=== PATIENT | female | born 1955 ===

== ENCOUNTER 2023-06-08 20:06 | Inpatient (IN) | payer MEDICARE, SELFPAY ==
--- NOTE | ~2023-06-08 | MR_ITS ---
EXAMINATION: MR BRAIN WITHOUT AND WITH CONTRAST CLINICAL INFORMATION: Rapid cognitive decline. COMPARISON: CT head from 08/21/2023. Brain MRI from 04/23/2021. TECHNIQUE: MRI of the brain was obtained using routine sequences without and following the administration of 9 mL of Gadavist intravenous contrast. FINDINGS: Moderately motion degraded exam. No focal restricted diffusion is demonstrated to suggest acute or subacute cerebral ischemia. No evidence of acute hemorrhagic products on heme-sensitive imaging. Extensive scattered small foci of susceptibility artifact throughout the bilateral cerebral hemispheres, largely sparing the deep structures. Chronic regions of encephalomalacia in the high right frontal lobe, anterior left temporal lobe, and left occipital lobe with hemosiderin staining. Confluent periventricular, deep white matter, and brainstem T2 FLAIR hyperintensity consistent with underlying microangiopathy. Proportional prominence of the ventricles and sulcal spaces without evidence of obstructive hydrocephalus. No abnormal mass effect. No midline shift. Normal appearance of the pituitary gland. Normal positioning of the cerebellar tonsils. Normal arterial and venous vascular flow voids are present. No demonstrated abnormal contrast enhancement. Normal, homogeneous marrow signal. Mild mucosal thickening of the paranasal sinuses. Small right-sided mastoid effusion. No signal abnormalities within the mastoids. MR/MR head/brain wo/w con IMPRESSION: 1. No acute intracranial abnormalities. No demonstrated abnormal intracranial enhancement. 2. Chronic regions of encephalomalacia in the right frontal lobe, left temporal lobe, and left occipital lobe. 3. Moderate to extensive underlying microangiopathy and generalized cerebral volume loss. 4. Extensive scattered foci of susceptibility artifact throughout the bilateral cerebral hemispheres as may be seen with underlying amyloid angiopathy.
--- NOTE | ~2023-06-08 | XR_ITS ---
EXAMINATION: XR CHEST CLINICAL INFORMATION: Hypoxia COMPARISON: Chest x-ray 08/21/2023 TECHNIQUE: Frontal view of the chest was obtained. FINDINGS: Patient is tilted to the left The lungs are hypoexpanded with bibasilar haziness likely atelectasis left greater than right. Heart size is borderline enlarged. Pulmonary vascularity is normal. There is blunting of left CP angle question pleural effusion or thickening. There is moderate dorsal spine spondylosis. XR/XR chest 1V IMPRESSION: Patient tilted to the left limiting evaluation. There is bibasilar atelectasis or scarring slightly greater on the left. There is mild blunting of left CP angle from pleural effusion or thickening..
--- NOTE | ~2023-06-08 | XR_ITS ---
EXAMINATION: XR CHEST CLINICAL INFORMATION: Covid positive, worsening O2 sats COMPARISON: Chest radiograph 08/23/2023. TECHNIQUE: Frontal view of the chest was obtained. FINDINGS: Mild scattered coarse reticular opacities, likely related to chronic lung disease. No new, focal consolidation. Unchanged blunting of the left costophrenic angle. No pneumothorax. Cardiomediastinal silhouette is unchanged. XR/XR chest 1V IMPRESSION: Redemonstrated mild scattered coarse reticular opacities, likely related to chronic lung disease. No new, focal consolidation.
[2023-06-08 21:47] VITALS: BP 152/95; PULSE 90; RESP 20; TEMP 36; O2SAT 95
[2023-06-08 22:21] VITALS: BMI 39.0
--- NOTE | 2023-06-08 23:02 | PC.ADMIT ---
Pt arrived via stretcher from [facility] 06/08/23 at 2020 and signed a CV, Pt presents with Adjustment d/o. Pt was pulled over by police for running a red light and was brought to [facility] ED when they found her to be confused and disorganized. On admission, PT was A&O to person and time, thought she was at [facility], and has limited insight into her disposition. She denies HI, SI, AH, and VH. Quit smoking 30 years ago, reports limited drinking HX. Last drink 6 weeks ago. Pt knows Juan Mancini is president. She feels Sharon Adamson is the best president we ever had and supported her position sensibly and logically. She made good eye contact and was pleasant/cooperative with admission process. Pt was confused/disorganized, hyperverbal and tangential, but not intrusively so, when discussing her placement. Pt declined her HS Zyprexa. Pt seems to have some short term memory deficit. Her son (HCP) has concerns about her driving and ability to safely maintain independence at home. Medical issues: a.fib, HTN, Hx Intraparenchymal Hemorrhage 04/2021, and Vertigo.
[2023-06-09 07:00] VITALS: BMI 39.1
[2023-06-09 08:00] VITALS: BP 143/74; RESP 18; TEMP 36.8; O2SAT 95
[2023-06-09 08:06] LABS: Estimated Average Glucose 94 mg/dL; Hemoglobin A1c % 4.9 % (<6.0)
[2023-06-09 08:20] LABS: Alanine Aminotransferase 20 U/L (0-31); Albumin Level 3.8 g/dL (3.5-5.0); Alkaline Phosphatase 81 U/L (39-117); Anion Gap 13 (12-20); Aspartate Amino Transferase 20 U/L (5-31); Bilirubin Total 0.8 mg/dL (0.0-1.0); Blood Urea Nitrogen 18 mg/dL (9-16); Calcium 9.6 mg/dL (8.4-10.2); Carbon Dioxide 22 mmol/L (22-29); Chloride 108 mmol/L (96-108); Cholesterol 140 mg/dL (<200); Creatinine Clr Calc Pharmacy 87.4; Estimated Glomerular Filt Rate > 60; Glucose Fasting 109 mg/dL (60-99); HDL Cholesterol 45 mg/dL (>40); LDL Cholesterol Calculated 85 mg/dL (<100); Magnesium 2.3 mg/dL (1.6-2.6); Potassium 4.6 mmol/L (3.3-5.1); Sodium 138 mmol/L (135-145); Total Protein 6.4 g/dL (6.5-8.0); Triglycerides 52 mg/dL (<150)
[2023-06-09] MEDS: lisinopriL 5 MG TABLET PO (08:30)
[2023-06-09] MEDS: Aspirin 81 MG TAB.CHEW PO (08:30)
[2023-06-09] MEDS: Pyridoxine HCl (Vitamin B6) 50 MG TABLET PO (08:30)
[2023-06-09 08:35] LABS: Thyroid Stimulating Hormone 4.31 uIU/mL (0.32-4.0)
[2023-06-09 08:47] LABS: Folate 6.1 ng/mL (> or = 4.0); Vitamin B12 653 pg/mL (200-900)
--- NOTE | 2023-06-09 09:45 | HO.PSYADMNOT ---
HPI Date of Service: 06/09/23 Chief Complaint: Adjustment disorders Sources of Information: patient interviewed, chart reviewed and crisis/core team assessment reviewed HPI Subjective Notes: Smith Warning (given and shows understanding) and Conditional Voluntary Narrative: Mrs. Quintanilla us a 68 year-old woman with hx of afib (hx of intraparenchymal hemorrhage only on aspirin can't take eliquis) who was brought to [facility] ED after she was stopped by police for running a red light and found to be confused, non sensical. In the ED, pt was positive for covid. She was medically admitted and started on 3 day course of Remdesivir. No significant symptoms of covid nor complications. [facility] completed MOCA- pt scored 8/30. Pt was started on olanzapine 5mg po qhs at [facility]. On the unit, pt presents as hyperverbal. She is frustrated that the police brought her to that place. She reports she believes this is financially motivated as there is nothing wrong with me. She is not oriented to place and at times reports thinks this is a hotel. She reports she works in real [employer] and is making close to millions. She states she has to go back home due to work. She can't remember the address of her house. She does not know the month or the year. She denies SI/HI. She reports she plans to gray everyone involved, I am already working with 10 attorneys. 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 Substance History: Hx of alcohol use Trauma History: none disclosed Diagnostics Vital Signs (24Hr): Vital Signs - 24 hr 06/08/23 21:47 Temperature 96.8 F Pulse Rate 90 Respiratory Rate 20 Blood Pressure 152/95 H Pulse Oximetry 95 Oxygen Delivery Method Room Air BMI result Body Mass Index 39.0 Labs 06/09/23 07:49 Labs: Laboratory Results - last 48 hr 06/09/23 07:49 Sodium 138 Potassium 4.6 Chloride 108 Carbon Dioxide 22 Anion Gap 13 BUN 18 H Creatinine 0.65 Estim Creat Clear Calc 87.4 Estimated GFR > 60 Fasting Glucose 109 H Estimat Average Glucose 94 Hemoglobin A1c % 4.9 Calcium 9.6 Magnesium 2.3 Total Bilirubin 0.8 AST 20 ALT 20 Alkaline Phosphatase 81 Total Protein 6.4 L Albumin 3.8 Triglycerides 52 Cholesterol 140 LDL Cholesterol, Calc 85 HDL Cholesterol 45 Vitamin B12 653 Folate 6.1 TSH 4.31 H Free T4 0.90 Meds/Allergies Meds Home Medications Medication Instructions Recorded Confirmed Type aspirin 81 mg capsule 81 mg PO DAILY 06/08/23 06/08/23 History lisinopril 5 mg tablet 5 mg PO DAILY 06/08/23 06/08/23 History melatonin 5 mg tablet 5 mg PO BEDTIME PRN Sleep 06/08/23 06/08/23 History olanzapine 5 mg disintegrating 5 mg PO BEDTIME 06/08/23 06/08/23 History tablet olanzapine 5 mg disintegrating 5 mg PO Q4H PRN Sole 06/08/23 06/08/23 History tablet pyridoxine (vitamin B6) 50 mg 50 mg PO DAILY 06/08/23 06/08/23 History tablet Allergies Allergies Allergy/AdvReac Type Severity Reaction Status Date / Time No Known Allergies Allergy Verified 06/08/23 20:39 Mental Status Exam Mental Status Exam Narrative: Appearance: wearing casual clothing, good hygiene, in NAD Behavior: cooperative, at times suspicious Psychomotor: no agitation or retardation noted Speech: mostly clear, hyperverbal, not pressured, regular tone, spontaneous TP: circumstantial, at times derailed TC: preoccupied with making thousands, no insight into behavior changes or cognitive impairments, suspicious about why police brought her to hospital which she thinks is financially motivated. Mood: good Affect: expansive SI: denies HI: denies VH/AH: no overt signs Delusions: some grandiose with idea of being able to make millions when in fact not able to work as she used to, some suspiciousness and paranoia towards anyone who challenges her cognitive impairments or independence. Insight/judgment: impaired x 2. Memory/cog: alert, not oriented to situation, month, or year. MOCA 04/13. ACL 3.2- severe cognitive impairment. Assessment & Plan Assessment & Plan (1) Major 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 Quintanilla is a 68 year-old woman with hx of hemorrhagic stroke back in 05/2021 on right side frontal lobe- progressive decline in cognition and memory and personality changes including impulsive behaviors, preoccupation with money, unable manage finances difficulty recognizing use of common objects and not oriented to month or year or place. Her head CT also shows periventricular microvascular changes probably that preceded the CVA in 2020 but most of her impairments seemed to be related to legion on right frontal side of the brain. Her son is her HCP. Pt does not show capacity to make medical decisions at this time. Cognitive impairments not expected to improve nor her ability to make medical decisions. PLAN 1. Admit to S1, CV and 15 minutes checks for safety 2. Discussed with son, as HCP and pt depakote for impulsive, explosive behaviors, some of the grandiose ideas related to money. No signs of psychosis. No insight into extend of cognitive impairment and impaired ability to care for herself. 3. Obtained collateral information from her son- Yamil. 4. Aftercare planning. Patient educated on: diagnosis and medication risk/benefits Reason for continued inpatient stay Substantial Risk for: inability to function Statement Statement: I have reviewed the history and physical and performed a pertinent examination on my patient. No changes have occurred unless specified. If the History and Physical was not performed prior to admission, the Hospitalist's service will be consulted for completing the admission physical. Time Spent With Patient Time: Total time managing care of this patient today ____ minutes.
--- NOTE | 2023-06-09 11:35 | P.CONHOSP_ITS ---
History of Present Illness Data of Consult Service Date: 06/09/23 Primary Care Provider: Unknown Physician HPI Reason for consult: Admission H&P Pt is a 68-year-old female with a PMH significant for?HTN and dementia who is admitted to [facility] after being found running red lights and being confused after she was pulled over. Pt has apparently had worsening cognition over the past 10 months with increasing OCD and sundowning behaviors. Pt has been noncompliant with home meds and son has found it increasingly difficult to take care of his mother. Medical consult for admission H&P. Pt is incapable of providing accure HPI. State she is healthy as a horse but notes her right knee is sometimes bothersome , though denies any pain in the area. Pt otherwise denies any acute medical concerns. Review of Systems 2 Review of Systems: Unable to obtain d/t pt's mentation [facility] Medical History Hypertension Atrial fibrillation Social History Household Members: None Housing: House Do you presently have visiting nurse or other home services: No Patient Tobacco Use Status: Former Tobacco user Tobacco use type: Cigarette Cigarettes Per Day: 20 Years Smoked: 30 Smoked in Last 30 Days: No e-Cigarette/Vaping Use: Never Used Patient Interested in Nicotine Replacement: No Patient Given Instructions on How to Stop Smoking: No Use of substances other than those prescribed or required for medical reasons: No Currently Displaying Signs/Symptoms of Drug Intoxication Withdrawal: No Any prior treatment program specific to substance use: No Have you been hit, kicked, punched, or otherwise hurt by someone within the past year? If so, by whom?: No Do you feel safe in your current relationship?: Yes Is there a partner from a previous relationship who is making you feel unsafe now?: No Are you made to feel afraid or neglected: No Spiritual Healthcare Practices: Likes sister Kirsty Advance Directives: No Advance Directives Information Provided: No Do you have thoughts of harming others: None Do you have a plan to hurt others: No Plan Recently lost weight without trying: No Eating poorly because of decreased appetite: No Nutrition Risks: No Nutritional Risk Patient : No : No Poor oral hygiene: No service: No Sexual orientation: Straight/Heterosexual Meds Allergies Allergy/AdvReac Type Severity Reaction Status Date / Time No Known Allergies Allergy Verified 06/08/23 20:39 Active Medications: Current Medications Acetaminophen (Acetaminophen 325 Mg Tablet) 650 mg PO Q6H PRN PRN Reason: Headache/Pain Mild Scale (1-3) Al Hydroxide/Mg Hydroxide (Magnesium Hydrox/Alum Hydrox 30 Ml Oral.Susp) 30 ml PO Q6H PRN PRN Reason: Heartburn/Nausea Aspirin (Aspirin 81 Mg Tab.Chew) 81 mg PO DAILY [facility] Last Admin: 06/09/23 08:30 Dose: 81 mg Hydroxyzine HCl (Hydroxyzine Hcl 25 Mg Tablet) 25 mg PO Q6H PRN PRN Reason: Anxiety Lisinopril (Lisinopril 5 Mg Tablet) 5 mg PO DAILY [facility]; Protocol Last Admin: 06/09/23 08:30 Dose: 5 mg Magnesium Hydroxide (Milk Of Magnesia 30 Ml Oral.Susp) 30 ml PO DAILY PRN PRN Reason: Constipation Melatonin (Melatonin 3 Mg Tablet) 6 mg PO BEDTIME PRN PRN Reason: Sleep Olanzapine (Olanzapine 5 Mg Tablet) 5 mg PO BEDTIME [facility] Last Admin: 06/08/23 22:32 Dose: Not Given Olanzapine (Olanzapine 5 Mg Tablet) 5 mg PO Q4H PRN PRN Reason: agitation Pyridoxine HCl (Pyridoxine Hcl (Vitamin B6) 50 Mg Tablet) 50 mg PO DAILY [facility] Last Admin: 06/09/23 08:30 Dose: 50 mg Trazodone HCl (Trazodone Hcl 50 Mg Tablet) 50 mg PO BEDTIME MRX1 PRN PRN Reason: Insomnia Home Medications Medication Instructions Recorded Confirmed Last Taken Type aspirin 81 mg capsule 81 mg PO DAILY 06/08/23 06/08/23 06/07/23 22:40 History lisinopril 5 mg tablet 5 mg PO DAILY 06/08/23 06/08/23 06/07/23 22:40 History melatonin 5 mg tablet 5 mg PO BEDTIME PRN Sleep 06/08/23 06/08/23 06/07/23 20:15 History olanzapine 5 mg disintegrating 5 mg PO BEDTIME 06/08/23 06/08/23 Unknown History tablet olanzapine 5 mg disintegrating 5 mg PO Q4H PRN Sole 06/08/23 06/08/23 Unknown History tablet pyridoxine (vitamin B6) 50 mg 50 mg PO DAILY 06/08/23 06/08/23 06/07/23 22:40 History tablet Physical Exam 2 Vital Signs and Narrative: Vital Signs: Last Vital Signs Temp 98.3 F 06/09/23 08:00 Pulse 90 06/08/23 21:47 Resp 18 06/09/23 08:00 BP 143/74 H 06/09/23 08:00 Pulse Ox 95 06/09/23 08:00 O2 Del Method Room Air 06/09/23 08:00 BMI result Body Mass Index 39.1 Constitutional: Alert, pleasantly confused, cooperative, in no acute distress. Mental Status: Oriented to person only, not to place, time, or situation. Eyes: Pupils are equal, round, and reactive to light. Ear, Nose, and Throat: Oropharynx clear, mucous membranes moist. Ears and nose without deformities. Trachea midline. Respiratory: Clear to auscultation bilaterally. No wheezing, rales, or rhonchi. Cardiovascular: S1, S2 regular. No murmurs, rubs, or gallops. Gastrointestinal: Abdomen soft, non-tender, non-distended. Normal bowel sounds. Neurologic: Cranial nerves II-XII are grossly intact bilaterally. No focal neurological deficits. Moves all extremities spontaneously. Skin: No rashes or lesions noted. Musculoskeletal: No cyanosis or clubbing. Extremities: No edema. Results Labs 06/09/23 07:49 Labs: Laboratory Results - last 24 hr 06/09/23 07:49 Anion Gap 13 Estim Creat Clear Calc 87.4 Estimated GFR > 60 Fasting Glucose 109 H Estimat Average Glucose 94 Hemoglobin A1c % 4.9 Calcium 9.6 Magnesium 2.3 Total Bilirubin 0.8 AST 20 ALT 20 Alkaline Phosphatase 81 Total Protein 6.4 L Albumin 3.8 Triglycerides 52 Cholesterol 140 LDL Cholesterol, Calc 85 HDL Cholesterol 45 Vitamin B12 653 Folate 6.1 TSH 4.31 H Free T4 0.90 Assessment and Plan (1) Medical clearance for psychiatric admission: Status: Acute Plan Pt is a 68-year-old female with a PMH significant for?HTN and dementia who is admitted to [facility] after being found running red lights and being confused after she was pulled over. Pt has apparently had worsening cognition over the past 10 months with increasing OCD and sundowning behaviors. Pt has been noncompliant with home meds and son has found it increasingly difficult to take care of his mother. Medical consult for admission H&P. Mood disorder Plan as per psychiatry Cognitive decline Pt has apparently been declining for past 10 months Plan as per psychiatry HTN Continue lisinopril Thank you for allowing us to participate in the care of this patient. Signing off at this time. Please let us know if there are any acute complaints or questions. Time Spent With Patient Time: Total time managing care of this patient today ____ minutes.
[2023-06-09 18:00] VITALS: BP 132/77; PULSE 80; RESP 16; TEMP 36.3; O2SAT 97
[2023-06-09] MEDS: OLANZapine 5 MG TABLET PO (21:34)
[2023-06-09] MEDS: hydrOXYzine HCL 25 MG TABLET PO (21:34)
[2023-06-10] MEDS: lisinopriL 5 MG TABLET PO (08:17)
[2023-06-10] MEDS: Aspirin 81 MG TAB.CHEW PO (08:17)
[2023-06-10 18:00] VITALS: BP 135/92; PULSE 100; RESP 20; TEMP 36.6; O2SAT 96
--- NOTE | 2023-06-10 21:56 | P.PNPSI_ITS ---
Subjective Subjective Date of Service: 06/10/23 Reason For Visit: Adjustment disorders Subjective Notes: Conditional Voluntary Interim History: Pt slept through the night. Pt decline taking depakote. Pt reports is inhumane that she is kept here when police only wants money. Pt explained that after stroke she has had severe cognitive impairments. Pt states I did not have a stroke, never, that's a lie my sister is telling my son. When discussing that head imaging shows hx of stroke, she continues to report that she is fine. 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 ACL completed- 3.2 showing severe cognitive impairment. Review of Systems Review of Systems No SOB No chest pain No constipation or diarrhea Mental Status Exam Mental Status Exam Narrative: Appearance: wearing casual clothing, good hygiene, in NAD Behavior: cooperative, at times suspicious Psychomotor: no agitation or retardation noted Speech: mostly clear, hyperverbal, not pressured, regular tone, spontaneous TP: circumstantial, at times derailed TC: preoccupied with making thousands, no insight into behavior changes or cognitive impairments, suspicious about why police brought her to hospital which she thinks is financially motivated. Mood: good Affect: expansive SI: denies HI: denies VH/AH: no overt signs Delusions: some grandiose with idea of being able to make millions when in fact not able to work as she used to, some suspiciousness and paranoia towards anyone who challenges her cognitive impairments or independence. Insight/judgment: impaired x 2. Memory/cog: alert, not oriented to situation, month, or year. MOCA 04/13. ACL 3.2- severe cognitive impairment. Diagnostics Vital Signs (24Hr): BMI result Body Mass Index 39.1 Labs 06/09/23 07:49 Labs: Laboratory Results - last 48 hr 06/09/23 07:49 Sodium 138 Potassium 4.6 Chloride 108 Carbon Dioxide 22 Anion Gap 13 BUN 18 H Creatinine 0.65 Estim Creat Clear Calc 87.4 Estimated GFR > 60 Fasting Glucose 109 H Estimat Average Glucose 94 Hemoglobin A1c % 4.9 Calcium 9.6 Magnesium 2.3 Total Bilirubin 0.8 AST 20 ALT 20 Alkaline Phosphatase 81 Total Protein 6.4 L Albumin 3.8 Triglycerides 52 Cholesterol 140 LDL Cholesterol, Calc 85 HDL Cholesterol 45 Vitamin B12 653 Folate 6.1 TSH 4.31 H Free T4 0.90 Medications Medications Current Medications Acetaminophen (Acetaminophen 325 Mg Tablet) 650 mg PO Q6H PRN PRN Reason: Headache/Pain Mild Scale (1-3) Al Hydroxide/Mg Hydroxide (Magnesium Hydrox/Alum Hydrox 30 Ml Oral.Susp) 30 ml PO Q6H PRN PRN Reason: Heartburn/Nausea Aspirin (Aspirin 81 Mg Tab.Chew) 81 mg PO DAILY ON LICENSE OF [facility] Last Admin: 06/10/23 08:17 Dose: 81 mg Divalproex Sodium (Divalproex Sodium 250 Mg Tablet.Dr) 250 mg PO BID ON LICENSE OF [facility] Last Admin: 06/10/23 20:06 Dose: Not Given Hydroxyzine HCl (Hydroxyzine Hcl 25 Mg Tablet) 25 mg PO Q6H PRN PRN Reason: Anxiety Last Admin: 06/09/23 21:34 Dose: 25 mg Lisinopril (Lisinopril 5 Mg Tablet) 5 mg PO DAILY ON LICENSE OF [facility]; Protocol Last Admin: 06/10/23 08:17 Dose: 5 mg Magnesium Hydroxide (Milk Of Magnesia 30 Ml Oral.Susp) 30 ml PO DAILY PRN PRN Reason: Constipation Melatonin (Melatonin 3 Mg Tablet) 6 mg PO BEDTIME PRN PRN Reason: Sleep Olanzapine (Olanzapine 5 Mg Tablet) 5 mg PO BEDTIME ON LICENSE OF [facility] Last Admin: 06/10/23 20:07 Dose: Not Given Olanzapine (Olanzapine 5 Mg Tablet) 5 mg PO Q4H PRN PRN Reason: agitation Pyridoxine HCl (Pyridoxine Hcl (Vitamin B6) 50 Mg Tablet) 50 mg PO DAILY ON LICENSE OF [facility] Last Admin: 06/10/23 08:19 Dose: Not Given Trazodone HCl (Trazodone Hcl 50 Mg Tablet) 50 mg PO BEDTIME MRX1 PRN PRN Reason: Insomnia Allergies Allergies Allergy/AdvReac Type Severity Reaction Status Date / Time No Known Allergies Allergy Verified 06/08/23 20:39 Assessment & Plan Assessment & Plan (1) Major 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 Quintanilla is a 68 year-old woman with hx of hemorrhagic stroke back in 05/2021 with significant lesion on right frontal lobe. Cognitive and personality changes after that with progression in the past 10 months. MOCA is 04/13. Significant impairments in impulsivity, rational thinking, ability to manage finances, preoccupied with money, impaired orientation. PLAN 1. admit to S1, cv, 15 minutes. HCP invoked. 2. continue depakote, although pt declining. 3. aftercare planning- family meeting on 06/13/23. Reason for continued inpatient stay Substantial Risk for: inability to function Time Spent With Patient Time: Total time managing care of this patient today ____ minutes.
[2023-06-11] MEDS: Aspirin 81 MG TAB.CHEW PO (08:25)
[2023-06-11] MEDS: Divalproex Sodium 250 MG TABLET.DR PO (08:25)
[2023-06-11] MEDS: lisinopriL 5 MG TABLET PO (08:25)
[2023-06-11] MEDS: Pyridoxine HCl (Vitamin B6) 50 MG TABLET PO (08:25)
--- NOTE | 2023-06-11 12:06 | HO.PSYCHPN ---
Subjective Subjective Date of Service: 06/11/23 Reason For Visit: Adjustment disorders Subjective Notes: Conditional Voluntary Interim History: Patient was seen and discussed in rounds today. Records and plans were reviewed. She has been taking medications with a lot of encouragement. Refused vital signs. She continues to be suspicious. She took her medications this morning. No complaints or side effects. No changes were made Medication Compliance: Intermittent Side effects from medications: No Attending Groups: Intermittent Review of Systems Review of Systems Yes all other systems are reviewed and are negative Mental Status Exam Mental Status Exam Narrative: In today's visit she is alert, oriented to place and person. Speech is normal. Good eye contact. Affect is appropriate and varied. No signs of acute psychosis. Some paranoia present. Cognitively is impaired. Thought processes are linear and goal directed but somewhat tangential and circumstantial. No SI. Judgment is impaired. Diagnostics Vital Signs (24Hr): Vital Signs - 24 hr 06/10/23 18:00 Temperature 97.8 F Pulse Rate 100 Respiratory Rate 20 Blood Pressure 135/92 H Pulse Oximetry 96 Oxygen Delivery Method Room Air BMI result Body Mass Index 39.1 Labs 06/09/23 07:49 Medications Medications Current Medications Acetaminophen (Acetaminophen 325 Mg Tablet) 650 mg PO Q6H PRN PRN Reason: Headache/Pain Mild Scale (1-3) Al Hydroxide/Mg Hydroxide (Magnesium Hydrox/Alum Hydrox 30 Ml Oral.Susp) 30 ml PO Q6H PRN PRN Reason: Heartburn/Nausea Aspirin (Aspirin 81 Mg Tab.Chew) 81 mg PO DAILY [facility] Last Admin: 06/11/23 08:25 Dose: 81 mg Divalproex Sodium (Divalproex Sodium 250 Mg Tablet.) 250 mg PO BID [facility] Last Admin: 06/11/23 08:25 Dose: 250 mg Hydroxyzine HCl (Hydroxyzine Hcl 25 Mg Tablet) 25 mg PO Q6H PRN PRN Reason: Anxiety Last Admin: 06/09/23 21:34 Dose: 25 mg Lisinopril (Lisinopril 5 Mg Tablet) 5 mg PO DAILY [facility]; Protocol Last Admin: 06/11/23 08:25 Dose: 5 mg Magnesium Hydroxide (Milk Of Magnesia 30 Ml Oral.Susp) 30 ml PO DAILY PRN PRN Reason: Constipation Melatonin (Melatonin 3 Mg Tablet) 6 mg PO BEDTIME PRN PRN Reason: Sleep Olanzapine (Olanzapine 5 Mg Tablet) 5 mg PO BEDTIME [facility] Last Admin: 06/10/23 20:07 Dose: Not Given Olanzapine (Olanzapine 5 Mg Tablet) 5 mg PO Q4H PRN PRN Reason: agitation Pyridoxine HCl (Pyridoxine Hcl (Vitamin B6) 50 Mg Tablet) 50 mg PO DAILY [facility] Last Admin: 06/11/23 08:25 Dose: 50 mg Trazodone HCl (Trazodone Hcl 50 Mg Tablet) 50 mg PO BEDTIME MRX1 PRN PRN Reason: Insomnia Allergies Allergies Allergy/AdvReac Type Severity Reaction Status Date / Time No Known Allergies Allergy Verified 06/08/23 20:39 Assessment & Plan Assessment & Plan (1) Major 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 Quintanilla is a 68 year-old woman with hx of hemorrhagic stroke back in 05/2021 with significant lesion on right frontal lobe. Cognitive and personality changes after that with progression in the past 10 months. MOCA is 8/30. Significant impairments in impulsivity, rational thinking, ability to manage finances, preoccupied with money, impaired orientation. PLAN 1. admit to S1, cv, 15 minutes. HCP invoked. 2. continue depakote, although pt declining. 3. aftercare planning- family meeting on 06/13/23. 06/11: Continue current regimen and plans Reason for continued inpatient stay Substantial Risk for: med/psych decompensation Time Spent With Patient Time: Total time managing care of this patient today ____ minutes.
[2023-06-11] MEDS: OLANZapine 5 MG TABLET PO (17:46)
[2023-06-11] MEDS: hydrOXYzine HCL 25 MG TABLET PO (17:46)
[2023-06-11 18:00] VITALS: BP 150/80; PULSE 94; RESP 16; TEMP 37.3; O2SAT 95
[2023-06-11] MEDS: LORazepam 1 MG TABLET 2 MG PO (20:36)
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
--- NOTE | 2023-06-12 10:15 | P.PNPSI_ITS ---
Subjective Subjective Date of Service: 06/12/23 Reason For Visit: Adjustment disorders Subjective Notes: Conditional Voluntary Interim History: Patient was seen and discussed in rounds today. Records and plans were reviewed. She continues to be somewhat paranoid. Taking medications with encouragement. She was awake till 02:00 and than a 2 mg dose of Ativan was very helpful and she slept all night after that. No complaints or side effects. Intermittently cooperative with care. No changes were made today Medication Compliance: Intermittent Side effects from medications: No Attending Groups: Intermittent Review of Systems Review of Systems Yes all other systems are reviewed and are negative Mental Status Exam Mental Status Exam Narrative: In today's visit she is alert, oriented to place and person. Speech is normal. Good eye contact. Affect is appropriate and varied. No signs of acute psychosis. Some paranoia present. Cognitively is impaired. Thought processes are linear and goal directed but somewhat tangential and circumstantial. No SI. Judgment is impaired. Diagnostics Vital Signs (24Hr): Vital Signs - 24 hr 06/11/23 18:00 Temperature 99.2 F Pulse Rate 94 Respiratory Rate 16 Blood Pressure 150/80 H Pulse Oximetry 95 Oxygen Delivery Method Room Air BMI result Body Mass Index 39.1 Labs 06/09/23 07:49 Medications Medications Current Medications Acetaminophen (Acetaminophen 325 Mg Tablet) 650 mg PO Q6H PRN PRN Reason: Headache/Pain Mild Scale (1-3) Al Hydroxide/Mg Hydroxide (Magnesium Hydrox/Alum Hydrox 30 Ml Oral.Susp) 30 ml PO Q6H PRN PRN Reason: Heartburn/Nausea Aspirin (Aspirin 81 Mg Tab.Chew) 81 mg PO DAILY [facility] Last Admin: 06/11/23 08:25 Dose: 81 mg Divalproex Sodium (Divalproex Sodium 250 Mg Tablet.Dr) 250 mg PO BID [facility] Last Admin: 06/11/23 20:39 Dose: Not Given Hydroxyzine HCl (Hydroxyzine Hcl 25 Mg Tablet) 25 mg PO Q6H PRN PRN Reason: Anxiety Last Admin: 06/11/23 17:46 Dose: 25 mg Lisinopril (Lisinopril 5 Mg Tablet) 5 mg PO DAILY [facility]; Protocol Last Admin: 06/11/23 08:25 Dose: 5 mg Magnesium Hydroxide (Milk Of Magnesia 30 Ml Oral.Susp) 30 ml PO DAILY PRN PRN Reason: Constipation Melatonin (Melatonin 3 Mg Tablet) 6 mg PO BEDTIME PRN PRN Reason: Sleep Olanzapine (Olanzapine 5 Mg Tablet) 5 mg PO BEDTIME [facility] Last Admin: 06/11/23 20:39 Dose: Not Given Olanzapine (Olanzapine 5 Mg Tablet) 5 mg PO Q4H PRN PRN Reason: agitation Last Admin: 06/11/23 17:46 Dose: 5 mg Pyridoxine HCl (Pyridoxine Hcl (Vitamin B6) 50 Mg Tablet) 50 mg PO DAILY [facility] Last Admin: 06/11/23 08:25 Dose: 50 mg Trazodone HCl (Trazodone Hcl 50 Mg Tablet) 50 mg PO BEDTIME MRX1 PRN PRN Reason: Insomnia Allergies Allergies Allergy/AdvReac Type Severity Reaction Status Date / Time No Known Allergies Allergy Verified 06/08/23 20:39 Assessment & Plan Assessment & Plan (1) Major 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 Quintanilla is a 68 year-old woman with hx of hemorrhagic stroke back in 05/2021 with significant lesion on right frontal lobe. Cognitive and personality changes after that with progression in the past 10 months. MOCA is 8/30. Significant impairments in impulsivity, rational thinking, ability to manage finances, preoccupied with money, impaired orientation. PLAN 1. admit to S1, cv, 15 minutes. HCP invoked. 2. continue depakote, although pt declining. 3. aftercare planning- family meeting on 06/13/23. 06/11: Continue current regimen and plans 06/12: Continue current plans and regimen Reason for continued inpatient stay Substantial Risk for: med/psych decompensation Time Spent With Patient Time: Total time managing care of this patient today ____ minutes.
[2023-06-12] MEDS: hydrOXYzine HCL 25 MG TABLET PO (14:34)
[2023-06-12] MEDS: OLANZapine 5 MG TABLET PO (14:34)
[2023-06-12] MEDS: Divalproex Sodium 250 MG TABLET.DR PO (21:38)
[2023-06-12] MEDS: traZODone HCL 50 MG TABLET PO (21:38)
[2023-06-13] MEDS: OLANZapine 5 MG TABLET PO ×3 (00:36→20:59)
[2023-06-13] MEDS: Melatonin 3 MG TABLET 6 MG PO (02:31)
[2023-06-13] MEDS: hydrOXYzine HCL 25 MG TABLET PO (02:31)
[2023-06-13 08:00] VITALS: BP 143/80; PULSE 69; RESP 18; TEMP 36; O2SAT 97
[2023-06-13] MEDS: Aspirin 81 MG TAB.CHEW PO (08:40)
[2023-06-13] MEDS: Pyridoxine HCl (Vitamin B6) 50 MG TABLET PO (08:40)
[2023-06-13] MEDS: Divalproex Sodium 250 MG TABLET.DR PO (08:40)
[2023-06-13] MEDS: lisinopriL 5 MG TABLET PO (08:40)
--- NOTE | 2023-06-13 08:55 | HO.PSYCHPN ---
Subjective Subjective Date of Service: 06/13/23 Reason For Visit: Adjustment disorders Healthcare Proxy: Yes (invoked. 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 She denies SI/HI. She is not oriented to place or situation. She socializes with select peers. She is very guarded with staff. She does not remember role of this television script writer asking to speak with the doctor. Family meeting with son- reviewed severe cognitive impairments and inability to live by herself. Pt started taking depakote. No other behavioral concerns. Mental Status Exam Mental Status Exam Narrative: Appearance: wearing casual clothing, good hygiene, in NAD Behavior: cooperative, at times suspicious Psychomotor: no agitation or retardation noted Speech: mostly clear, hyperverbal, not pressured, regular tone, spontaneous TP: circumstantial, at times derailed TC: preoccupied with making thousands, no insight into behavior changes or cognitive impairments, suspicious about why police brought her to hospital which she thinks is financially motivated. Mood: good Affect: expansive SI: denies HI: denies VH/AH: no overt signs Delusions: some grandiose with idea of being able to make millions when in fact not able to work as she used to, some suspiciousness and paranoia towards anyone who challenges her cognitive impairments or independence. Insight/judgment: impaired x 2. Memory/cog: alert, not oriented to situation, month, or year. MOCA 04/13. ACL 3.2- severe cognitive impairment. Diagnostics Vital Signs (24Hr): Vital Signs - 24 hr 06/13/23 08:00 Temperature 96.8 F Pulse Rate 69 Respiratory Rate 18 Blood Pressure 143/80 H Pulse Oximetry 97 Oxygen Delivery Method Room Air BMI result Body Mass Index 39.1 Labs 06/09/23 07:49 Medications Medications Current Medications Acetaminophen (Acetaminophen 325 Mg Tablet) 650 mg PO Q6H PRN PRN Reason: Headache/Pain Mild Scale (1-3) Al Hydroxide/Mg Hydroxide (Magnesium Hydrox/Alum Hydrox 30 Ml Oral.Susp) 30 ml PO Q6H PRN PRN Reason: Heartburn/Nausea Aspirin (Aspirin 81 Mg Tab.Chew) 81 mg PO DAILY [facility] Last Admin: 06/13/23 08:40 Dose: 81 mg Divalproex Sodium (Divalproex Sodium 250 Mg Tablet.Dr) 250 mg PO BID [facility] Last Admin: 06/13/23 08:40 Dose: 250 mg Hydroxyzine HCl (Hydroxyzine Hcl 25 Mg Tablet) 25 mg PO Q6H PRN PRN Reason: Anxiety Last Admin: 06/13/23 02:31 Dose: 25 mg Lisinopril (Lisinopril 5 Mg Tablet) 5 mg PO DAILY [facility]; Protocol Last Admin: 06/13/23 08:40 Dose: 5 mg Magnesium Hydroxide (Milk Of Magnesia 30 Ml Oral.Susp) 30 ml PO DAILY PRN PRN Reason: Constipation Melatonin (Melatonin 3 Mg Tablet) 6 mg PO BEDTIME PRN PRN Reason: Sleep Last Admin: 06/13/23 02:31 Dose: 6 mg Olanzapine (Olanzapine 5 Mg Tablet) 5 mg PO BEDTIME [facility] Last Admin: 06/13/23 00:36 Dose: 5 mg Olanzapine (Olanzapine 5 Mg Tablet) 5 mg PO Q4H PRN PRN Reason: agitation Last Admin: 06/13/23 02:31 Dose: 5 mg Pyridoxine HCl (Pyridoxine Hcl (Vitamin B6) 50 Mg Tablet) 50 mg PO DAILY [facility] Last Admin: 06/13/23 08:40 Dose: 50 mg Trazodone HCl (Trazodone Hcl 50 Mg Tablet) 50 mg PO BEDTIME MRX1 PRN PRN Reason: Insomnia Last Admin: 06/12/23 21:38 Dose: 50 mg Allergies Allergies Allergy/AdvReac Type Severity Reaction Status Date / Time No Known Allergies Allergy Verified 06/08/23 20:39 Assessment & Plan Assessment & Plan (1) Major 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 Quintanilla is a 68 year-old woman with hx of hemorrhagic stroke back in 05/2021 with significant lesion on right frontal lobe. Cognitive and personality changes after that with progression in the past 10 months. MOCA is 830. Significant impairments in impulsivity, rational thinking, ability to manage finances, preoccupied with money, impaired orientation. PLAN 06/11: Continue current regimen and plans 06/12: Continue current plans and regimen 06/13 increase depakote to 500mg po BID. Reason for continued inpatient stay Substantial Risk for: inability to function Time Spent With Patient Time: Total time managing care of this patient today ____ minutes.
[2023-06-13 18:00] VITALS: BP 161/79; PULSE 66; RESP 20; TEMP 35.9; O2SAT 97
[2023-06-13] MEDS: Divalproex Sodium 500 MG TABLET.DR PO (21:00)
[2023-06-14] MEDS: Divalproex Sodium 500 MG TABLET.DR PO ×2 (08:22→19:59)
[2023-06-14] MEDS: Pyridoxine HCl (Vitamin B6) 50 MG TABLET PO (08:22)
[2023-06-14] MEDS: lisinopriL 5 MG TABLET PO (08:22)
[2023-06-14] MEDS: Aspirin 81 MG TAB.CHEW PO (08:22)
[2023-06-14] MEDS: OLANZapine 5 MG TABLET PO ×2 (10:32→20:01)
[2023-06-14] MEDS: hydrOXYzine HCL 25 MG TABLET PO (10:32)
--- NOTE | 2023-06-14 17:54 | P.PNPSI_ITS ---
Subjective Subjective Date of Service: 06/14/23 Reason For Visit: Adjustment disorders Subjective Notes: Conditional Voluntary Healthcare Proxy: Yes (invoked) Interim History: Pt visible on the unit, social with select peers, asking to leave. She declined taking with this scientific writer states you're only 10 She is not oriented to situation, place, month or year. No physical concerns. VS stable. taking medications more consistently with encouragement. Medication Compliance: Intermittent Review of Systems Review of Systems No SOB No chest pain No constipation or diarrhea Yes all other systems are reviewed and are negative Mental Status Exam Mental Status Exam Narrative: Appearance: wearing casual clothing, good hygiene, in NAD Behavior: cooperative, at times suspicious Psychomotor: no agitation or retardation noted Speech: mostly clear, hyperverbal, not pressured, regular tone, spontaneous TP: circumstantial, at times derailed TC: preoccupied with making thousands, no insight into behavior changes or cognitive impairments, suspicious about why police brought her to hospital which she thinks is financially motivated. Mood: good Affect: expansive SI: denies HI: denies VH/AH: no overt signs Delusions: some grandiose with idea of being able to make millions when in fact not able to work as she used to, some suspiciousness and paranoia towards anyone who challenges her cognitive impairments or independence. Insight/judgment: impaired x 2. Memory/cog: alert, not oriented to situation, month, or year. MOCA 04/13. ACL 3.2- severe cognitive impairment. Diagnostics Vital Signs (24Hr): Vital Signs - 24 hr 06/13/23 18:00 Temperature 96.7 F L Pulse Rate 66 Respiratory Rate 20 Blood Pressure 161/79 H Pulse Oximetry 97 Oxygen Delivery Method Room Air BMI result Body Mass Index 39.1 Labs 06/09/23 07:49 Medications Medications Current Medications Acetaminophen (Acetaminophen 325 Mg Tablet) 650 mg PO Q6H PRN PRN Reason: Headache/Pain Mild Scale (1-3) Al Hydroxide/Mg Hydroxide (Magnesium Hydrox/Alum Hydrox 30 Ml Oral.Susp) 30 ml PO Q6H PRN PRN Reason: Heartburn/Nausea Aspirin (Aspirin 81 Mg Tab.Chew) 81 mg PO DAILY [facility] Last Admin: 06/14/23 08:22 Dose: 81 mg Divalproex Sodium (Divalproex Sodium 500 Mg Tablet.) 500 mg PO BID [facility] Last Admin: 06/14/23 08:22 Dose: 500 mg Hydroxyzine HCl (Hydroxyzine Hcl 25 Mg Tablet) 25 mg PO Q6H PRN PRN Reason: Anxiety Last Admin: 06/14/23 10:32 Dose: 25 mg Lisinopril (Lisinopril 5 Mg Tablet) 5 mg PO DAILY [facility]; Protocol Last Admin: 06/14/23 08:22 Dose: 5 mg Magnesium Hydroxide (Milk Of Magnesia 30 Ml Oral.Susp) 30 ml PO DAILY PRN PRN Reason: Constipation Melatonin (Melatonin 3 Mg Tablet) 6 mg PO BEDTIME PRN PRN Reason: Sleep Last Admin: 06/13/23 02:31 Dose: 6 mg Olanzapine (Olanzapine 5 Mg Tablet) 5 mg PO BEDTIME [facility] Last Admin: 06/13/23 20:59 Dose: 5 mg Olanzapine (Olanzapine 5 Mg Tablet) 5 mg PO Q4H PRN PRN Reason: agitation Last Admin: 06/14/23 10:32 Dose: 5 mg Pyridoxine HCl (Pyridoxine Hcl (Vitamin B6) 50 Mg Tablet) 50 mg PO DAILY [facility] Last Admin: 06/14/23 08:22 Dose: 50 mg Trazodone HCl (Trazodone Hcl 50 Mg Tablet) 50 mg PO BEDTIME MRX1 PRN PRN Reason: Insomnia Last Admin: 06/12/23 21:38 Dose: 50 mg Allergies Allergies Allergy/AdvReac Type Severity Reaction Status Date / Time No Known Allergies Allergy Verified 06/08/23 20:39 Assessment & Plan Assessment & Plan (1) Major 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 Quintanilla is a 68 year-old woman with hx of hemorrhagic stroke back in 05/2021 with significant lesion on right frontal lobe. Cognitive and personality changes after that with progression in the past 10 months. MOCA is 30. Significant impairments in impulsivity, rational thinking, ability to manage finances, preoccupied with money, impaired orientation. PLAN 06/11: Continue current regimen and plans 06/12: Continue current plans and regimen 06/13 increase depakote to 500mg po BID. 06/14 continue tx. Reason for continued inpatient stay Substantial Risk for: inability to function Time Spent With Patient Time: Total time managing care of this patient today ____ minutes.
[2023-06-14 18:00] VITALS: BP 148/79; PULSE 68; RESP 16; TEMP 37.1; O2SAT 97
[2023-06-14] MEDS: Melatonin 3 MG TABLET 6 MG PO ×2 (19:58→20:01)
--- NOTE | 2023-06-15 09:00 | HO.PSYCHPN ---
Subjective Subjective Date of Service: 06/15/23 Reason For Visit: Adjustment disorders Subjective Notes: Conditional Voluntary Healthcare Proxy: Yes Interim History: Pt is visible on the unit, intermittently taking medications. She is not oriented to month, year or situation. She was yelling at this commercial lines underwriter what are you doing here?! get out! Pt refused to speak with this commercial lines underwriter. She has been asking to be discharged. 3 day entered- on her behalf. HCP is invoked, needs to affirmed. no insight into extend of cognitive impairments. Medication Compliance: Intermittent Review of Systems Review of Systems No SOB No chest pain No constipation or diarrhea Yes all other systems are reviewed and are negative Mental Status Exam Mental Status Exam Narrative: Appearance: wearing casual clothing, good hygiene, in NAD Behavior: cooperative, at times suspicious Psychomotor: no agitation or retardation noted Speech: mostly clear, hyperverbal, not pressured, regular tone, spontaneous TP: circumstantial, at times derailed TC: preoccupied with making thousands, no insight into behavior changes or cognitive impairments, suspicious about why police brought her to hospital which she thinks is financially motivated. Mood: good Affect: expansive SI: denies HI: denies VH/AH: no overt signs Delusions: some grandiose with idea of being able to make millions when in fact not able to work as she used to, some suspiciousness and paranoia towards anyone who challenges her cognitive impairments or independence. Insight/judgment: impaired x 2. Memory/cog: alert, not oriented to situation, month, or year. MOCA 04/13. ACL 3.2- severe cognitive impairment. Diagnostics Vital Signs (24Hr): Vital Signs - 24 hr 06/14/23 18:00 Temperature 98.8 F Pulse Rate 68 Respiratory Rate 16 Blood Pressure 148/79 H Pulse Oximetry 97 Oxygen Delivery Method Room Air BMI result Body Mass Index 39.1 Labs 06/09/23 07:49 Medications Medications Current Medications Acetaminophen (Acetaminophen 325 Mg Tablet) 650 mg PO Q6H PRN PRN Reason: Headache/Pain Mild Scale (1-3) Al Hydroxide/Mg Hydroxide (Magnesium Hydrox/Alum Hydrox 30 Ml Oral.Susp) 30 ml PO Q6H PRN PRN Reason: Heartburn/Nausea Aspirin (Aspirin 81 Mg Tab.Chew) 81 mg PO DAILY [facility] Last Admin: 06/14/23 08:22 Dose: 81 mg Divalproex Sodium (Divalproex Sodium 500 Mg Tablet.) 500 mg PO BID [facility] Last Admin: 06/14/23 19:59 Dose: 500 mg Hydroxyzine HCl (Hydroxyzine Hcl 25 Mg Tablet) 25 mg PO Q6H PRN PRN Reason: Anxiety Last Admin: 06/14/23 10:32 Dose: 25 mg Lisinopril (Lisinopril 5 Mg Tablet) 5 mg PO DAILY [facility]; Protocol Last Admin: 06/14/23 08:22 Dose: 5 mg Magnesium Hydroxide (Milk Of Magnesia 30 Ml Oral.Susp) 30 ml PO DAILY PRN PRN Reason: Constipation Melatonin (Melatonin 3 Mg Tablet) 6 mg PO BEDTIME PRN PRN Reason: Sleep Last Admin: 06/14/23 20:01 Dose: 6 mg Olanzapine (Olanzapine 5 Mg Tablet) 5 mg PO BEDTIME [facility] Last Admin: 06/14/23 20:01 Dose: 5 mg Olanzapine (Olanzapine 5 Mg Tablet) 5 mg PO Q4H PRN PRN Reason: agitation Last Admin: 06/14/23 10:32 Dose: 5 mg Pyridoxine HCl (Pyridoxine Hcl (Vitamin B6) 50 Mg Tablet) 50 mg PO DAILY [facility] Last Admin: 06/14/23 08:22 Dose: 50 mg Trazodone HCl (Trazodone Hcl 50 Mg Tablet) 50 mg PO BEDTIME MRX1 PRN PRN Reason: Insomnia Last Admin: 06/12/23 21:38 Dose: 50 mg Allergies Allergies Allergy/AdvReac Type Severity Reaction Status Date / Time No Known Allergies Allergy Verified 06/08/23 20:39 Assessment & Plan Assessment & Plan (1) Major 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 Quintanilla is a 68 year-old woman with hx of hemorrhagic stroke back in 05/2021 with significant lesion on right frontal lobe. Cognitive and personality changes after that with progression in the past 10 months. MOCA is 04/13. Significant impairments in impulsivity, rational thinking, ability to manage finances, preoccupied with money, impaired orientation. PLAN 06/11: Continue current regimen and plans 06/12: Continue current plans and regimen 06/13 increase depakote to 500mg po BID. 06/14 continue tx. 11/1 switch olanzapine to seroquel for better behavioral control Reason for continued inpatient stay Substantial Risk for: harm to others and inability to function Time Spent With Patient Time: Total time managing care of this patient today ____ minutes.
--- NOTE | 2023-06-16 08:56 | HO.PSYCHPN ---
Subjective Subjective Date of Service: 06/16/23 Reason For Visit: Adjustment disorders Subjective Notes: 3 Day Healthcare Proxy: Yes Interim History: Pt is visible on the unit. Pt declined all medications yesterday and today. She is irritable, yelling at times. Coming close to peers and staff with threats but able to be redirected. Pt not oriented to month, year or place or situation. No insight into extend of cognitive impairment and need for additional supports. Review of Systems Review of Systems No SOB No chest pain No constipation or diarrhea Yes all other systems are reviewed and are negative Mental Status Exam Mental Status Exam Narrative: Appearance: wearing casual clothing, good hygiene, in NAD Behavior: cooperative, at times suspicious Psychomotor: no agitation or retardation noted Speech: mostly clear, hyperverbal, not pressured, regular tone, spontaneous TP: circumstantial, at times derailed TC: preoccupied with making thousands, no insight into behavior changes or cognitive impairments, suspicious about why police brought her to hospital which she thinks is financially motivated. Mood: good Affect: expansive SI: denies HI: denies VH/AH: no overt signs Delusions: some grandiose with idea of being able to make millions when in fact not able to work as she used to, some suspiciousness and paranoia towards anyone who challenges her cognitive impairments or independence. Insight/judgment: impaired x 2. Memory/cog: alert, not oriented to situation, month, or year. MOCA 04/13. ACL 3.2- severe cognitive impairment. Diagnostics Vital Signs (24Hr): BMI result Body Mass Index 39.1 Labs 06/09/23 07:49 Medications Medications Current Medications Acetaminophen (Acetaminophen 325 Mg Tablet) 650 mg PO Q6H PRN PRN Reason: Headache/Pain Mild Scale (1-3) Al Hydroxide/Mg Hydroxide (Magnesium Hydrox/Alum Hydrox 30 Ml Oral.Susp) 30 ml PO Q6H PRN PRN Reason: Heartburn/Nausea Aspirin (Aspirin 81 Mg Tab.Chew) 81 mg PO DAILY [facility] Last Admin: 06/15/23 09:03 Dose: Not Given Divalproex Sodium (Divalproex Sodium 500 Mg Tablet.) 500 mg PO BID [facility] Last Admin: 06/15/23 21:11 Dose: Not Given Hydroxyzine HCl (Hydroxyzine Hcl 25 Mg Tablet) 25 mg PO Q6H PRN PRN Reason: Anxiety Last Admin: 06/14/23 10:32 Dose: 25 mg Lisinopril (Lisinopril 5 Mg Tablet) 5 mg PO DAILY [facility]; Protocol Last Admin: 06/15/23 09:04 Dose: Not Given Magnesium Hydroxide (Milk Of Magnesia 30 Ml Oral.Susp) 30 ml PO DAILY PRN PRN Reason: Constipation Melatonin (Melatonin 3 Mg Tablet) 6 mg PO BEDTIME PRN PRN Reason: Sleep Last Admin: 06/14/23 20:01 Dose: 6 mg Olanzapine (Olanzapine 5 Mg Tablet) 5 mg PO Q4H PRN PRN Reason: agitation Last Admin: 06/14/23 10:32 Dose: 5 mg Pyridoxine HCl (Pyridoxine Hcl (Vitamin B6) 50 Mg Tablet) 50 mg PO DAILY [facility] Last Admin: 06/15/23 09:04 Dose: Not Given Quetiapine Fumarate (Quetiapine Fumarate 50 Mg Tablet) 50 mg PO BID [facility] Trazodone HCl (Trazodone Hcl 50 Mg Tablet) 50 mg PO BEDTIME MRX1 PRN PRN Reason: Insomnia Last Admin: 06/12/23 21:38 Dose: 50 mg Allergies Allergies Allergy/AdvReac Type Severity Reaction Status Date / Time No Known Allergies Allergy Verified 06/08/23 20:39 Assessment & Plan Assessment & Plan (1) Major 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 Quintanilla is a 68 year-old woman with hx of hemorrhagic stroke back in 05/2021 with significant lesion on right frontal lobe. Cognitive and personality changes after that with progression in the past 10 months. MOCA is 8/30. Significant impairments in impulsivity, rational thinking, ability to manage finances, preoccupied with money, impaired orientation. PLAN 06/11: Continue current regimen and plans 06/12: Continue current plans and regimen 06/13 increase depakote to 500mg po BID. 06/14 continue tx. 06/15 switch olanzapine to seroquel for better behavioral control 06/16 continue tx. HCP to be affirmed. Reason for continued inpatient stay Substantial Risk for: inability to function Time Spent With Patient Time: Total time managing care of this patient today ____ minutes.
[2023-06-16 19:35] VITALS: BP 148/90; PULSE 93; RESP 18; TEMP 36.4; O2SAT 94
[2023-06-17 08:30] VITALS: BP 131/67; PULSE 80; RESP 16; TEMP 37.2; O2SAT 95
[2023-06-17] MEDS: lisinopriL 5 MG TABLET PO (08:33)
[2023-06-17] MEDS: Pyridoxine HCl (Vitamin B6) 50 MG TABLET PO (08:33)
[2023-06-17] MEDS: QUEtiapine Fumarate 50 MG TABLET PO ×2 (08:33→20:59)
[2023-06-17] MEDS: Aspirin 81 MG TAB.CHEW PO (08:33)
[2023-06-17] MEDS: Divalproex Sodium 500 MG TABLET.DR PO ×2 (08:33→20:59)
--- NOTE | 2023-06-17 09:04 | HO.PSYCHPN ---
Subjective Subjective Date of Service: 06/17/23 Reason For Visit: Adjustment disorders Subjective Notes: 3 Day Healthcare Proxy: Yes Interim History: Pt continues to present as labile at times, and explosive. She does not know the month or year. She denies SI/HI. She is upset about being here and has no insight into extend of cognitive impairment. She did take medications today. Slightly more pleasant on approach. Medication Compliance: Intermittent Mental Status Exam Mental Status Exam Narrative: Appearance: wearing casual clothing, good hygiene, in NAD Behavior: cooperative, at times suspicious Psychomotor: no agitation or retardation noted Speech: mostly clear, hyperverbal, not pressured, regular tone, spontaneous TP: circumstantial, at times derailed TC: preoccupied with making thousands, no insight into behavior changes or cognitive impairments, suspicious about why police brought her to hospital which she thinks is financially motivated. Mood: terrible Affect: irritable SI: denies HI: denies VH/AH: no overt signs Delusions: some suspiciousness and paranoia towards anyone who challenges her cognitive impairments or independence. Insight/judgment: impaired x 2. Memory/cog: alert, not oriented to situation, month, or year. MOCA 04/13. ACL 3.2- severe cognitive impairment. Diagnostics Vital Signs (24Hr): Vital Signs - 24 hr 06/16/23 19:35 06/17/23 08:30 Temperature 97.5 F 99 F Pulse Rate 93 80 Respiratory Rate 18 16 Blood Pressure 148/90 H 131/67 Pulse Oximetry 94 95 Oxygen Delivery Method Room Air Room Air BMI result Body Mass Index 39.1 Labs 06/09/23 07:49 Medications Medications Current Medications Acetaminophen (Acetaminophen 325 Mg Tablet) 650 mg PO Q6H PRN PRN Reason: Headache/Pain Mild Scale (1-3) Al Hydroxide/Mg Hydroxide (Magnesium Hydrox/Alum Hydrox 30 Ml Oral.Susp) 30 ml PO Q6H PRN PRN Reason: Heartburn/Nausea Aspirin (Aspirin 81 Mg Tab.Chew) 81 mg PO DAILY [facility] Last Admin: 06/17/23 08:33 Dose: 81 mg Divalproex Sodium (Divalproex Sodium 500 Mg Tablet.Dr) 500 mg PO BID [facility] Last Admin: 06/17/23 08:33 Dose: 500 mg Hydroxyzine HCl (Hydroxyzine Hcl 25 Mg Tablet) 25 mg PO Q6H PRN PRN Reason: Anxiety Last Admin: 06/14/23 10:32 Dose: 25 mg Lisinopril (Lisinopril 5 Mg Tablet) 5 mg PO DAILY [facility]; Protocol Last Admin: 06/17/23 08:33 Dose: 5 mg Magnesium Hydroxide (Milk Of Magnesia 30 Ml Oral.Susp) 30 ml PO DAILY PRN PRN Reason: Constipation Melatonin (Melatonin 3 Mg Tablet) 6 mg PO BEDTIME PRN PRN Reason: Sleep Last Admin: 06/14/23 20:01 Dose: 6 mg Olanzapine (Olanzapine 5 Mg Tablet) 5 mg PO Q4H PRN PRN Reason: agitation Last Admin: 06/14/23 10:32 Dose: 5 mg Pyridoxine HCl (Pyridoxine Hcl (Vitamin B6) 50 Mg Tablet) 50 mg PO DAILY [facility] Last Admin: 06/17/23 08:33 Dose: 50 mg Quetiapine Fumarate (Quetiapine Fumarate 50 Mg Tablet) 50 mg PO BID [facility] Last Admin: 06/17/23 08:33 Dose: 50 mg Trazodone HCl (Trazodone Hcl 50 Mg Tablet) 50 mg PO BEDTIME MRX1 PRN PRN Reason: Insomnia Last Admin: 06/12/23 21:38 Dose: 50 mg Allergies Allergies Allergy/AdvReac Type Severity Reaction Status Date / Time No Known Allergies Allergy Verified 06/08/23 20:39 Assessment & Plan Assessment & Plan (1) Major 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 Quintanilla is a 68 year-old woman with hx of hemorrhagic stroke back in 05/2021 with significant lesion on right frontal lobe. Cognitive and personality changes after that with progression in the past 10 months. MOCA is 8/30. Significant impairments in impulsivity, rational thinking, ability to manage finances, preoccupied with money, impaired orientation. PLAN 06/11: Continue current regimen and plans 06/12: Continue current plans and regimen 06/13 increase depakote to 500mg po BID. 06/14 continue tx. 06/15 switch olanzapine to seroquel for better behavioral control 06/16 continue tx. HCP to be affirmed. 06/17 pt on 3 day. today she did take medications, but continues to present as explosive. Reason for continued inpatient stay Substantial Risk for: inability to function Time Spent With Patient Time: Total time managing care of this patient today ____ minutes.
[2023-06-17 18:00] VITALS: BP 159/74; PULSE 65; RESP 20; TEMP 36.6; O2SAT 95
[2023-06-18 08:35] VITALS: BP 137/70; PULSE 67; RESP 18; TEMP 36.9; O2SAT 96
--- NOTE | 2023-06-18 09:12 | HO.PSYCHPN ---
Subjective Subjective Date of Service: 06/18/23 Reason For Visit: Adjustment disorders Interim History: The nursing staff reported the patient is alert oriented x1 confused about her situation, irritable, she took medication night with encouragement she slept well. The staff had noted the patient's intrusive and other's patient's care and disrupts the unit. On interview the patient stated that she wants to go back to her home, she is completely unaware and has no insight into her mental decline. Mental Status Exam Mental Status Exam Patient Appearance: Appropriate Patient Orientation: Person Level of Consciousness: Awake Patient Behavior: Guarded and Passive Mood Description: Withdrawn Affect Description: Constricted and Angry Patient Cognition Impaired: Yes Ability to Follow Directions: Fair Speech Pattern: Clear Hallucinations: None Delusions: Paranoid Ideation Thought Process: Incoherent, Distracted and Evasive Thought Content: positive for [place], positive for Perseveration and positive for Thought Blocking Judgement: Fair Diagnostics Vital Signs (24Hr): Vital Signs - 24 hr 06/17/23 18:00 06/18/23 08:35 Temperature 98 F 98.5 F Pulse Rate 65 67 Respiratory Rate 20 18 Blood Pressure 159/74 H 137/70 Pulse Oximetry 95 96 Oxygen Delivery Method Room Air Room Air BMI result Body Mass Index 39.1 Labs 06/09/23 07:49 Medications Medications Current Medications Acetaminophen (Acetaminophen 325 Mg Tablet) 650 mg PO Q6H PRN PRN Reason: Headache/Pain Mild Scale (1-3) Al Hydroxide/Mg Hydroxide (Magnesium Hydrox/Alum Hydrox 30 Ml Oral.Susp) 30 ml PO Q6H PRN PRN Reason: Heartburn/Nausea Aspirin (Aspirin 81 Mg Tab.Chew) 81 mg PO DAILY [facility] Last Admin: 06/17/23 08:33 Dose: 81 mg Divalproex Sodium (Divalproex Sodium 500 Mg Tablet.Dr) 500 mg PO BID [facility] Last Admin: 06/17/23 20:59 Dose: 500 mg Hydroxyzine HCl (Hydroxyzine Hcl 25 Mg Tablet) 25 mg PO Q6H PRN PRN Reason: Anxiety Last Admin: 06/14/23 10:32 Dose: 25 mg Lisinopril (Lisinopril 5 Mg Tablet) 5 mg PO DAILY [facility]; Protocol Last Admin: 06/17/23 08:33 Dose: 5 mg Magnesium Hydroxide (Milk Of Magnesia 30 Ml Oral.Susp) 30 ml PO DAILY PRN PRN Reason: Constipation Melatonin (Melatonin 3 Mg Tablet) 6 mg PO BEDTIME PRN PRN Reason: Sleep Last Admin: 06/14/23 20:01 Dose: 6 mg Olanzapine (Olanzapine 5 Mg Tablet) 5 mg PO Q4H PRN PRN Reason: agitation Last Admin: 06/14/23 10:32 Dose: 5 mg Pyridoxine HCl (Pyridoxine Hcl (Vitamin B6) 50 Mg Tablet) 50 mg PO DAILY [facility] Last Admin: 06/17/23 08:33 Dose: 50 mg Quetiapine Fumarate (Quetiapine Fumarate 50 Mg Tablet) 50 mg PO TID [facility] Trazodone HCl (Trazodone Hcl 50 Mg Tablet) 50 mg PO BEDTIME MRX1 PRN PRN Reason: Insomnia Last Admin: 06/12/23 21:38 Dose: 50 mg Allergies Allergies Allergy/AdvReac Type Severity Reaction Status Date / Time No Known Allergies Allergy Verified 06/08/23 20:39 Assessment & Plan Assessment & Plan (1) Major 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 Quintanilla is a 68 year-old woman with hx of hemorrhagic stroke back in 05/2021 with significant lesion on right frontal lobe. Cognitive and personality changes after that with progression in the past 10 months. MOCA is 8/30. Significant impairments in impulsivity, rational thinking, ability to manage finances, preoccupied with money, impaired orientation. PLAN 06/11: Continue current regimen and plans 06/12: Continue current plans and regimen 06/13 increase depakote to 500mg po BID. 06/14 continue tx. 06/15 switch olanzapine to seroquel for better behavioral control 06/16 continue tx. HCP to be affirmed. 06/17 pt on 3 day. today she did take medications, but continues to present as explosive. 06/18 continue same treatment Reason for continued inpatient stay Substantial Risk for: inability to function, rapid decompensation and med/psych decompensation Time Spent With Patient Time: Total time managing care of this patient today __20__ minutes.
[2023-06-18] MEDS: QUEtiapine Fumarate 50 MG TABLET PO ×3 (10:51→21:33)
[2023-06-18] MEDS: Aspirin 81 MG TAB.CHEW PO (10:52)
[2023-06-18] MEDS: Divalproex Sodium 500 MG TABLET.DR PO ×2 (10:53→21:33)
[2023-06-18] MEDS: lisinopriL 5 MG TABLET PO (10:53)
[2023-06-18] MEDS: Pyridoxine HCl (Vitamin B6) 50 MG TABLET PO (10:53)
[2023-06-18 18:00] VITALS: BP 136/63; PULSE 71; RESP 16; TEMP 36.8; O2SAT 96
[2023-06-18] MEDS: Melatonin 3 MG TABLET 6 MG PO (21:33)
[2023-06-18] MEDS: hydrOXYzine HCL 25 MG TABLET PO (21:33)
[2023-06-19] MEDS: Aspirin 81 MG TAB.CHEW PO (09:14)
[2023-06-19] MEDS: Divalproex Sodium 500 MG TABLET.DR PO ×2 (09:14→20:24)
[2023-06-19] MEDS: QUEtiapine Fumarate 50 MG TABLET PO ×2 (09:15→16:24)
--- NOTE | 2023-06-19 10:14 | P.PNPSI_ITS ---
Subjective Subjective Date of Service: 06/19/23 Reason For Visit: Adjustment disorders Interim History: The nursing staff reported the patient slept 6 hours on and off. She took Seroquel and she better behave in the morning. No more exit seeking medication compliant. The staff has noticed that in the evening she states sundowning and she had more agitated and angry perseverative. On interview the patient remains perseverative about discharge but less angry and obsessive. We are going to change her Seroquel, we are going to given 50 p.o. b.i.d. and 100 mg p.o. q.h.s. Mental Status Exam Mental Status Exam Patient Appearance: Appropriate Patient Orientation: Person and Situation Level of Consciousness: Awake and Appropriate Patient Behavior: Guarded and Passive Mood Description: Withdrawn Affect Description: Constricted Patient Cognition Impaired: Yes Ability to Follow Directions: Good Speech Pattern: Clear Hallucinations: None Delusions: Paranoid Ideation Thought Process: Distracted Thought Content: positive for [place] and positive for Poverty of Content Judgement: Fair Diagnostics Vital Signs (24Hr): Vital Signs - 24 hr 06/18/23 18:00 Temperature 98.3 F Pulse Rate 71 Respiratory Rate 16 Blood Pressure 136/63 Pulse Oximetry 96 Oxygen Delivery Method Room Air BMI result Body Mass Index 39.1 Labs 06/09/23 07:49 Medications Medications Current Medications Acetaminophen (Acetaminophen 325 Mg Tablet) 650 mg PO Q6H PRN PRN Reason: Headache/Pain Mild Scale (1-3) Al Hydroxide/Mg Hydroxide (Magnesium Hydrox/Alum Hydrox 30 Ml Oral.Susp) 30 ml PO Q6H PRN PRN Reason: Heartburn/Nausea Aspirin (Aspirin 81 Mg Tab.Chew) 81 mg PO DAILY [facility] Last Admin: 06/19/23 09:14 Dose: 81 mg Divalproex Sodium (Divalproex Sodium 500 Mg Tablet.Dr) 500 mg PO BID [facility] Last Admin: 06/19/23 09:14 Dose: 500 mg Hydroxyzine HCl (Hydroxyzine Hcl 25 Mg Tablet) 25 mg PO Q6H PRN PRN Reason: Anxiety Last Admin: 06/18/23 21:33 Dose: 25 mg Lisinopril (Lisinopril 5 Mg Tablet) 5 mg PO DAILY [facility]; Protocol Last Admin: 06/18/23 10:53 Dose: 5 mg Magnesium Hydroxide (Milk Of Magnesia 30 Ml Oral.Susp) 30 ml PO DAILY PRN PRN Reason: Constipation Melatonin (Melatonin 3 Mg Tablet) 6 mg PO BEDTIME PRN PRN Reason: Sleep Last Admin: 06/18/23 21:33 Dose: 6 mg Olanzapine (Olanzapine 5 Mg Tablet) 5 mg PO Q4H PRN PRN Reason: agitation Last Admin: 06/14/23 10:32 Dose: 5 mg Pyridoxine HCl (Pyridoxine Hcl (Vitamin B6) 50 Mg Tablet) 50 mg PO DAILY [facility] Last Admin: 06/18/23 10:53 Dose: 50 mg Quetiapine Fumarate (Quetiapine Fumarate 50 Mg Tablet) 50 mg PO BID@0800,1700 [facility] Last Admin: 06/19/23 09:15 Dose: 50 mg Quetiapine Fumarate (Quetiapine Fumarate 100 Mg Tablet) 100 mg PO BEDTIME [facility] Trazodone HCl (Trazodone Hcl 50 Mg Tablet) 50 mg PO BEDTIME MRX1 PRN PRN Reason: Insomnia Last Admin: 06/12/23 21:38 Dose: 50 mg Allergies Allergies Allergy/AdvReac Type Severity Reaction Status Date / Time No Known Allergies Allergy Verified 06/08/23 20:39 Assessment & Plan Assessment & Plan (1) Major 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 Quintanilla is a 68 year-old woman with hx of hemorrhagic stroke back in 05/2021 with significant lesion on right frontal lobe. Cognitive and personality changes after that with progression in the past 10 months. MOCA is 8/30. Significant impairments in impulsivity, rational thinking, ability to manage finances, preoccupied with money, impaired orientation. PLAN 06/11: Continue current regimen and plans 06/12: Continue current plans and regimen 06/13 increase depakote to 500mg po BID. 06/14 continue tx. 06/15 switch olanzapine to seroquel for better behavioral control 06/16 continue tx. HCP to be affirmed. 06/17 pt on 3 day. today she did take medications, but continues to present as explosive. 06/18 continue same treatment. 06/19 increase Seroquel to 50 p.o. b.i.d. and 100 mg p.o. q.h.s. to target sundowning. Reason for continued inpatient stay Substantial Risk for: inability to function, rapid decompensation and med/psych decompensation Time Spent With Patient Time: Total time managing care of this patient today __20__ minutes.
--- NOTE | 2023-06-19 16:09 | PC.NURSE ---
Addendum entered by Steph Heredia RN 06/19/23 18:44: MARQUISE Galloway was able to administer Seroquel to this patient Original Note: Patient refused Seroquel,become agitated when nurse tried to encourage patient to take her med.
[2023-06-19] MEDS: QUEtiapine Fumarate 100 MG TABLET PO (20:24)
[2023-06-20] MEDS: OLANZapine 5 MG TABLET PO ×2 (10:35→16:28)
[2023-06-20] MEDS: QUEtiapine Fumarate 50 MG TABLET PO ×2 (10:35→16:28)
--- NOTE | 2023-06-20 18:32 | HO.PSYCHPN ---
Subjective Subjective Date of Service: 06/20/23 Reason For Visit: Adjustment disorders Subjective Notes: 3 Day Interim History: Pt continues to present as irritable and explosive at times. She is not oriented to place or month or year. She declined speaking with this fiction and nonfiction prose writer few times throughout the day stating I am not having a good day, please go. Pt takes medications intermittently. Today in the morning, she declined blood pressure medication without rational. She later took seroquel. pending affirmation of HCP. filing completed due to 3 day expiring. Medication Compliance: Intermittent Side effects from medications: No Attending Groups: No Review of Systems Review of Systems No SOB No chest pain No constipation or diarrhea Yes all other systems are reviewed and are negative Mental Status Exam Mental Status Exam Narrative: Appearance: wearing casual clothing, good hygiene, in NAD Behavior: cooperative, at times suspicious Psychomotor: no agitation or retardation noted Speech: mostly clear, hyperverbal, not pressured, regular tone, spontaneous TP: circumstantial, at times derailed TC: preoccupied with making thousands, no insight into behavior changes or cognitive impairments, suspicious about why police brought her to hospital which she thinks is financially motivated. Mood: terrible Affect: irritable SI: denies HI: denies VH/AH: no overt signs Delusions: some suspiciousness and paranoia towards anyone who challenges her cognitive impairments or independence. Insight/judgment: impaired x 2. Memory/cog: alert, not oriented to situation, month, or year. MOCA 04/13. ACL 3.2- severe cognitive impairment. Diagnostics Vital Signs (24Hr): BMI result Body Mass Index 39.1 Labs 06/09/23 07:49 Medications Medications Current Medications Acetaminophen (Acetaminophen 325 Mg Tablet) 650 mg PO Q6H PRN PRN Reason: Headache/Pain Mild Scale (1-3) Al Hydroxide/Mg Hydroxide (Magnesium Hydrox/Alum Hydrox 30 Ml Oral.Susp) 30 ml PO Q6H PRN PRN Reason: Heartburn/Nausea Aspirin (Aspirin 81 Mg Tab.Chew) 81 mg PO DAILY [facility] Last Admin: 06/20/23 09:49 Dose: Not Given Divalproex Sodium (Divalproex Sodium 500 Mg Tablet.) 500 mg PO BID [facility] Last Admin: 06/20/23 09:49 Dose: Not Given Hydroxyzine HCl (Hydroxyzine Hcl 25 Mg Tablet) 25 mg PO Q6H PRN PRN Reason: Anxiety Last Admin: 06/18/23 21:33 Dose: 25 mg Lisinopril (Lisinopril 5 Mg Tablet) 5 mg PO DAILY [facility]; Protocol Last Admin: 06/20/23 09:50 Dose: Not Given Magnesium Hydroxide (Milk Of Magnesia 30 Ml Oral.Susp) 30 ml PO DAILY PRN PRN Reason: Constipation Melatonin (Melatonin 3 Mg Tablet) 6 mg PO BEDTIME PRN PRN Reason: Sleep Last Admin: 06/18/23 21:33 Dose: 6 mg Olanzapine (Olanzapine 5 Mg Tablet) 5 mg PO Q4H PRN PRN Reason: agitation Last Admin: 06/20/23 16:28 Dose: 5 mg Pyridoxine HCl (Pyridoxine Hcl (Vitamin B6) 50 Mg Tablet) 50 mg PO DAILY [facility] Last Admin: 06/20/23 09:50 Dose: Not Given Quetiapine Fumarate (Quetiapine Fumarate 50 Mg Tablet) 50 mg PO BID@0800,1700 [facility] Last Admin: 06/20/23 16:28 Dose: 50 mg Quetiapine Fumarate (Quetiapine Fumarate 100 Mg Tablet) 100 mg PO BEDTIME [facility] Last Admin: 06/19/23 20:24 Dose: 100 mg Trazodone HCl (Trazodone Hcl 50 Mg Tablet) 50 mg PO BEDTIME MRX1 PRN PRN Reason: Insomnia Last Admin: 06/12/23 21:38 Dose: 50 mg Allergies Allergies Allergy/AdvReac Type Severity Reaction Status Date / Time No Known Allergies Allergy Verified 06/08/23 20:39 Assessment & Plan Assessment & Plan (1) Major 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 Quintanilla is a 68 year-old woman with hx of hemorrhagic stroke back in 05/2021 with significant lesion on right frontal lobe. Cognitive and personality changes after that with progression in the past 10 months. MOCA is 30. Significant impairments in impulsivity, rational thinking, ability to manage finances, preoccupied with money, impaired orientation. PLAN 06/11: Continue current regimen and plans 06/12: Continue current plans and regimen 06/13 increase depakote to 500mg po BID. 10/31 continue tx. 06/15 switch olanzapine to seroquel for better behavioral control 06/16 continue tx. HCP to be affirmed. 06/17 pt on 3 day. today she did take medications, but continues to present as explosive. 06/18 continue same treatment. 06/19 increase Seroquel to 50 p.o. b.i.d. and 100 mg p.o. q.h.s. to target . 06/20 continue tx. Reason for continued inpatient stay Substantial Risk for: inability to function Time Spent With Patient Time: Total time managing care of this patient today ____ minutes.
--- NOTE | 2023-06-21 08:29 | HO.PSYCHPN ---
Subjective Subjective Date of Service: 06/21/23 Reason For Visit: Adjustment disorders Subjective Notes: Section 7 Interim History: Pt mostly in her room. She declined all her medications. No awareness of severe cognitive impairments or accepting fact that she had a stroke. She states that's a lie. She does not remember role of this securities underwriter. She continues to call son to ask him to pick her up. She can be intrusive to others, and at times difficult to redirect as she is explosive. Review of Systems Review of Systems No SOB No chest pain No constipation or diarrhea Yes all other systems are reviewed and are negative Mental Status Exam Mental Status Exam Narrative: Appearance: wearing casual clothing, good hygiene, in NAD Behavior: cooperative, at times suspicious Psychomotor: no agitation or retardation noted Speech: mostly clear, hyperverbal, not pressured, regular tone, spontaneous TP: circumstantial, at times derailed TC: preoccupied with making thousands, no insight into behavior changes or cognitive impairments, suspicious about why police brought her to hospital which she thinks is financially motivated. Mood: terrible Affect: irritable SI: denies HI: denies VH/AH: no overt signs Delusions: some suspiciousness and paranoia towards anyone who challenges her cognitive impairments or independence. Insight/judgment: impaired x 2. Memory/cog: alert, not oriented to situation, month, or year. MOCA 04/13. ACL 3.2- severe cognitive impairment. Patient Appearance: Appropriate Patient Orientation: Person and Situation Level of Consciousness: Awake and Appropriate Patient Behavior: Guarded and Passive Mood Description: Withdrawn Affect Description: Constricted Patient Cognition Impaired: Yes Ability to Follow Directions: Good Speech Pattern: Clear Diagnostics Vital Signs (24Hr): BMI result Body Mass Index 39.1 Labs 06/09/23 07:49 Medications Medications Current Medications Acetaminophen (Acetaminophen 325 Mg Tablet) 650 mg PO Q6H PRN PRN Reason: Headache/Pain Mild Scale (1-3) Al Hydroxide/Mg Hydroxide (Magnesium Hydrox/Alum Hydrox 30 Ml Oral.Susp) 30 ml PO Q6H PRN PRN Reason: Heartburn/Nausea Aspirin (Aspirin 81 Mg Tab.Chew) 81 mg PO DAILY [facility] Last Admin: 06/20/23 09:49 Dose: Not Given Divalproex Sodium (Divalproex Sodium 500 Mg Tablet.) 500 mg PO BID [facility] Last Admin: 06/20/23 21:51 Dose: Not Given Hydroxyzine HCl (Hydroxyzine Hcl 25 Mg Tablet) 25 mg PO Q6H PRN PRN Reason: Anxiety Last Admin: 06/18/23 21:33 Dose: 25 mg Lisinopril (Lisinopril 5 Mg Tablet) 5 mg PO DAILY [facility]; Protocol Last Admin: 06/20/23 09:50 Dose: Not Given Magnesium Hydroxide (Milk Of Magnesia 30 Ml Oral.Susp) 30 ml PO DAILY PRN PRN Reason: Constipation Melatonin (Melatonin 3 Mg Tablet) 6 mg PO BEDTIME PRN PRN Reason: Sleep Last Admin: 06/18/23 21:33 Dose: 6 mg Olanzapine (Olanzapine 5 Mg Tablet) 5 mg PO Q4H PRN PRN Reason: agitation Last Admin: 06/20/23 16:28 Dose: 5 mg Pyridoxine HCl (Pyridoxine Hcl (Vitamin B6) 50 Mg Tablet) 50 mg PO DAILY [facility] Last Admin: 06/20/23 09:50 Dose: Not Given Quetiapine Fumarate (Quetiapine Fumarate 50 Mg Tablet) 50 mg PO BID@0800,1700 [facility] Last Admin: 06/20/23 16:28 Dose: 50 mg Quetiapine Fumarate (Quetiapine Fumarate 100 Mg Tablet) 100 mg PO BEDTIME [facility] Last Admin: 06/20/23 21:51 Dose: Not Given Trazodone HCl (Trazodone Hcl 50 Mg Tablet) 50 mg PO BEDTIME MRX1 PRN PRN Reason: Insomnia Last Admin: 06/12/23 21:38 Dose: 50 mg Allergies Allergies Allergy/AdvReac Type Severity Reaction Status Date / Time No Known Allergies Allergy Verified 06/08/23 20:39 Assessment & Plan Assessment & Plan (1) Major 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 Quintanilla is a 68 year-old woman with hx of hemorrhagic stroke back in 05/2021 with significant lesion on right frontal lobe. Cognitive and personality changes after that with progression in the past 10 months. MOCA is 8/30. Significant impairments in impulsivity, rational thinking, ability to manage finances, preoccupied with money, impaired orientation. PLAN 06/11: Continue current regimen and plans 06/12: Continue current plans and regimen 06/13 increase depakote to 500mg po BID. 06/14 continue tx. 06/15 switch olanzapine to seroquel for better behavioral control 06/16 continue tx. HCP to be affirmed. 06/17 pt on 3 day. today she did take medications, but continues to present as explosive. 06/18 continue same treatment. 06/19 increase Seroquel to 50 p.o. b.i.d. and 100 mg p.o. q.h.s. to target . 06/20 continue tx. 06/21 continue tx. Reason for continued inpatient stay Substantial Risk for: inability to function Time Spent With Patient Time: Total time managing care of this patient today ____ minutes.
[2023-06-21 19:35] VITALS: RESP 18
--- NOTE | 2023-06-22 14:02 | P.PNPSI_ITS ---
Subjective Subjective Date of Service: 06/22/23 Reason For Visit: Adjustment disorders Interim History: Pt tearful this morning, thinks doctor on the unit is trying to steal pts money. She tells this video game script writer to run away from here! She reports she spoke with an disability attorney (who is court appointed disability attorney) who is aware that of what that doctor is doing, stealing my money and other people's money. Pt states I am trying to find ways to get out of here. She then gave me card of disability attorney and stated you may need it...these people are not going to help you, don't work for that doctor! She declined medications yesterday. Again, she is not oriented to place, or situation or year. Review of Systems Review of Systems No SOB No chest pain No constipation or diarrhea Yes all other systems are reviewed and are negative Mental Status Exam Mental Status Exam Narrative: Appearance: wearing casual clothing, good hygiene, in NAD Behavior: cooperative, at times suspicious Psychomotor: no agitation or retardation noted Speech: mostly clear, hyperverbal, not pressured, regular tone, spontaneous TP: circumstantial, at times derailed TC: preoccupied with making thousands, no insight into behavior changes or cognitive impairments, suspicious about why police brought her to hospital which she thinks is financially motivated. Mood: terrible Affect: irritable SI: denies HI: denies VH/AH: no overt signs Delusions: some suspiciousness and paranoia towards anyone who challenges her cognitive impairments or independence. Insight/judgment: impaired x 2. Memory/cog: alert, not oriented to situation, month, or year. MOCA 04/13. ACL 3.2- severe cognitive impairment. Diagnostics Vital Signs (24Hr): Vital Signs - 24 hr 06/21/23 19:35 Respiratory Rate 18 BMI result Body Mass Index 39.1 Labs 06/09/23 07:49 Medications Medications Current Medications Acetaminophen (Acetaminophen 325 Mg Tablet) 650 mg PO Q6H PRN PRN Reason: Headache/Pain Mild Scale (1-3) Al Hydroxide/Mg Hydroxide (Magnesium Hydrox/Alum Hydrox 30 Ml Oral.Susp) 30 ml PO Q6H PRN PRN Reason: Heartburn/Nausea Aspirin (Aspirin 81 Mg Tab.Chew) 81 mg PO DAILY [facility] Last Admin: 06/22/23 08:29 Dose: Not Given Divalproex Sodium (Divalproex Sodium 500 Mg Tablet.Dr) 500 mg PO BID [facility] Last Admin: 06/22/23 08:29 Dose: Not Given Hydroxyzine HCl (Hydroxyzine Hcl 25 Mg Tablet) 25 mg PO Q6H PRN PRN Reason: Anxiety Last Admin: 06/18/23 21:33 Dose: 25 mg Lisinopril (Lisinopril 5 Mg Tablet) 5 mg PO DAILY [facility]; Protocol Last Admin: 06/22/23 08:29 Dose: Not Given Magnesium Hydroxide (Milk Of Magnesia 30 Ml Oral.Susp) 30 ml PO DAILY PRN PRN Reason: Constipation Melatonin (Melatonin 3 Mg Tablet) 6 mg PO BEDTIME PRN PRN Reason: Sleep Last Admin: 06/18/23 21:33 Dose: 6 mg Olanzapine (Olanzapine 5 Mg Tablet) 5 mg PO Q4H PRN PRN Reason: agitation Last Admin: 06/20/23 16:28 Dose: 5 mg Pyridoxine HCl (Pyridoxine Hcl (Vitamin B6) 50 Mg Tablet) 50 mg PO DAILY [facility] Last Admin: 06/22/23 08:29 Dose: Not Given Quetiapine Fumarate (Quetiapine Fumarate 50 Mg Tablet) 50 mg PO BID@0800,1700 [facility] Last Admin: 06/22/23 08:29 Dose: Not Given Quetiapine Fumarate (Quetiapine Fumarate 100 Mg Tablet) 100 mg PO BEDTIME [facility] Last Admin: 06/21/23 20:48 Dose: Not Given Trazodone HCl (Trazodone Hcl 50 Mg Tablet) 50 mg PO BEDTIME MRX1 PRN PRN Reason: Insomnia Last Admin: 06/12/23 21:38 Dose: 50 mg Allergies Allergies Allergy/AdvReac Type Severity Reaction Status Date / Time No Known Allergies Allergy Verified 06/08/23 20:39 Assessment & Plan Assessment & Plan (1) Major 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 Quintanilla is a 68 year-old woman with hx of hemorrhagic stroke back in 05/2021 with significant lesion on right frontal lobe. Cognitive and personality changes after that with progression in the past 10 months. MOCA is 830. Significant impairments in impulsivity, rational thinking, ability to manage finances, preoccupied with money, impaired orientation. PLAN 06/11: Continue current regimen and plans 06/12: Continue current plans and regimen 06/13 increase depakote to 500mg po BID. 06/14 continue tx. 06/15 switch olanzapine to seroquel for better behavioral control 06/16 continue tx. HCP to be affirmed. 06/17 pt on 3 day. today she did take medications, but continues to present as explosive. 06/18 continue same treatment. 06/19 increase Seroquel to 50 p.o. b.i.d. and 100 mg p.o. q.h.s. to target . 06/20 continue tx. 06/21 continue tx. 06/22 continue tx. Reason for continued inpatient stay Substantial Risk for: inability to function Time Spent With Patient Time: Total time managing care of this patient today ____ minutes.
[2023-06-22 18:00] VITALS: BP 172/69; PULSE 63; RESP 18; TEMP 36.9; O2SAT 96
[2023-06-22] MEDS: lisinopriL 5 MG TABLET PO (21:11)
[2023-06-22] MEDS: QUEtiapine Fumarate 100 MG TABLET PO (21:11)
[2023-06-22] MEDS: Melatonin 3 MG TABLET 6 MG PO (21:12)
[2023-06-22] MEDS: OLANZapine 5 MG TABLET PO (21:12)
[2023-06-22] MEDS: Divalproex Sodium 500 MG TABLET.DR PO (22:05)
[2023-06-23 07:00] VITALS: BMI 39.8
[2023-06-23 08:26] VITALS: BP 115/67; PULSE 67; RESP 18; TEMP 36.3; O2SAT 98
[2023-06-23] MEDS: Pyridoxine HCl (Vitamin B6) 50 MG TABLET PO (08:29)
[2023-06-23] MEDS: Divalproex Sodium 500 MG TABLET.DR PO ×2 (08:29→20:17)
[2023-06-23] MEDS: QUEtiapine Fumarate 50 MG TABLET PO ×2 (08:29→16:46)
[2023-06-23] MEDS: Aspirin 81 MG TAB.CHEW PO (08:29)
[2023-06-23] MEDS: lisinopriL 5 MG TABLET PO (08:29)
[2023-06-23] MEDS: hydrOXYzine HCL 25 MG TABLET PO (16:46)
[2023-06-23 18:00] VITALS: BP 157/78; PULSE 83; RESP 18; TEMP 36.6; O2SAT 98
[2023-06-23] MEDS: QUEtiapine Fumarate 100 MG TABLET PO (20:17)
[2023-06-23] MEDS: OLANZapine 5 MG TABLET PO (20:17)
[2023-06-23] MEDS: Melatonin 3 MG TABLET 6 MG PO (20:17)
[2023-06-24 08:35] VITALS: BP 127/82; PULSE 88; RESP 16; O2SAT 95
[2023-06-24] MEDS: QUEtiapine Fumarate 50 MG TABLET PO ×2 (08:40→15:43)
[2023-06-24] MEDS: Divalproex Sodium 500 MG TABLET.DR PO ×2 (08:40→20:38)
[2023-06-24] MEDS: lisinopriL 5 MG TABLET PO (08:40)
[2023-06-24] MEDS: Pyridoxine HCl (Vitamin B6) 50 MG TABLET PO (08:40)
[2023-06-24] MEDS: Aspirin 81 MG TAB.CHEW PO (08:40)
[2023-06-24] MEDS: OLANZapine 5 MG TABLET PO ×2 (08:41→15:43)
--- NOTE | 2023-06-24 16:36 | HO.PSYCHPN ---
Subjective Subjective Date of Service: 06/24/23 Reason For Visit: Adjustment disorders Subjective Notes: Section 8 Interim History: Pt had commitment hearing- pt was committed. Pt slept through the night. She continues to present as visible on the unit. She asks for discharge. She did take medications today. Medication Compliance: Intermittent Side effects from medications: No Review of Systems Review of Systems No SOB No chest pain No constipation or diarrhea Yes all other systems are reviewed and are negative Mental Status Exam Mental Status Exam Narrative: Appearance: wearing casual clothing, good hygiene, in NAD Behavior: cooperative, at times suspicious Psychomotor: no agitation or retardation noted Speech: mostly clear, hyperverbal, not pressured, regular tone, spontaneous TP: circumstantial, at times derailed TC: preoccupied with making thousands, no insight into behavior changes or cognitive impairments, suspicious about why police brought her to hospital which she thinks is financially motivated. Mood: terrible Affect: irritable SI: denies HI: denies VH/AH: no overt signs Delusions: some suspiciousness and paranoia towards anyone who challenges her cognitive impairments or independence. Insight/judgment: impaired x 2. Memory/cog: alert, not oriented to situation, month, or year. MOCA 04/13. ACL 3.2- severe cognitive impairment. Diagnostics Vital Signs (24Hr): Vital Signs - 24 hr 06/23/23 18:00 06/24/23 08:35 Temperature 97.9 F Pulse Rate 83 88 Respiratory Rate 18 16 Blood Pressure 157/78 H 127/82 Pulse Oximetry 98 95 Oxygen Delivery Method Room Air Room Air BMI result Body Mass Index 39.8 Labs 06/09/23 07:49 Medications Medications Current Medications Acetaminophen (Acetaminophen 325 Mg Tablet) 650 mg PO Q6H PRN PRN Reason: Headache/Pain Mild Scale (1-3) Al Hydroxide/Mg Hydroxide (Magnesium Hydrox/Alum Hydrox 30 Ml Oral.Susp) 30 ml PO Q6H PRN PRN Reason: Heartburn/Nausea Aspirin (Aspirin 81 Mg Tab.Chew) 81 mg PO DAILY [facility] Last Admin: 06/24/23 08:40 Dose: 81 mg Divalproex Sodium (Divalproex Sodium 500 Mg Tablet.) 500 mg PO BID [facility] Last Admin: 06/24/23 08:40 Dose: 500 mg Hydroxyzine HCl (Hydroxyzine Hcl 25 Mg Tablet) 25 mg PO Q6H PRN PRN Reason: Anxiety Last Admin: 06/23/23 16:46 Dose: 25 mg Lisinopril (Lisinopril 5 Mg Tablet) 5 mg PO DAILY [facility]; Protocol Last Admin: 06/24/23 08:40 Dose: 5 mg Magnesium Hydroxide (Milk Of Magnesia 30 Ml Oral.Susp) 30 ml PO DAILY PRN PRN Reason: Constipation Melatonin (Melatonin 3 Mg Tablet) 6 mg PO BEDTIME PRN PRN Reason: Sleep Last Admin: 06/23/23 20:17 Dose: 6 mg Olanzapine (Olanzapine 5 Mg Tablet) 5 mg PO Q4H PRN PRN Reason: agitation Last Admin: 06/24/23 15:43 Dose: 5 mg Pyridoxine HCl (Pyridoxine Hcl (Vitamin B6) 50 Mg Tablet) 50 mg PO DAILY [facility] Last Admin: 06/24/23 08:40 Dose: 50 mg Quetiapine Fumarate (Quetiapine Fumarate 50 Mg Tablet) 50 mg PO BID@0800,1700 [facility] Last Admin: 06/24/23 15:43 Dose: 50 mg Quetiapine Fumarate (Quetiapine Fumarate 100 Mg Tablet) 100 mg PO BEDTIME [facility] Last Admin: 06/23/23 20:17 Dose: 100 mg Trazodone HCl (Trazodone Hcl 50 Mg Tablet) 50 mg PO BEDTIME MRX1 PRN PRN Reason: Insomnia Last Admin: 06/12/23 21:38 Dose: 50 mg Allergies Allergies Allergy/AdvReac Type Severity Reaction Status Date / Time No Known Allergies Allergy Verified 06/08/23 20:39 Assessment & Plan Assessment & Plan (1) Major 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 Quintanilla is a 68 year-old woman with hx of hemorrhagic stroke back in 05/2021 with significant lesion on right frontal lobe. Cognitive and personality changes after that with progression in the past 10 months. MOCA is 04/13. Significant impairments in impulsivity, rational thinking, ability to manage finances, preoccupied with money, impaired orientation. PLAN 06/11: Continue current regimen and plans 06/12: Continue current plans and regimen 06/13 increase depakote to 500mg po BID. 06/14 continue tx. 06/15 switch olanzapine to seroquel for better behavioral control 06/16 continue tx. HCP to be affirmed. 06/17 pt on 3 day. today she did take medications, but continues to present as explosive. 06/18 continue same treatment. 06/19 increase Seroquel to 50 p.o. b.i.d. and 100 mg p.o. q.h.s. to target . 06/20 continue tx. 06/21 continue tx. 06/22 continue tx. 06/23 commitment hearing- pt now section 8 Reason for continued inpatient stay Substantial Risk for: inability to function Time Spent With Patient Time: Total time managing care of this patient today ____ minutes.
--- NOTE | 2023-06-24 16:37 | HO.PSYCHPN ---
Subjective Subjective Date of Service: 06/24/23 Reason For Visit: Adjustment disorders Subjective Notes: Section 8 Interim History: Pt slept through the night. She has been visible on the unit, upset about being on the unit. Pt tells this loan underwriter drop . She goes on to say, she is a kid, she lied. She took some of her medications. Medication Compliance: Yes Review of Systems Review of Systems No SOB No chest pain No constipation or diarrhea Yes all other systems are reviewed and are negative Mental Status Exam Mental Status Exam Narrative: Appearance: wearing casual clothing, good hygiene, in NAD Behavior: cooperative, at times suspicious Psychomotor: no agitation or retardation noted Speech: mostly clear, hyperverbal, not pressured, regular tone, spontaneous TP: circumstantial, at times derailed TC: preoccupied with making thousands, no insight into behavior changes or cognitive impairments, suspicious about why police brought her to hospital which she thinks is financially motivated. Mood: terrible Affect: irritable SI: denies HI: denies VH/AH: no overt signs Delusions: some suspiciousness and paranoia towards anyone who challenges her cognitive impairments or independence. Insight/judgment: impaired x 2. Memory/cog: alert, not oriented to situation, month, or year. MOCA 04/13. ACL 3.2- severe cognitive impairment. Diagnostics Vital Signs (24Hr): Vital Signs - 24 hr 06/23/23 18:00 06/24/23 08:35 Temperature 97.9 F Pulse Rate 83 88 Respiratory Rate 18 16 Blood Pressure 157/78 H 127/82 Pulse Oximetry 98 95 Oxygen Delivery Method Room Air Room Air BMI result Body Mass Index 39.8 Labs 06/09/23 07:49 Medications Medications Current Medications Acetaminophen (Acetaminophen 325 Mg Tablet) 650 mg PO Q6H PRN PRN Reason: Headache/Pain Mild Scale (1-3) Al Hydroxide/Mg Hydroxide (Magnesium Hydrox/Alum Hydrox 30 Ml Oral.Susp) 30 ml PO Q6H PRN PRN Reason: Heartburn/Nausea Aspirin (Aspirin 81 Mg Tab.Chew) 81 mg PO DAILY [facility] Last Admin: 06/24/23 08:40 Dose: 81 mg Divalproex Sodium (Divalproex Sodium 500 Mg Tablet.) 500 mg PO BID [facility] Last Admin: 06/24/23 08:40 Dose: 500 mg Hydroxyzine HCl (Hydroxyzine Hcl 25 Mg Tablet) 25 mg PO Q6H PRN PRN Reason: Anxiety Last Admin: 06/23/23 16:46 Dose: 25 mg Lisinopril (Lisinopril 5 Mg Tablet) 5 mg PO DAILY [facility]; Protocol Last Admin: 06/24/23 08:40 Dose: 5 mg Magnesium Hydroxide (Milk Of Magnesia 30 Ml Oral.Susp) 30 ml PO DAILY PRN PRN Reason: Constipation Melatonin (Melatonin 3 Mg Tablet) 6 mg PO BEDTIME PRN PRN Reason: Sleep Last Admin: 06/23/23 20:17 Dose: 6 mg Olanzapine (Olanzapine 5 Mg Tablet) 5 mg PO Q4H PRN PRN Reason: agitation Last Admin: 06/24/23 15:43 Dose: 5 mg Pyridoxine HCl (Pyridoxine Hcl (Vitamin B6) 50 Mg Tablet) 50 mg PO DAILY [facility] Last Admin: 06/24/23 08:40 Dose: 50 mg Quetiapine Fumarate (Quetiapine Fumarate 50 Mg Tablet) 50 mg PO BID@0800,1700 [facility] Last Admin: 06/24/23 15:43 Dose: 50 mg Quetiapine Fumarate (Quetiapine Fumarate 100 Mg Tablet) 100 mg PO BEDTIME [facility] Last Admin: 06/23/23 20:17 Dose: 100 mg Trazodone HCl (Trazodone Hcl 50 Mg Tablet) 50 mg PO BEDTIME MRX1 PRN PRN Reason: Insomnia Last Admin: 06/12/23 21:38 Dose: 50 mg Allergies Allergies Allergy/AdvReac Type Severity Reaction Status Date / Time No Known Allergies Allergy Verified 06/08/23 20:39 Assessment & Plan Assessment & Plan (1) Major 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 Quintanilla is a 68 year-old woman with hx of hemorrhagic stroke back in 05/2021 with significant lesion on right frontal lobe. Cognitive and personality changes after that with progression in the past 10 months. MOCA is 04/13. Significant impairments in impulsivity, rational thinking, ability to manage finances, preoccupied with money, impaired orientation. PLAN 06/11: Continue current regimen and plans 06/12: Continue current plans and regimen 06/13 increase depakote to 500mg po BID. 06/14 continue tx. 06/15 switch olanzapine to seroquel for better behavioral control 06/16 continue tx. HCP to be affirmed. 06/17 pt on 3 day. today she did take medications, but continues to present as explosive. 06/18 continue same treatment. 06/19 increase Seroquel to 50 p.o. b.i.d. and 100 mg p.o. q.h.s. to target . 06/20 continue tx. 06/21 continue tx. 06/22 continue tx. 06/23 commitment hearing, pt now section 8. 06/24 continue tx. Reason for continued inpatient stay Substantial Risk for: inability to function Time Spent With Patient Time: Total time managing care of this patient today ____ minutes.
[2023-06-24 18:00] VITALS: RESP 16
[2023-06-24] MEDS: Melatonin 3 MG TABLET 6 MG PO (20:37)
[2023-06-24] MEDS: QUEtiapine Fumarate 100 MG TABLET PO (20:38)
[2023-06-25 08:47] VITALS: RESP 17
[2023-06-25] MEDS: QUEtiapine Fumarate 50 MG TABLET PO ×2 (09:40→17:07)
[2023-06-25] MEDS: Divalproex Sodium 500 MG TABLET.DR PO (09:40)
[2023-06-25] MEDS: Aspirin 81 MG TAB.CHEW PO (09:40)
[2023-06-25] MEDS: Pyridoxine HCl (Vitamin B6) 50 MG TABLET PO (09:40)
--- NOTE | 2023-06-25 10:50 | PC.NURSE ---
Patient refused all vitals this morning, took morning medication but Lisinopril held d/t refusal of obtaining BP after education. MD Arguelles notified.
--- NOTE | 2023-06-25 11:24 | P.PNPSI_ITS ---
Subjective Subjective Date of Service: 06/25/23 Reason For Visit: Adjustment disorders Interim History: is my son here? i love my son. labile, irritable, paranoid, accusatory. alleging this speech writer may have been involved in some sort of conspiracy to harm her. verbally aggressive. MD had to excuse himself from her presence due to inappropriate speech. per staff, refused VS. taking meds. lisinopril held. Mental Status Exam Mental Status Exam Narrative: Appearance: wearing casual clothing, good hygiene, in NAD Behavior: pacing, agitated Speech: mostly clear, hyperverbal, pressured, regular tone, spontaneous TP: tangential TC: paranoid delusions Mood: not assessed Affect: irritable SI: none expressed HI: none expressed VH/AH: no overt signs Insight/judgment: impaired x 2. Memory/cog: alert, not oriented to situation, month, or year. MOCA 04/13. ACL 3.2- severe cognitive impairment. Diagnostics Vital Signs (24Hr): Vital Signs - 24 hr 06/24/23 18:00 06/25/23 08:47 Respiratory Rate 16 17 BMI result Body Mass Index 39.8 Labs 06/09/23 07:49 Medications Medications Current Medications Acetaminophen (Acetaminophen 325 Mg Tablet) 650 mg PO Q6H PRN PRN Reason: Headache/Pain Mild Scale (1-3) Al Hydroxide/Mg Hydroxide (Magnesium Hydrox/Alum Hydrox 30 Ml Oral.Susp) 30 ml PO Q6H PRN PRN Reason: Heartburn/Nausea Aspirin (Aspirin 81 Mg Tab.Chew) 81 mg PO DAILY [facility] Last Admin: 06/25/23 09:40 Dose: 81 mg Divalproex Sodium (Divalproex Sodium 500 Mg Tablet.Dr) 500 mg PO BID [facility] Last Admin: 06/25/23 09:40 Dose: 500 mg Hydroxyzine HCl (Hydroxyzine Hcl 25 Mg Tablet) 25 mg PO Q6H PRN PRN Reason: Anxiety Last Admin: 06/23/23 16:46 Dose: 25 mg Lisinopril (Lisinopril 5 Mg Tablet) 5 mg PO DAILY [facility]; Protocol Last Admin: 06/25/23 09:46 Dose: Not Given Magnesium Hydroxide (Milk Of Magnesia 30 Ml Oral.Susp) 30 ml PO DAILY PRN PRN Reason: Constipation Melatonin (Melatonin 3 Mg Tablet) 6 mg PO BEDTIME PRN PRN Reason: Sleep Last Admin: 06/24/23 20:37 Dose: 6 mg Olanzapine (Olanzapine 5 Mg Tablet) 5 mg PO Q4H PRN PRN Reason: agitation Last Admin: 06/24/23 15:43 Dose: 5 mg Pyridoxine HCl (Pyridoxine Hcl (Vitamin B6) 50 Mg Tablet) 50 mg PO DAILY [facility] Last Admin: 06/25/23 09:40 Dose: 50 mg Quetiapine Fumarate (Quetiapine Fumarate 50 Mg Tablet) 50 mg PO BID@0800,1700 [facility] Last Admin: 06/25/23 09:40 Dose: 50 mg Quetiapine Fumarate (Quetiapine Fumarate 100 Mg Tablet) 100 mg PO BEDTIME [facility] Last Admin: 06/24/23 20:38 Dose: 100 mg Trazodone HCl (Trazodone Hcl 50 Mg Tablet) 50 mg PO BEDTIME MRX1 PRN PRN Reason: Insomnia Last Admin: 06/12/23 21:38 Dose: 50 mg Allergies Allergies Allergy/AdvReac Type Severity Reaction Status Date / Time No Known Allergies Allergy Verified 06/08/23 20:39 Assessment & Plan Assessment & Plan (1) Major 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 Quintanilla is a 68 year-old woman with hx of hemorrhagic stroke back in 05/2021 with significant lesion on right frontal lobe. Cognitive and personality changes after that with progression in the past 10 months. MOCA is 8/30. Significant impairments in impulsivity, rational thinking, ability to manage finances, preoccupied with money, impaired orientation. PLAN 06/11: Continue current regimen and plans 06/12: Continue current plans and regimen 06/13 increase depakote to 500mg po BID. 06/14 continue tx. 06/15 switch olanzapine to seroquel for better behavioral control 06/16 continue tx. HCP to be affirmed. 06/17 pt on 3 day. today she did take medications, but continues to present as explosive. 06/18 continue same treatment. 06/19 increase Seroquel to 50 p.o. b.i.d. and 100 mg p.o. q.h.s. to target sundowning. 06/20 continue tx. 06/21 continue tx. 06/22 continue tx. 06/23 commitment hearing, pt now section 8. 06/24 continue tx. 06/25: irritable, labile, paranoid delusions, agitated, verbally aggressive. check VPA, CBC, LFT, ammonia. increase VPA to 750 BID. Reason for continued inpatient stay Substantial Risk for: inability to function and rapid decompensation Time Spent With Patient Time: Total time managing care of this patient today ____ minutes.
[2023-06-25 18:00] VITALS: RESP 16
[2023-06-25] MEDS: Melatonin 3 MG TABLET 6 MG PO (20:04)
[2023-06-25] MEDS: QUEtiapine Fumarate 100 MG TABLET PO (20:04)
[2023-06-25] MEDS: Divalproex Sodium 250 MG TABLET.DR 750 MG PO (20:05)
[2023-06-26] MEDS: hydrOXYzine HCL 25 MG TABLET PO (06:42)
[2023-06-26] MEDS: OLANZapine 5 MG TABLET PO (06:42)
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
[2023-06-26 09:33] VITALS: BP 137/79; PULSE 71; RESP 18
[2023-06-26] MEDS: Pyridoxine HCl (Vitamin B6) 50 MG TABLET PO (09:33)
[2023-06-26] MEDS: Divalproex Sodium 250 MG TABLET.DR 750 MG PO ×2 (09:33→21:11)
[2023-06-26] MEDS: QUEtiapine Fumarate 50 MG TABLET PO ×2 (09:33→17:45)
[2023-06-26] MEDS: Aspirin 81 MG TAB.CHEW PO (09:33)
[2023-06-26] MEDS: lisinopriL 5 MG TABLET PO (09:36)
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
--- NOTE | 2023-06-26 17:36 | PC.NURSE ---
Patient became verbally aggressive and threatening towards staff in the morning,
[2023-06-26 18:00] VITALS: BP 151/75; PULSE 97; TEMP 35.8; O2SAT 98
--- NOTE | 2023-06-26 18:07 | PC.NURSE ---
?Patient was very agitated in the morning, yelling, verbally assaultive and threatening towards staff with inability to redirect. Dr Arguelles notified via tiger text and once orders were placed for IM injections, she had calmed down and her mood switched completely. Patient appeared very pleasant and cooperative upon approach, conversating appropriately with peers. Dr. Arguelles notified and IM orders canceled.
[2023-06-26] MEDS: QUEtiapine Fumarate 100 MG TABLET PO (21:12)
[2023-06-27 06:00] VITALS: BP 132/68; PULSE 76; RESP 18; TEMP 36.2; O2SAT 98
[2023-06-27] MEDS: QUEtiapine Fumarate 50 MG TABLET PO ×2 (08:17→16:33)
[2023-06-27] MEDS: OLANZapine 5 MG TABLET PO ×3 (08:17→16:33)
[2023-06-27] MEDS: Divalproex Sodium 250 MG TABLET.DR 750 MG PO ×2 (08:17→22:14)
--- NOTE | 2023-06-27 16:05 | HO.PSYCHPN ---
Subjective Subjective Date of Service: 06/27/23 Reason For Visit: Adjustment disorders Subjective Notes: Section 8 Interim History: Pt continues to present as explosive and intrusive to peers. She was calmer when this medical technical writer approach her. She reports she is fine, what else do you need to know? She denies SI/HI. intermittent accepting treatment. Medication Compliance: Intermittent Side effects from medications: No Attending Groups: No Review of Systems Review of Systems No SOB No chest pain No constipation or diarrhea Yes all other systems are reviewed and are negative Mental Status Exam Mental Status Exam Narrative: Appearance: wearing casual clothing, good hygiene, in NAD Behavior: pacing, agitated Speech: mostly clear, hyperverbal, pressured, regular tone, spontaneous TP: tangential TC: paranoid delusions Mood: not assessed Affect: irritable SI: none expressed HI: none expressed VH/AH: no overt signs Insight/judgment: impaired x 2. Memory/cog: alert, not oriented to situation, month, or year. MOCA 04/13. ACL 3.2- severe cognitive impairment. Diagnostics Vital Signs (24Hr): Vital Signs - 24 hr 06/26/23 18:00 06/27/23 06:00 Temperature 96.4 F L 97.1 F Pulse Rate 97 76 Respiratory Rate 18 Blood Pressure 151/75 H 132/68 Pulse Oximetry 98 98 Oxygen Delivery Method Room Air Room Air BMI result Body Mass Index 39.8 Labs 06/09/23 07:49 Medications Medications Current Medications Acetaminophen (Acetaminophen 325 Mg Tablet) 650 mg PO Q6H PRN PRN Reason: Headache/Pain Mild Scale (1-3) Al Hydroxide/Mg Hydroxide (Magnesium Hydrox/Alum Hydrox 30 Ml Oral.Susp) 30 ml PO Q6H PRN PRN Reason: Heartburn/Nausea Aspirin (Aspirin 81 Mg Tab.Chew) 81 mg PO DAILY [facility] Last Admin: 06/27/23 08:30 Dose: Not Given Divalproex Sodium (Divalproex Sodium 250 Mg Tablet.) 750 mg PO BID [facility] Last Admin: 06/27/23 08:17 Dose: 750 mg Hydroxyzine HCl (Hydroxyzine Hcl 25 Mg Tablet) 25 mg PO Q6H PRN PRN Reason: Anxiety Last Admin: 06/26/23 06:42 Dose: 25 mg Lisinopril (Lisinopril 5 Mg Tablet) 5 mg PO DAILY [facility]; Protocol Last Admin: 06/27/23 08:31 Dose: Not Given Magnesium Hydroxide (Milk Of Magnesia 30 Ml Oral.Susp) 30 ml PO DAILY PRN PRN Reason: Constipation Melatonin (Melatonin 3 Mg Tablet) 6 mg PO BEDTIME PRN PRN Reason: Sleep Last Admin: 06/25/23 20:04 Dose: 6 mg Olanzapine (Olanzapine 5 Mg Tablet) 5 mg PO Q4H PRN PRN Reason: agitation Last Admin: 06/27/23 12:53 Dose: 5 mg Pyridoxine HCl (Pyridoxine Hcl (Vitamin B6) 50 Mg Tablet) 50 mg PO DAILY [facility] Last Admin: 06/27/23 08:31 Dose: Not Given Quetiapine Fumarate (Quetiapine Fumarate 50 Mg Tablet) 50 mg PO BID@0800,1700 [facility] Last Admin: 06/27/23 08:17 Dose: 50 mg Quetiapine Fumarate (Quetiapine Fumarate 100 Mg Tablet) 100 mg PO BEDTIME [facility] Last Admin: 06/26/23 21:12 Dose: 100 mg Trazodone HCl (Trazodone Hcl 50 Mg Tablet) 50 mg PO BEDTIME MRX1 PRN PRN Reason: Insomnia Last Admin: 06/12/23 21:38 Dose: 50 mg Allergies Allergies Allergy/AdvReac Type Severity Reaction Status Date / Time No Known Allergies Allergy Verified 06/08/23 20:39 Assessment & Plan Assessment & Plan (1) Major 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 Quintanilla is a 68 year-old woman with hx of hemorrhagic stroke back in 05/2021 with significant lesion on right frontal lobe. Cognitive and personality changes after that with progression in the past 10 months. MOCA is 8/30. Significant impairments in impulsivity, rational thinking, ability to manage finances, preoccupied with money, impaired orientation. PLAN 06/11: Continue current regimen and plans 06/12: Continue current plans and regimen 06/13 increase depakote to 500mg po BID. 06/14 continue tx. 06/15 switch olanzapine to seroquel for better behavioral control 06/16 continue tx. HCP to be affirmed. 06/17 pt on 3 day. today she did take medications, but continues to present as explosive. 06/18 continue same treatment. 06/19 increase Seroquel to 50 p.o. b.i.d. and 100 mg p.o. q.h.s. to target ing. 06/20 continue tx. 06/21 continue tx. 06/22 continue tx. 06/23 commitment hearing, pt now section 8. 06/24 continue tx. 06/25: irritable, labile, paranoid delusions, agitated, verbally aggressive. check VPA, CBC, LFT, ammonia. increase VPA to 750 BID. 06/26: pt refused labs, VPA dosing increased to 750 BID regardless. no change in presentation. 06/27 continue tx. pending Affirmation of HCP. Reason for continued inpatient stay Substantial Risk for: inability to function Time Spent With Patient Time: Total time managing care of this patient today ____ minutes.
[2023-06-27 18:00] VITALS: BP 150/81; PULSE 64; RESP 18; TEMP 36.1; O2SAT 95
[2023-06-27] MEDS: QUEtiapine Fumarate 100 MG TABLET PO (22:14)
[2023-06-28 06:00] VITALS: BP 157/84; PULSE 80; RESP 18; TEMP 36.2; O2SAT 96
[2023-06-28] MEDS: Aspirin 81 MG TAB.CHEW PO (07:55)
[2023-06-28] MEDS: OLANZapine 5 MG TABLET PO ×3 (07:55→16:56)
[2023-06-28] MEDS: lisinopriL 5 MG TABLET PO (07:55)
[2023-06-28] MEDS: Divalproex Sodium 250 MG TABLET.DR 750 MG PO ×2 (07:55→20:29)
[2023-06-28] MEDS: Pyridoxine HCl (Vitamin B6) 50 MG TABLET PO (07:55)
[2023-06-28] MEDS: QUEtiapine Fumarate 50 MG TABLET PO ×2 (07:56→16:56)
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
[2023-06-28] MEDS: hydrOXYzine HCL 25 MG TABLET PO ×2 (12:41→20:30)
[2023-06-28 18:00] VITALS: BP 132/67; PULSE 68; RESP 16; TEMP 36.6; O2SAT 97
[2023-06-28] MEDS: QUEtiapine Fumarate 100 MG TABLET PO (20:30)
[2023-06-28] MEDS: traZODone HCL 50 MG TABLET PO (20:30)
[2023-06-29 18:00] VITALS: BP 157/62; PULSE 85; RESP 16; TEMP 36.8; O2SAT 94
[2023-06-29] MEDS: Divalproex Sodium 250 MG TABLET.DR 750 MG PO (20:15)
[2023-06-29] MEDS: Melatonin 3 MG TABLET 6 MG PO (20:16)
[2023-06-29] MEDS: QUEtiapine Fumarate 50 MG TABLET PO (20:17)
[2023-06-29] MEDS: hydrOXYzine HCL 25 MG TABLET PO (20:17)
[2023-06-29] MEDS: QUEtiapine Fumarate 100 MG TABLET PO (20:17)
--- NOTE | 2023-06-29 20:26 | HO.PSYCHPN ---
Subjective Subjective Date of Service: 06/29/23 Reason For Visit: Adjustment disorders Subjective Notes: Section 8 Interim History: Pt visible on the unit, interacting with peers but at time intrusive with them and needs redirection. Pt expressed missing his son and hoping to see him soon. She believes this manual writer keeping her away from son due to monetary reasons. She denies SI/HI Affirmation of HCP hearing completed. Pt slept through the night. Mental Status Exam Mental Status Exam Narrative: Appearance: wearing casual clothing, good hygiene, in NAD Behavior: pacing, agitated Speech: mostly clear, hyperverbal, pressured, regular tone, spontaneous TP: tangential TC: paranoid delusions Mood: fine Affect: irritable SI: none expressed HI: none expressed VH/AH: no overt signs Insight/judgment: impaired x 2. Memory/cog: alert, not oriented to situation, month, or year. MOCA 04/13. ACL 3.2- severe cognitive impairment. Diagnostics Vital Signs (24Hr): BMI result Body Mass Index 39.8 Labs 06/09/23 07:49 Medications Medications Current Medications Acetaminophen (Acetaminophen 325 Mg Tablet) 650 mg PO Q6H PRN PRN Reason: Headache/Pain Mild Scale (1-3) Al Hydroxide/Mg Hydroxide (Magnesium Hydrox/Alum Hydrox 30 Ml Oral.Susp) 30 ml PO Q6H PRN PRN Reason: Heartburn/Nausea Aspirin (Aspirin 81 Mg Tab.Chew) 81 mg PO DAILY [facility] Last Admin: 06/29/23 08:35 Dose: Not Given Divalproex Sodium (Divalproex Sodium 250 Mg Tablet.Dr) 750 mg PO BID [facility] Last Admin: 06/29/23 20:15 Dose: 750 mg Hydroxyzine HCl (Hydroxyzine Hcl 25 Mg Tablet) 25 mg PO Q6H PRN PRN Reason: Anxiety Last Admin: 06/29/23 20:17 Dose: 25 mg Lisinopril (Lisinopril 5 Mg Tablet) 5 mg PO DAILY [facility]; Protocol Last Admin: 06/29/23 08:35 Dose: Not Given Magnesium Hydroxide (Milk Of Magnesia 30 Ml Oral.Susp) 30 ml PO DAILY PRN PRN Reason: Constipation Melatonin (Melatonin 3 Mg Tablet) 6 mg PO BEDTIME PRN PRN Reason: Sleep Last Admin: 06/29/23 20:16 Dose: 6 mg Olanzapine (Olanzapine 5 Mg Tablet) 5 mg PO Q4H PRN PRN Reason: agitation Last Admin: 06/28/23 16:56 Dose: 5 mg Pyridoxine HCl (Pyridoxine Hcl (Vitamin B6) 50 Mg Tablet) 50 mg PO DAILY [facility] Last Admin: 06/29/23 08:36 Dose: Not Given Quetiapine Fumarate (Quetiapine Fumarate 50 Mg Tablet) 50 mg PO BID@0800,1700 [facility] Last Admin: 06/29/23 20:17 Dose: 50 mg Quetiapine Fumarate (Quetiapine Fumarate 100 Mg Tablet) 100 mg PO BEDTIME [facility] Last Admin: 06/29/23 20:17 Dose: 100 mg Trazodone HCl (Trazodone Hcl 50 Mg Tablet) 50 mg PO BEDTIME MRX1 PRN PRN Reason: Insomnia Last Admin: 06/28/23 20:30 Dose: 50 mg Allergies Allergies Allergy/AdvReac Type Severity Reaction Status Date / Time No Known Allergies Allergy Verified 06/08/23 20:39 Assessment & Plan Assessment & Plan (1) Major 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 Quintanilla is a 68 year-old woman with hx of hemorrhagic stroke back in 05/2021 with significant lesion on right frontal lobe. Cognitive and personality changes after that with progression in the past 10 months. MOCA is 04/13. Significant impairments in impulsivity, rational thinking, ability to manage finances, preoccupied with money, impaired orientation. PLAN 06/11: Continue current regimen and plans 06/12: Continue current plans and regimen 06/13 increase depakote to 500mg po BID. 06/14 continue tx. 06/15 switch olanzapine to seroquel for better behavioral control 06/16 continue tx. HCP to be affirmed. 06/17 pt on 3 day. today she did take medications, but continues to present as explosive. 06/18 continue same treatment. 06/19 increase Seroquel to 50 p.o. b.i.d. and 100 mg p.o. q.h.s. to target ing. 06/20 continue tx. 06/21 continue tx. 06/22 continue tx. 06/23 commitment hearing, pt now section 8. 06/24 continue tx. 06/25: irritable, labile, paranoid delusions, agitated, verbally aggressive. check VPA, CBC, LFT, ammonia. increase VPA to 750 BID. 06/26: pt refused labs, VPA dosing increased to 750 BID regardless. no change in presentation. 06/27 continue tx. pending Affirmation of HCP. 06/28 continue tx. 06/29 continues tx HCP affirmed. Reason for continued inpatient stay Substantial Risk for: inability to function Time Spent With Patient Time: Total time managing care of this patient today ____ minutes.
[2023-06-30 07:00] VITALS: BMI 39.5
--- NOTE | 2023-06-30 17:21 | HO.PSYCHPN ---
Subjective Subjective Date of Service: 06/30/23 Reason For Visit: Adjustment disorders Subjective Notes: Section 8 Healthcare Proxy: Yes Interim History: Pt intrusive with peers at times. Pt angry about being in the hospital. She thanks this assembly instructions writer for coming to visit is so nice of you, but your father, he is not doing things right, he wants my money and Inderjit's money. She goes on to talk about her truck. She denies SI/HI Affirmation of HCP hearing completed. Pt slept through the night. Review of Systems Review of Systems No SOB No chest pain No constipation or diarrhea Yes all other systems are reviewed and are negative Mental Status Exam Mental Status Exam Narrative: Appearance: wearing casual clothing, good hygiene, in NAD Behavior: pacing, agitated Speech: mostly clear, hyperverbal, pressured, regular tone, spontaneous TP: tangential TC: paranoid delusions Mood: fine Affect: irritable SI: none expressed HI: none expressed VH/AH: no overt signs Insight/judgment: impaired x 2. Memory/cog: alert, not oriented to situation, month, or year. MOCA 04/13. ACL 3.2- severe cognitive impairment. Diagnostics Vital Signs (24Hr): Vital Signs - 24 hr 06/29/23 18:00 Temperature 98.3 F Pulse Rate 85 Respiratory Rate 16 Blood Pressure 157/62 H Pulse Oximetry 94 Oxygen Delivery Method Room Air BMI result Body Mass Index 39.5 Labs 06/09/23 07:49 Medications Medications Current Medications Acetaminophen (Acetaminophen 325 Mg Tablet) 650 mg PO Q6H PRN PRN Reason: Headache/Pain Mild Scale (1-3) Al Hydroxide/Mg Hydroxide (Magnesium Hydrox/Alum Hydrox 30 Ml Oral.Susp) 30 ml PO Q6H PRN PRN Reason: Heartburn/Nausea Aspirin (Aspirin 81 Mg Tab.Chew) 81 mg PO DAILY [facility] Last Admin: 06/30/23 09:20 Dose: Not Given Divalproex Sodium (Divalproex Sodium 250 Mg Tablet.) 750 mg PO BID [facility] Last Admin: 06/30/23 09:20 Dose: Not Given Hydroxyzine HCl (Hydroxyzine Hcl 25 Mg Tablet) 25 mg PO Q6H PRN PRN Reason: Anxiety Last Admin: 06/29/23 20:17 Dose: 25 mg Lisinopril (Lisinopril 5 Mg Tablet) 5 mg PO DAILY [facility]; Protocol Last Admin: 06/30/23 09:20 Dose: Not Given Magnesium Hydroxide (Milk Of Magnesia 30 Ml Oral.Susp) 30 ml PO DAILY PRN PRN Reason: Constipation Melatonin (Melatonin 3 Mg Tablet) 6 mg PO BEDTIME PRN PRN Reason: Sleep Last Admin: 06/29/23 20:16 Dose: 6 mg Olanzapine (Olanzapine 5 Mg Tablet) 5 mg PO Q4H PRN PRN Reason: agitation Last Admin: 06/28/23 16:56 Dose: 5 mg Pyridoxine HCl (Pyridoxine Hcl (Vitamin B6) 50 Mg Tablet) 50 mg PO DAILY [facility] Last Admin: 06/30/23 09:20 Dose: Not Given Quetiapine Fumarate (Quetiapine Fumarate 50 Mg Tablet) 50 mg PO BID@0800,1700 [facility] Last Admin: 06/30/23 16:54 Dose: Not Given Quetiapine Fumarate (Quetiapine Fumarate 100 Mg Tablet) 100 mg PO BEDTIME [facility] Last Admin: 06/29/23 20:17 Dose: 100 mg Trazodone HCl (Trazodone Hcl 50 Mg Tablet) 50 mg PO BEDTIME MRX1 PRN PRN Reason: Insomnia Last Admin: 06/28/23 20:30 Dose: 50 mg Allergies Allergies Allergy/AdvReac Type Severity Reaction Status Date / Time No Known Allergies Allergy Verified 06/08/23 20:39 Assessment & Plan Assessment & Plan (1) Major 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 Quintanilla is a 68 year-old woman with hx of hemorrhagic stroke back in 05/2021 with significant lesion on right frontal lobe. Cognitive and personality changes after that with progression in the past 10 months. MOCA is 830. Significant impairments in impulsivity, rational thinking, ability to manage finances, preoccupied with money, impaired orientation. PLAN 06/11: Continue current regimen and plans 06/12: Continue current plans and regimen 06/13 increase depakote to 500mg po BID. 06/14 continue tx. 06/15 switch olanzapine to seroquel for better behavioral control 06/16 continue tx. HCP to be affirmed. 06/17 pt on 3 day. today she did take medications, but continues to present as explosive. 06/18 continue same treatment. 06/19 increase Seroquel to 50 p.o. b.i.d. and 100 mg p.o. q.h.s. to target sundowning. 06/20 continue tx. 06/21 continue tx. 06/22 continue tx. 06/23 commitment hearing, pt now section 8. 06/24 continue tx. 06/25: irritable, labile, paranoid delusions, agitated, verbally aggressive. check VPA, CBC, LFT, ammonia. increase VPA to 750 BID. 06/26: pt refused labs, VPA dosing increased to 750 BID regardless. no change in presentation. 06/27 continue tx. pending Affirmation of HCP. 06/28 continue tx. 06/29 continues tx HCP affirmed. 06/30 continue tx. Reason for continued inpatient stay Substantial Risk for: inability to function Time Spent With Patient Time: Total time managing care of this patient today ____ minutes.
[2023-06-30 19:40] VITALS: BP 142/78; PULSE 82; RESP 16; TEMP 36.7; O2SAT 97
[2023-06-30] MEDS: Divalproex Sodium 250 MG TABLET.DR 750 MG PO (20:29)
[2023-06-30] MEDS: QUEtiapine Fumarate 100 MG TABLET PO (20:29)
[2023-07-01 18:00] VITALS: BP 108/93; PULSE 75; RESP 18; TEMP 36.5; O2SAT 95
--- NOTE | 2023-07-01 18:49 | HO.PSYCHPN ---
Subjective Subjective Date of Service: 07/01/23 Reason For Visit: Adjustment disorders Subjective Notes: Section 8 Healthcare Proxy: Yes Interim History: Pt in bed. She reports she plans to go and buy a truck tomorrow. She reports she is resting, and not letting anyone bring negativity. She thanks this fiction and nonfiction writer prose for coming and seeing her, then states don't let any one bring negative thoughts into your life Per nursing, she slept through the night. Review of Systems Review of Systems No SOB No chest pain No constipation or diarrhea Yes all other systems are reviewed and are negative Mental Status Exam Mental Status Exam Narrative: Appearance: wearing casual clothing, good hygiene, in NAD Behavior: pacing, agitated Speech: mostly clear, hyperverbal, pressured, regular tone, spontaneous TP: tangential TC: paranoid delusions Mood: fine Affect: irritable SI: none expressed HI: none expressed VH/AH: no overt signs Insight/judgment: impaired x 2. Memory/cog: alert, not oriented to situation, month, or year. MOCA 04/13. ACL 3.2- severe cognitive impairment. Diagnostics Vital Signs (24Hr): Vital Signs - 24 hr 06/30/23 19:40 Temperature 98.0 F Pulse Rate 82 Respiratory Rate 16 Blood Pressure 142/78 H Pulse Oximetry 97 Oxygen Delivery Method Room Air BMI result Body Mass Index 39.5 Labs 06/09/23 07:49 Medications Medications Current Medications Acetaminophen (Acetaminophen 325 Mg Tablet) 650 mg PO Q6H PRN PRN Reason: Headache/Pain Mild Scale (1-3) Al Hydroxide/Mg Hydroxide (Magnesium Hydrox/Alum Hydrox 30 Ml Oral.Susp) 30 ml PO Q6H PRN PRN Reason: Heartburn/Nausea Aspirin (Aspirin 81 Mg Tab.Chew) 81 mg PO DAILY [facility] Last Admin: 07/01/23 08:52 Dose: Not Given Divalproex Sodium (Divalproex Sodium 250 Mg Tablet.) 750 mg PO BID [facility] Last Admin: 07/01/23 08:52 Dose: Not Given Hydroxyzine HCl (Hydroxyzine Hcl 25 Mg Tablet) 25 mg PO Q6H PRN PRN Reason: Anxiety Last Admin: 06/29/23 20:17 Dose: 25 mg Lisinopril (Lisinopril 5 Mg Tablet) 5 mg PO DAILY [facility]; Protocol Last Admin: 07/01/23 08:52 Dose: Not Given Magnesium Hydroxide (Milk Of Magnesia 30 Ml Oral.Susp) 30 ml PO DAILY PRN PRN Reason: Constipation Melatonin (Melatonin 3 Mg Tablet) 6 mg PO BEDTIME PRN PRN Reason: Sleep Last Admin: 06/29/23 20:16 Dose: 6 mg Olanzapine (Olanzapine 5 Mg Tablet) 5 mg PO Q4H PRN PRN Reason: agitation Last Admin: 06/28/23 16:56 Dose: 5 mg Pyridoxine HCl (Pyridoxine Hcl (Vitamin B6) 50 Mg Tablet) 50 mg PO DAILY [facility] Last Admin: 07/01/23 08:52 Dose: Not Given Quetiapine Fumarate (Quetiapine Fumarate 50 Mg Tablet) 50 mg PO BID@0800,1700 [facility] Last Admin: 07/01/23 16:42 Dose: Not Given Quetiapine Fumarate (Quetiapine Fumarate 100 Mg Tablet) 100 mg PO BEDTIME [facility] Last Admin: 06/30/23 20:29 Dose: 100 mg Trazodone HCl (Trazodone Hcl 50 Mg Tablet) 50 mg PO BEDTIME MRX1 PRN PRN Reason: Insomnia Last Admin: 06/28/23 20:30 Dose: 50 mg Allergies Allergies Allergy/AdvReac Type Severity Reaction Status Date / Time No Known Allergies Allergy Verified 06/08/23 20:39 Assessment & Plan Assessment & Plan (1) Major 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 Quintanilla is a 68 year-old woman with hx of hemorrhagic stroke back in 05/2021 with significant lesion on right frontal lobe. Cognitive and personality changes after that with progression in the past 10 months. MOCA is 830. Significant impairments in impulsivity, rational thinking, ability to manage finances, preoccupied with money, impaired orientation. PLAN 06/11: Continue current regimen and plans 06/12: Continue current plans and regimen 06/13 increase depakote to 500mg po BID. 06/14 continue tx. 06/15 switch olanzapine to seroquel for better behavioral control 06/16 continue tx. HCP to be affirmed. 06/17 pt on 3 day. today she did take medications, but continues to present as explosive. 06/18 continue same treatment. 06/19 increase Seroquel to 50 p.o. b.i.d. and 100 mg p.o. q.h.s. to target sundowning. 06/20 continue tx. 06/21 continue tx. 06/22 continue tx. 06/23 commitment hearing, pt now section 8. 06/24 continue tx. 06/25: irritable, labile, paranoid delusions, agitated, verbally aggressive. check VPA, CBC, LFT, ammonia. increase VPA to 750 BID. 06/26: pt refused labs, VPA dosing increased to 750 BID regardless. no change in presentation. 06/27 continue tx. pending Affirmation of HCP. 06/28 continue tx. 06/29 continues tx HCP affirmed. 06/30 continue tx. 07/01 continue tx. Reason for continued inpatient stay Substantial Risk for: inability to function Time Spent With Patient Time: Total time managing care of this patient today ____ minutes.
[2023-07-01] MEDS: Divalproex Sodium 250 MG TABLET.DR 750 MG PO (20:26)
[2023-07-01] MEDS: QUEtiapine Fumarate 100 MG TABLET PO (20:26)
[2023-07-02 08:17] VITALS: BP 139/77; PULSE 72; RESP 18; TEMP 36.8; O2SAT 94
[2023-07-02] MEDS: Aspirin 81 MG TAB.CHEW PO (08:19)
[2023-07-02] MEDS: OLANZapine 5 MG TABLET PO ×3 (08:19→16:40)
[2023-07-02] MEDS: QUEtiapine Fumarate 50 MG TABLET PO ×2 (08:19→16:40)
[2023-07-02] MEDS: Pyridoxine HCl (Vitamin B6) 50 MG TABLET PO (08:19)
[2023-07-02] MEDS: lisinopriL 5 MG TABLET PO (08:19)
[2023-07-02] MEDS: Divalproex Sodium 250 MG TABLET.DR 750 MG PO (08:19)
[2023-07-02] MEDS: hydrOXYzine HCL 25 MG TABLET PO (13:01)
--- NOTE | 2023-07-02 17:12 | HO.PSYCHPN ---
Subjective Subjective Date of Service: 07/02/23 Reason For Visit: Adjustment disorders Interim History: Seen and discussed with RN. She is reportedly tearful at times. She is disoriented. She says she is tired. My son and I are stretched. I want to go home to make it nice... She remains disorganized. Denies SI. Review of Systems Review of Systems No SOB No chest pain No constipation or diarrhea Yes all other systems are reviewed and are negative Mental Status Exam Mental Status Exam Narrative: Appearance: wearing casual clothing, good hygiene, in NAD Behavior: pacing, agitated Speech: mostly clear, hyperverbal, pressured, regular tone, spontaneous TP: tangential TC: paranoid delusions Mood: fine Affect: irritable SI: none expressed HI: none expressed VH/AH: no overt signs Insight/judgment: impaired x 2. Memory/cog: alert, not oriented to situation, month, or year. MOCA 04/13. ACL 3.2- severe cognitive impairment. Patient Appearance: Appropriate Patient Orientation: Person and Situation Level of Consciousness: Awake and Appropriate Patient Behavior: Guarded and Passive Mood Description: Withdrawn Affect Description: Constricted Patient Cognition Impaired: Yes Ability to Follow Directions: Good Speech Pattern: Clear Diagnostics Vital Signs (24Hr): Vital Signs - 24 hr 07/01/23 18:00 07/02/23 08:17 Temperature 97.7 F 98.2 F Pulse Rate 75 72 Respiratory Rate 18 18 Blood Pressure 108/93 H 139/77 Pulse Oximetry 95 94 Oxygen Delivery Method Room Air Room Air BMI result Body Mass Index 39.5 Labs 06/09/23 07:49 Medications Medications Current Medications Acetaminophen (Acetaminophen 325 Mg Tablet) 650 mg PO Q6H PRN PRN Reason: Headache/Pain Mild Scale (1-3) Al Hydroxide/Mg Hydroxide (Magnesium Hydrox/Alum Hydrox 30 Ml Oral.Susp) 30 ml PO Q6H PRN PRN Reason: Heartburn/Nausea Aspirin (Aspirin 81 Mg Tab.Chew) 81 mg PO DAILY [facility] Last Admin: 07/02/23 08:19 Dose: 81 mg Divalproex Sodium (Divalproex Sodium 250 Mg Tablet.Dr) 750 mg PO BID [facility] Last Admin: 07/02/23 08:19 Dose: 750 mg Hydroxyzine HCl (Hydroxyzine Hcl 25 Mg Tablet) 25 mg PO Q6H PRN PRN Reason: Anxiety Last Admin: 07/02/23 13:01 Dose: 25 mg Lisinopril (Lisinopril 5 Mg Tablet) 5 mg PO DAILY [facility]; Protocol Last Admin: 07/02/23 08:19 Dose: 5 mg Magnesium Hydroxide (Milk Of Magnesia 30 Ml Oral.Susp) 30 ml PO DAILY PRN PRN Reason: Constipation Melatonin (Melatonin 3 Mg Tablet) 6 mg PO BEDTIME PRN PRN Reason: Sleep Last Admin: 06/29/23 20:16 Dose: 6 mg Olanzapine (Olanzapine 5 Mg Tablet) 5 mg PO Q4H PRN PRN Reason: agitation Last Admin: 07/02/23 16:40 Dose: 5 mg Pyridoxine HCl (Pyridoxine Hcl (Vitamin B6) 50 Mg Tablet) 50 mg PO DAILY [facility] Last Admin: 07/02/23 08:19 Dose: 50 mg Quetiapine Fumarate (Quetiapine Fumarate 50 Mg Tablet) 50 mg PO BID@0800,1700 [facility] Last Admin: 07/02/23 16:40 Dose: 50 mg Quetiapine Fumarate (Quetiapine Fumarate 100 Mg Tablet) 100 mg PO BEDTIME [facility] Last Admin: 07/01/23 20:26 Dose: 100 mg Trazodone HCl (Trazodone Hcl 50 Mg Tablet) 50 mg PO BEDTIME MRX1 PRN PRN Reason: Insomnia Last Admin: 06/28/23 20:30 Dose: 50 mg Allergies Allergies Allergy/AdvReac Type Severity Reaction Status Date / Time No Known Allergies Allergy Verified 06/08/23 20:39 Assessment & Plan Assessment & Plan (1) Major 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 Quintanilla is a 68 year-old woman with hx of hemorrhagic stroke back in 05/2021 with significant lesion on right frontal lobe. Cognitive and personality changes after that with progression in the past 10 months. MOCA is 04/13. Significant impairments in impulsivity, rational thinking, ability to manage finances, preoccupied with money, impaired orientation. PLAN 06/11: Continue current regimen and plans 06/12: Continue current plans and regimen 06/13 increase depakote to 500mg po BID. 06/14 continue tx. 06/15 switch olanzapine to seroquel for better behavioral control 06/16 continue tx. HCP to be affirmed. 06/17 pt on 3 day. today she did take medications, but continues to present as explosive. 06/18 continue same treatment. 06/19 increase Seroquel to 50 p.o. b.i.d. and 100 mg p.o. q.h.s. to target . 06/20 continue tx. 06/21 continue tx. 06/22 continue tx. 06/23 commitment hearing, pt now section 8. 06/24 continue tx. 06/25: irritable, labile, paranoid delusions, agitated, verbally aggressive. check VPA, CBC, LFT, ammonia. increase VPA to 750 BID. 06/26: pt refused labs, VPA dosing increased to 750 BID regardless. no change in presentation. 06/27 continue tx. pending Affirmation of HCP. 06/28 continue tx. 06/29 continues tx HCP affirmed. 06/30 continue tx. 07/01 continue tx. 07/02: Continue current management and treatment plan. Reason for continued inpatient stay Substantial Risk for: inability to function and rapid decompensation Time Spent With Patient Time: Total time managing care of this patient today ____ minutes.
[2023-07-03 06:00] VITALS: BP 126/73; PULSE 74; RESP 18; TEMP 36.4; O2SAT 97
[2023-07-03] MEDS: Divalproex Sodium 250 MG TABLET.DR 750 MG PO ×2 (07:59→20:25)
[2023-07-03] MEDS: Pyridoxine HCl (Vitamin B6) 50 MG TABLET PO (07:59)
[2023-07-03] MEDS: QUEtiapine Fumarate 50 MG TABLET PO ×2 (07:59→18:21)
[2023-07-03] MEDS: Aspirin 81 MG TAB.CHEW PO (08:00)
[2023-07-03] MEDS: lisinopriL 5 MG TABLET PO (08:00)
[2023-07-03] MEDS: OLANZapine 5 MG TABLET PO ×3 (08:00→18:21)
--- NOTE | 2023-07-03 15:57 | P.PNPSI_ITS ---
Subjective Subjective Date of Service: 07/03/23 Reason For Visit: Adjustment disorders Interim History: Seen and discussed with RN. When asked about how she is doing she says I want my son to be more available. She says he hasn't been available. She gets irritated when this tech writer introduces himself as a psychiatrist and loudly says I don't need a psychiatrist! She is confused. She remains disorganized. Denies SI. Review of Systems Review of Systems No SOB No chest pain No constipation or diarrhea Yes all other systems are reviewed and are negative Mental Status Exam Mental Status Exam Narrative: Appearance: wearing casual clothing, good hygiene, in NAD Behavior: pacing, agitated Speech: mostly clear, hyperverbal, pressured, regular tone, spontaneous TP: tangential TC: paranoid delusions Mood: fine Affect: irritable SI: none expressed HI: none expressed VH/AH: no overt signs Insight/judgment: impaired x 2. Memory/cog: alert, not oriented to situation, month, or year. MOCA 04/13. ACL 3.2- severe cognitive impairment. Patient Appearance: Appropriate Patient Orientation: Person and Situation Level of Consciousness: Awake and Appropriate Patient Behavior: Guarded and Passive Mood Description: Withdrawn Affect Description: Constricted Patient Cognition Impaired: Yes Ability to Follow Directions: Good Speech Pattern: Clear Diagnostics Vital Signs (24Hr): Vital Signs - 24 hr 07/03/23 06:00 Temperature 97.5 F Pulse Rate 74 Respiratory Rate 18 Blood Pressure 126/73 Pulse Oximetry 97 Oxygen Delivery Method Room Air BMI result Body Mass Index 39.5 Labs 06/09/23 07:49 Medications Medications Current Medications Acetaminophen (Acetaminophen 325 Mg Tablet) 650 mg PO Q6H PRN PRN Reason: Headache/Pain Mild Scale (1-3) Al Hydroxide/Mg Hydroxide (Magnesium Hydrox/Alum Hydrox 30 Ml Oral.Susp) 30 ml PO Q6H PRN PRN Reason: Heartburn/Nausea Aspirin (Aspirin 81 Mg Tab.Chew) 81 mg PO DAILY [facility] Last Admin: 07/03/23 08:00 Dose: 81 mg Divalproex Sodium (Divalproex Sodium 250 Mg Tablet.) 750 mg PO BID [facility] Last Admin: 07/03/23 07:59 Dose: 750 mg Hydroxyzine HCl (Hydroxyzine Hcl 25 Mg Tablet) 25 mg PO Q6H PRN PRN Reason: Anxiety Last Admin: 07/02/23 13:01 Dose: 25 mg Lisinopril (Lisinopril 5 Mg Tablet) 5 mg PO DAILY [facility]; Protocol Last Admin: 07/03/23 08:00 Dose: 5 mg Magnesium Hydroxide (Milk Of Magnesia 30 Ml Oral.Susp) 30 ml PO DAILY PRN PRN Reason: Constipation Melatonin (Melatonin 3 Mg Tablet) 6 mg PO BEDTIME PRN PRN Reason: Sleep Last Admin: 06/29/23 20:16 Dose: 6 mg Olanzapine (Olanzapine 5 Mg Tablet) 5 mg PO Q4H PRN PRN Reason: agitation Last Admin: 07/03/23 12:16 Dose: 5 mg Pyridoxine HCl (Pyridoxine Hcl (Vitamin B6) 50 Mg Tablet) 50 mg PO DAILY [facility] Last Admin: 07/03/23 07:59 Dose: 50 mg Quetiapine Fumarate (Quetiapine Fumarate 50 Mg Tablet) 50 mg PO BID@0800,1700 [facility] Last Admin: 07/03/23 07:59 Dose: 50 mg Quetiapine Fumarate (Quetiapine Fumarate 100 Mg Tablet) 100 mg PO BEDTIME [facility] Last Admin: 07/02/23 21:27 Dose: Not Given Trazodone HCl (Trazodone Hcl 50 Mg Tablet) 50 mg PO BEDTIME MRX1 PRN PRN Reason: Insomnia Last Admin: 06/28/23 20:30 Dose: 50 mg Allergies Allergies Allergy/AdvReac Type Severity Reaction Status Date / Time No Known Allergies Allergy Verified 06/08/23 20:39 Assessment & Plan Assessment & Plan (1) Major 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 Quintanilla is a 68 year-old woman with hx of hemorrhagic stroke back in 05/2021 with significant lesion on right frontal lobe. Cognitive and personality changes after that with progression in the past 10 months. MOCA is 04/13. Significant impairments in impulsivity, rational thinking, ability to manage finances, preoccupied with money, impaired orientation. PLAN 06/11: Continue current regimen and plans 06/12: Continue current plans and regimen 06/13 increase depakote to 500mg po BID. 06/14 continue tx. 06/15 switch olanzapine to seroquel for better behavioral control 06/16 continue tx. HCP to be affirmed. 06/17 pt on 3 day. today she did take medications, but continues to present as explosive. 06/18 continue same treatment. 06/19 increase Seroquel to 50 p.o. b.i.d. and 100 mg p.o. q.h.s. to target . 06/20 continue tx. 06/21 continue tx. 06/22 continue tx. 06/23 commitment hearing, pt now section 8. 06/24 continue tx. 06/25: irritable, labile, paranoid delusions, agitated, verbally aggressive. check VPA, CBC, LFT, ammonia. increase VPA to 750 BID. 06/26: pt refused labs, VPA dosing increased to 750 BID regardless. no change in presentation. 06/27 continue tx. pending Affirmation of HCP. 06/28 continue tx. 06/29 continues tx HCP affirmed. 06/30 continue tx. 07/01 continue tx. 07/02: Continue current management and treatment plan. 07/03:Continue current management and treatment plan. Reason for continued inpatient stay Substantial Risk for: inability to function and rapid decompensation Time Spent With Patient Time: Total time managing care of this patient today ____ minutes.
[2023-07-03 18:00] VITALS: BP 119/56; PULSE 66; RESP 14; TEMP 36.5; O2SAT 94
[2023-07-03] MEDS: hydrOXYzine HCL 25 MG TABLET PO (20:25)
[2023-07-03] MEDS: Melatonin 3 MG TABLET 6 MG PO (20:25)
[2023-07-03] MEDS: QUEtiapine Fumarate 100 MG TABLET PO (20:25)
[2023-07-04 08:00] VITALS: BP 126/74; PULSE 68; RESP 16; TEMP 36.2; O2SAT 95
[2023-07-04] MEDS: Aspirin 81 MG TAB.CHEW PO (08:30)
[2023-07-04] MEDS: Pyridoxine HCl (Vitamin B6) 50 MG TABLET PO (08:31)
[2023-07-04] MEDS: Divalproex Sodium 250 MG TABLET.DR 750 MG PO (08:31)
[2023-07-04] MEDS: QUEtiapine Fumarate 50 MG TABLET PO ×2 (08:32→16:19)
[2023-07-04] MEDS: OLANZapine 5 MG TABLET PO ×2 (08:32→13:25)
[2023-07-04] MEDS: lisinopriL 5 MG TABLET PO (08:32)
--- NOTE | 2023-07-04 09:05 | HO.PSYCHPN ---
Subjective Subjective Date of Service: 07/04/23 Reason For Visit: Adjustment disorders Subjective Notes: Conditional Voluntary Interim History: Pt confused as to this conventional underwriter's role, again giving this conventional underwriter advised to leave this place as she reports doctor is stealing from her son. She became mildly irritable when this conventional underwriter asked about her gait- as she is holding the wall when ambulating- whether she is in pain or mostly unsteady on her feet... She states there's nothing wrong with me, don't let them poison you! Not oriented to place, month, year or situation. She is less labile, taking medications more consistently. Pt sleeping through the night. Medication Compliance: Yes Side effects from medications: No Attending Groups: Intermittent Review of Systems Review of Systems No SOB No chest pain No constipation or diarrhea Yes all other systems are reviewed and are negative Mental Status Exam Mental Status Exam Narrative: Appearance: wearing casual clothing, good hygiene, in NAD Behavior: cooperative Speech: mostly clear, hyperverbal, not pressured, regular tone, spontaneous TP: tangential TC: thinks doctor here stealing money from her son, missing her son Mood: fine Affect:mildly irritable when conventional underwriter commented on need to hold when ambulating SI: none HI: none VH/AH: no overt signs Insight/judgment: impaired x 2. Memory/cog: alert, not oriented to situation, month, or year. MOCA 04/13. ACL 3.2- severe cognitive impairment. Diagnostics Vital Signs (24Hr): Vital Signs - 24 hr 07/03/23 18:00 07/04/23 08:00 Temperature 97.7 F 97.2 F Pulse Rate 66 68 Respiratory Rate 14 16 Blood Pressure 119/56 L 126/74 Pulse Oximetry 94 95 Oxygen Delivery Method Room Air Room Air BMI result Body Mass Index 39.5 Labs 06/09/23 07:49 Medications Medications Current Medications Acetaminophen (Acetaminophen 325 Mg Tablet) 650 mg PO Q6H PRN PRN Reason: Headache/Pain Mild Scale (1-3) Al Hydroxide/Mg Hydroxide (Magnesium Hydrox/Alum Hydrox 30 Ml Oral.Susp) 30 ml PO Q6H PRN PRN Reason: Heartburn/Nausea Aspirin (Aspirin 81 Mg Tab.Chew) 81 mg PO DAILY [facility] Last Admin: 07/04/23 08:30 Dose: 81 mg Divalproex Sodium (Divalproex Sodium 250 Mg Tablet.Dr) 750 mg PO BID [facility] Last Admin: 07/04/23 08:31 Dose: 750 mg Hydroxyzine HCl (Hydroxyzine Hcl 25 Mg Tablet) 25 mg PO Q6H PRN PRN Reason: Anxiety Last Admin: 07/03/23 20:25 Dose: 25 mg Lisinopril (Lisinopril 5 Mg Tablet) 5 mg PO DAILY [facility]; Protocol Last Admin: 07/04/23 08:32 Dose: 5 mg Magnesium Hydroxide (Milk Of Magnesia 30 Ml Oral.Susp) 30 ml PO DAILY PRN PRN Reason: Constipation Melatonin (Melatonin 3 Mg Tablet) 6 mg PO BEDTIME PRN PRN Reason: Sleep Last Admin: 07/03/23 20:25 Dose: 6 mg Olanzapine (Olanzapine 5 Mg Tablet) 5 mg PO Q4H PRN PRN Reason: agitation Last Admin: 07/04/23 08:32 Dose: 5 mg Pyridoxine HCl (Pyridoxine Hcl (Vitamin B6) 50 Mg Tablet) 50 mg PO DAILY [facility] Last Admin: 07/04/23 08:31 Dose: 50 mg Quetiapine Fumarate (Quetiapine Fumarate 50 Mg Tablet) 50 mg PO BID@0800,1700 [facility] Last Admin: 07/04/23 08:32 Dose: 50 mg Quetiapine Fumarate (Quetiapine Fumarate 100 Mg Tablet) 100 mg PO BEDTIME [facility] Last Admin: 07/03/23 20:25 Dose: 100 mg Trazodone HCl (Trazodone Hcl 50 Mg Tablet) 50 mg PO BEDTIME MRX1 PRN PRN Reason: Insomnia Last Admin: 06/28/23 20:30 Dose: 50 mg Allergies Allergies Allergy/AdvReac Type Severity Reaction Status Date / Time No Known Allergies Allergy Verified 06/08/23 20:39 Assessment & Plan Assessment & Plan (1) Major 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 Quintanilla is a 68 year-old woman with hx of hemorrhagic stroke back in 05/2021 with significant lesion on right frontal lobe. Cognitive and personality changes after that with progression in the past 10 months. MOCA is 04/13. Significant impairments in impulsivity, rational thinking, ability to manage finances, preoccupied with money, impaired orientation. PLAN 06/11: Continue current regimen and plans 06/12: Continue current plans and regimen 06/13 increase depakote to 500mg po BID. 06/14 continue tx. 06/15 switch olanzapine to seroquel for better behavioral control 06/16 continue tx. HCP to be affirmed. 06/17 pt on 3 day. today she did take medications, but continues to present as explosive. 06/18 continue same treatment. 06/19 increase Seroquel to 50 p.o. b.i.d. and 100 mg p.o. q.h.s. to target . 06/20 continue tx. 06/21 continue tx. 06/22 continue tx. 06/23 commitment hearing, pt now section 8. 06/24 continue tx. 06/25: irritable, labile, paranoid delusions, agitated, verbally aggressive. check VPA, CBC, LFT, ammonia. increase VPA to 750 BID. 06/26: pt refused labs, VPA dosing increased to 750 BID regardless. no change in presentation. 06/27 continue tx. pending Affirmation of HCP. 06/28 continue tx. 06/29 continues tx HCP affirmed. 06/30 continue tx. 07/01 continue tx. 07/02: Continue current management and treatment plan. 07/03:Continue current management and treatment plan. 07/04 continue tx. check depakote and ammonia on 07/05 AM Reason for continued inpatient stay Substantial Risk for: inability to function Time Spent With Patient Time: Total time managing care of this patient today ____ minutes.
[2023-07-04 18:00] VITALS: RESP 18
[2023-07-05 09:00] LABS: Ammonia 33 umol/L (13-55)
[2023-07-05 09:58] LABS: Valproate 43.1 mcg/mL (50.0-100.0)
--- NOTE | 2023-07-05 14:25 | P.PNPSI_ITS ---
Subjective Subjective Date of Service: 07/05/23 Reason For Visit: Adjustment disorders Subjective Notes: Section 8 Healthcare Proxy: Yes (affirmed) Interim History: pt tells this creative writer I am being sued. She reports her son is less than 18 years old and papers (pointing at alumni secretary) are lawsuit against her to take her son's money. She does not know the place, month, date, year. More and more confused as to why she is here and explanations border in delusional but unclear if this is more confabulation- given the level of cognitive impairment and inability to retain much information. At this point she does not remember this creative writer is her provider nor the person who testified in court for medical reasons. She gives this creative writer tips to stay safe and who to talk to here on the unit. Medication Compliance: Intermittent Diagnostics Vital Signs (24Hr): Vital Signs - 24 hr 07/04/23 18:00 Respiratory Rate 18 BMI result Body Mass Index 39.5 Labs 06/09/23 07:49 Labs: Laboratory Results - last 48 hr 07/05/23 07/05/23 08:41 09:38 Ammonia 33 Valproic Acid 43.1 L Medications Medications Current Medications Acetaminophen (Acetaminophen 325 Mg Tablet) 650 mg PO Q6H PRN PRN Reason: Headache/Pain Mild Scale (1-3) Al Hydroxide/Mg Hydroxide (Magnesium Hydrox/Alum Hydrox 30 Ml Oral.Susp) 30 ml PO Q6H PRN PRN Reason: Heartburn/Nausea Aspirin (Aspirin 81 Mg Tab.Chew) 81 mg PO DAILY [facility] Last Admin: 07/05/23 12:51 Dose: Not Given Divalproex Sodium (Divalproex Sodium 250 Mg Tablet.) 750 mg PO BID [facility] Last Admin: 07/05/23 12:51 Dose: Not Given Hydroxyzine HCl (Hydroxyzine Hcl 25 Mg Tablet) 25 mg PO Q6H PRN PRN Reason: Anxiety Last Admin: 07/03/23 20:25 Dose: 25 mg Lisinopril (Lisinopril 5 Mg Tablet) 5 mg PO DAILY [facility]; Protocol Last Admin: 07/05/23 12:51 Dose: Not Given Magnesium Hydroxide (Milk Of Magnesia 30 Ml Oral.Susp) 30 ml PO DAILY PRN PRN Reason: Constipation Melatonin (Melatonin 3 Mg Tablet) 6 mg PO BEDTIME PRN PRN Reason: Sleep Last Admin: 07/03/23 20:25 Dose: 6 mg Olanzapine (Olanzapine 5 Mg Tablet) 5 mg PO Q4H PRN PRN Reason: agitation Last Admin: 07/04/23 13:25 Dose: 5 mg Pyridoxine HCl (Pyridoxine Hcl (Vitamin B6) 50 Mg Tablet) 50 mg PO DAILY [facility] Last Admin: 07/05/23 12:51 Dose: Not Given Quetiapine Fumarate (Quetiapine Fumarate 50 Mg Tablet) 50 mg PO BID@0800,1700 [facility] Last Admin: 07/05/23 12:51 Dose: Not Given Quetiapine Fumarate (Quetiapine Fumarate 100 Mg Tablet) 100 mg PO BEDTIME [facility] Last Admin: 07/04/23 20:35 Dose: Not Given Trazodone HCl (Trazodone Hcl 50 Mg Tablet) 50 mg PO BEDTIME MRX1 PRN PRN Reason: Insomnia Last Admin: 06/28/23 20:30 Dose: 50 mg Allergies Allergies Allergy/AdvReac Type Severity Reaction Status Date / Time No Known Allergies Allergy Verified 06/08/23 20:39 Assessment & Plan Assessment & Plan (1) Major 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 Quintanilla is a 68 year-old woman with hx of hemorrhagic stroke back in 05/2021 with significant lesion on right frontal lobe. Cognitive and personality changes after that with progression in the past 10 months. MOCA is 8/30. Significant impairments in impulsivity, rational thinking, ability to manage finances, preoccupied with money, impaired orientation. PLAN 06/11: Continue current regimen and plans 06/12: Continue current plans and regimen 06/13 increase depakote to 500mg po BID. 06/14 continue tx. 06/15 switch olanzapine to seroquel for better behavioral control 06/16 continue tx. HCP to be affirmed. 06/17 pt on 3 day. today she did take medications, but continues to present as explosive. 06/18 continue same treatment. 06/19 increase Seroquel to 50 p.o. b.i.d. and 100 mg p.o. q.h.s. to target sundowning. 06/20 continue tx. 06/21 continue tx. 06/22 continue tx. 06/23 commitment hearing, pt now section 8. 06/24 continue tx. 06/25: irritable, labile, paranoid delusions, agitated, verbally aggressive. check VPA, CBC, LFT, ammonia. increase VPA to 750 BID. 06/26: pt refused labs, VPA dosing increased to 750 BID regardless. no change in presentation. 06/27 continue tx. pending Affirmation of HCP. 06/28 continue tx. 06/29 continues tx HCP affirmed. 06/30 continue tx. 07/01 continue tx. 07/02: Continue current management and treatment plan. 07/03:Continue current management and treatment plan. 07/04 continue tx. check depakote and ammonia on 07/05 AM 07/05 depakote level 45, ammonia wnl. continue current medications Reason for continued inpatient stay Substantial Risk for: inability to function Time Spent With Patient Time: Total time managing care of this patient today ____ minutes.
[2023-07-05] MEDS: Divalproex Sodium 250 MG TABLET.DR 750 MG PO (21:43)
[2023-07-05] MEDS: QUEtiapine Fumarate 100 MG TABLET PO (21:43)
--- NOTE | 2023-07-06 15:11 | HO.PSYCHPN ---
Subjective Subjective Date of Service: 07/06/23 Reason For Visit: Adjustment disorders Subjective Notes: Section 8 Interim History: Pt going to groups more often. More confused as to why she is here. She asks this contract technical writer if I had seen Inderjit, her son. She asks me if I can call him. Then thanks this contract technical writer for making effort to contact him. No insight into memory/cognitive impairment. She denies SI/HI. No VH/AH. suspicious but easily redirectable. Medication Compliance: Intermittent Review of Systems Review of Systems No SOB No chest pain No constipation or diarrhea Yes all other systems are reviewed and are negative Mental Status Exam Mental Status Exam Narrative: Appearance: wearing casual clothing, good hygiene, in NAD Behavior: cooperative Speech: mostly clear, hyperverbal, not pressured, regular tone, spontaneous TP: tangential TC: thinks doctor here stealing money from her son, missing her son Mood: fine Affect:mildly irritable when contract technical writer commented on need to hold when ambulating SI: none HI: none VH/AH: no overt signs Insight/judgment: impaired x 2. Memory/cog: alert, not oriented to situation, month, or year. MOCA 04/13. ACL 3.2- severe cognitive impairment. Diagnostics Vital Signs (24Hr): BMI result Body Mass Index 39.5 Labs 06/09/23 07:49 Labs: Laboratory Results - last 48 hr 07/05/23 07/05/23 08:41 09:38 Ammonia 33 Valproic Acid 43.1 L Medications Medications Current Medications Acetaminophen (Acetaminophen 325 Mg Tablet) 650 mg PO Q6H PRN PRN Reason: Headache/Pain Mild Scale (1-3) Al Hydroxide/Mg Hydroxide (Magnesium Hydrox/Alum Hydrox 30 Ml Oral.Susp) 30 ml PO Q6H PRN PRN Reason: Heartburn/Nausea Aspirin (Aspirin 81 Mg Tab.Chew) 81 mg PO DAILY [facility] Last Admin: 07/06/23 09:19 Dose: Not Given Divalproex Sodium (Divalproex Sodium 250 Mg Tablet.) 750 mg PO BID [facility] Last Admin: 07/06/23 09:19 Dose: Not Given Hydroxyzine HCl (Hydroxyzine Hcl 25 Mg Tablet) 25 mg PO Q6H PRN PRN Reason: Anxiety Last Admin: 07/03/23 20:25 Dose: 25 mg Lisinopril (Lisinopril 5 Mg Tablet) 5 mg PO DAILY [facility]; Protocol Last Admin: 07/06/23 09:19 Dose: Not Given Magnesium Hydroxide (Milk Of Magnesia 30 Ml Oral.Susp) 30 ml PO DAILY PRN PRN Reason: Constipation Melatonin (Melatonin 3 Mg Tablet) 6 mg PO BEDTIME PRN PRN Reason: Sleep Last Admin: 07/03/23 20:25 Dose: 6 mg Olanzapine (Olanzapine 5 Mg Tablet) 5 mg PO Q4H PRN PRN Reason: agitation Last Admin: 07/04/23 13:25 Dose: 5 mg Pyridoxine HCl (Pyridoxine Hcl (Vitamin B6) 50 Mg Tablet) 50 mg PO DAILY [facility] Last Admin: 07/06/23 09:19 Dose: Not Given Quetiapine Fumarate (Quetiapine Fumarate 50 Mg Tablet) 50 mg PO BID@0800,1700 [facility] Last Admin: 07/06/23 09:19 Dose: Not Given Quetiapine Fumarate (Quetiapine Fumarate 100 Mg Tablet) 100 mg PO BEDTIME [facility] Last Admin: 07/05/23 21:43 Dose: 100 mg Trazodone HCl (Trazodone Hcl 50 Mg Tablet) 50 mg PO BEDTIME MRX1 PRN PRN Reason: Insomnia Last Admin: 06/28/23 20:30 Dose: 50 mg Allergies Allergies Allergy/AdvReac Type Severity Reaction Status Date / Time No Known Allergies Allergy Verified 06/08/23 20:39 Assessment & Plan Assessment & Plan (1) Major 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 Quintanilla is a 68 year-old woman with hx of hemorrhagic stroke back in 05/2021 with significant lesion on right frontal lobe. Cognitive and personality changes after that with progression in the past 10 months. MOCA is 04/13. Significant impairments in impulsivity, rational thinking, ability to manage finances, preoccupied with money, impaired orientation. PLAN 06/11: Continue current regimen and plans 06/12: Continue current plans and regimen 06/13 increase depakote to 500mg po BID. 06/14 continue tx. 06/15 switch olanzapine to seroquel for better behavioral control 06/16 continue tx. HCP to be affirmed. 06/17 pt on 3 day. today she did take medications, but continues to present as explosive. 06/18 continue same treatment. 06/19 increase Seroquel to 50 p.o. b.i.d. and 100 mg p.o. q.h.s. to target . 06/20 continue tx. 06/21 continue tx. 06/22 continue tx. 06/23 commitment hearing, pt now section 8. 06/24 continue tx. 06/25: irritable, labile, paranoid delusions, agitated, verbally aggressive. check VPA, CBC, LFT, ammonia. increase VPA to 750 BID. 06/26: pt refused labs, VPA dosing increased to 750 BID regardless. no change in presentation. 06/27 continue tx. pending Affirmation of HCP. 06/28 continue tx. 06/29 continues tx HCP affirmed. 06/30 continue tx. 07/01 continue tx. 07/02: Continue current management and treatment plan. 07/03:Continue current management and treatment plan. 07/04 continue tx. check depakote and ammonia on 07/05 AM 07/05 depakote level 45, ammonia wnl. continue current medications 07/06 continue tx. Reason for continued inpatient stay Substantial Risk for: inability to function Time Spent With Patient Time: Total time managing care of this patient today ____ minutes.
[2023-07-06 20:40] VITALS: BP 129/63; PULSE 60; RESP 16; TEMP 37.2; O2SAT 94
[2023-07-07 06:00] VITALS: RESP 16
[2023-07-07 07:00] VITALS: BMI 39.2
--- NOTE | 2023-07-07 11:13 | HO.PSYCHPN ---
Subjective Subjective Date of Service: 07/07/23 Reason For Visit: Adjustment disorders Subjective Notes: Section 7 and Section 8 Interim History: the nursing staff reported the patient had been provocative time refused medications at the evening. She was disorganized and had visual hallucinations stating that her son was in the unit. On interview she looks dysphoric, confused but redirectable. Mental Status Exam Mental Status Exam Patient Appearance: Appropriate Patient Orientation: Person and Situation Level of Consciousness: Awake and Appropriate Patient Behavior: Guarded and Passive Mood Description: Withdrawn Affect Description: Constricted and Labile Patient Cognition Impaired: Yes Ability to Follow Directions: Fair Speech Pattern: Clear Hallucinations: Visual Delusions: Paranoid Ideation Thought Process: Distracted and Slowed Thinking Thought Content: positive for [place] and positive for Poverty of Content Judgement: Fair Diagnostics Vital Signs (24Hr): Vital Signs - 24 hr 07/06/23 20:40 07/07/23 06:00 Temperature 98.9 F Pulse Rate 60 Respiratory Rate 16 16 Blood Pressure 129/63 Pulse Oximetry 94 Oxygen Delivery Method Room Air BMI result Body Mass Index 39.2 Labs 06/09/23 07:49 Medications Medications Current Medications Acetaminophen (Acetaminophen 325 Mg Tablet) 650 mg PO Q6H PRN PRN Reason: Headache/Pain Mild Scale (1-3) Al Hydroxide/Mg Hydroxide (Magnesium Hydrox/Alum Hydrox 30 Ml Oral.Susp) 30 ml PO Q6H PRN PRN Reason: Heartburn/Nausea Aspirin (Aspirin 81 Mg Tab.Chew) 81 mg PO DAILY [facility] Last Admin: 07/07/23 08:54 Dose: Not Given Divalproex Sodium (Divalproex Sodium 250 Mg Tablet.Dr) 750 mg PO BID [facility] Last Admin: 07/07/23 08:54 Dose: Not Given Hydroxyzine HCl (Hydroxyzine Hcl 25 Mg Tablet) 25 mg PO Q6H PRN PRN Reason: Anxiety Last Admin: 07/03/23 20:25 Dose: 25 mg Lisinopril (Lisinopril 5 Mg Tablet) 5 mg PO DAILY [facility]; Protocol Last Admin: 07/07/23 08:54 Dose: Not Given Magnesium Hydroxide (Milk Of Magnesia 30 Ml Oral.Susp) 30 ml PO DAILY PRN PRN Reason: Constipation Melatonin (Melatonin 3 Mg Tablet) 6 mg PO BEDTIME PRN PRN Reason: Sleep Last Admin: 07/03/23 20:25 Dose: 6 mg Olanzapine (Olanzapine 5 Mg Tablet) 5 mg PO Q4H PRN PRN Reason: agitation Last Admin: 07/04/23 13:25 Dose: 5 mg Pyridoxine HCl (Pyridoxine Hcl (Vitamin B6) 50 Mg Tablet) 50 mg PO DAILY [facility] Last Admin: 07/07/23 08:54 Dose: Not Given Quetiapine Fumarate (Quetiapine Fumarate 50 Mg Tablet) 50 mg PO BID@0800,1700 [facility] Last Admin: 07/07/23 08:54 Dose: Not Given Quetiapine Fumarate (Quetiapine Fumarate 100 Mg Tablet) 100 mg PO BEDTIME [facility] Last Admin: 07/06/23 21:17 Dose: Not Given Trazodone HCl (Trazodone Hcl 50 Mg Tablet) 50 mg PO BEDTIME MRX1 PRN PRN Reason: Insomnia Last Admin: 06/28/23 20:30 Dose: 50 mg Allergies Allergies Allergy/AdvReac Type Severity Reaction Status Date / Time No Known Allergies Allergy Verified 06/08/23 20:39 Assessment & Plan Assessment & Plan (1) Major 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 Quintanilla is a 68 year-old woman with hx of hemorrhagic stroke back in 05/2021 with significant lesion on right frontal lobe. Cognitive and personality changes after that with progression in the past 10 months. MOCA is 30. Significant impairments in impulsivity, rational thinking, ability to manage finances, preoccupied with money, impaired orientation. PLAN 06/11: Continue current regimen and plans 06/12: Continue current plans and regimen 06/13 increase depakote to 500mg po BID. 06/14 continue tx. 06/15 switch olanzapine to seroquel for better behavioral control 06/16 continue tx. HCP to be affirmed. 06/17 pt on 3 day. today she did take medications, but continues to present as explosive. 06/18 continue same treatment. 06/19 increase Seroquel to 50 p.o. b.i.d. and 100 mg p.o. q.h.s. to target sundowning. 06/20 continue tx. 06/21 continue tx. 06/22 continue tx. 06/23 commitment hearing, pt now section 8. 06/24 continue tx. 06/25: irritable, labile, paranoid delusions, agitated, verbally aggressive. check VPA, CBC, LFT, ammonia. increase VPA to 750 BID. 06/26: pt refused labs, VPA dosing increased to 750 BID regardless. no change in presentation. 06/27 continue tx. pending Affirmation of HCP. 06/28 continue tx. 06/29 continues tx HCP affirmed. 06/30 continue tx. 07/01 continue tx. 07/02: Continue current management and treatment plan. 07/03:Continue current management and treatment plan. 07/04 continue tx. check depakote and ammonia on 07/05 AM 07/05 depakote level 45, ammonia wnl. continue current medications 07/06 continue tx. 07/07 continue treatment Reason for continued inpatient stay Substantial Risk for: inability to function, rapid decompensation and med/psych decompensation Time Spent With Patient Time: Total time managing care of this patient today _20___ minutes.
[2023-07-07] MEDS: QUEtiapine Fumarate 50 MG TABLET PO (16:59)
[2023-07-07 18:00] VITALS: BP 140/84; PULSE 99; RESP 18; TEMP 36.9; O2SAT 95
[2023-07-07] MEDS: Melatonin 3 MG TABLET 6 MG PO (20:25)
[2023-07-07] MEDS: traZODone HCL 50 MG TABLET PO (20:25)
[2023-07-07] MEDS: Divalproex Sodium 250 MG TABLET.DR 750 MG PO (20:25)
[2023-07-07] MEDS: OLANZapine 5 MG TABLET PO (20:26)
[2023-07-07] MEDS: QUEtiapine Fumarate 100 MG TABLET PO (20:26)
[2023-07-08 08:00] VITALS: BP 140/79; PULSE 65; RESP 18; TEMP 36.3; O2SAT 96
[2023-07-08] MEDS: Aspirin 81 MG TAB.CHEW PO (08:30)
[2023-07-08] MEDS: lisinopriL 5 MG TABLET PO (08:30)
[2023-07-08] MEDS: QUEtiapine Fumarate 50 MG TABLET PO (08:30)
[2023-07-08] MEDS: Pyridoxine HCl (Vitamin B6) 50 MG TABLET PO (08:30)
[2023-07-08] MEDS: Divalproex Sodium 250 MG TABLET.DR 750 MG PO (08:31)
--- NOTE | 2023-07-08 12:54 | HO.PSYCHPN ---
Subjective Subjective Date of Service: 07/08/23 Reason For Visit: Adjustment disorders Subjective Notes: Section 7 and Section 8 Interim History: the nursing staff reported the patient had been agitated in the afternoon. She had been compliant with her medications and she is confused. On interview the patient denies new symptoms, confused, waiting for placement. Mental Status Exam Mental Status Exam Patient Appearance: Appropriate Patient Orientation: Person and Situation Level of Consciousness: Awake and Appropriate Patient Behavior: Guarded and Passive Mood Description: Withdrawn and Constricted Affect Description: Labile Patient Cognition Impaired: Yes Ability to Follow Directions: Good Hallucinations: None Delusions: Paranoid Ideation and Ideas of Reference Thought Process: Distracted and Slowed Thinking Thought Content: positive for [place] and positive for Poverty of Content Judgement: Fair Diagnostics Vital Signs (24Hr): Vital Signs - 24 hr 07/07/23 18:00 07/08/23 08:00 Temperature 98.4 F 97.3 F Pulse Rate 99 65 Respiratory Rate 18 18 Blood Pressure 140/84 H 140/79 H Pulse Oximetry 95 96 Oxygen Delivery Method Room Air Room Air BMI result Body Mass Index 39.2 Labs 06/09/23 07:49 Medications Medications Current Medications Acetaminophen (Acetaminophen 325 Mg Tablet) 650 mg PO Q6H PRN PRN Reason: Headache/Pain Mild Scale (1-3) Al Hydroxide/Mg Hydroxide (Magnesium Hydrox/Alum Hydrox 30 Ml Oral.Susp) 30 ml PO Q6H PRN PRN Reason: Heartburn/Nausea Aspirin (Aspirin 81 Mg Tab.Chew) 81 mg PO DAILY [facility] Last Admin: 07/08/23 08:30 Dose: 81 mg Divalproex Sodium (Divalproex Sodium 250 Mg Tablet.) 750 mg PO BID [facility] Last Admin: 07/08/23 08:31 Dose: 750 mg Hydroxyzine HCl (Hydroxyzine Hcl 25 Mg Tablet) 25 mg PO Q6H PRN PRN Reason: Anxiety Last Admin: 07/03/23 20:25 Dose: 25 mg Lisinopril (Lisinopril 5 Mg Tablet) 5 mg PO DAILY [facility]; Protocol Last Admin: 07/08/23 08:30 Dose: 5 mg Magnesium Hydroxide (Milk Of Magnesia 30 Ml Oral.Susp) 30 ml PO DAILY PRN PRN Reason: Constipation Melatonin (Melatonin 3 Mg Tablet) 6 mg PO BEDTIME PRN PRN Reason: Sleep Last Admin: 07/07/23 20:25 Dose: 6 mg Olanzapine (Olanzapine 5 Mg Tablet) 5 mg PO Q4H PRN PRN Reason: agitation Last Admin: 07/07/23 20:26 Dose: 5 mg Pyridoxine HCl (Pyridoxine Hcl (Vitamin B6) 50 Mg Tablet) 50 mg PO DAILY [facility] Last Admin: 07/08/23 08:30 Dose: 50 mg Quetiapine Fumarate (Quetiapine Fumarate 50 Mg Tablet) 50 mg PO BID@0800,1700 [facility] Last Admin: 07/08/23 08:30 Dose: 50 mg Quetiapine Fumarate (Quetiapine Fumarate 100 Mg Tablet) 100 mg PO BEDTIME [facility] Last Admin: 07/07/23 20:26 Dose: 100 mg Trazodone HCl (Trazodone Hcl 50 Mg Tablet) 50 mg PO BEDTIME MRX1 PRN PRN Reason: Insomnia Last Admin: 07/07/23 20:25 Dose: 50 mg Allergies Allergies Allergy/AdvReac Type Severity Reaction Status Date / Time No Known Allergies Allergy Verified 06/08/23 20:39 Assessment & Plan Assessment & Plan (1) Major 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 Quintanilla is a 68 year-old woman with hx of hemorrhagic stroke back in 05/2021 with significant lesion on right frontal lobe. Cognitive and personality changes after that with progression in the past 10 months. MOCA is 8/30. Significant impairments in impulsivity, rational thinking, ability to manage finances, preoccupied with money, impaired orientation. PLAN 06/11: Continue current regimen and plans 06/12: Continue current plans and regimen 06/13 increase depakote to 500mg po BID. 06/14 continue tx. 06/15 switch olanzapine to seroquel for better behavioral control 06/16 continue tx. HCP to be affirmed. 06/17 pt on 3 day. today she did take medications, but continues to present as explosive. 06/18 continue same treatment. 06/19 increase Seroquel to 50 p.o. b.i.d. and 100 mg p.o. q.h.s. to target sundowning. 06/20 continue tx. 06/21 continue tx. 06/22 continue tx. 06/23 commitment hearing, pt now section 8. 06/24 continue tx. 06/25: irritable, labile, paranoid delusions, agitated, verbally aggressive. check VPA, CBC, LFT, ammonia. increase VPA to 750 BID. 06/26: pt refused labs, VPA dosing increased to 750 BID regardless. no change in presentation. 06/27 continue tx. pending Affirmation of HCP. 06/28 continue tx. 06/29 continues tx HCP affirmed. 06/30 continue tx. 07/01 continue tx. 07/02: Continue current management and treatment plan. 07/03:Continue current management and treatment plan. 07/04 continue tx. check depakote and ammonia on 07/05 AM 07/05 depakote level 45, ammonia wnl. continue current medications 07/06 continue tx. 07/07 continue treatment 07/08 continue same treatment Reason for continued inpatient stay Substantial Risk for: inability to function, rapid decompensation and med/psych decompensation Time Spent With Patient Time: Total time managing care of this patient today __20__ minutes.
--- NOTE | 2023-07-08 23:32 | PC.NURSE ---
Assumed care of patient 19:30. See assessments and eMAR for full details. Handoff report given 23:25.
--- NOTE | 2023-07-09 14:14 | HO.PSYCHPN ---
Subjective Subjective Date of Service: 07/09/23 Reason For Visit: Adjustment disorders Subjective Notes: Section 8 Interim History: Pt visible on the unit. Confused as to why she is here. Continues to report doctor wants her money and her son's. No SI/HI. Visible on the unit. Pt refused medications this morning. VS stable. Medication Compliance: Intermittent Review of Systems Review of Systems No SOB No chest pain No constipation or diarrhea Yes all other systems are reviewed and are negative Mental Status Exam Mental Status Exam Narrative: Appearance: wearing casual clothing, good hygiene, in NAD Behavior: cooperative Speech: mostly clear, hyperverbal, not pressured, regular tone, spontaneous TP: tangential TC: thinks doctor here stealing money from her son, missing her son Mood: fine Affect:mildly irritable when typewriter operator automatic commented on need to hold when ambulating SI: none HI: none VH/AH: no overt signs Insight/judgment: impaired x 2. Memory/cog: alert, not oriented to situation, month, or year. MOCA 04/13. ACL 3.2- severe cognitive impairment. Diagnostics Vital Signs (24Hr): BMI result Body Mass Index 39.2 Labs 06/09/23 07:49 Medications Medications Current Medications Acetaminophen (Acetaminophen 325 Mg Tablet) 650 mg PO Q6H PRN PRN Reason: Headache/Pain Mild Scale (1-3) Al Hydroxide/Mg Hydroxide (Magnesium Hydrox/Alum Hydrox 30 Ml Oral.Susp) 30 ml PO Q6H PRN PRN Reason: Heartburn/Nausea Aspirin (Aspirin 81 Mg Tab.Chew) 81 mg PO DAILY [facility] Last Admin: 07/09/23 09:18 Dose: Not Given Divalproex Sodium (Divalproex Sodium 250 Mg Tablet.Dr) 750 mg PO BID [facility] Last Admin: 07/09/23 09:18 Dose: Not Given Hydroxyzine HCl (Hydroxyzine Hcl 25 Mg Tablet) 25 mg PO Q6H PRN PRN Reason: Anxiety Last Admin: 07/03/23 20:25 Dose: 25 mg Lisinopril (Lisinopril 5 Mg Tablet) 5 mg PO DAILY [facility]; Protocol Last Admin: 07/09/23 09:18 Dose: Not Given Magnesium Hydroxide (Milk Of Magnesia 30 Ml Oral.Susp) 30 ml PO DAILY PRN PRN Reason: Constipation Melatonin (Melatonin 3 Mg Tablet) 6 mg PO BEDTIME PRN PRN Reason: Sleep Last Admin: 07/07/23 20:25 Dose: 6 mg Olanzapine (Olanzapine 5 Mg Tablet) 5 mg PO Q4H PRN PRN Reason: agitation Last Admin: 07/07/23 20:26 Dose: 5 mg Pyridoxine HCl (Pyridoxine Hcl (Vitamin B6) 50 Mg Tablet) 50 mg PO DAILY [facility] Last Admin: 07/09/23 09:19 Dose: Not Given Quetiapine Fumarate (Quetiapine Fumarate 50 Mg Tablet) 50 mg PO BID@0800,1700 [facility] Last Admin: 07/09/23 09:18 Dose: Not Given Quetiapine Fumarate (Quetiapine Fumarate 100 Mg Tablet) 100 mg PO BEDTIME [facility] Last Admin: 07/08/23 21:34 Dose: Not Given Trazodone HCl (Trazodone Hcl 50 Mg Tablet) 50 mg PO BEDTIME MRX1 PRN PRN Reason: Insomnia Last Admin: 07/07/23 20:25 Dose: 50 mg Allergies Allergies Allergy/AdvReac Type Severity Reaction Status Date / Time No Known Allergies Allergy Verified 06/08/23 20:39 Assessment & Plan Assessment & Plan (1) Major 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 Quintanilla is a 68 year-old woman with hx of hemorrhagic stroke back in 05/2021 with significant lesion on right frontal lobe. Cognitive and personality changes after that with progression in the past 10 months. MOCA is 8/30. Significant impairments in impulsivity, rational thinking, ability to manage finances, preoccupied with money, impaired orientation. PLAN 06/11: Continue current regimen and plans 06/12: Continue current plans and regimen 06/13 increase depakote to 500mg po BID. 06/14 continue tx. 06/15 switch olanzapine to seroquel for better behavioral control 06/16 continue tx. HCP to be affirmed. 06/17 pt on 3 day. today she did take medications, but continues to present as explosive. 06/18 continue same treatment. 06/19 increase Seroquel to 50 p.o. b.i.d. and 100 mg p.o. q.h.s. to target sundowning. 06/20 continue tx. 06/21 continue tx. 06/22 continue tx. 06/23 commitment hearing, pt now section 8. 06/24 continue tx. 06/25: irritable, labile, paranoid delusions, agitated, verbally aggressive. check VPA, CBC, LFT, ammonia. increase VPA to 750 BID. 06/26: pt refused labs, VPA dosing increased to 750 BID regardless. no change in presentation. 06/27 continue tx. pending Affirmation of HCP. 06/28 continue tx. 06/29 continues tx HCP affirmed. 06/30 continue tx. 07/01 continue tx. 07/02: Continue current management and treatment plan. 07/03:Continue current management and treatment plan. 07/04 continue tx. check depakote and ammonia on 07/05 AM 07/05 depakote level 45, ammonia wnl. continue current medications 07/06 continue tx. 07/07 continue treatment 07/08 continue same treatment 07/09 continue tx. Reason for continued inpatient stay Substantial Risk for: inability to function Time Spent With Patient Time: Total time managing care of this patient today ____ minutes.
[2023-07-10 08:33] VITALS: BP 131/83; PULSE 89; RESP 16; TEMP 36.6; O2SAT 96
[2023-07-10] MEDS: lisinopriL 5 MG TABLET PO (08:35)
[2023-07-10] MEDS: QUEtiapine Fumarate 50 MG TABLET PO ×2 (08:35→17:33)
[2023-07-10] MEDS: Aspirin 81 MG TAB.CHEW PO (08:35)
[2023-07-10] MEDS: Divalproex Sodium 250 MG TABLET.DR 750 MG PO ×2 (08:35→19:41)
[2023-07-10] MEDS: Pyridoxine HCl (Vitamin B6) 50 MG TABLET PO (08:35)
--- NOTE | 2023-07-10 16:33 | HO.PSYCHPN ---
Subjective Subjective Date of Service: 07/10/23 Reason For Visit: Adjustment disorders Subjective Notes: Section 8 Interim History: Pt in bed. She reports she is resting. She is pleasant with this scenario writer in part as confused as to who I am. She has been talking with staff about her son being kept away from her. she still refuses meds. VS stable. Review of Systems Review of Systems No SOB No chest pain No constipation or diarrhea Yes all other systems are reviewed and are negative Mental Status Exam Mental Status Exam Narrative: Appearance: wearing casual clothing, good hygiene, in NAD Behavior: cooperative Speech: mostly clear, hyperverbal, not pressured, regular tone, spontaneous TP: tangential TC: thinks doctor here stealing money from her son, missing her son Mood: fine Affect:mildly irritable when scenario writer commented on need to hold when ambulating SI: none HI: none VH/AH: no overt signs Insight/judgment: impaired x 2. Memory/cog: alert, not oriented to situation, month, or year. MOCA 04/13. ACL 3.2- severe cognitive impairment. Diagnostics Vital Signs (24Hr): Vital Signs - 24 hr 07/10/23 08:33 Temperature 97.8 F Pulse Rate 89 Respiratory Rate 16 Blood Pressure 131/83 Pulse Oximetry 96 Oxygen Delivery Method Room Air BMI result Body Mass Index 39.2 Labs 06/09/23 07:49 Medications Medications Current Medications Acetaminophen (Acetaminophen 325 Mg Tablet) 650 mg PO Q6H PRN PRN Reason: Headache/Pain Mild Scale (1-3) Al Hydroxide/Mg Hydroxide (Magnesium Hydrox/Alum Hydrox 30 Ml Oral.Susp) 30 ml PO Q6H PRN PRN Reason: Heartburn/Nausea Aspirin (Aspirin 81 Mg Tab.Chew) 81 mg PO DAILY [facility] Last Admin: 07/10/23 08:35 Dose: 81 mg Divalproex Sodium (Divalproex Sodium 250 Mg Tablet.Dr) 750 mg PO BID [facility] Last Admin: 07/10/23 08:35 Dose: 750 mg Hydroxyzine HCl (Hydroxyzine Hcl 25 Mg Tablet) 25 mg PO Q6H PRN PRN Reason: Anxiety Last Admin: 07/03/23 20:25 Dose: 25 mg Lisinopril (Lisinopril 5 Mg Tablet) 5 mg PO DAILY [facility]; Protocol Last Admin: 07/10/23 08:35 Dose: 5 mg Magnesium Hydroxide (Milk Of Magnesia 30 Ml Oral.Susp) 30 ml PO DAILY PRN PRN Reason: Constipation Melatonin (Melatonin 3 Mg Tablet) 6 mg PO BEDTIME PRN PRN Reason: Sleep Last Admin: 07/07/23 20:25 Dose: 6 mg Olanzapine (Olanzapine 5 Mg Tablet) 5 mg PO Q4H PRN PRN Reason: agitation Last Admin: 07/07/23 20:26 Dose: 5 mg Pyridoxine HCl (Pyridoxine Hcl (Vitamin B6) 50 Mg Tablet) 50 mg PO DAILY [facility] Last Admin: 07/10/23 08:35 Dose: 50 mg Quetiapine Fumarate (Quetiapine Fumarate 50 Mg Tablet) 50 mg PO BID@0800,1700 [facility] Last Admin: 07/10/23 08:35 Dose: 50 mg Quetiapine Fumarate (Quetiapine Fumarate 100 Mg Tablet) 100 mg PO BEDTIME [facility] Last Admin: 07/09/23 20:30 Dose: Not Given Trazodone HCl (Trazodone Hcl 50 Mg Tablet) 50 mg PO BEDTIME MRX1 PRN PRN Reason: Insomnia Last Admin: 07/07/23 20:25 Dose: 50 mg Allergies Allergies Allergy/AdvReac Type Severity Reaction Status Date / Time No Known Allergies Allergy Verified 06/08/23 20:39 Assessment & Plan Assessment & Plan (1) Major 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 Quintanilla is a 68 year-old woman with hx of hemorrhagic stroke back in 05/2021 with significant lesion on right frontal lobe. Cognitive and personality changes after that with progression in the past 10 months. MOCA is 830. Significant impairments in impulsivity, rational thinking, ability to manage finances, preoccupied with money, impaired orientation. PLAN 06/11: Continue current regimen and plans 06/12: Continue current plans and regimen 06/13 increase depakote to 500mg po BID. 06/14 continue tx. 06/15 switch olanzapine to seroquel for better behavioral control 06/16 continue tx. HCP to be affirmed. 06/17 pt on 3 day. today she did take medications, but continues to present as explosive. 06/18 continue same treatment. 06/19 increase Seroquel to 50 p.o. b.i.d. and 100 mg p.o. q.h.s. to target . 06/20 continue tx. 06/21 continue tx. 06/22 continue tx. 06/23 commitment hearing, pt now section 8. 06/24 continue tx. 06/25: irritable, labile, paranoid delusions, agitated, verbally aggressive. check VPA, CBC, LFT, ammonia. increase VPA to 750 BID. 06/26: pt refused labs, VPA dosing increased to 750 BID regardless. no change in presentation. 06/27 continue tx. pending Affirmation of HCP. 06/28 continue tx. 06/29 continues tx HCP affirmed. 06/30 continue tx. 07/01 continue tx. 07/02: Continue current management and treatment plan. 07/03:Continue current management and treatment plan. 07/04 continue tx. check depakote and ammonia on 07/05 AM 07/05 depakote level 45, ammonia wnl. continue current medications 07/06 continue tx. 07/07 continue treatment 07/08 continue same treatment 07/09 continue tx. 07/10 continue tx. Reason for continued inpatient stay Substantial Risk for: inability to function Time Spent With Patient Time: Total time managing care of this patient today ____ minutes.
[2023-07-10] MEDS: QUEtiapine Fumarate 100 MG TABLET PO (19:42)
[2023-07-10 20:00] VITALS: BP 167/73; PULSE 94; RESP 16; TEMP 37; O2SAT 96
[2023-07-10 21:00] VITALS: BP 135/70
[2023-07-11 08:39] VITALS: BP 138/65; PULSE 70; RESP 18; TEMP 36.4; O2SAT 96
[2023-07-11] MEDS: QUEtiapine Fumarate 50 MG TABLET PO ×2 (08:43→17:09)
[2023-07-11] MEDS: Pyridoxine HCl (Vitamin B6) 50 MG TABLET PO (08:43)
[2023-07-11] MEDS: Divalproex Sodium 250 MG TABLET.DR 750 MG PO ×2 (08:43→21:20)
[2023-07-11] MEDS: Aspirin 81 MG TAB.CHEW PO (08:43)
[2023-07-11] MEDS: lisinopriL 5 MG TABLET PO (08:43)
[2023-07-11] MEDS: OLANZapine 5 MG TABLET PO ×2 (08:45→17:09)
--- NOTE | 2023-07-11 13:28 | P.PNPSI_ITS ---
Subjective Subjective Date of Service: 07/11/23 Reason For Visit: Adjustment disorders Subjective Notes: Section 8 Interim History: Pt sleeping through the night. She is less labile, waiting for son and asking for him. She not oriented to place, situation, month or year. Medication Compliance: Intermittent Review of Systems Review of Systems No SOB No chest pain No constipation or diarrhea Yes all other systems are reviewed and are negative Mental Status Exam Mental Status Exam Narrative: Appearance: wearing casual clothing, good hygiene, in NAD Behavior: cooperative Speech: mostly clear, hyperverbal, not pressured, regular tone, spontaneous TP: tangential TC: thinks doctor here stealing money from her son, missing her son Mood: fine Affect:mildly irritable when health underwriter commented on need to hold when ambulating SI: none HI: none VH/AH: no overt signs Insight/judgment: impaired x 2. Memory/cog: alert, not oriented to situation, month, or year. MOCA 04/13. ACL 3.2- severe cognitive impairment. Diagnostics Vital Signs (24Hr): Vital Signs - 24 hr 07/10/23 20:00 07/10/23 21:00 07/11/23 08:39 Temperature 98.6 F 97.5 F Pulse Rate 94 70 Respiratory Rate 16 18 Blood Pressure 167/73 H 135/70 138/65 Pulse Oximetry 96 96 Oxygen Delivery Method Room Air Room Air BMI result Body Mass Index 39.2 Labs 06/09/23 07:49 Medications Medications Current Medications Acetaminophen (Acetaminophen 325 Mg Tablet) 650 mg PO Q6H PRN PRN Reason: Headache/Pain Mild Scale (1-3) Al Hydroxide/Mg Hydroxide (Magnesium Hydrox/Alum Hydrox 30 Ml Oral.Susp) 30 ml PO Q6H PRN PRN Reason: Heartburn/Nausea Aspirin (Aspirin 81 Mg Tab.Chew) 81 mg PO DAILY [facility] Last Admin: 07/11/23 08:43 Dose: 81 mg Divalproex Sodium (Divalproex Sodium 250 Mg Tablet.Dr) 750 mg PO BID [facility] Last Admin: 07/11/23 08:43 Dose: 750 mg Hydroxyzine HCl (Hydroxyzine Hcl 25 Mg Tablet) 25 mg PO Q6H PRN PRN Reason: Anxiety Last Admin: 07/03/23 20:25 Dose: 25 mg Lisinopril (Lisinopril 5 Mg Tablet) 5 mg PO DAILY [facility]; Protocol Last Admin: 07/11/23 08:43 Dose: 5 mg Magnesium Hydroxide (Milk Of Magnesia 30 Ml Oral.Susp) 30 ml PO DAILY PRN PRN Reason: Constipation Melatonin (Melatonin 3 Mg Tablet) 6 mg PO BEDTIME PRN PRN Reason: Sleep Last Admin: 07/07/23 20:25 Dose: 6 mg Olanzapine (Olanzapine 5 Mg Tablet) 5 mg PO Q4H PRN PRN Reason: agitation Last Admin: 07/11/23 08:45 Dose: 5 mg Pyridoxine HCl (Pyridoxine Hcl (Vitamin B6) 50 Mg Tablet) 50 mg PO DAILY [facility] Last Admin: 07/11/23 08:43 Dose: 50 mg Quetiapine Fumarate (Quetiapine Fumarate 50 Mg Tablet) 50 mg PO BID@0800,1700 [facility] Last Admin: 07/11/23 08:43 Dose: 50 mg Quetiapine Fumarate (Quetiapine Fumarate 100 Mg Tablet) 100 mg PO BEDTIME [facility] Last Admin: 07/10/23 19:42 Dose: 100 mg Trazodone HCl (Trazodone Hcl 50 Mg Tablet) 50 mg PO BEDTIME MRX1 PRN PRN Reason: Insomnia Last Admin: 07/07/23 20:25 Dose: 50 mg Allergies Allergies Allergy/AdvReac Type Severity Reaction Status Date / Time No Known Allergies Allergy Verified 06/08/23 20:39 Assessment & Plan Assessment & Plan (1) Major 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 Quintanilla is a 68 year-old woman with hx of hemorrhagic stroke back in 05/2021 with significant lesion on right frontal lobe. Cognitive and personality changes after that with progression in the past 10 months. MOCA is 830. Significant impairments in impulsivity, rational thinking, ability to manage finances, preoccupied with money, impaired orientation. PLAN 06/11: Continue current regimen and plans 06/12: Continue current plans and regimen 06/13 increase depakote to 500mg po BID. 06/14 continue tx. 06/15 switch olanzapine to seroquel for better behavioral control 06/16 continue tx. HCP to be affirmed. 06/17 pt on 3 day. today she did take medications, but continues to present as explosive. 06/18 continue same treatment. 06/19 increase Seroquel to 50 p.o. b.i.d. and 100 mg p.o. q.h.s. to target ing. 06/20 continue tx. 06/21 continue tx. 06/22 continue tx. 06/23 commitment hearing, pt now section 8. 06/24 continue tx. 06/25: irritable, labile, paranoid delusions, agitated, verbally aggressive. check VPA, CBC, LFT, ammonia. increase VPA to 750 BID. 06/26: pt refused labs, VPA dosing increased to 750 BID regardless. no change in presentation. 06/27 continue tx. pending Affirmation of HCP. 06/28 continue tx. 06/29 continues tx HCP affirmed. 06/30 continue tx. 07/01 continue tx. 07/02: Continue current management and treatment plan. 07/03:Continue current management and treatment plan. 07/04 continue tx. check depakote and ammonia on 07/05 AM 07/05 depakote level 45, ammonia wnl. continue current medications 07/06 continue tx. 07/07 continue treatment 07/08 continue same treatment 07/09 continue tx. 07/10 continue tx. 07/11 continue tx. Reason for continued inpatient stay Substantial Risk for: inability to function Time Spent With Patient Time: Total time managing care of this patient today ____ minutes.
[2023-07-11 20:28] VITALS: BP 132/64; PULSE 96; RESP 16; TEMP 36.4; O2SAT 97
[2023-07-11] MEDS: QUEtiapine Fumarate 100 MG TABLET PO (21:20)
[2023-07-11] MEDS: Melatonin 3 MG TABLET 6 MG PO (21:20)
[2023-07-12 08:54] VITALS: BP 119/61; PULSE 75; RESP 16; TEMP 37; O2SAT 95
[2023-07-12] MEDS: Aspirin 81 MG TAB.CHEW PO (08:57)
[2023-07-12] MEDS: Divalproex Sodium 250 MG TABLET.DR 750 MG PO ×2 (08:57→21:08)
[2023-07-12] MEDS: Pyridoxine HCl (Vitamin B6) 50 MG TABLET PO (08:57)
[2023-07-12] MEDS: QUEtiapine Fumarate 50 MG TABLET PO ×2 (08:57→16:32)
[2023-07-12] MEDS: lisinopriL 5 MG TABLET PO (08:57)
--- NOTE | 2023-07-12 11:04 | P.PNPSI_ITS ---
Subjective Subjective Date of Service: 07/12/23 Reason For Visit: Adjustment disorders Subjective Notes: Section 8 Interim History: Pt continues to sleep through the night. She is less labile, waiting for son and asking for him. She not oriented to place, situation, month or year. She takes medications intermittently without pattern as to why sometimes she agrees and others declines. Medication Compliance: Yes Review of Systems Review of Systems No SOB No chest pain No constipation or diarrhea Yes all other systems are reviewed and are negative Mental Status Exam Mental Status Exam Narrative: Appearance: wearing casual clothing, good hygiene, in NAD Behavior: cooperative Speech: mostly clear, hyperverbal, not pressured, regular tone, spontaneous TP: tangential TC: thinks doctor here stealing money from her son, missing her son Mood: fine Affect:mildly irritable when card writer hand commented on need to hold when ambulating SI: none HI: none VH/AH: no overt signs Insight/judgment: impaired x 2. Memory/cog: alert, not oriented to situation, month, or year. MOCA 04/13. ACL 3.2- severe cognitive impairment. Diagnostics Vital Signs (24Hr): Vital Signs - 24 hr 07/11/23 20:28 07/12/23 08:54 Temperature 97.6 F 98.6 F Pulse Rate 96 75 Respiratory Rate 16 16 Blood Pressure 132/64 119/61 Pulse Oximetry 97 95 Oxygen Delivery Method Room Air Room Air BMI result Body Mass Index 39.2 Labs 06/09/23 07:49 Medications Medications Current Medications Acetaminophen (Acetaminophen 325 Mg Tablet) 650 mg PO Q6H PRN PRN Reason: Headache/Pain Mild Scale (1-3) Al Hydroxide/Mg Hydroxide (Magnesium Hydrox/Alum Hydrox 30 Ml Oral.Susp) 30 ml PO Q6H PRN PRN Reason: Heartburn/Nausea Aspirin (Aspirin 81 Mg Tab.Chew) 81 mg PO DAILY [facility] Last Admin: 07/12/23 08:57 Dose: 81 mg Divalproex Sodium (Divalproex Sodium 250 Mg Tablet.) 750 mg PO BID [facility] Last Admin: 07/12/23 08:57 Dose: 750 mg Hydroxyzine HCl (Hydroxyzine Hcl 25 Mg Tablet) 25 mg PO Q6H PRN PRN Reason: Anxiety Last Admin: 07/03/23 20:25 Dose: 25 mg Lisinopril (Lisinopril 5 Mg Tablet) 5 mg PO DAILY [facility]; Protocol Last Admin: 07/12/23 08:57 Dose: 5 mg Magnesium Hydroxide (Milk Of Magnesia 30 Ml Oral.Susp) 30 ml PO DAILY PRN PRN Reason: Constipation Melatonin (Melatonin 3 Mg Tablet) 6 mg PO BEDTIME PRN PRN Reason: Sleep Last Admin: 07/11/23 21:20 Dose: 6 mg Olanzapine (Olanzapine 5 Mg Tablet) 5 mg PO Q4H PRN PRN Reason: agitation Last Admin: 07/11/23 17:09 Dose: 5 mg Pyridoxine HCl (Pyridoxine Hcl (Vitamin B6) 50 Mg Tablet) 50 mg PO DAILY [facility] Last Admin: 07/12/23 08:57 Dose: 50 mg Quetiapine Fumarate (Quetiapine Fumarate 50 Mg Tablet) 50 mg PO BID@0800,1700 [facility] Last Admin: 07/12/23 08:57 Dose: 50 mg Quetiapine Fumarate (Quetiapine Fumarate 100 Mg Tablet) 100 mg PO BEDTIME [facility] Last Admin: 07/11/23 21:20 Dose: 100 mg Trazodone HCl (Trazodone Hcl 50 Mg Tablet) 50 mg PO BEDTIME MRX1 PRN PRN Reason: Insomnia Last Admin: 07/07/23 20:25 Dose: 50 mg Allergies Allergies Allergy/AdvReac Type Severity Reaction Status Date / Time No Known Allergies Allergy Verified 06/08/23 20:39 Assessment & Plan Assessment & Plan (1) Major 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 Quintanilla is a 68 year-old woman with hx of hemorrhagic stroke back in 05/2021 with significant lesion on right frontal lobe. Cognitive and personality changes after that with progression in the past 10 months. MOCA is 30. Significant impairments in impulsivity, rational thinking, ability to manage finances, preoccupied with money, impaired orientation. PLAN 06/11: Continue current regimen and plans 06/12: Continue current plans and regimen 06/13 increase depakote to 500mg po BID. 06/14 continue tx. 06/15 switch olanzapine to seroquel for better behavioral control 06/16 continue tx. HCP to be affirmed. 06/17 pt on 3 day. today she did take medications, but continues to present as explosive. 06/18 continue same treatment. 06/19 increase Seroquel to 50 p.o. b.i.d. and 100 mg p.o. q.h.s. to target . 06/20 continue tx. 06/21 continue tx. 06/22 continue tx. 06/23 commitment hearing, pt now section 8. 06/24 continue tx. 06/25: irritable, labile, paranoid delusions, agitated, verbally aggressive. check VPA, CBC, LFT, ammonia. increase VPA to 750 BID. 06/26: pt refused labs, VPA dosing increased to 750 BID regardless. no change in presentation. 06/27 continue tx. pending Affirmation of HCP. 06/28 continue tx. 06/29 continues tx HCP affirmed. 06/30 continue tx. 07/01 continue tx. 07/02: Continue current management and treatment plan. 07/03:Continue current management and treatment plan. 07/04 continue tx. check depakote and ammonia on 07/05 AM 07/05 depakote level 45, ammonia wnl. continue current medications 07/06 continue tx. 07/07 continue treatment 07/08 continue same treatment 07/09 continue tx. 07/10 continue tx. 07/11 continue tx. 07/12 continue tx Reason for continued inpatient stay Substantial Risk for: inability to function Time Spent With Patient Time: Total time managing care of this patient today ____ minutes.
[2023-07-12 18:00] VITALS: BP 128/57; PULSE 59; RESP 16; TEMP 36.3; O2SAT 96
[2023-07-12] MEDS: QUEtiapine Fumarate 100 MG TABLET PO (21:08)
[2023-07-12] MEDS: Melatonin 3 MG TABLET 6 MG PO (21:08)
[2023-07-13] MEDS: Pyridoxine HCl (Vitamin B6) 50 MG TABLET PO (08:20)
[2023-07-13] MEDS: QUEtiapine Fumarate 50 MG TABLET PO ×2 (08:20→16:14)
[2023-07-13] MEDS: Aspirin 81 MG TAB.CHEW PO (08:20)
[2023-07-13] MEDS: lisinopriL 5 MG TABLET PO (08:20)
[2023-07-13] MEDS: Divalproex Sodium 250 MG TABLET.DR 750 MG PO ×2 (08:20→19:22)
[2023-07-13] MEDS: OLANZapine 5 MG TABLET PO ×2 (08:21→12:34)
[2023-07-13] MEDS: QUEtiapine Fumarate 100 MG TABLET PO (19:22)
[2023-07-14 07:00] VITALS: BMI 39.4
[2023-07-14 08:05] VITALS: BP 147/63; PULSE 67; RESP 16; TEMP 36.3; O2SAT 96
[2023-07-14] MEDS: Pyridoxine HCl (Vitamin B6) 50 MG TABLET PO (08:37)
[2023-07-14] MEDS: Aspirin 81 MG TAB.CHEW PO (08:37)
[2023-07-14] MEDS: OLANZapine 5 MG TABLET PO ×2 (08:37→17:25)
[2023-07-14] MEDS: lisinopriL 5 MG TABLET PO (08:37)
[2023-07-14] MEDS: Divalproex Sodium 250 MG TABLET.DR 750 MG PO ×2 (08:37→21:24)
[2023-07-14] MEDS: QUEtiapine Fumarate 50 MG TABLET PO (08:38)
--- NOTE | 2023-07-14 08:49 | HO.PSYCHPN ---
Subjective Subjective Date of Service: 07/14/23 Reason For Visit: Adjustment disorders Subjective Notes: Section 8 Interim History: Pt continues to sleep through the night. Pt has not showered in several weeks. Pt confused as to how to take shower unable to do it herself, not from a physical stand point but cognitively to even recognize use of shower. She was able to take shower with assistance of staff. Pt visible on the unit. No major behavioral concerns. VS stable. Medication Compliance: Intermittent Review of Systems Review of Systems No SOB No chest pain No constipation or diarrhea Yes all other systems are reviewed and are negative Mental Status Exam Mental Status Exam Narrative: Appearance: wearing casual clothing, good hygiene, in NAD Behavior: cooperative Speech: mostly clear, hyperverbal, not pressured, regular tone, spontaneous TP: tangential TC: thinks doctor here stealing money from her son, missing her son Mood: fine Affect:mildly irritable when inspector automatic typewriter commented on need to hold when ambulating SI: none HI: none VH/AH: no overt signs Insight/judgment: impaired x 2. Memory/cog: alert, not oriented to situation, month, or year. MOCA 04/13. ACL 3.2- severe cognitive impairment. Diagnostics Vital Signs (24Hr): Vital Signs - 24 hr 07/14/23 08:05 Temperature 97.3 F Pulse Rate 67 Respiratory Rate 16 Blood Pressure 147/63 H Pulse Oximetry 96 Oxygen Delivery Method Room Air BMI result Body Mass Index 39.2 Labs 06/09/23 07:49 Medications Medications Current Medications Acetaminophen (Acetaminophen 325 Mg Tablet) 650 mg PO Q6H PRN PRN Reason: Headache/Pain Mild Scale (1-3) Al Hydroxide/Mg Hydroxide (Magnesium Hydrox/Alum Hydrox 30 Ml Oral.Susp) 30 ml PO Q6H PRN PRN Reason: Heartburn/Nausea Aspirin (Aspirin 81 Mg Tab.Chew) 81 mg PO DAILY [facility] Last Admin: 07/14/23 08:37 Dose: 81 mg Divalproex Sodium (Divalproex Sodium 250 Mg Tablet.) 750 mg PO BID [facility] Last Admin: 07/14/23 08:37 Dose: 750 mg Hydroxyzine HCl (Hydroxyzine Hcl 25 Mg Tablet) 25 mg PO Q6H PRN PRN Reason: Anxiety Last Admin: 07/03/23 20:25 Dose: 25 mg Lisinopril (Lisinopril 5 Mg Tablet) 5 mg PO DAILY [facility]; Protocol Last Admin: 07/14/23 08:37 Dose: 5 mg Magnesium Hydroxide (Milk Of Magnesia 30 Ml Oral.Susp) 30 ml PO DAILY PRN PRN Reason: Constipation Melatonin (Melatonin 3 Mg Tablet) 6 mg PO BEDTIME PRN PRN Reason: Sleep Last Admin: 07/12/23 21:08 Dose: 6 mg Olanzapine (Olanzapine 5 Mg Tablet) 5 mg PO Q4H PRN PRN Reason: agitation Last Admin: 07/14/23 08:37 Dose: 5 mg Pyridoxine HCl (Pyridoxine Hcl (Vitamin B6) 50 Mg Tablet) 50 mg PO DAILY [facility] Last Admin: 07/14/23 08:37 Dose: 50 mg Quetiapine Fumarate (Quetiapine Fumarate 50 Mg Tablet) 50 mg PO BID@0800,1700 [facility] Last Admin: 07/14/23 08:38 Dose: 50 mg Quetiapine Fumarate (Quetiapine Fumarate 100 Mg Tablet) 100 mg PO BEDTIME [facility] Last Admin: 07/13/23 19:22 Dose: 100 mg Trazodone HCl (Trazodone Hcl 50 Mg Tablet) 50 mg PO BEDTIME MRX1 PRN PRN Reason: Insomnia Last Admin: 07/07/23 20:25 Dose: 50 mg Allergies Allergies Allergy/AdvReac Type Severity Reaction Status Date / Time No Known Allergies Allergy Verified 06/08/23 20:39 Assessment & Plan Assessment & Plan (1) Major 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 Quintanilla is a 68 year-old woman with hx of hemorrhagic stroke back in 05/2021 with significant lesion on right frontal lobe. Cognitive and personality changes after that with progression in the past 10 months. MOCA is 04/13. Significant impairments in impulsivity, rational thinking, ability to manage finances, preoccupied with money, impaired orientation. PLAN 06/11: Continue current regimen and plans 06/12: Continue current plans and regimen 06/13 increase depakote to 500mg po BID. 06/14 continue tx. 06/15 switch olanzapine to seroquel for better behavioral control 06/16 continue tx. HCP to be affirmed. 06/17 pt on 3 day. today she did take medications, but continues to present as explosive. 06/18 continue same treatment. 06/19 increase Seroquel to 50 p.o. b.i.d. and 100 mg p.o. q.h.s. to target ing. 06/20 continue tx. 06/21 continue tx. 06/22 continue tx. 06/23 commitment hearing, pt now section 8. 06/24 continue tx. 06/25: irritable, labile, paranoid delusions, agitated, verbally aggressive. check VPA, CBC, LFT, ammonia. increase VPA to 750 BID. 06/26: pt refused labs, VPA dosing increased to 750 BID regardless. no change in presentation. 06/27 continue tx. pending Affirmation of HCP. 06/28 continue tx. 06/29 continues tx HCP affirmed. 06/30 continue tx. 07/01 continue tx. 07/02: Continue current management and treatment plan. 07/03:Continue current management and treatment plan. 07/04 continue tx. check depakote and ammonia on 07/05 AM 07/05 depakote level 45, ammonia wnl. continue current medications 07/06 continue tx. 07/07 continue treatment 07/08 continue same treatment 07/09 continue tx. 07/10 continue tx. 07/11 continue tx. 07/12 continue tx 07/13 continue tx. 07/15 continue tx. Reason for continued inpatient stay Substantial Risk for: inability to function Time Spent With Patient Time: Total time managing care of this patient today ____ minutes.
--- NOTE | 2023-07-14 09:36 | PC.NURSE ---
No documented BM since 07/08 and Ellen reported last BM 07/10 however memory is impaired so unsure if information is reliable. Offered milk of magnesia but declined. Reported passing gas, abdomen soft and nontender and non-distended. Reported to Evita Boone NP and gave prune juice per [employer] suggestion.
[2023-07-14] MEDS: traZODone HCL 50 MG TABLET PO (21:24)
[2023-07-14] MEDS: QUEtiapine Fumarate 100 MG TABLET PO (21:24)
[2023-07-14] MEDS: Sennosides/Docusate Sodium TABLET 1 TAB PO (21:24)
[2023-07-15] MEDS: QUEtiapine Fumarate 50 MG TABLET PO (08:18)
[2023-07-15] MEDS: Divalproex Sodium 250 MG TABLET.DR 750 MG PO ×2 (08:18→20:40)
[2023-07-15] MEDS: Aspirin 81 MG TAB.CHEW PO (08:19)
[2023-07-15] MEDS: lisinopriL 5 MG TABLET PO (08:19)
[2023-07-15] MEDS: Sennosides/Docusate Sodium TABLET 1 TAB PO ×2 (08:19→20:40)
[2023-07-15] MEDS: Escitalopram Oxalate 5 MG TABLET PO (08:19)
[2023-07-15] MEDS: Pyridoxine HCl (Vitamin B6) 50 MG TABLET PO (08:19)
--- NOTE | 2023-07-15 12:21 | HO.PSYCHPN ---
Subjective Subjective Date of Service: 07/15/23 Reason For Visit: Adjustment disorders Subjective Notes: Section 7 and Section 8 Interim History: The nursing staff reported the patient took a shower very reluctantly yesterday. She was very angry but eventually she compliant. She took Seroquel p.r.n.. On interview the patient remains confused, perseverative regarding her son. No new symptoms. Waiting for placement. Mental Status Exam Mental Status Exam Patient Appearance: Appropriate Patient Orientation: Person and Situation Level of Consciousness: Awake Patient Behavior: Guarded and Passive Mood Description: Withdrawn Affect Description: Constricted Patient Cognition Impaired: Yes Ability to Follow Directions: Fair Speech Pattern: Clear Hallucinations: None Delusions: Paranoid Ideation Thought Process: Illogical, Distracted and Slowed Thinking Thought Content: positive for Napoleon and positive for Poverty of Content Judgement: Poor Diagnostics Vital Signs (24Hr): BMI result Body Mass Index 39.4 Labs 06/09/23 07:49 Medications Medications Current Medications Acetaminophen (Acetaminophen 325 Mg Tablet) 650 mg PO Q6H PRN PRN Reason: Headache/Pain Mild Scale (1-3) Al Hydroxide/Mg Hydroxide (Magnesium Hydrox/Alum Hydrox 30 Ml Oral.Susp) 30 ml PO Q6H PRN PRN Reason: Heartburn/Nausea Aspirin (Aspirin 81 Mg Tab.Chew) 81 mg PO DAILY [facility] Last Admin: 07/15/23 08:19 Dose: 81 mg Divalproex Sodium (Divalproex Sodium 250 Mg Tablet.Dr) 750 mg PO BID [facility] Last Admin: 07/15/23 08:18 Dose: 750 mg Escitalopram Oxalate (Escitalopram Oxalate 5 Mg Tablet) 5 mg PO DAILY [facility] Last Admin: 07/15/23 08:19 Dose: 5 mg Lisinopril (Lisinopril 5 Mg Tablet) 5 mg PO DAILY [facility]; Protocol Last Admin: 07/15/23 08:19 Dose: 5 mg Magnesium Hydroxide (Milk Of Magnesia 30 Ml Oral.Susp) 30 ml PO DAILY PRN PRN Reason: Constipation Melatonin (Melatonin 3 Mg Tablet) 6 mg PO BEDTIME PRN PRN Reason: Sleep Last Admin: 07/12/23 21:08 Dose: 6 mg Olanzapine (Olanzapine 5 Mg Tablet) 5 mg PO Q6H PRN PRN Reason: agitation Last Admin: 07/14/23 17:25 Dose: 5 mg Pyridoxine HCl (Pyridoxine Hcl (Vitamin B6) 50 Mg Tablet) 50 mg PO DAILY [facility] Last Admin: 07/15/23 08:19 Dose: 50 mg Quetiapine Fumarate (Quetiapine Fumarate 100 Mg Tablet) 100 mg PO BEDTIME [facility] Last Admin: 07/14/23 21:24 Dose: 100 mg Quetiapine Fumarate (Quetiapine Fumarate 50 Mg Tablet) 50 mg PO DAILY [facility] Last Admin: 07/15/23 08:18 Dose: 50 mg Senna/Docusate Sodium (Sennosides/Docusate Sodium Tablet) 1 tab PO BID [facility] Last Admin: 07/15/23 08:19 Dose: 1 tab Trazodone HCl (Trazodone Hcl 50 Mg Tablet) 50 mg PO BEDTIME MRX1 PRN PRN Reason: Insomnia Last Admin: 07/14/23 21:24 Dose: 50 mg Allergies Allergies Allergy/AdvReac Type Severity Reaction Status Date / Time No Known Allergies Allergy Verified 06/08/23 20:39 Assessment & Plan Assessment & Plan (1) Major 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 Quintanilla is a 68 year-old woman with hx of hemorrhagic stroke back in 05/2021 with significant lesion on right frontal lobe. Cognitive and personality changes after that with progression in the past 10 months. MOCA is 30. Significant impairments in impulsivity, rational thinking, ability to manage finances, preoccupied with money, impaired orientation. PLAN 06/11: Continue current regimen and plans 06/12: Continue current plans and regimen 06/13 increase depakote to 500mg po BID. 06/14 continue tx. 06/15 switch olanzapine to seroquel for better behavioral control 06/16 continue tx. HCP to be affirmed. 06/17 pt on 3 day. today she did take medications, but continues to present as explosive. 06/18 continue same treatment. 06/19 increase Seroquel to 50 p.o. b.i.d. and 100 mg p.o. q.h.s. to target ing. 06/20 continue tx. 06/21 continue tx. 06/22 continue tx. 06/23 commitment hearing, pt now section 8. 06/24 continue tx. 06/25: irritable, labile, paranoid delusions, agitated, verbally aggressive. check VPA, CBC, LFT, ammonia. increase VPA to 750 BID. 06/26: pt refused labs, VPA dosing increased to 750 BID regardless. no change in presentation. 06/27 continue tx. pending Affirmation of HCP. 06/28 continue tx. 06/29 continues tx HCP affirmed. 06/30 continue tx. 07/01 continue tx. 07/02: Continue current management and treatment plan. 07/03:Continue current management and treatment plan. 07/04 continue tx. check depakote and ammonia on 07/05 AM 07/05 depakote level 45, ammonia wnl. continue current medications 07/06 continue tx. 07/07 continue treatment 07/08 continue same treatment 07/09 continue tx. 07/10 continue tx. 07/11 continue tx. 07/12 continue tx 07/13 continue tx. 07/15 continue tx. Reason for continued inpatient stay Substantial Risk for: inability to function, rapid decompensation and med/psych decompensation Time Spent With Patient Time: Total time managing care of this patient today ___20_ minutes.
[2023-07-15] MEDS: QUEtiapine Fumarate 100 MG TABLET PO (20:40)
[2023-07-15] MEDS: traZODone HCL 50 MG TABLET PO (20:40)
[2023-07-15 20:47] VITALS: RESP 18
[2023-07-16 08:00] VITALS: BP 142/74; PULSE 71; RESP 18; TEMP 36.9; O2SAT 96
[2023-07-16] MEDS: Aspirin 81 MG TAB.CHEW PO (08:16)
[2023-07-16] MEDS: QUEtiapine Fumarate 50 MG TABLET PO (08:16)
[2023-07-16] MEDS: Escitalopram Oxalate 5 MG TABLET PO (08:16)
[2023-07-16] MEDS: Sennosides/Docusate Sodium TABLET 1 TAB PO ×2 (08:16→20:51)
[2023-07-16] MEDS: lisinopriL 5 MG TABLET PO (08:16)
[2023-07-16] MEDS: Pyridoxine HCl (Vitamin B6) 50 MG TABLET PO (08:17)
[2023-07-16] MEDS: Divalproex Sodium 250 MG TABLET.DR 750 MG PO ×2 (08:17→20:51)
--- NOTE | 2023-07-16 13:13 | P.PNPSI_ITS ---
Subjective Subjective Date of Service: 07/16/23 Reason For Visit: Adjustment disorders Interim History: met patient. Discussed with Nursing. Chart reviewed. Overall no acute management issues. Does need some encouragement around medications. Sleep has been okay. Is tearful at times and presents with cognitive impairment. Reports missing her son. Reports he is aged either 20 or 24 and was unable to reconcile that with her current age, when same was explored. When asked where she was, reported she did not know and she did care. Reports that she was put into the back of [facility] and brought here around a year ago. Medication Compliance: Yes Side effects from medications: No Attending Groups: Intermittent Review of Systems Acute medical concerns: No Review of Systems Review of Systems Nothing acute Mental Status Exam Mental Status Exam Patient Appearance: Appropriate Patient Orientation: Person and Situation Level of Consciousness: Awake Patient Behavior: Guarded and Passive Mood Description: Withdrawn Affect Description: Constricted Patient Cognition Impaired: Yes Ability to Follow Directions: Fair Speech Pattern: Clear Hallucinations: None Delusions: Paranoid Ideation Thought Process: Illogical, Distracted and Slowed Thinking Thought Content: positive for [place] and positive for Poverty of Content Judgement: Poor Diagnostics Vital Signs (24Hr): Vital Signs - 24 hr 07/15/23 20:47 Respiratory Rate 18 BMI result Body Mass Index 39.4 Labs 06/09/23 07:49 Medications Medications Current Medications Acetaminophen (Acetaminophen 325 Mg Tablet) 650 mg PO Q6H PRN PRN Reason: Headache/Pain Mild Scale (1-3) Al Hydroxide/Mg Hydroxide (Magnesium Hydrox/Alum Hydrox 30 Ml Oral.Susp) 30 ml PO Q6H PRN PRN Reason: Heartburn/Nausea Aspirin (Aspirin 81 Mg Tab.Chew) 81 mg PO DAILY [facility] Last Admin: 07/16/23 08:16 Dose: 81 mg Divalproex Sodium (Divalproex Sodium 250 Mg Tablet.Dr) 750 mg PO BID [facility] Last Admin: 07/16/23 08:17 Dose: 750 mg Escitalopram Oxalate (Escitalopram Oxalate 5 Mg Tablet) 5 mg PO DAILY [facility] Last Admin: 07/16/23 08:16 Dose: 5 mg Lisinopril (Lisinopril 5 Mg Tablet) 5 mg PO DAILY [facility]; Protocol Last Admin: 07/16/23 08:16 Dose: 5 mg Magnesium Hydroxide (Milk Of Magnesia 30 Ml Oral.Susp) 30 ml PO DAILY PRN PRN Reason: Constipation Melatonin (Melatonin 3 Mg Tablet) 6 mg PO BEDTIME PRN PRN Reason: Sleep Last Admin: 07/12/23 21:08 Dose: 6 mg Olanzapine (Olanzapine 5 Mg Tablet) 5 mg PO Q6H PRN PRN Reason: agitation Last Admin: 07/14/23 17:25 Dose: 5 mg Pyridoxine HCl (Pyridoxine Hcl (Vitamin B6) 50 Mg Tablet) 50 mg PO DAILY [facility] Last Admin: 07/16/23 08:17 Dose: 50 mg Quetiapine Fumarate (Quetiapine Fumarate 100 Mg Tablet) 100 mg PO BEDTIME [facility] Last Admin: 07/15/23 20:40 Dose: 100 mg Quetiapine Fumarate (Quetiapine Fumarate 50 Mg Tablet) 50 mg PO DAILY [facility] Last Admin: 07/16/23 08:16 Dose: 50 mg Senna/Docusate Sodium (Sennosides/Docusate Sodium Tablet) 1 tab PO BID [facility] Last Admin: 07/16/23 08:16 Dose: 1 tab Trazodone HCl (Trazodone Hcl 50 Mg Tablet) 50 mg PO BEDTIME MRX1 PRN PRN Reason: Insomnia Last Admin: 07/15/23 20:40 Dose: 50 mg Allergies Allergies Allergy/AdvReac Type Severity Reaction Status Date / Time No Known Allergies Allergy Verified 06/08/23 20:39 Assessment & Plan Assessment & Plan (1) Major 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 Quintanilla is a 68 year-old woman with hx of hemorrhagic stroke back in 05/2021 with significant lesion on right frontal lobe. Cognitive and personality changes after that with progression in the past 10 months. MOCA is 30. Significant impairments in impulsivity, rational thinking, ability to manage finances, preoccupied with money, impaired orientation. PLAN 06/11: Continue current regimen and plans 06/12: Continue current plans and regimen 06/13 increase depakote to 500mg po BID. 06/14 continue tx. 06/15 switch olanzapine to seroquel for better behavioral control 06/16 continue tx. HCP to be affirmed. 06/17 pt on 3 day. today she did take medications, but continues to present as explosive. 06/18 continue same treatment. 06/19 increase Seroquel to 50 p.o. b.i.d. and 100 mg p.o. q.h.s. to target sundowning. 06/20 continue tx. 06/21 continue tx. 06/22 continue tx. 06/23 commitment hearing, pt now section 8. 06/24 continue tx. 06/25: irritable, labile, paranoid delusions, agitated, verbally aggressive. check VPA, CBC, LFT, ammonia. increase VPA to 750 BID. 06/26: pt refused labs, VPA dosing increased to 750 BID regardless. no change in presentation. 06/27 continue tx. pending Affirmation of HCP. 06/28 continue tx. 06/29 continues tx HCP affirmed. 06/30 continue tx. 07/01 continue tx. 07/02: Continue current management and treatment plan. 07/03:Continue current management and treatment plan. 07/04 continue tx. check depakote and ammonia on 07/05 AM 07/05 depakote level 45, ammonia wnl. continue current medications 07/06 continue tx. 07/07 continue treatment 07/08 continue same treatment 07/09 continue tx. 07/10 continue tx. 07/11 continue tx. 07/12 continue tx 07/13 continue tx. 07/15 continue tx. 07/16/2023: No changes to current plan Reason for continued inpatient stay Substantial Risk for: inability to function Time Spent With Patient Time: Total time managing care of this patient today ____ minutes.
[2023-07-16] MEDS: QUEtiapine Fumarate 100 MG TABLET PO (20:51)
[2023-07-16 21:17] VITALS: RESP 18; TEMP 36.6
[2023-07-17 08:00] VITALS: BP 137/70; PULSE 50; RESP 18; TEMP 36.4; O2SAT 95
[2023-07-17] MEDS: Divalproex Sodium 250 MG TABLET.DR 750 MG PO ×2 (08:21→20:55)
[2023-07-17] MEDS: QUEtiapine Fumarate 50 MG TABLET PO (08:21)
[2023-07-17] MEDS: Pyridoxine HCl (Vitamin B6) 50 MG TABLET PO (08:21)
[2023-07-17] MEDS: Aspirin 81 MG TAB.CHEW PO (08:21)
[2023-07-17] MEDS: Escitalopram Oxalate 5 MG TABLET PO (08:21)
[2023-07-17] MEDS: Sennosides/Docusate Sodium TABLET 1 TAB PO ×2 (08:21→20:56)
[2023-07-17] MEDS: lisinopriL 5 MG TABLET PO (08:52)
--- NOTE | 2023-07-17 09:39 | HO.PSYCHPN ---
Subjective Subjective Date of Service: 07/17/23 Reason For Visit: Adjustment disorders Subjective Notes: Conditional Voluntary Healthcare Proxy: Yes Interim History: Met patient. Discussed with Nursing. Ongoing encouragement around medications. Sleep has been okay. Is tearful at times and presents with cognitive impairment. Reports today is a quiet day and that the kids are home which is nice. Medication Compliance: Yes Side effects from medications: No Attending Groups: Intermittent Review of Systems Acute medical concerns: No Review of Systems Review of Systems Nothing acute Mental Status Exam Mental Status Exam Patient Appearance: Appropriate Patient Orientation: Person and Situation Level of Consciousness: Awake Patient Behavior: Guarded and Passive Mood Description: Withdrawn Affect Description: Constricted Patient Cognition Impaired: Yes Ability to Follow Directions: Fair Speech Pattern: Clear Hallucinations: None Delusions: Paranoid Ideation Thought Process: Illogical, Distracted and Slowed Thinking Thought Content: positive for [place] and positive for Poverty of Content Judgement: Poor Diagnostics Vital Signs (24Hr): Vital Signs - 24 hr 07/16/23 21:17 07/17/23 08:00 Temperature 97.9 F 97.6 F Pulse Rate 50 Respiratory Rate 18 18 Blood Pressure 137/70 Pulse Oximetry 95 Oxygen Delivery Method Room Air BMI result Body Mass Index 39.4 Labs 06/09/23 07:49 Medications Medications Current Medications Acetaminophen (Acetaminophen 325 Mg Tablet) 650 mg PO Q6H PRN PRN Reason: Headache/Pain Mild Scale (1-3) Al Hydroxide/Mg Hydroxide (Magnesium Hydrox/Alum Hydrox 30 Ml Oral.Susp) 30 ml PO Q6H PRN PRN Reason: Heartburn/Nausea Aspirin (Aspirin 81 Mg Tab.Chew) 81 mg PO DAILY [facility] Last Admin: 07/17/23 08:21 Dose: 81 mg Divalproex Sodium (Divalproex Sodium 250 Mg Tablet.Dr) 750 mg PO BID [facility] Last Admin: 07/17/23 08:21 Dose: 750 mg Escitalopram Oxalate (Escitalopram Oxalate 5 Mg Tablet) 5 mg PO DAILY [facility] Last Admin: 07/17/23 08:21 Dose: 5 mg Lisinopril (Lisinopril 5 Mg Tablet) 5 mg PO DAILY [facility]; Protocol Last Admin: 07/17/23 08:52 Dose: 5 mg Magnesium Hydroxide (Milk Of Magnesia 30 Ml Oral.Susp) 30 ml PO DAILY PRN PRN Reason: Constipation Melatonin (Melatonin 3 Mg Tablet) 6 mg PO BEDTIME PRN PRN Reason: Sleep Last Admin: 07/12/23 21:08 Dose: 6 mg Olanzapine (Olanzapine 5 Mg Tablet) 5 mg PO Q6H PRN PRN Reason: agitation Last Admin: 07/14/23 17:25 Dose: 5 mg Pyridoxine HCl (Pyridoxine Hcl (Vitamin B6) 50 Mg Tablet) 50 mg PO DAILY [facility] Last Admin: 07/17/23 08:21 Dose: 50 mg Quetiapine Fumarate (Quetiapine Fumarate 100 Mg Tablet) 100 mg PO BEDTIME [facility] Last Admin: 07/16/23 20:51 Dose: 100 mg Quetiapine Fumarate (Quetiapine Fumarate 50 Mg Tablet) 50 mg PO DAILY [facility] Last Admin: 07/17/23 08:21 Dose: 50 mg Senna/Docusate Sodium (Sennosides/Docusate Sodium Tablet) 1 tab PO BID [facility] Last Admin: 07/17/23 08:21 Dose: 1 tab Trazodone HCl (Trazodone Hcl 50 Mg Tablet) 50 mg PO BEDTIME MRX1 PRN PRN Reason: Insomnia Last Admin: 07/15/23 20:40 Dose: 50 mg Allergies Allergies Allergy/AdvReac Type Severity Reaction Status Date / Time No Known Allergies Allergy Verified 06/08/23 20:39 Assessment & Plan Assessment & Plan (1) Major 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 Quintanilla is a 68 year-old woman with hx of hemorrhagic stroke back in 05/2021 with significant lesion on right frontal lobe. Cognitive and personality changes after that with progression in the past 10 months. MOCA is 30. Significant impairments in impulsivity, rational thinking, ability to manage finances, preoccupied with money, impaired orientation. PLAN 06/11: Continue current regimen and plans 06/12: Continue current plans and regimen 06/13 increase depakote to 500mg po BID. 06/14 continue tx. 06/15 switch olanzapine to seroquel for better behavioral control 06/16 continue tx. HCP to be affirmed. 06/17 pt on 3 day. today she did take medications, but continues to present as explosive. 06/18 continue same treatment. 06/19 increase Seroquel to 50 p.o. b.i.d. and 100 mg p.o. q.h.s. to target sundowning. 06/20 continue tx. 06/21 continue tx. 06/22 continue tx. 06/23 commitment hearing, pt now section 8. 06/24 continue tx. 06/25: irritable, labile, paranoid delusions, agitated, verbally aggressive. check VPA, CBC, LFT, ammonia. increase VPA to 750 BID. 06/26: pt refused labs, VPA dosing increased to 750 BID regardless. no change in presentation. 06/27 continue tx. pending Affirmation of HCP. 06/28 continue tx. 06/29 continues tx HCP affirmed. 06/30 continue tx. 07/01 continue tx. 07/02: Continue current management and treatment plan. 07/03:Continue current management and treatment plan. 07/04 continue tx. check depakote and ammonia on 07/05 AM 07/05 depakote level 45, ammonia wnl. continue current medications 07/06 continue tx. 07/07 continue treatment 07/08 continue same treatment 07/09 continue tx. 07/10 continue tx. 07/11 continue tx. 07/12 continue tx 07/13 continue tx. 07/15 continue tx. 07/16/2023: No changes to current plan 07/17/2023: No changes Reason for continued inpatient stay Substantial Risk for: inability to function Time Spent With Patient Time: Total time managing care of this patient today ____ minutes.
[2023-07-17 18:00] VITALS: BP 118/64; PULSE 69; RESP 18; TEMP 36.6; O2SAT 95
[2023-07-17] MEDS: OLANZapine 5 MG TABLET PO (18:33)
[2023-07-17] MEDS: QUEtiapine Fumarate 100 MG TABLET PO (20:55)
[2023-07-18 09:35] VITALS: BP 135/72; PULSE 51; RESP 16; TEMP 36.4; O2SAT 95
[2023-07-18] MEDS: Sennosides/Docusate Sodium TABLET 1 TAB PO ×2 (09:37→21:17)
[2023-07-18] MEDS: lisinopriL 5 MG TABLET PO (09:37)
[2023-07-18] MEDS: Divalproex Sodium 250 MG TABLET.DR 750 MG PO ×2 (09:37→21:17)
[2023-07-18] MEDS: Escitalopram Oxalate 5 MG TABLET PO (09:37)
[2023-07-18] MEDS: QUEtiapine Fumarate 50 MG TABLET PO (09:37)
[2023-07-18] MEDS: Aspirin 81 MG TAB.CHEW PO (09:37)
[2023-07-18] MEDS: Pyridoxine HCl (Vitamin B6) 50 MG TABLET PO (09:37)
--- NOTE | 2023-07-18 12:37 | HO.PSYCHPN ---
Subjective Subjective Date of Service: 07/18/23 Reason For Visit: Adjustment disorders Interim History: met with patient; discussed with team; reviewed chart Polite and cooperative on approach. Patient says she is good and thinks repairer typewriter for coming over to talk. She then says something to repairer typewriter about a little [place]... And continues talking about unrelated things. Staff reports patient is sleeping, taking meds, allowing vitals, no outburst or behavioral incidents. Mental Status Exam Mental Status Exam Patient Appearance: Appropriate Patient Orientation: Person and Situation Level of Consciousness: Awake Patient Behavior: Appropriate, Cooperative, Passive and Good Eye Contact Mood Description: Calm Affect Description: Calm Patient Cognition Impaired: Yes Ability to Follow Directions: Fair Speech Pattern: Clear Hallucinations: None Delusions: Present Thought Process: Illogical, Distracted, Goal Oriented and Slowed Thinking Thought Content: positive for [place] and positive for Preoccupation (With various unrelated thoughts) Judgement and Insight: Impaired Diagnostics Vital Signs (24Hr): Vital Signs - 24 hr 07/17/23 18:00 07/18/23 09:35 Temperature 98 F 97.6 F Pulse Rate 69 51 Respiratory Rate 18 16 Blood Pressure 118/64 135/72 Pulse Oximetry 95 95 Oxygen Delivery Method Room Air Room Air BMI result Body Mass Index 39.4 Labs 06/09/23 07:49 Medications Medications Current Medications Acetaminophen (Acetaminophen 325 Mg Tablet) 650 mg PO Q6H PRN PRN Reason: Headache/Pain Mild Scale (1-3) Al Hydroxide/Mg Hydroxide (Magnesium Hydrox/Alum Hydrox 30 Ml Oral.Susp) 30 ml PO Q6H PRN PRN Reason: Heartburn/Nausea Aspirin (Aspirin 81 Mg Tab.Chew) 81 mg PO DAILY [facility] Last Admin: 07/18/23 09:37 Dose: 81 mg Divalproex Sodium (Divalproex Sodium 250 Mg Tablet.Dr) 750 mg PO BID [facility] Last Admin: 07/18/23 09:37 Dose: 750 mg Escitalopram Oxalate (Escitalopram Oxalate 5 Mg Tablet) 5 mg PO DAILY [facility] Last Admin: 07/18/23 09:37 Dose: 5 mg Lisinopril (Lisinopril 5 Mg Tablet) 5 mg PO DAILY [facility]; Protocol Last Admin: 07/18/23 09:37 Dose: 5 mg Magnesium Hydroxide (Milk Of Magnesia 30 Ml Oral.Susp) 30 ml PO DAILY PRN PRN Reason: Constipation Melatonin (Melatonin 3 Mg Tablet) 6 mg PO BEDTIME PRN PRN Reason: Sleep Last Admin: 07/12/23 21:08 Dose: 6 mg Olanzapine (Olanzapine 5 Mg Tablet) 5 mg PO Q6H PRN PRN Reason: agitation Last Admin: 07/17/23 18:33 Dose: 5 mg Pyridoxine HCl (Pyridoxine Hcl (Vitamin B6) 50 Mg Tablet) 50 mg PO DAILY [facility] Last Admin: 07/18/23 09:37 Dose: 50 mg Quetiapine Fumarate (Quetiapine Fumarate 100 Mg Tablet) 100 mg PO BEDTIME [facility] Last Admin: 07/17/23 20:55 Dose: 100 mg Quetiapine Fumarate (Quetiapine Fumarate 50 Mg Tablet) 50 mg PO DAILY [facility] Last Admin: 07/18/23 09:37 Dose: 50 mg Senna/Docusate Sodium (Sennosides/Docusate Sodium Tablet) 1 tab PO BID [facility] Last Admin: 07/18/23 09:37 Dose: 1 tab Trazodone HCl (Trazodone Hcl 50 Mg Tablet) 50 mg PO BEDTIME MRX1 PRN PRN Reason: Insomnia Last Admin: 07/15/23 20:40 Dose: 50 mg Allergies Allergies Allergy/AdvReac Type Severity Reaction Status Date / Time No Known Allergies Allergy Verified 06/08/23 20:39 Assessment & Plan Assessment & Plan (1) Major 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 Quintanilla is a 68 year-old woman with hx of hemorrhagic stroke back in 05/2021 with significant lesion on right frontal lobe. Cognitive and personality changes after that with progression in the past 10 months. MOCA is 8/30. Significant impairments in impulsivity, rational thinking, ability to manage finances, preoccupied with money, impaired orientation. PLAN 06/11: Continue current regimen and plans 06/12: Continue current plans and regimen 06/13 increase depakote to 500mg po BID. 06/14 continue tx. 06/15 switch olanzapine to seroquel for better behavioral control 06/16 continue tx. HCP to be affirmed. 06/17 pt on 3 day. today she did take medications, but continues to present as explosive. 06/18 continue same treatment. 06/19 increase Seroquel to 50 p.o. b.i.d. and 100 mg p.o. q.h.s. to target sundowning. 06/20 continue tx. 06/21 continue tx. 06/22 continue tx. 06/23 commitment hearing, pt now section 8. 06/24 continue tx. 06/25: irritable, labile, paranoid delusions, agitated, verbally aggressive. check VPA, CBC, LFT, ammonia. increase VPA to 750 BID. 06/26: pt refused labs, VPA dosing increased to 750 BID regardless. no change in presentation. 06/27 continue tx. pending Affirmation of HCP. 06/28 continue tx. 06/29 continues tx HCP affirmed. 06/30 continue tx. 07/01 continue tx. 07/02: Continue current management and treatment plan. 07/03:Continue current management and treatment plan. 07/04 continue tx. check depakote and ammonia on 07/05 AM 07/05 depakote level 45, ammonia wnl. continue current medications 07/06 continue tx. 07/07 continue treatment 07/08 continue same treatment 07/09 continue tx. 07/10 continue tx. 07/11 continue tx. 07/12 continue tx 07/13 continue tx. 07/15 continue tx. 07/16/2023: No changes to current plan 07/17/2023: No changes 07/18 continue current treatment plan Patient educated on: diagnosis Informed Consent: does not understand Reason for continued inpatient stay Substantial Risk for: inability to function Time Spent With Patient Time: Total time managing care of this patient today ____ minutes.
[2023-07-18 20:19] VITALS: BP 132/70; PULSE 63; RESP 18; TEMP 36.1; O2SAT 97
[2023-07-18] MEDS: traZODone HCL 50 MG TABLET PO (21:17)
[2023-07-18] MEDS: QUEtiapine Fumarate 100 MG TABLET PO (21:17)
[2023-07-19 08:16] VITALS: BP 158/70; PULSE 53; RESP 16; TEMP 36.3; O2SAT 93
[2023-07-19] MEDS: Aspirin 81 MG TAB.CHEW PO (08:18)
[2023-07-19] MEDS: lisinopriL 5 MG TABLET PO (08:18)
[2023-07-19] MEDS: Sennosides/Docusate Sodium TABLET 1 TAB PO ×2 (08:18→20:05)
[2023-07-19] MEDS: Divalproex Sodium 250 MG TABLET.DR 750 MG PO ×2 (08:18→20:04)
[2023-07-19] MEDS: Escitalopram Oxalate 5 MG TABLET PO (08:18)
[2023-07-19] MEDS: QUEtiapine Fumarate 50 MG TABLET PO (08:18)
[2023-07-19] MEDS: Pyridoxine HCl (Vitamin B6) 50 MG TABLET PO (08:18)
--- NOTE | 2023-07-19 15:15 | P.PNPSI_ITS ---
Subjective Subjective Date of Service: 07/19/23 Reason For Visit: Adjustment disorders Interim History: Pt seen, reviewed with team who report no current symptoms of concern. Engaged in milieu, eating her mid-day meal, attentive to milieu stimuli, peers and team. No sx of distress observed or noted. Team reports intake and sleep are adequate. Pt is compliant with medications. Medication Compliance: Yes Side effects from medications: No Attending Groups: Yes Review of Systems Acute medical concerns: No Medical Review of Systems: unchanged Review of Systems Review of Systems Yes all other systems are reviewed and are negative Mental Status Exam Mental Status Exam Patient Appearance: Appropriate Patient Orientation: Person and Situation Level of Consciousness: Awake Patient Behavior: Appropriate, Cooperative, Passive and Good Eye Contact Mood Description: Calm Affect Description: Calm Patient Cognition Impaired: Yes Ability to Follow Directions: Fair Speech Pattern: Clear Hallucinations: None Delusions: Present Thought Process: Illogical, Distracted, Goal Oriented and Slowed Thinking Thought Content: positive for [place] Judgement and Insight: Impaired Diagnostics Vital Signs (24Hr): Vital Signs - 24 hr 07/18/23 20:19 07/19/23 08:16 Temperature 97.0 F 97.4 F Pulse Rate 63 53 Respiratory Rate 18 16 Blood Pressure 132/70 158/70 H Pulse Oximetry 97 93 Oxygen Delivery Method Room Air Room Air BMI result Body Mass Index 39.4 Labs 06/09/23 07:49 Medications Medications Current Medications Acetaminophen (Acetaminophen 325 Mg Tablet) 650 mg PO Q6H PRN PRN Reason: Headache/Pain Mild Scale (1-3) Al Hydroxide/Mg Hydroxide (Magnesium Hydrox/Alum Hydrox 30 Ml Oral.Susp) 30 ml PO Q6H PRN PRN Reason: Heartburn/Nausea Aspirin (Aspirin 81 Mg Tab.Chew) 81 mg PO DAILY [facility] Last Admin: 07/19/23 08:18 Dose: 81 mg Divalproex Sodium (Divalproex Sodium 250 Mg Tablet.Dr) 750 mg PO BID [facility] Last Admin: 07/19/23 08:18 Dose: 750 mg Escitalopram Oxalate (Escitalopram Oxalate 5 Mg Tablet) 5 mg PO DAILY [facility] Last Admin: 07/19/23 08:18 Dose: 5 mg Lisinopril (Lisinopril 5 Mg Tablet) 5 mg PO DAILY [facility]; Protocol Last Admin: 07/19/23 08:18 Dose: 5 mg Magnesium Hydroxide (Milk Of Magnesia 30 Ml Oral.Susp) 30 ml PO DAILY PRN PRN Reason: Constipation Melatonin (Melatonin 3 Mg Tablet) 6 mg PO BEDTIME PRN PRN Reason: Sleep Last Admin: 07/12/23 21:08 Dose: 6 mg Olanzapine (Olanzapine 5 Mg Tablet) 5 mg PO Q6H PRN PRN Reason: agitation Last Admin: 07/17/23 18:33 Dose: 5 mg Pyridoxine HCl (Pyridoxine Hcl (Vitamin B6) 50 Mg Tablet) 50 mg PO DAILY [facility] Last Admin: 07/19/23 08:18 Dose: 50 mg Quetiapine Fumarate (Quetiapine Fumarate 100 Mg Tablet) 100 mg PO BEDTIME [facility] Last Admin: 07/18/23 21:17 Dose: 100 mg Quetiapine Fumarate (Quetiapine Fumarate 50 Mg Tablet) 50 mg PO DAILY [facility] Last Admin: 07/19/23 08:18 Dose: 50 mg Senna/Docusate Sodium (Sennosides/Docusate Sodium Tablet) 1 tab PO BID [facility] Last Admin: 07/19/23 08:18 Dose: 1 tab Trazodone HCl (Trazodone Hcl 50 Mg Tablet) 50 mg PO BEDTIME MRX1 PRN PRN Reason: Insomnia Last Admin: 07/18/23 21:17 Dose: 50 mg Allergies Allergies Allergy/AdvReac Type Severity Reaction Status Date / Time No Known Allergies Allergy Verified 06/08/23 20:39 Assessment & Plan Assessment & Plan (1) Major 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 Quintanilla is a 68 year-old woman with hx of hemorrhagic stroke back in 05/2021 with significant lesion on right frontal lobe. Cognitive and personality changes after that with progression in the past 10 months. MOCA is 04/13. Significant impairments in impulsivity, rational thinking, ability to manage finances, preoccupied with money, impaired orientation. PLAN 06/11: Continue current regimen and plans 06/12: Continue current plans and regimen 06/13 increase depakote to 500mg po BID. 06/14 continue tx. 06/15 switch olanzapine to seroquel for better behavioral control 06/16 continue tx. HCP to be affirmed. 06/17 pt on 3 day. today she did take medications, but continues to present as explosive. 06/18 continue same treatment. 06/19 increase Seroquel to 50 p.o. b.i.d. and 100 mg p.o. q.h.s. to target sundowning. 06/20 continue tx. 06/21 continue tx. 06/22 continue tx. 06/23 commitment hearing, pt now section 8. 06/24 continue tx. 06/25: irritable, labile, paranoid delusions, agitated, verbally aggressive. check VPA, CBC, LFT, ammonia. increase VPA to 750 BID. 06/26: pt refused labs, VPA dosing increased to 750 BID regardless. no change in presentation. 06/27 continue tx. pending Affirmation of HCP. 06/28 continue tx. 06/29 continues tx HCP affirmed. 06/30 continue tx. 07/01 continue tx. 07/02: Continue current management and treatment plan. 07/03:Continue current management and treatment plan. 07/04 continue tx. check depakote and ammonia on 07/05 AM 07/05 depakote level 45, ammonia wnl. continue current medications 07/06 continue tx. 07/07 continue treatment 07/08 continue same treatment 07/09 continue tx. 07/10 continue tx. 07/11 continue tx. 07/12 continue tx 07/13 continue tx. 07/15 continue tx. 07/16/2023: No changes to current plan 07/17/2023: No changes 07/18 continue current treatment plan 07/19/23 continue current regime and plan of care. Informed Consent: does not understand Reason for continued inpatient stay Substantial Risk for: med/psych decompensation Time Spent With Patient Time: Total time managing care of this patient today ____ minutes.
[2023-07-19] MEDS: QUEtiapine Fumarate 100 MG TABLET PO (20:05)
[2023-07-19 20:10] VITALS: BP 154/70; PULSE 65; RESP 16; TEMP 36.3; O2SAT 95
[2023-07-20 08:00] VITALS: BP 132/66; PULSE 64; RESP 18; TEMP 36.4; O2SAT 97
[2023-07-20] MEDS: Aspirin 81 MG TAB.CHEW PO (08:24)
[2023-07-20] MEDS: QUEtiapine Fumarate 50 MG TABLET PO (08:24)
[2023-07-20] MEDS: Sennosides/Docusate Sodium TABLET 1 TAB PO ×2 (08:24→19:55)
[2023-07-20] MEDS: Divalproex Sodium 250 MG TABLET.DR 750 MG PO ×2 (08:24→19:54)
[2023-07-20] MEDS: Escitalopram Oxalate 5 MG TABLET PO (08:25)
[2023-07-20] MEDS: Pyridoxine HCl (Vitamin B6) 50 MG TABLET PO (08:25)
[2023-07-20] MEDS: lisinopriL 5 MG TABLET PO (09:13)
[2023-07-20] MEDS: QUEtiapine Fumarate 100 MG TABLET PO (19:54)
[2023-07-20 20:35] VITALS: BP 170/82; PULSE 82; RESP 18; TEMP 36.6; O2SAT 94
[2023-07-21 06:00] VITALS: BP 148/74; PULSE 72; RESP 18; TEMP 36.5; O2SAT 95
[2023-07-21 07:00] VITALS: BMI 39.3
[2023-07-21] MEDS: Aspirin 81 MG TAB.CHEW PO (09:03)
[2023-07-21] MEDS: Escitalopram Oxalate 5 MG TABLET PO (09:03)
[2023-07-21] MEDS: Sennosides/Docusate Sodium TABLET 1 TAB PO ×2 (09:03→20:38)
[2023-07-21] MEDS: Divalproex Sodium 250 MG TABLET.DR 750 MG PO ×2 (09:03→20:38)
[2023-07-21] MEDS: QUEtiapine Fumarate 50 MG TABLET PO (09:03)
[2023-07-21] MEDS: lisinopriL 5 MG TABLET PO (09:04)
[2023-07-21] MEDS: OLANZapine 5 MG TABLET PO ×2 (09:04→13:40)
[2023-07-21] MEDS: Pyridoxine HCl (Vitamin B6) 50 MG TABLET PO (09:04)
--- NOTE | 2023-07-21 10:21 | P.PNPSI_ITS ---
Subjective Subjective Date of Service: 07/21/23 Reason For Visit: Adjustment disorders Interim History: Patient has generally been doing better out of bed engaged in the milieu discharge planning continues has been accepting medication Medication Compliance: Yes Mental Status Exam Mental Status Exam Patient Appearance: Appropriate Patient Orientation: Person and Situation Level of Consciousness: Awake Patient Behavior: Appropriate, Cooperative, Passive and Good Eye Contact Mood Description: Calm Affect Description: Calm Patient Cognition Impaired: Yes Ability to Follow Directions: Fair Speech Pattern: Clear Hallucinations: None Delusions: Present Thought Process: Illogical, Distracted, Goal Oriented and Slowed Thinking Thought Content: positive for [place] Judgement and Insight: Impaired Diagnostics Vital Signs (24Hr): Vital Signs - 24 hr 07/20/23 20:35 07/21/23 06:00 Temperature 97.8 F 97.7 F Pulse Rate 82 72 Respiratory Rate 18 18 Blood Pressure 170/82 H 148/74 H Pulse Oximetry 94 95 Oxygen Delivery Method Room Air Room Air BMI result Body Mass Index 39.4 Labs 06/09/23 07:49 Medications Medications Current Medications Acetaminophen (Acetaminophen 325 Mg Tablet) 650 mg PO Q6H PRN PRN Reason: Headache/Pain Mild Scale (1-3) Al Hydroxide/Mg Hydroxide (Magnesium Hydrox/Alum Hydrox 30 Ml Oral.Susp) 30 ml PO Q6H PRN PRN Reason: Heartburn/Nausea Aspirin (Aspirin 81 Mg Tab.Chew) 81 mg PO DAILY [facility] Last Admin: 07/21/23 09:03 Dose: 81 mg Divalproex Sodium (Divalproex Sodium 250 Mg Tablet.Dr) 750 mg PO BID [facility] Last Admin: 07/21/23 09:03 Dose: 750 mg Escitalopram Oxalate (Escitalopram Oxalate 5 Mg Tablet) 5 mg PO DAILY [facility] Last Admin: 07/21/23 09:03 Dose: 5 mg Lisinopril (Lisinopril 5 Mg Tablet) 5 mg PO DAILY [facility]; Protocol Last Admin: 07/21/23 09:04 Dose: 5 mg Magnesium Hydroxide (Milk Of Magnesia 30 Ml Oral.Susp) 30 ml PO DAILY PRN PRN Reason: Constipation Melatonin (Melatonin 3 Mg Tablet) 6 mg PO BEDTIME PRN PRN Reason: Sleep Last Admin: 07/12/23 21:08 Dose: 6 mg Olanzapine (Olanzapine 5 Mg Tablet) 5 mg PO Q6H PRN PRN Reason: agitation Last Admin: 07/21/23 09:04 Dose: 5 mg Pyridoxine HCl (Pyridoxine Hcl (Vitamin B6) 50 Mg Tablet) 50 mg PO DAILY [facility] Last Admin: 07/21/23 09:04 Dose: 50 mg Quetiapine Fumarate (Quetiapine Fumarate 100 Mg Tablet) 100 mg PO BEDTIME [facility] Last Admin: 07/20/23 19:54 Dose: 100 mg Quetiapine Fumarate (Quetiapine Fumarate 50 Mg Tablet) 50 mg PO DAILY [facility] Last Admin: 07/21/23 09:03 Dose: 50 mg Senna/Docusate Sodium (Sennosides/Docusate Sodium Tablet) 1 tab PO BID [facility] Last Admin: 07/21/23 09:03 Dose: 1 tab Trazodone HCl (Trazodone Hcl 50 Mg Tablet) 50 mg PO BEDTIME MRX1 PRN PRN Reason: Insomnia Last Admin: 07/18/23 21:17 Dose: 50 mg Allergies Allergies Allergy/AdvReac Type Severity Reaction Status Date / Time No Known Allergies Allergy Verified 06/08/23 20:39 Assessment & Plan Assessment & Plan (1) Major 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 Quintanilla is a 68 year-old woman with hx of hemorrhagic stroke back in 05/2021 with significant lesion on right frontal lobe. Cognitive and personality changes after that with progression in the past 10 months. MOCA is 8/30. Significant impairments in impulsivity, rational thinking, ability to manage finances, preoccupied with money, impaired orientation. PLAN 06/11: Continue current regimen and plans 06/12: Continue current plans and regimen 06/13 increase depakote to 500mg po BID. 06/14 continue tx. 06/15 switch olanzapine to seroquel for better behavioral control 06/16 continue tx. HCP to be affirmed. 06/17 pt on 3 day. today she did take medications, but continues to present as explosive. 06/18 continue same treatment. 06/19 increase Seroquel to 50 p.o. b.i.d. and 100 mg p.o. q.h.s. to target sundowning. 06/20 continue tx. 06/21 continue tx. 06/22 continue tx. 06/23 commitment hearing, pt now section 8. 06/24 continue tx. 06/25: irritable, labile, paranoid delusions, agitated, verbally aggressive. check VPA, CBC, LFT, ammonia. increase VPA to 750 BID. 06/26: pt refused labs, VPA dosing increased to 750 BID regardless. no change in presentation. 06/27 continue tx. pending Affirmation of HCP. 06/28 continue tx. 06/29 continues tx HCP affirmed. 06/30 continue tx. 07/01 continue tx. 07/02: Continue current management and treatment plan. 07/03:Continue current management and treatment plan. 07/04 continue tx. check depakote and ammonia on 07/05 AM 07/05 depakote level 45, ammonia wnl. continue current medications 07/06 continue tx. 07/07 continue treatment 07/08 continue same treatment 07/09 continue tx. 07/10 continue tx. 07/11 continue tx. 07/12 continue tx 07/13 continue tx. 07/15 continue tx. 07/16/2023: No changes to current plan 07/17/2023: No changes 07/18 continue current treatment plan 07/19/23 continue current regime and plan of care. 07/21/2023 Continue plan of care Reason for continued inpatient stay Substantial Risk for: inability to function and rapid decompensation Time Spent With Patient Time: Total time managing care of this patient today ____ minutes.
[2023-07-21 19:35] VITALS: BP 137/74; PULSE 63; RESP 18; TEMP 36.6; O2SAT 96
[2023-07-21] MEDS: QUEtiapine Fumarate 100 MG TABLET PO (20:38)
[2023-07-22 06:00] VITALS: BP 134/75; PULSE 64; TEMP 36.5; O2SAT 97
[2023-07-22] MEDS: QUEtiapine Fumarate 50 MG TABLET PO (08:22)
[2023-07-22] MEDS: Pyridoxine HCl (Vitamin B6) 50 MG TABLET PO (08:22)
[2023-07-22] MEDS: Sennosides/Docusate Sodium TABLET 1 TAB PO ×2 (08:22→20:26)
[2023-07-22] MEDS: OLANZapine 5 MG TABLET PO ×3 (08:22→21:55)
[2023-07-22] MEDS: Escitalopram Oxalate 5 MG TABLET PO (08:22)
[2023-07-22] MEDS: lisinopriL 5 MG TABLET PO (08:22)
[2023-07-22] MEDS: Aspirin 81 MG TAB.CHEW PO (08:22)
[2023-07-22] MEDS: Divalproex Sodium 250 MG TABLET.DR 750 MG PO ×2 (08:23→20:26)
--- NOTE | 2023-07-22 09:20 | P.PNPSI_ITS ---
Subjective Subjective Date of Service: 07/22/23 Reason For Visit: Adjustment disorders Subjective Notes: Section 7 and Section 8 Interim History: The nursing staff reported the patient slept well last night. She had been asking about her son. No changes in her mental status. On interview the patient denies new symptoms, waiting for placement. Confused at times. Mental Status Exam Mental Status Exam Patient Appearance: Appropriate Patient Orientation: Person and Situation Level of Consciousness: Awake and Appropriate Patient Behavior: Guarded and Passive Mood Description: Withdrawn Affect Description: Calm Patient Cognition Impaired: Yes Ability to Follow Directions: Good Speech Pattern: Impoverished and Monotone Hallucinations: None Delusions: Ideas of Reference Thought Process: Distracted, Slowed Thinking and Word Salad Thought Content: positive for [place], positive for [place] and positive for Poverty of Content Judgement: Poor Diagnostics Vital Signs (24Hr): Vital Signs - 24 hr 07/21/23 19:35 Temperature 97.8 F Pulse Rate 63 Respiratory Rate 18 Blood Pressure 137/74 Pulse Oximetry 96 Oxygen Delivery Method Room Air BMI result Body Mass Index 39.3 Labs 06/09/23 07:49 Medications Medications Current Medications Acetaminophen (Acetaminophen 325 Mg Tablet) 650 mg PO Q6H PRN PRN Reason: Headache/Pain Mild Scale (1-3) Al Hydroxide/Mg Hydroxide (Magnesium Hydrox/Alum Hydrox 30 Ml Oral.Susp) 30 ml PO Q6H PRN PRN Reason: Heartburn/Nausea Aspirin (Aspirin 81 Mg Tab.Chew) 81 mg PO DAILY [facility] Last Admin: 07/22/23 08:22 Dose: 81 mg Divalproex Sodium (Divalproex Sodium 250 Mg Tablet.) 750 mg PO BID [facility] Last Admin: 07/22/23 08:23 Dose: 750 mg Escitalopram Oxalate (Escitalopram Oxalate 5 Mg Tablet) 5 mg PO DAILY [facility] Last Admin: 07/22/23 08:22 Dose: 5 mg Lisinopril (Lisinopril 5 Mg Tablet) 5 mg PO DAILY [facility]; Protocol Last Admin: 07/22/23 08:22 Dose: 5 mg Magnesium Hydroxide (Milk Of Magnesia 30 Ml Oral.Susp) 30 ml PO DAILY PRN PRN Reason: Constipation Melatonin (Melatonin 3 Mg Tablet) 6 mg PO BEDTIME PRN PRN Reason: Sleep Last Admin: 07/12/23 21:08 Dose: 6 mg Olanzapine (Olanzapine 5 Mg Tablet) 5 mg PO Q6H PRN PRN Reason: agitation Last Admin: 07/22/23 08:22 Dose: 5 mg Pyridoxine HCl (Pyridoxine Hcl (Vitamin B6) 50 Mg Tablet) 50 mg PO DAILY [facility] Last Admin: 07/22/23 08:22 Dose: 50 mg Quetiapine Fumarate (Quetiapine Fumarate 100 Mg Tablet) 100 mg PO BEDTIME [facility] Last Admin: 07/21/23 20:38 Dose: 100 mg Quetiapine Fumarate (Quetiapine Fumarate 50 Mg Tablet) 50 mg PO DAILY [facility] Last Admin: 07/22/23 08:22 Dose: 50 mg Senna/Docusate Sodium (Sennosides/Docusate Sodium Tablet) 1 tab PO BID [facility] Last Admin: 07/22/23 08:22 Dose: 1 tab Trazodone HCl (Trazodone Hcl 50 Mg Tablet) 50 mg PO BEDTIME MRX1 PRN PRN Reason: Insomnia Last Admin: 07/18/23 21:17 Dose: 50 mg Allergies Allergies Allergy/AdvReac Type Severity Reaction Status Date / Time No Known Allergies Allergy Verified 06/08/23 20:39 Assessment & Plan Assessment & Plan (1) Major 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 Quintanilla is a 68 year-old woman with hx of hemorrhagic stroke back in 05/2021 with significant lesion on right frontal lobe. Cognitive and personality changes after that with progression in the past 10 months. MOCA is 8/30. Significant impairments in impulsivity, rational thinking, ability to manage finances, preoccupied with money, impaired orientation. PLAN 06/11: Continue current regimen and plans 06/12: Continue current plans and regimen 06/13 increase depakote to 500mg po BID. 06/14 continue tx. 06/15 switch olanzapine to seroquel for better behavioral control 06/16 continue tx. HCP to be affirmed. 06/17 pt on 3 day. today she did take medications, but continues to present as explosive. 06/18 continue same treatment. 06/19 increase Seroquel to 50 p.o. b.i.d. and 100 mg p.o. q.h.s. to target ing. 11/6 continue tx. 06/21 continue tx. 06/22 continue tx. 06/23 commitment hearing, pt now section 8. 06/24 continue tx. 06/25: irritable, labile, paranoid delusions, agitated, verbally aggressive. check VPA, CBC, LFT, ammonia. increase VPA to 750 BID. 06/26: pt refused labs, VPA dosing increased to 750 BID regardless. no change in presentation. 06/27 continue tx. pending Affirmation of HCP. 06/28 continue tx. 06/29 continues tx HCP affirmed. 06/30 continue tx. 07/01 continue tx. 07/02: Continue current management and treatment plan. 07/03:Continue current management and treatment plan. 07/04 continue tx. check depakote and ammonia on 07/05 AM 07/05 depakote level 45, ammonia wnl. continue current medications 07/06 continue tx. 07/07 continue treatment 07/08 continue same treatment 07/09 continue tx. 07/10 continue tx. 07/11 continue tx. 07/12 continue tx 07/13 continue tx. 07/15 continue tx. 07/16/2023: No changes to current plan 07/17/2023: No changes 07/18 continue current treatment plan 07/19/23 continue current regime and plan of care. 07/21/2023 Continue plan of care 07/22 continue same treatment Reason for continued inpatient stay Substantial Risk for: inability to function, rapid decompensation and med/psych decompensation Time Spent With Patient Time: Total time managing care of this patient today __20__ minutes.
[2023-07-22 19:57] VITALS: BP 132/77; PULSE 82; RESP 16; TEMP 36.3; O2SAT 94
[2023-07-22] MEDS: QUEtiapine Fumarate 100 MG TABLET PO (20:26)
[2023-07-22] MEDS: Nystatin Powder 15 GM BOTTLE 1 APPL TOPICAL (20:26)
[2023-07-22] MEDS: traZODone HCL 50 MG TABLET PO (20:26)
[2023-07-22] MEDS: Acetaminophen 325 MG TABLET 650 MG PO (21:55)
[2023-07-23 08:52] VITALS: BP 147/68; PULSE 56; RESP 16; TEMP 36.4; O2SAT 93
[2023-07-23] MEDS: Sennosides/Docusate Sodium TABLET 1 TAB PO ×2 (08:54→19:53)
[2023-07-23] MEDS: QUEtiapine Fumarate 50 MG TABLET PO (08:54)
[2023-07-23] MEDS: lisinopriL 5 MG TABLET PO (08:54)
[2023-07-23] MEDS: Aspirin 81 MG TAB.CHEW PO (08:54)
[2023-07-23] MEDS: Pyridoxine HCl (Vitamin B6) 50 MG TABLET PO (08:54)
[2023-07-23] MEDS: Escitalopram Oxalate 5 MG TABLET PO (08:54)
[2023-07-23] MEDS: Divalproex Sodium 250 MG TABLET.DR 750 MG PO ×2 (08:54→19:53)
[2023-07-23] MEDS: Nystatin Powder 15 GM BOTTLE 1 APPL TOPICAL ×2 (09:34→19:53)
--- NOTE | 2023-07-23 10:42 | HO.PSYCHPN ---
Subjective Subjective Date of Service: 07/23/23 Reason For Visit: Adjustment disorders Subjective Notes: Conditional Voluntary Interim History: The nursing staff reported the patient is nonsensical at times, compliant with medications. Yesterday she was seen his she dropped down her underwear and needed redirection. She needed p.r.n. Zyprexa and Tylenol yesterday. On interview the patient denies new symptoms, waiting for placement Mental Status Exam Mental Status Exam Patient Appearance: Appropriate Patient Orientation: Person and Situation Level of Consciousness: Awake Patient Behavior: Guarded and Passive Mood Description: Withdrawn Affect Description: Constricted Patient Cognition Impaired: Yes Ability to Follow Directions: Good Speech Pattern: Clear Hallucinations: None Delusions: Not Present Thought Process: Distracted Thought Content: positive for [place] and positive for Poverty of Content Judgement: Fair Diagnostics Vital Signs (24Hr): Vital Signs - 24 hr 07/22/23 19:57 07/23/23 08:52 Temperature 97.3 F 97.6 F Pulse Rate 82 56 Respiratory Rate 16 16 Blood Pressure 132/77 147/68 H Pulse Oximetry 94 93 Oxygen Delivery Method Room Air Room Air BMI result Body Mass Index 39.3 Labs 06/09/23 07:49 Medications Medications Current Medications Acetaminophen (Acetaminophen 325 Mg Tablet) 650 mg PO Q6H PRN PRN Reason: Headache/Pain Mild Scale (1-3) Last Admin: 07/22/23 21:55 Dose: 650 mg Al Hydroxide/Mg Hydroxide (Magnesium Hydrox/Alum Hydrox 30 Ml Oral.Susp) 30 ml PO Q6H PRN PRN Reason: Heartburn/Nausea Aspirin (Aspirin 81 Mg Tab.Chew) 81 mg PO DAILY [facility] Last Admin: 07/23/23 08:54 Dose: 81 mg Divalproex Sodium (Divalproex Sodium 250 Mg Tablet.Dr) 750 mg PO BID [facility] Last Admin: 07/23/23 08:54 Dose: 750 mg Escitalopram Oxalate (Escitalopram Oxalate 5 Mg Tablet) 5 mg PO DAILY [facility] Last Admin: 07/23/23 08:54 Dose: 5 mg Lisinopril (Lisinopril 5 Mg Tablet) 5 mg PO DAILY [facility]; Protocol Last Admin: 07/23/23 08:54 Dose: 5 mg Magnesium Hydroxide (Milk Of Magnesia 30 Ml Oral.Susp) 30 ml PO DAILY PRN PRN Reason: Constipation Melatonin (Melatonin 3 Mg Tablet) 6 mg PO BEDTIME PRN PRN Reason: Sleep Last Admin: 07/12/23 21:08 Dose: 6 mg Nystatin (Nystatin Powder 15 Gm Bottle) 1 appl TOPICAL BID [facility] Last Admin: 07/23/23 09:34 Dose: 1 appl Olanzapine (Olanzapine 5 Mg Tablet) 5 mg PO Q6H PRN PRN Reason: agitation Last Admin: 07/22/23 21:55 Dose: 5 mg Pyridoxine HCl (Pyridoxine Hcl (Vitamin B6) 50 Mg Tablet) 50 mg PO DAILY [facility] Last Admin: 07/23/23 08:54 Dose: 50 mg Quetiapine Fumarate (Quetiapine Fumarate 100 Mg Tablet) 100 mg PO BEDTIME [facility] Last Admin: 07/22/23 20:26 Dose: 100 mg Quetiapine Fumarate (Quetiapine Fumarate 50 Mg Tablet) 50 mg PO DAILY [facility] Last Admin: 07/23/23 08:54 Dose: 50 mg Senna/Docusate Sodium (Sennosides/Docusate Sodium Tablet) 1 tab PO BID [facility] Last Admin: 07/23/23 08:54 Dose: 1 tab Trazodone HCl (Trazodone Hcl 50 Mg Tablet) 50 mg PO BEDTIME MRX1 PRN PRN Reason: Insomnia Last Admin: 07/22/23 20:26 Dose: 50 mg Allergies Allergies Allergy/AdvReac Type Severity Reaction Status Date / Time No Known Allergies Allergy Verified 06/08/23 20:39 Assessment & Plan Assessment & Plan (1) Major 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 Quintanilla is a 68 year-old woman with hx of hemorrhagic stroke back in 05/2021 with significant lesion on right frontal lobe. Cognitive and personality changes after that with progression in the past 10 months. MOCA is 04/13. Significant impairments in impulsivity, rational thinking, ability to manage finances, preoccupied with money, impaired orientation. PLAN 06/11: Continue current regimen and plans 06/12: Continue current plans and regimen 06/13 increase depakote to 500mg po BID. 06/14 continue tx. 06/15 switch olanzapine to seroquel for better behavioral control 06/16 continue tx. HCP to be affirmed. 06/17 pt on 3 day. today she did take medications, but continues to present as explosive. 06/18 continue same treatment. 06/19 increase Seroquel to 50 p.o. b.i.d. and 100 mg p.o. q.h.s. to target . 06/20 continue tx. 06/21 continue tx. 06/22 continue tx. 06/23 commitment hearing, pt now section 8. 06/24 continue tx. 06/25: irritable, labile, paranoid delusions, agitated, verbally aggressive. check VPA, CBC, LFT, ammonia. increase VPA to 750 BID. 06/26: pt refused labs, VPA dosing increased to 750 BID regardless. no change in presentation. 06/27 continue tx. pending Affirmation of HCP. 06/28 continue tx. 06/29 continues tx HCP affirmed. 06/30 continue tx. 07/01 continue tx. 07/02: Continue current management and treatment plan. 07/03:Continue current management and treatment plan. 07/04 continue tx. check depakote and ammonia on 07/05 AM 07/05 depakote level 45, ammonia wnl. continue current medications 07/06 continue tx. 07/07 continue treatment 07/08 continue same treatment 07/09 continue tx. 07/10 continue tx. 07/11 continue tx. 07/12 continue tx 07/13 continue tx. 07/15 continue tx. 07/16/2023: No changes to current plan 07/17/2023: No changes 07/18 continue current treatment plan 07/19/23 continue current regime and plan of care. 07/21/2023 Continue plan of care 07/22 continue same treatment 07/23 continue same treatment Reason for continued inpatient stay Substantial Risk for: inability to function, rapid decompensation and med/psych decompensation Time Spent With Patient Time: Total time managing care of this patient today __20__ minutes.
[2023-07-23] MEDS: LORazepam 1 MG TABLET PO (13:32)
[2023-07-23] MEDS: OLANZapine 5 MG TABLET PO ×2 (13:32→21:19)
[2023-07-23 19:41] VITALS: BP 118/64; PULSE 67; RESP 16; TEMP 36.6; O2SAT 97
[2023-07-23] MEDS: QUEtiapine Fumarate 100 MG TABLET PO (19:53)
[2023-07-23] MEDS: traZODone HCL 50 MG TABLET PO (19:53)
[2023-07-23] MEDS: Acetaminophen 325 MG TABLET 650 MG PO (21:19)
[2023-07-24 10:05] VITALS: BP 130/91; PULSE 74; RESP 17; TEMP 36.3; O2SAT 95
--- NOTE | 2023-07-24 10:12 | P.PNPSI_ITS ---
Subjective Subjective Date of Service: 07/24/23 Reason For Visit: Adjustment disorders Subjective Notes: Conditional Voluntary Guardianship: Yes Interim History: The nursing staff reported the patient was agitated in the 2nd shift. Her daughter came and visited her and she get anger. She needed p.r.n. Ativan and Zyprexa. On interview the patient denies new symptoms confused, nonsensical at times. Waiting for placement. Mental Status Exam Mental Status Exam Patient Appearance: Appropriate Patient Orientation: Person Level of Consciousness: Awake Patient Behavior: Guarded and Passive Mood Description: Withdrawn Affect Description: Labile Patient Cognition Impaired: Yes Ability to Follow Directions: Good Speech Pattern: Clear Hallucinations: None Delusions: Paranoid Ideation Thought Process: Illogical and Evasive Thought Content: positive for [place] and positive for Poverty of Content Judgement: Fair Diagnostics Vital Signs (24Hr): Vital Signs - 24 hr 07/23/23 19:41 07/24/23 10:05 Temperature 97.8 F 97.3 F Pulse Rate 67 74 Respiratory Rate 16 17 Blood Pressure 118/64 130/91 H Pulse Oximetry 97 95 Oxygen Delivery Method Room Air Room Air BMI result Body Mass Index 39.3 Labs 06/09/23 07:49 Medications Medications Current Medications Acetaminophen (Acetaminophen 325 Mg Tablet) 650 mg PO Q6H PRN PRN Reason: Headache/Pain Mild Scale (1-3) Last Admin: 07/23/23 21:19 Dose: 650 mg Al Hydroxide/Mg Hydroxide (Magnesium Hydrox/Alum Hydrox 30 Ml Oral.Susp) 30 ml PO Q6H PRN PRN Reason: Heartburn/Nausea Aspirin (Aspirin 81 Mg Tab.Chew) 81 mg PO DAILY [facility] Last Admin: 07/23/23 08:54 Dose: 81 mg Divalproex Sodium (Divalproex Sodium 250 Mg Tablet.Dr) 750 mg PO BID [facility] Last Admin: 07/23/23 19:53 Dose: 750 mg Escitalopram Oxalate (Escitalopram Oxalate 5 Mg Tablet) 5 mg PO DAILY [facility] Last Admin: 07/23/23 08:54 Dose: 5 mg Lisinopril (Lisinopril 5 Mg Tablet) 5 mg PO DAILY [facility]; Protocol Last Admin: 07/23/23 08:54 Dose: 5 mg Magnesium Hydroxide (Milk Of Magnesia 30 Ml Oral.Susp) 30 ml PO DAILY PRN PRN Reason: Constipation Melatonin (Melatonin 3 Mg Tablet) 6 mg PO BEDTIME PRN PRN Reason: Sleep Last Admin: 07/12/23 21:08 Dose: 6 mg Nystatin (Nystatin Powder 15 Gm Bottle) 1 appl TOPICAL BID [facility] Last Admin: 07/23/23 19:53 Dose: 1 appl Olanzapine (Olanzapine 5 Mg Tablet) 5 mg PO Q6H PRN PRN Reason: agitation Last Admin: 07/23/23 21:19 Dose: 5 mg Pyridoxine HCl (Pyridoxine Hcl (Vitamin B6) 50 Mg Tablet) 50 mg PO DAILY [facility] Last Admin: 07/23/23 08:54 Dose: 50 mg Quetiapine Fumarate (Quetiapine Fumarate 100 Mg Tablet) 100 mg PO BEDTIME [facility] Last Admin: 07/23/23 19:53 Dose: 100 mg Quetiapine Fumarate (Quetiapine Fumarate 50 Mg Tablet) 50 mg PO DAILY [facility] Last Admin: 07/23/23 08:54 Dose: 50 mg Senna/Docusate Sodium (Sennosides/Docusate Sodium Tablet) 1 tab PO BID [facility] Last Admin: 07/23/23 19:53 Dose: 1 tab Trazodone HCl (Trazodone Hcl 50 Mg Tablet) 50 mg PO BEDTIME MRX1 PRN PRN Reason: Insomnia Last Admin: 07/23/23 19:53 Dose: 50 mg Allergies Allergies Allergy/AdvReac Type Severity Reaction Status Date / Time No Known Allergies Allergy Verified 06/08/23 20:39 Assessment & Plan Assessment & Plan (1) Major 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 Quintanilla is a 68 year-old woman with hx of hemorrhagic stroke back in 05/2021 with significant lesion on right frontal lobe. Cognitive and personality changes after that with progression in the past 10 months. MOCA is 04/13. Significant impairments in impulsivity, rational thinking, ability to manage finances, preoccupied with money, impaired orientation. PLAN 06/11: Continue current regimen and plans 06/12: Continue current plans and regimen 06/13 increase depakote to 500mg po BID. 06/14 continue tx. 06/15 switch olanzapine to seroquel for better behavioral control 06/16 continue tx. HCP to be affirmed. 06/17 pt on 3 day. today she did take medications, but continues to present as explosive. 06/18 continue same treatment. 06/19 increase Seroquel to 50 p.o. b.i.d. and 100 mg p.o. q.h.s. to target . 06/20 continue tx. 06/21 continue tx. 06/22 continue tx. 06/23 commitment hearing, pt now section 8. 06/24 continue tx. 06/25: irritable, labile, paranoid delusions, agitated, verbally aggressive. check VPA, CBC, LFT, ammonia. increase VPA to 750 BID. 06/26: pt refused labs, VPA dosing increased to 750 BID regardless. no change in presentation. 06/27 continue tx. pending Affirmation of HCP. 06/28 continue tx. 06/29 continues tx HCP affirmed. 06/30 continue tx. 07/01 continue tx. 07/02: Continue current management and treatment plan. 07/03:Continue current management and treatment plan. 07/04 continue tx. check depakote and ammonia on 07/05 AM 07/05 depakote level 45, ammonia wnl. continue current medications 07/06 continue tx. 07/07 continue treatment 07/08 continue same treatment 07/09 continue tx. 07/10 continue tx. 07/11 continue tx. 07/12 continue tx 07/13 continue tx. 07/15 continue tx. 07/16/2023: No changes to current plan 07/17/2023: No changes 07/18 continue current treatment plan 07/19/23 continue current regime and plan of care. 07/21/2023 Continue plan of care 07/22 continue same treatment 07/23 continue same treatment 07/24 continue some in Reason for continued inpatient stay Substantial Risk for: inability to function, rapid decompensation and med/psych decompensation Time Spent With Patient Time: Total time managing care of this patient today ___20_ minutes.
--- NOTE | 2023-07-24 10:15 | P.PNPSI_ITS ---
Subjective Subjective Reason For Visit: Adjustment disorders Diagnostics Vital Signs (24Hr): Vital Signs - 24 hr 07/23/23 19:41 07/24/23 10:05 Temperature 97.8 F 97.3 F Pulse Rate 67 74 Respiratory Rate 16 17 Blood Pressure 118/64 130/91 H Pulse Oximetry 97 95 Oxygen Delivery Method Room Air Room Air BMI result Body Mass Index 39.3 Labs 06/09/23 07:49 Medications Medications Current Medications Acetaminophen (Acetaminophen 325 Mg Tablet) 650 mg PO Q6H PRN PRN Reason: Headache/Pain Mild Scale (1-3) Last Admin: 07/23/23 21:19 Dose: 650 mg Al Hydroxide/Mg Hydroxide (Magnesium Hydrox/Alum Hydrox 30 Ml Oral.Susp) 30 ml PO Q6H PRN PRN Reason: Heartburn/Nausea Aspirin (Aspirin 81 Mg Tab.Chew) 81 mg PO DAILY REPLACED BY [facility] Last Admin: 07/23/23 08:54 Dose: 81 mg Divalproex Sodium (Divalproex Sodium 250 Mg Tablet.Dr) 750 mg PO BID REPLACED BY [facility] Last Admin: 07/23/23 19:53 Dose: 750 mg Escitalopram Oxalate (Escitalopram Oxalate 5 Mg Tablet) 5 mg PO DAILY REPLACED BY [facility] Last Admin: 07/23/23 08:54 Dose: 5 mg Lisinopril (Lisinopril 5 Mg Tablet) 5 mg PO DAILY REPLACED BY [facility]; Protocol Last Admin: 07/23/23 08:54 Dose: 5 mg Magnesium Hydroxide (Milk Of Magnesia 30 Ml Oral.Susp) 30 ml PO DAILY PRN PRN Reason: Constipation Melatonin (Melatonin 3 Mg Tablet) 6 mg PO BEDTIME PRN PRN Reason: Sleep Last Admin: 07/12/23 21:08 Dose: 6 mg Nystatin (Nystatin Powder 15 Gm Bottle) 1 appl TOPICAL BID REPLACED BY [facility] Last Admin: 07/23/23 19:53 Dose: 1 appl Olanzapine (Olanzapine 5 Mg Tablet) 5 mg PO Q6H PRN PRN Reason: agitation Last Admin: 07/23/23 21:19 Dose: 5 mg Pyridoxine HCl (Pyridoxine Hcl (Vitamin B6) 50 Mg Tablet) 50 mg PO DAILY REPLACED BY [facility] Last Admin: 07/23/23 08:54 Dose: 50 mg Quetiapine Fumarate (Quetiapine Fumarate 100 Mg Tablet) 100 mg PO BEDTIME REPLACED BY [facility] Last Admin: 07/23/23 19:53 Dose: 100 mg Quetiapine Fumarate (Quetiapine Fumarate 50 Mg Tablet) 50 mg PO DAILY REPLACED BY [facility] Last Admin: 07/23/23 08:54 Dose: 50 mg Senna/Docusate Sodium (Sennosides/Docusate Sodium Tablet) 1 tab PO BID REPLACED BY [facility] Last Admin: 07/23/23 19:53 Dose: 1 tab Trazodone HCl (Trazodone Hcl 50 Mg Tablet) 50 mg PO BEDTIME MRX1 PRN PRN Reason: Insomnia Last Admin: 07/23/23 19:53 Dose: 50 mg Allergies Allergies Allergy/AdvReac Type Severity Reaction Status Date / Time No Known Allergies Allergy Verified 06/08/23 20:39 Assessment & Plan Assessment & Plan (1) Major 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 Quintanilla is a 68 year-old woman with hx of hemorrhagic stroke back in 05/2021 with significant lesion on right frontal lobe. Cognitive and personality changes after that with progression in the past 10 months. MOCA is 04/13. Significant impairments in impulsivity, rational thinking, ability to manage finances, preoccupied with money, impaired orientation. PLAN 06/11: Continue current regimen and plans 06/12: Continue current plans and regimen 06/13 increase depakote to 500mg po BID. 06/14 continue tx. 06/15 switch olanzapine to seroquel for better behavioral control 06/16 continue tx. HCP to be affirmed. 06/17 pt on 3 day. today she did take medications, but continues to present as explosive. 06/18 continue same treatment. 06/19 increase Seroquel to 50 p.o. b.i.d. and 100 mg p.o. q.h.s. to target . 06/20 continue tx. 06/21 continue tx. 06/22 continue tx. 06/23 commitment hearing, pt now section 8. 06/24 continue tx. 06/25: irritable, labile, paranoid delusions, agitated, verbally aggressive. check VPA, CBC, LFT, ammonia. increase VPA to 750 BID. 06/26: pt refused labs, VPA dosing increased to 750 BID regardless. no change in presentation. 06/27 continue tx. pending Affirmation of HCP. 06/28 continue tx. 06/29 continues tx HCP affirmed. 06/30 continue tx. 07/01 continue tx. 07/02: Continue current management and treatment plan. 07/03:Continue current management and treatment plan. 07/04 continue tx. check depakote and ammonia on 07/05 AM 07/05 depakote level 45, ammonia wnl. continue current medications 07/06 continue tx. 07/07 continue treatment 07/08 continue same treatment 07/09 continue tx. 07/10 continue tx. 07/11 continue tx. 07/12 continue tx 07/13 continue tx. 07/15 continue tx. 07/16/2023: No changes to current plan 07/17/2023: No changes 07/18 continue current treatment plan 07/19/23 continue current regime and plan of care. 07/21/2023 Continue plan of care 07/22 continue same treatment 07/23 continue same treatment 07/24 continue some in Time Spent With Patient Time: Total time managing care of this patient today ____ minutes.
[2023-07-24] MEDS: Nystatin Powder 15 GM BOTTLE 1 APPL TOPICAL ×2 (10:23→20:25)
[2023-07-24] MEDS: Sennosides/Docusate Sodium TABLET 1 TAB PO ×2 (10:23→20:25)
[2023-07-24] MEDS: Aspirin 81 MG TAB.CHEW PO (10:23)
[2023-07-24] MEDS: QUEtiapine Fumarate 50 MG TABLET PO (10:23)
[2023-07-24] MEDS: Divalproex Sodium 250 MG TABLET.DR 750 MG PO ×2 (10:23→20:25)
[2023-07-24] MEDS: Escitalopram Oxalate 5 MG TABLET PO (10:23)
[2023-07-24] MEDS: lisinopriL 5 MG TABLET PO (10:23)
[2023-07-24] MEDS: Pyridoxine HCl (Vitamin B6) 50 MG TABLET PO (10:23)
[2023-07-24 18:00] VITALS: BP 126/59; PULSE 56; RESP 18; TEMP 36.1; O2SAT 94
[2023-07-24] MEDS: QUEtiapine Fumarate 100 MG TABLET PO (20:25)
[2023-07-24] MEDS: Melatonin 3 MG TABLET 6 MG PO (20:25)
[2023-07-25 08:00] VITALS: BP 159/78; PULSE 80; RESP 18; TEMP 36.8; O2SAT 94
--- NOTE | 2023-07-25 09:34 | P.PNPSI_ITS ---
Subjective Subjective Date of Service: 07/25/23 Reason For Visit: Adjustment disorders Subjective Notes: Section 8 Healthcare Proxy: Yes Interim History: Pt slept through the night. She took medications as prescribed. She was seen in her room, crying. confused as to where she is. She talks about her son, and her mother and not knowing where mother is. Pt had morning paper given to pts in the morning, which she had used as toilet paper and were cover with feces. He did not identify one of the paper was a newspaper or that it now had feces. Pt more and more confused as to use of objects. Review of Systems Review of Systems Nothing acute Yes all other systems are reviewed and are negative Mental Status Exam Mental Status Exam Narrative: Appearance: wearing casual clothing, good hygiene, in NAD Behavior: cooperative Speech: mostly clear, hyperverbal, not pressured, regular tone, spontaneous TP: tangential TC: thinks doctor here stealing money from her son, missing her son Mood: fine Affect:mildly irritable when expert medical writer commented on need to hold when ambulating SI: none HI: none VH/AH: no overt signs Insight/judgment: impaired x 2. Memory/cog: alert, not oriented to situation, month, or year. MOCA 04/13. ACL 3.2- severe cognitive impairment. Diagnostics Vital Signs (24Hr): Vital Signs - 24 hr 07/24/23 10:05 07/24/23 18:00 Temperature 97.3 F 96.9 F Pulse Rate 74 56 Respiratory Rate 17 18 Blood Pressure 130/91 H 126/59 L Pulse Oximetry 95 94 Oxygen Delivery Method Room Air BMI result Body Mass Index 39.3 Labs 06/09/23 07:49 Medications Medications Current Medications Acetaminophen (Acetaminophen 325 Mg Tablet) 650 mg PO Q6H PRN PRN Reason: Headache/Pain Mild Scale (1-3) Last Admin: 07/23/23 21:19 Dose: 650 mg Al Hydroxide/Mg Hydroxide (Magnesium Hydrox/Alum Hydrox 30 Ml Oral.Susp) 30 ml PO Q6H PRN PRN Reason: Heartburn/Nausea Aspirin (Aspirin 81 Mg Tab.Chew) 81 mg PO DAILY [facility] Last Admin: 07/24/23 10:23 Dose: 81 mg Divalproex Sodium (Divalproex Sodium 250 Mg Tablet.) 750 mg PO BID [facility] Last Admin: 07/24/23 20:25 Dose: 750 mg Escitalopram Oxalate (Escitalopram Oxalate 5 Mg Tablet) 5 mg PO DAILY [facility] Last Admin: 07/24/23 10:23 Dose: 5 mg Lisinopril (Lisinopril 5 Mg Tablet) 5 mg PO DAILY [facility]; Protocol Last Admin: 07/24/23 10:23 Dose: 5 mg Magnesium Hydroxide (Milk Of Magnesia 30 Ml Oral.Susp) 30 ml PO DAILY PRN PRN Reason: Constipation Melatonin (Melatonin 3 Mg Tablet) 6 mg PO BEDTIME PRN PRN Reason: Sleep Last Admin: 07/24/23 20:25 Dose: 6 mg Nystatin (Nystatin Powder 15 Gm Bottle) 1 appl TOPICAL BID [facility] Last Admin: 07/24/23 20:25 Dose: 1 appl Olanzapine (Olanzapine 5 Mg Tablet) 5 mg PO Q6H PRN PRN Reason: agitation Last Admin: 07/23/23 21:19 Dose: 5 mg Pyridoxine HCl (Pyridoxine Hcl (Vitamin B6) 50 Mg Tablet) 50 mg PO DAILY [facility] Last Admin: 07/24/23 10:23 Dose: 50 mg Quetiapine Fumarate (Quetiapine Fumarate 100 Mg Tablet) 100 mg PO BEDTIME [facility] Last Admin: 07/24/23 20:25 Dose: 100 mg Quetiapine Fumarate (Quetiapine Fumarate 50 Mg Tablet) 50 mg PO DAILY [facility] Last Admin: 07/24/23 10:23 Dose: 50 mg Senna/Docusate Sodium (Sennosides/Docusate Sodium Tablet) 1 tab PO BID [facility] Last Admin: 07/24/23 20:25 Dose: 1 tab Trazodone HCl (Trazodone Hcl 50 Mg Tablet) 50 mg PO BEDTIME MRX1 PRN PRN Reason: Insomnia Last Admin: 07/23/23 19:53 Dose: 50 mg Allergies Allergies Allergy/AdvReac Type Severity Reaction Status Date / Time No Known Allergies Allergy Verified 06/08/23 20:39 Assessment & Plan Assessment & Plan (1) Major 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 Reason for continued inpatient stay Substantial Risk for: inability to function Time Spent With Patient Time: Total time managing care of this patient today ____ minutes.
[2023-07-25] MEDS: Aspirin 81 MG TAB.CHEW PO (11:09)
[2023-07-25] MEDS: Pyridoxine HCl (Vitamin B6) 50 MG TABLET PO (11:09)
[2023-07-25] MEDS: Divalproex Sodium 250 MG TABLET.DR 750 MG PO ×2 (11:09→20:53)
[2023-07-25] MEDS: QUEtiapine Fumarate 50 MG TABLET PO (11:09)
[2023-07-25] MEDS: Escitalopram Oxalate 5 MG TABLET PO (11:10)
[2023-07-25] MEDS: lisinopriL 5 MG TABLET PO (11:10)
[2023-07-25] MEDS: Nystatin Powder 15 GM BOTTLE 1 APPL TOPICAL ×2 (11:14→20:53)
[2023-07-25] MEDS: Sennosides/Docusate Sodium TABLET 1 TAB PO ×2 (11:16→20:53)
--- NOTE | 2023-07-25 15:05 | PC.NURSE ---
Patient continent of bladder. Not able to collect urine sample d/t contaminated with stool.
[2023-07-25] MEDS: OLANZapine 5 MG TABLET PO (18:32)
[2023-07-25] MEDS: QUEtiapine Fumarate 100 MG TABLET PO (20:53)
[2023-07-26 06:00] VITALS: BP 136/78; PULSE 72; RESP 18; TEMP 36.7; O2SAT 92
--- NOTE | 2023-07-26 09:21 | P.PNPSI_ITS ---
Subjective Subjective Date of Service: 07/26/23 Reason For Visit: Adjustment disorders Subjective Notes: Conditional Voluntary Interim History: Pt slept through the night. She is less tearful. RN was able to obtain UA which does show leukocytosis, neg nitrites, pending culture. Will start ceftin as she is not accurate ortho assistant in terms of symptoms. She reports she misses her son and hopes to see him soon. Medication Compliance: Yes Side effects from medications: No Review of Systems Review of Systems Nothing acute Yes all other systems are reviewed and are negative Mental Status Exam Mental Status Exam Narrative: Appearance: wearing casual clothing, good hygiene, in NAD Behavior: cooperative Speech: mostly clear, hyperverbal, not pressured, regular tone, spontaneous TP: tangential TC: thinks doctor here stealing money from her son, missing her son Mood: fine Affect:mildly irritable when curriculum writer commented on need to hold when ambulating SI: none HI: none VH/AH: no overt signs Insight/judgment: impaired x 2. Memory/cog: alert, not oriented to situation, month, or year. MOCA 04/13. ACL 3.2- severe cognitive impairment. Diagnostics Vital Signs (24Hr): BMI result Body Mass Index 39.3 Labs 06/09/23 07:49 Medications Medications Current Medications Acetaminophen (Acetaminophen 325 Mg Tablet) 650 mg PO Q6H PRN PRN Reason: Headache/Pain Mild Scale (1-3) Last Admin: 07/23/23 21:19 Dose: 650 mg Al Hydroxide/Mg Hydroxide (Magnesium Hydrox/Alum Hydrox 30 Ml Oral.Susp) 30 ml PO Q6H PRN PRN Reason: Heartburn/Nausea Aspirin (Aspirin 81 Mg Tab.Chew) 81 mg PO DAILY [facility] Last Admin: 07/25/23 11:09 Dose: 81 mg Divalproex Sodium (Divalproex Sodium 250 Mg Tablet.Dr) 750 mg PO BID [facility] Last Admin: 07/25/23 20:53 Dose: 750 mg Escitalopram Oxalate (Escitalopram Oxalate 10 Mg Tablet) 10 mg PO DAILY [facility] Lisinopril (Lisinopril 5 Mg Tablet) 5 mg PO DAILY [facility]; Protocol Last Admin: 07/25/23 11:10 Dose: 5 mg Magnesium Hydroxide (Milk Of Magnesia 30 Ml Oral.Susp) 30 ml PO DAILY PRN PRN Reason: Constipation Melatonin (Melatonin 3 Mg Tablet) 6 mg PO BEDTIME PRN PRN Reason: Sleep Last Admin: 07/24/23 20:25 Dose: 6 mg Nystatin (Nystatin Powder 15 Gm Bottle) 1 appl TOPICAL BID [facility] Last Admin: 07/25/23 20:53 Dose: 1 appl Olanzapine (Olanzapine 5 Mg Tablet) 5 mg PO Q6H PRN PRN Reason: agitation Last Admin: 07/25/23 18:32 Dose: 5 mg Pyridoxine HCl (Pyridoxine Hcl (Vitamin B6) 50 Mg Tablet) 50 mg PO DAILY [facility] Last Admin: 07/25/23 11:09 Dose: 50 mg Quetiapine Fumarate (Quetiapine Fumarate 100 Mg Tablet) 100 mg PO BEDTIME [facility] Last Admin: 07/25/23 20:53 Dose: 100 mg Quetiapine Fumarate (Quetiapine Fumarate 50 Mg Tablet) 50 mg PO DAILY [facility] Last Admin: 07/25/23 11:09 Dose: 50 mg Senna/Docusate Sodium (Sennosides/Docusate Sodium Tablet) 1 tab PO BID [facility] Last Admin: 07/25/23 20:53 Dose: 1 tab Trazodone HCl (Trazodone Hcl 50 Mg Tablet) 50 mg PO BEDTIME MRX1 PRN PRN Reason: Insomnia Last Admin: 07/23/23 19:53 Dose: 50 mg Allergies Allergies Allergy/AdvReac Type Severity Reaction Status Date / Time No Known Allergies Allergy Verified 06/08/23 20:39 Assessment & Plan Assessment & Plan (1) Major 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 start ceftin 250mg po BID for UTI. Reason for continued inpatient stay Substantial Risk for: inability to function Time Spent With Patient Time: Total time managing care of this patient today ____ minutes.
[2023-07-26] MEDS: lisinopriL 5 MG TABLET PO (10:21)
[2023-07-26] MEDS: Aspirin 81 MG TAB.CHEW PO (10:22)
[2023-07-26] MEDS: Pyridoxine HCl (Vitamin B6) 50 MG TABLET PO (10:22)
[2023-07-26] MEDS: Sennosides/Docusate Sodium TABLET 1 TAB PO ×2 (10:22→20:15)
[2023-07-26] MEDS: Divalproex Sodium 250 MG TABLET.DR 750 MG PO ×2 (10:22→20:14)
[2023-07-26] MEDS: Escitalopram Oxalate 10 MG TABLET PO (10:24)
[2023-07-26] MEDS: OLANZapine 5 MG TABLET PO ×2 (10:27→16:18)
[2023-07-26] MEDS: QUEtiapine Fumarate 50 MG TABLET PO (10:27)
[2023-07-26 11:12] LABS: Appearance Urine Clear; Color Urine Yellow; Glucose Urine UA Negative (Negative); Leukocyte Esterase Urine Moderate (2+) (Negative); Nitrite Urine Negative (Negative); PH 6.5 (5.0-9.0); UMIC TRIGGER UACC YES; Urine Blood Negative (Negative); Urine Ketones Negative (Negative); Urine Protein Negative (Neg-Trace)
[2023-07-26 11:14] LABS: Bacteria Urine None Seen (None Seen); Hyaline Casts Urine 0-2 /LPF (0-2); RBC Urine 0-2 /HPF (0-2); Squamous Epithelial Cell Urine 0-2 /HPF (0-2); UACC Culture Trigger YES; WBC Urine >50 /HPF (0-5)
[2023-07-26 18:00] VITALS: BP 115/59; PULSE 69; RESP 16; TEMP 36.7; O2SAT 96
[2023-07-26] MEDS: Nystatin Powder 15 GM BOTTLE 1 APPL TOPICAL ×2 (18:22→21:29)
[2023-07-26] MEDS: Melatonin 3 MG TABLET 6 MG PO (20:14)
[2023-07-26] MEDS: traZODone HCL 50 MG TABLET PO (20:15)
[2023-07-26] MEDS: QUEtiapine Fumarate 100 MG TABLET PO (20:15)
[2023-07-27 09:21] VITALS: BP 135/69; PULSE 73; TEMP 36; O2SAT 97
[2023-07-27] MEDS: Aspirin 81 MG TAB.CHEW PO (09:30)
[2023-07-27] MEDS: Sennosides/Docusate Sodium TABLET 1 TAB PO ×2 (09:30→20:52)
[2023-07-27] MEDS: cefuroxime axetiL 250 MG TABLET PO ×2 (09:30→20:52)
[2023-07-27] MEDS: OLANZapine 5 MG TABLET PO (09:30)
[2023-07-27] MEDS: Escitalopram Oxalate 10 MG TABLET PO (09:30)
[2023-07-27] MEDS: QUEtiapine Fumarate 50 MG TABLET PO (09:30)
[2023-07-27] MEDS: lisinopriL 5 MG TABLET PO (09:30)
[2023-07-27] MEDS: Divalproex Sodium 250 MG TABLET.DR 750 MG PO ×2 (09:30→20:51)
[2023-07-27] MEDS: Pyridoxine HCl (Vitamin B6) 50 MG TABLET PO (09:30)
[2023-07-27] MEDS: Nystatin Powder 15 GM BOTTLE 1 APPL TOPICAL (10:53)
--- NOTE | 2023-07-27 11:37 | P.PNPSI_ITS ---
Subjective Subjective Date of Service: 07/27/23 Reason For Visit: Adjustment disorders Subjective Notes: Section 8 Interim History: Pt slept through the night. She reports she is enjoying watching a movie. She denies SI/HI. Her thought process has been somewhat disorganized (even since admission). She reports she saw her son yesterday, which is accurate. Not oriented to place, situation, year, month. Review of Systems Review of Systems Nothing acute Yes all other systems are reviewed and are negative Mental Status Exam Mental Status Exam Narrative: Appearance: wearing casual clothing, good hygiene, in NAD Behavior: cooperative Speech: mostly clear, hyperverbal, not pressured, regular tone, spontaneous TP: tangential TC: thinks doctor here stealing money from her son, missing her son Mood: fine Affect:mildly irritable when card writer hand commented on need to hold when ambulating SI: none HI: none VH/AH: no overt signs Insight/judgment: impaired x 2. Memory/cog: alert, not oriented to situation, month, or year. MOCA 04/13. ACL 3.2- severe cognitive impairment. Diagnostics Vital Signs (24Hr): Vital Signs - 24 hr 07/26/23 18:00 07/27/23 09:21 Temperature 98.1 F 96.8 F Pulse Rate 69 73 Respiratory Rate 16 Blood Pressure 115/59 L 135/69 Pulse Oximetry 96 97 Oxygen Delivery Method Room Air Room Air BMI result Body Mass Index 39.3 Labs 06/09/23 07:49 Labs: Laboratory Results - last 48 hr 07/26/23 10:45 Urine Color Yellow Urine Appearance Clear Urine pH 6.5 Ur Specific [place] 1.020 Urine Protein Negative Urine Glucose (UA) Negative Urine Ketones Negative Urine Blood Negative Urine Nitrite Negative Ur Leukocyte Esterase Moderate (2+) H Urine RBC 0-2 Urine WBC >50 H Ur Squamous Epith Cells 0-2 Urine Bacteria None Seen Hyaline Casts 0-2 Medications Medications Current Medications Acetaminophen (Acetaminophen 325 Mg Tablet) 650 mg PO Q6H PRN PRN Reason: Headache/Pain Mild Scale (1-3) Last Admin: 07/23/23 21:19 Dose: 650 mg Al Hydroxide/Mg Hydroxide (Magnesium Hydrox/Alum Hydrox 30 Ml Oral.Susp) 30 ml PO Q6H PRN PRN Reason: Heartburn/Nausea Aspirin (Aspirin 81 Mg Tab.Chew) 81 mg PO DAILY [facility] Last Admin: 07/27/23 09:30 Dose: 81 mg Cefuroxime Axetil (Cefuroxime Axetil 250 Mg Tablet) 250 mg PO BID [facility] Stop: 08/02/23 21:01 Last Admin: 07/27/23 09:30 Dose: 250 mg Divalproex Sodium (Divalproex Sodium 250 Mg Tablet.Dr) 750 mg PO BID [facility] Last Admin: 07/27/23 09:30 Dose: 750 mg Escitalopram Oxalate (Escitalopram Oxalate 10 Mg Tablet) 10 mg PO DAILY [facility] Last Admin: 07/27/23 09:30 Dose: 10 mg Lisinopril (Lisinopril 5 Mg Tablet) 5 mg PO DAILY [facility]; Protocol Last Admin: 07/27/23 09:30 Dose: 5 mg Magnesium Hydroxide (Milk Of Magnesia 30 Ml Oral.Susp) 30 ml PO DAILY PRN PRN Reason: Constipation Melatonin (Melatonin 3 Mg Tablet) 6 mg PO BEDTIME PRN PRN Reason: Sleep Last Admin: 07/26/23 20:14 Dose: 6 mg Nystatin (Nystatin Powder 15 Gm Bottle) 1 appl TOPICAL BID [facility] Last Admin: 07/27/23 10:53 Dose: 1 appl Olanzapine (Olanzapine 5 Mg Tablet) 5 mg PO Q6H PRN PRN Reason: agitation Last Admin: 07/27/23 09:30 Dose: 5 mg Pyridoxine HCl (Pyridoxine Hcl (Vitamin B6) 50 Mg Tablet) 50 mg PO DAILY [facility] Last Admin: 07/27/23 09:30 Dose: 50 mg Quetiapine Fumarate (Quetiapine Fumarate 100 Mg Tablet) 100 mg PO BEDTIME [facility] Last Admin: 07/26/23 20:15 Dose: 100 mg Quetiapine Fumarate (Quetiapine Fumarate 50 Mg Tablet) 50 mg PO DAILY [facility] Last Admin: 07/27/23 09:30 Dose: 50 mg Senna/Docusate Sodium (Sennosides/Docusate Sodium Tablet) 1 tab PO BID [facility] Last Admin: 07/27/23 09:30 Dose: 1 tab Trazodone HCl (Trazodone Hcl 50 Mg Tablet) 50 mg PO BEDTIME MRX1 PRN PRN Reason: Insomnia Last Admin: 07/26/23 20:15 Dose: 50 mg Allergies Allergies Allergy/AdvReac Type Severity Reaction Status Date / Time No Known Allergies Allergy Verified 06/08/23 20:39 Assessment & Plan Assessment & Plan (1) Major 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 start ceftin 250mg po BID for UTI. 07/27 continue tx. Reason for continued inpatient stay Substantial Risk for: inability to function Time Spent With Patient Time: Total time managing care of this patient today ____ minutes.
[2023-07-27 18:00] VITALS: BP 156/72; PULSE 61; RESP 17; TEMP 36.5; O2SAT 96
[2023-07-27] MEDS: Melatonin 3 MG TABLET 6 MG PO (20:50)
[2023-07-27] MEDS: traZODone HCL 50 MG TABLET PO (20:52)
[2023-07-27] MEDS: QUEtiapine Fumarate 100 MG TABLET PO (20:52)
[2023-07-28 07:00] VITALS: BMI 39.4
[2023-07-28] MEDS: OLANZapine 5 MG TABLET PO (11:42)
[2023-07-28] MEDS: cefuroxime axetiL 250 MG TABLET PO ×2 (11:42→20:40)
[2023-07-28 20:00] VITALS: BP 123/77; PULSE 76; RESP 18; TEMP 36.3; O2SAT 96
--- NOTE | 2023-07-28 20:17 | HO.PSYCHPN ---
Subjective Subjective Date of Service: 07/28/23 Reason For Visit: Adjustment disorders Subjective Notes: Conditional Voluntary Interim History: Pt slept through the night. He has been taking medications as prescribed. She has been visible on the unit. not oriented to place or situation. Speech is impaired progressively getting worse in terms of how coherent content is and more disorganized thought process. Diagnostics Vital Signs (24Hr): BMI result Body Mass Index 39.4 Labs 06/09/23 07:49 Medications Medications Current Medications Acetaminophen (Acetaminophen 325 Mg Tablet) 650 mg PO Q6H PRN PRN Reason: Headache/Pain Mild Scale (1-3) Last Admin: 07/23/23 21:19 Dose: 650 mg Al Hydroxide/Mg Hydroxide (Magnesium Hydrox/Alum Hydrox 30 Ml Oral.Susp) 30 ml PO Q6H PRN PRN Reason: Heartburn/Nausea Aspirin (Aspirin 81 Mg Tab.Chew) 81 mg PO DAILY [facility] Last Admin: 07/28/23 09:57 Dose: Not Given Cefuroxime Axetil (Cefuroxime Axetil 250 Mg Tablet) 250 mg PO BID [facility] Stop: 08/02/23 21:01 Last Admin: 07/28/23 11:42 Dose: 250 mg Divalproex Sodium (Divalproex Sodium 250 Mg Tablet.Dr) 750 mg PO BID [facility] Last Admin: 07/28/23 09:57 Dose: Not Given Escitalopram Oxalate (Escitalopram Oxalate 10 Mg Tablet) 10 mg PO DAILY [facility] Last Admin: 07/28/23 09:57 Dose: Not Given Lisinopril (Lisinopril 5 Mg Tablet) 5 mg PO DAILY [facility]; Protocol Last Admin: 07/28/23 09:58 Dose: Not Given Magnesium Hydroxide (Milk Of Magnesia 30 Ml Oral.Susp) 30 ml PO DAILY PRN PRN Reason: Constipation Melatonin (Melatonin 3 Mg Tablet) 6 mg PO BEDTIME PRN PRN Reason: Sleep Last Admin: 07/27/23 20:50 Dose: 6 mg Nystatin (Nystatin Powder 15 Gm Bottle) 1 appl TOPICAL BID [facility] Last Admin: 07/28/23 09:58 Dose: Not Given Olanzapine (Olanzapine 5 Mg Tablet) 5 mg PO Q6H PRN PRN Reason: agitation Last Admin: 07/28/23 11:42 Dose: 5 mg Pyridoxine HCl (Pyridoxine Hcl (Vitamin B6) 50 Mg Tablet) 50 mg PO DAILY [facility] Last Admin: 07/28/23 09:58 Dose: Not Given Quetiapine Fumarate (Quetiapine Fumarate 100 Mg Tablet) 100 mg PO BEDTIME [facility] Last Admin: 07/27/23 20:52 Dose: 100 mg Quetiapine Fumarate (Quetiapine Fumarate 50 Mg Tablet) 50 mg PO DAILY [facility] Last Admin: 07/28/23 09:58 Dose: Not Given Senna/Docusate Sodium (Sennosides/Docusate Sodium Tablet) 1 tab PO BID [facility] Last Admin: 07/28/23 09:58 Dose: Not Given Trazodone HCl (Trazodone Hcl 50 Mg Tablet) 50 mg PO BEDTIME MRX1 PRN PRN Reason: Insomnia Last Admin: 07/27/23 20:52 Dose: 50 mg Allergies Allergies Allergy/AdvReac Type Severity Reaction Status Date / Time No Known Allergies Allergy Verified 06/08/23 20:39 Assessment & Plan Assessment & Plan (1) Major 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 start ceftin 250mg po BID for UTI. 07/28 continue tx. Reason for continued inpatient stay Substantial Risk for: inability to function Time Spent With Patient Time: Total time managing care of this patient today ____ minutes.
[2023-07-28] MEDS: QUEtiapine Fumarate 100 MG TABLET PO (20:40)
[2023-07-28] MEDS: Divalproex Sodium 250 MG TABLET.DR 750 MG PO (20:40)
[2023-07-28] MEDS: Sennosides/Docusate Sodium TABLET 1 TAB PO (20:40)
[2023-07-29] MEDS: traZODone HCL 50 MG TABLET PO (00:03)
[2023-07-29] MEDS: OLANZapine 5 MG TABLET PO ×2 (00:03→20:29)
[2023-07-29 09:44] VITALS: BP 148/65; PULSE 52; RESP 16; TEMP 36.1; O2SAT 98
[2023-07-29] MEDS: QUEtiapine Fumarate 50 MG TABLET PO (09:46)
[2023-07-29] MEDS: Aspirin 81 MG TAB.CHEW PO (09:46)
[2023-07-29] MEDS: lisinopriL 5 MG TABLET PO (09:47)
[2023-07-29] MEDS: cefuroxime axetiL 250 MG TABLET PO ×2 (09:47→20:29)
[2023-07-29] MEDS: Escitalopram Oxalate 10 MG TABLET PO (09:47)
[2023-07-29] MEDS: Divalproex Sodium 250 MG TABLET.DR 750 MG PO ×2 (09:47→20:28)
[2023-07-29] MEDS: Sennosides/Docusate Sodium TABLET 1 TAB PO ×2 (09:47→20:29)
[2023-07-29] MEDS: Pyridoxine HCl (Vitamin B6) 50 MG TABLET PO (09:47)
[2023-07-29] MEDS: Acetaminophen 325 MG TABLET 650 MG PO (11:49)
[2023-07-29 18:00] VITALS: BP 139/63; PULSE 55; RESP 18; TEMP 36.6; O2SAT 97
[2023-07-29] MEDS: Nystatin Powder 15 GM BOTTLE 1 APPL TOPICAL (20:28)
[2023-07-29] MEDS: Melatonin 3 MG TABLET 6 MG PO (20:28)
[2023-07-29] MEDS: QUEtiapine Fumarate 100 MG TABLET PO (20:29)
--- NOTE | 2023-07-29 20:43 | P.PNPSI_ITS ---
Subjective Subjective Date of Service: 07/29/23 Reason For Visit: Adjustment disorders Subjective Notes: Section 8 Interim History: Pt denies any physical concerns although she holds on when walking- do suspect some degree of ?arthritis pain. Pt slept through the night. No behavioral concerns. Pt resistant to take a shower mostly as she is losing ability to recognize use of certain objects. She is not oriented to place, situation, month or date. Taking medications as prescribed. Review of Systems Review of Systems Nothing acute Yes all other systems are reviewed and are negative Mental Status Exam Mental Status Exam Narrative: Appearance: wearing casual clothing, good hygiene, in NAD Behavior: cooperative Speech: mostly clear, hyperverbal, not pressured, regular tone, spontaneous TP: tangential TC: thinks doctor here stealing money from her son, missing her son Mood: fine Affect:mildly irritable when signwriter commented on need to hold when ambulating SI: none HI: none VH/AH: no overt signs Insight/judgment: impaired x 2. Memory/cog: alert, not oriented to situation, month, or year. MOCA 04/13. ACL 3.2- severe cognitive impairment. Diagnostics Vital Signs (24Hr): Vital Signs - 24 hr 07/29/23 09:44 Temperature 97.0 F Pulse Rate 52 Respiratory Rate 16 Blood Pressure 148/65 H Pulse Oximetry 98 Oxygen Delivery Method Room Air BMI result Body Mass Index 39.4 Labs 06/09/23 07:49 Medications Medications Current Medications Acetaminophen (Acetaminophen 325 Mg Tablet) 650 mg PO Q6H PRN PRN Reason: Headache/Pain Mild Scale (1-3) Last Admin: 07/29/23 11:49 Dose: 650 mg Al Hydroxide/Mg Hydroxide (Magnesium Hydrox/Alum Hydrox 30 Ml Oral.Susp) 30 ml PO Q6H PRN PRN Reason: Heartburn/Nausea Aspirin (Aspirin 81 Mg Tab.Chew) 81 mg PO DAILY [facility] Last Admin: 07/29/23 09:46 Dose: 81 mg Cefuroxime Axetil (Cefuroxime Axetil 250 Mg Tablet) 250 mg PO BID [facility] Stop: 08/02/23 21:01 Last Admin: 07/29/23 20:29 Dose: 250 mg Divalproex Sodium (Divalproex Sodium 250 Mg Tablet.Dr) 750 mg PO BID [facility] Last Admin: 07/29/23 20:28 Dose: 750 mg Escitalopram Oxalate (Escitalopram Oxalate 10 Mg Tablet) 10 mg PO DAILY [facility] Last Admin: 07/29/23 09:47 Dose: 10 mg Lisinopril (Lisinopril 5 Mg Tablet) 5 mg PO DAILY [facility]; Protocol Last Admin: 07/29/23 09:47 Dose: 5 mg Magnesium Hydroxide (Milk Of Magnesia 30 Ml Oral.Susp) 30 ml PO DAILY PRN PRN Reason: Constipation Melatonin (Melatonin 3 Mg Tablet) 6 mg PO BEDTIME PRN PRN Reason: Sleep Last Admin: 07/29/23 20:28 Dose: 6 mg Nystatin (Nystatin Powder 15 Gm Bottle) 1 appl TOPICAL BID [facility] Last Admin: 07/29/23 20:28 Dose: 1 appl Olanzapine (Olanzapine 5 Mg Tablet) 5 mg PO Q6H PRN PRN Reason: agitation Last Admin: 07/29/23 20:29 Dose: 5 mg Pyridoxine HCl (Pyridoxine Hcl (Vitamin B6) 50 Mg Tablet) 50 mg PO DAILY [facility] Last Admin: 07/29/23 09:47 Dose: 50 mg Quetiapine Fumarate (Quetiapine Fumarate 100 Mg Tablet) 100 mg PO BEDTIME [facility] Last Admin: 07/29/23 20:29 Dose: 100 mg Quetiapine Fumarate (Quetiapine Fumarate 50 Mg Tablet) 50 mg PO DAILY [facility] Last Admin: 07/29/23 09:46 Dose: 50 mg Senna/Docusate Sodium (Sennosides/Docusate Sodium Tablet) 1 tab PO BID [facility] Last Admin: 07/29/23 20:29 Dose: 1 tab Trazodone HCl (Trazodone Hcl 50 Mg Tablet) 50 mg PO BEDTIME MRX1 PRN PRN Reason: Insomnia Last Admin: 07/29/23 00:03 Dose: 50 mg Allergies Allergies Allergy/AdvReac Type Severity Reaction Status Date / Time No Known Allergies Allergy Verified 06/08/23 20:39 Assessment & Plan Assessment & Plan (1) Major 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 start ceftin 250mg po BID for UTI. 07/28 continue tx. 07/29 continue tx. Reason for continued inpatient stay Substantial Risk for: inability to function Time Spent With Patient Time: Total time managing care of this patient today ____ minutes.
--- NOTE | 2023-07-30 14:53 | HO.PSYCHPN ---
Subjective Subjective Date of Service: 07/30/23 Reason For Visit: Adjustment disorders Interim History: Met with patient; discussed with team Patient initially pleasant on approach but then starts rambling about some a past event; then starts asking over and over where is Inderjit? And then starts crying. Staff reports that earlier this morning patient spit out her meds. On inquiry patient said she did but was not able to discuss further. Staff also reports that patient remains resistant to some aspects of care including getting dressed and showering Mental Status Exam Mental Status Exam Narrative: Appearance: wearing casual clothing, good hygiene, in NAD Behavior: Sometimes cooperative some time resistant to care; can be disorganized Speech: mostly clear, hyperverbal, not pressured, regular tone, spontaneous TP: tangential TC: thinks doctor here stealing money from her son, missing her son Mood: fine Affect:mildly irritable; some lability SI: none HI: none VH/AH: no overt signs Insight/judgment: impaired x 2. Diagnostics Vital Signs (24Hr): Vital Signs - 24 hr 07/29/23 18:00 Temperature 97.9 F Pulse Rate 55 Respiratory Rate 18 Blood Pressure 139/63 Pulse Oximetry 97 Oxygen Delivery Method Room Air BMI result Body Mass Index 39.4 Labs 06/09/23 07:49 Medications Medications Current Medications Acetaminophen (Acetaminophen 325 Mg Tablet) 650 mg PO Q6H PRN PRN Reason: Headache/Pain Mild Scale (1-3) Last Admin: 07/29/23 11:49 Dose: 650 mg Al Hydroxide/Mg Hydroxide (Magnesium Hydrox/Alum Hydrox 30 Ml Oral.Susp) 30 ml PO Q6H PRN PRN Reason: Heartburn/Nausea Aspirin (Aspirin 81 Mg Tab.Chew) 81 mg PO DAILY [facility] Last Admin: 07/30/23 11:38 Dose: Not Given Cefuroxime Axetil (Cefuroxime Axetil 250 Mg Tablet) 250 mg PO BID [facility] Stop: 08/02/23 21:01 Last Admin: 07/30/23 11:38 Dose: Not Given Divalproex Sodium (Divalproex Sodium 250 Mg Tablet.Dr) 750 mg PO BID [facility] Last Admin: 07/30/23 11:38 Dose: Not Given Escitalopram Oxalate (Escitalopram Oxalate 10 Mg Tablet) 10 mg PO DAILY [facility] Last Admin: 07/30/23 11:38 Dose: Not Given Lisinopril (Lisinopril 5 Mg Tablet) 5 mg PO DAILY [facility]; Protocol Last Admin: 07/30/23 11:38 Dose: Not Given Magnesium Hydroxide (Milk Of Magnesia 30 Ml Oral.Susp) 30 ml PO DAILY PRN PRN Reason: Constipation Melatonin (Melatonin 3 Mg Tablet) 6 mg PO BEDTIME PRN PRN Reason: Sleep Last Admin: 07/29/23 20:28 Dose: 6 mg Nystatin (Nystatin Powder 15 Gm Bottle) 1 appl TOPICAL BID [facility] Last Admin: 07/30/23 11:39 Dose: Not Given Olanzapine (Olanzapine 5 Mg Tablet) 5 mg PO Q6H PRN PRN Reason: agitation Last Admin: 07/29/23 20:29 Dose: 5 mg Pyridoxine HCl (Pyridoxine Hcl (Vitamin B6) 50 Mg Tablet) 50 mg PO DAILY [facility] Last Admin: 07/30/23 11:39 Dose: Not Given Quetiapine Fumarate (Quetiapine Fumarate 100 Mg Tablet) 100 mg PO BEDTIME [facility] Last Admin: 07/29/23 20:29 Dose: 100 mg Quetiapine Fumarate (Quetiapine Fumarate 50 Mg Tablet) 50 mg PO DAILY [facility] Last Admin: 07/30/23 11:39 Dose: Not Given Senna/Docusate Sodium (Sennosides/Docusate Sodium Tablet) 1 tab PO BID [facility] Last Admin: 07/30/23 11:39 Dose: Not Given Trazodone HCl (Trazodone Hcl 50 Mg Tablet) 50 mg PO BEDTIME MRX1 PRN PRN Reason: Insomnia Last Admin: 07/29/23 00:03 Dose: 50 mg Allergies Allergies Allergy/AdvReac Type Severity Reaction Status Date / Time No Known Allergies Allergy Verified 06/08/23 20:39 Assessment & Plan Assessment & Plan (1) Major 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 start ceftin 250mg po BID for UTI. 07/28 continue tx. 07/30 continue current treatment plan Patient educated on: diagnosis and medication risk/benefits Informed Consent: does not understand Reason for continued inpatient stay Substantial Risk for: inability to function Time Spent With Patient Time: Total time managing care of this patient today ____ minutes.
[2023-07-30 18:00] VITALS: BP 138/82; PULSE 70; RESP 18; TEMP 36.5; O2SAT 96
[2023-07-30] MEDS: Sennosides/Docusate Sodium TABLET 1 TAB PO (21:01)
[2023-07-30] MEDS: QUEtiapine Fumarate 100 MG TABLET PO (21:01)
[2023-07-30] MEDS: cefuroxime axetiL 250 MG TABLET PO (21:01)
[2023-07-30] MEDS: Divalproex Sodium 250 MG TABLET.DR 750 MG PO (21:01)
[2023-07-30] MEDS: Melatonin 3 MG TABLET 6 MG PO (21:01)
[2023-07-31 06:00] VITALS: BP 106/60; PULSE 86; RESP 18; TEMP 36.8; O2SAT 96
[2023-07-31] MEDS: Escitalopram Oxalate 10 MG TABLET PO (08:43)
[2023-07-31] MEDS: Sennosides/Docusate Sodium TABLET 1 TAB PO ×2 (08:43→21:16)
[2023-07-31] MEDS: lisinopriL 5 MG TABLET PO (08:43)
[2023-07-31] MEDS: Divalproex Sodium 250 MG TABLET.DR 750 MG PO ×2 (08:43→21:16)
[2023-07-31] MEDS: cefuroxime axetiL 250 MG TABLET PO ×2 (08:43→21:16)
[2023-07-31] MEDS: Aspirin 81 MG TAB.CHEW PO (08:43)
[2023-07-31] MEDS: QUEtiapine Fumarate 50 MG TABLET PO (08:43)
[2023-07-31] MEDS: OLANZapine 5 MG TABLET PO (08:44)
[2023-07-31] MEDS: Pyridoxine HCl (Vitamin B6) 50 MG TABLET PO (08:44)
--- NOTE | 2023-07-31 16:08 | P.PNPSI_ITS ---
Subjective Subjective Date of Service: 07/31/23 Reason For Visit: Adjustment disorders Interim History: Met with patient; discussed with team labile and tearful on approach; agrees she spit out meds, won't talk about it. Staff reports pt remains focused on delusional worries about her son Inderjit. Remains resistant to certain aspects of care. Mental Status Exam Mental Status Exam Narrative: Appearance: wearing casual clothing, good hygiene, in NAD Behavior: Sometimes cooperative some time resistant to care; can be disorganized Speech: mostly clear, intermittently hyperverbal, not pressured, regular tone, spontaneous TP: tangential TC: delusional thoughts about her son Mood: ok Affect:mildly irritable; some lability SI: none HI: none VH/AH: no overt signs Insight/judgment: impaired x 2. Diagnostics Vital Signs (24Hr): Vital Signs - 24 hr 07/30/23 18:00 07/31/23 06:00 Temperature 97.7 F 98.2 F Pulse Rate 70 86 Respiratory Rate 18 18 Blood Pressure 138/82 106/60 Pulse Oximetry 96 96 Oxygen Delivery Method Room Air Room Air BMI result Body Mass Index 39.4 Labs 06/09/23 07:49 Medications Medications Current Medications Acetaminophen (Acetaminophen 325 Mg Tablet) 650 mg PO Q6H PRN PRN Reason: Headache/Pain Mild Scale (1-3) Last Admin: 07/29/23 11:49 Dose: 650 mg Al Hydroxide/Mg Hydroxide (Magnesium Hydrox/Alum Hydrox 30 Ml Oral.Susp) 30 ml PO Q6H PRN PRN Reason: Heartburn/Nausea Aspirin (Aspirin 81 Mg Tab.Chew) 81 mg PO DAILY [facility] [place] Last Admin: 07/31/23 08:43 Dose: 81 mg Cefuroxime Axetil (Cefuroxime Axetil 250 Mg Tablet) 250 mg PO BID [facility] [place] Stop: 08/02/23 21:01 Last Admin: 07/31/23 08:43 Dose: 250 mg Divalproex Sodium (Divalproex Sodium 250 Mg Tablet.) 750 mg PO BID [facility] [place] Last Admin: 07/31/23 08:43 Dose: 750 mg Escitalopram Oxalate (Escitalopram Oxalate 10 Mg Tablet) 10 mg PO DAILY [facility] Last Admin: 07/31/23 08:43 Dose: 10 mg Lisinopril (Lisinopril 5 Mg Tablet) 5 mg PO DAILY [facility]; Protocol Last Admin: 07/31/23 08:43 Dose: 5 mg Magnesium Hydroxide (Milk Of Magnesia 30 Ml Oral.Susp) 30 ml PO DAILY PRN PRN Reason: Constipation Melatonin (Melatonin 3 Mg Tablet) 6 mg PO BEDTIME PRN PRN Reason: Sleep Last Admin: 07/30/23 21:01 Dose: 6 mg Nystatin (Nystatin Powder 15 Gm Bottle) 1 appl TOPICAL BID [facility] Last Admin: 07/31/23 09:26 Dose: Not Given Olanzapine (Olanzapine 5 Mg Tablet) 5 mg PO Q6H PRN PRN Reason: agitation Last Admin: 07/31/23 08:44 Dose: 5 mg Pyridoxine HCl (Pyridoxine Hcl (Vitamin B6) 50 Mg Tablet) 50 mg PO DAILY [facility] [place] Last Admin: 07/31/23 08:44 Dose: 50 mg Quetiapine Fumarate (Quetiapine Fumarate 100 Mg Tablet) 100 mg PO BEDTIME [facility] Last Admin: 07/30/23 21:01 Dose: 100 mg Quetiapine Fumarate (Quetiapine Fumarate 50 Mg Tablet) 50 mg PO DAILY [facility] [place] Last Admin: 07/31/23 08:43 Dose: 50 mg Senna/Docusate Sodium (Sennosides/Docusate Sodium Tablet) 1 tab PO BID [facility] [place] Last Admin: 07/31/23 08:43 Dose: 1 tab Trazodone HCl (Trazodone Hcl 50 Mg Tablet) 50 mg PO BEDTIME MRX1 PRN PRN Reason: Insomnia Last Admin: 07/29/23 00:03 Dose: 50 mg Allergies Allergies Allergy/AdvReac Type Severity Reaction Status Date / Time No Known Allergies Allergy Verified 06/08/23 20:39 Assessment & Plan Assessment & Plan (1) Major 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 start ceftin 250mg po BID for UTI. 07/28 continue tx. 07/30 continue current treatment plan 07/31 continue tx plan Patient educated on: medication risk/benefits Informed Consent: does not understand Reason for continued inpatient stay Substantial Risk for: inability to function Time Spent With Patient Time: Total time managing care of this patient today ____ minutes.
[2023-07-31 18:00] VITALS: BP 123/60; PULSE 60; RESP 16; TEMP 36.3; O2SAT 95
[2023-07-31] MEDS: Melatonin 3 MG TABLET 6 MG PO (21:16)
[2023-07-31] MEDS: QUEtiapine Fumarate 100 MG TABLET PO (21:16)
[2023-07-31] MEDS: Nystatin Powder 15 GM BOTTLE 1 APPL TOPICAL (21:16)
[2023-08-01 06:00] VITALS: BP 133/78; PULSE 89; RESP 18; TEMP 36.1; O2SAT 96
[2023-08-01] MEDS: lisinopriL 5 MG TABLET PO (08:20)
[2023-08-01] MEDS: Divalproex Sodium 250 MG TABLET.DR 750 MG PO ×2 (08:20→19:55)
[2023-08-01] MEDS: Escitalopram Oxalate 10 MG TABLET PO (08:20)
[2023-08-01] MEDS: Aspirin 81 MG TAB.CHEW PO (08:20)
[2023-08-01] MEDS: Sennosides/Docusate Sodium TABLET 1 TAB PO (08:20)
[2023-08-01] MEDS: OLANZapine 5 MG TABLET PO ×2 (08:20→19:57)
[2023-08-01] MEDS: Pyridoxine HCl (Vitamin B6) 50 MG TABLET PO (08:20)
[2023-08-01] MEDS: cefuroxime axetiL 250 MG TABLET PO ×2 (08:20→19:57)
[2023-08-01] MEDS: QUEtiapine Fumarate 50 MG TABLET PO (10:19)
--- NOTE | 2023-08-01 16:24 | P.PNPSI_ITS ---
Subjective Subjective Date of Service: 08/01/23 Reason For Visit: Adjustment disorders Subjective Notes: Section 8 Interim History: Pt slept through the night. She was visible on the unit but appeared somewhat somnolent. She denies any pain or malaise. She appears calmer, less tearful. No aggression towards self or others. Not oriented to situation or place, year or month. Review of Systems Review of Systems Nothing acute Yes all other systems are reviewed and are negative Mental Status Exam Mental Status Exam Narrative: Appearance: wearing casual clothing, good hygiene, in NAD Behavior: Sometimes cooperative some time resistant to care; can be disorganized Speech: mostly clear, intermittently hyperverbal, not pressured, regular tone, spontaneous TP: tangential TC: delusional thoughts about her son Mood: ok Affect:mildly irritable; some lability SI: none HI: none VH/AH: no overt signs Insight/judgment: impaired x 2. Diagnostics Vital Signs (24Hr): Vital Signs - 24 hr 07/31/23 18:00 08/01/23 06:00 Temperature 97.3 F 96.9 F Pulse Rate 60 89 Respiratory Rate 16 18 Blood Pressure 123/60 133/78 Pulse Oximetry 95 96 Oxygen Delivery Method Room Air Room Air BMI result Body Mass Index 39.4 Labs 06/09/23 07:49 Medications Medications Current Medications Acetaminophen (Acetaminophen 325 Mg Tablet) 650 mg PO Q6H PRN PRN Reason: Headache/Pain Mild Scale (1-3) Last Admin: 07/29/23 11:49 Dose: 650 mg Al Hydroxide/Mg Hydroxide (Magnesium Hydrox/Alum Hydrox 30 Ml Oral.Susp) 30 ml PO Q6H PRN PRN Reason: Heartburn/Nausea Aspirin (Aspirin 81 Mg Tab.Chew) 81 mg PO DAILY [facility] Last Admin: 08/01/23 08:20 Dose: 81 mg Cefuroxime Axetil (Cefuroxime Axetil 250 Mg Tablet) 250 mg PO BID [facility] Stop: 08/02/23 21:01 Last Admin: 08/01/23 08:20 Dose: 250 mg Divalproex Sodium (Divalproex Sodium 250 Mg Tablet.Dr) 750 mg PO BID [facility] Last Admin: 08/01/23 08:20 Dose: 750 mg Escitalopram Oxalate (Escitalopram Oxalate 10 Mg Tablet) 10 mg PO DAILY [facility] Last Admin: 08/01/23 08:20 Dose: 10 mg Lisinopril (Lisinopril 5 Mg Tablet) 5 mg PO DAILY [facility]; Protocol Last Admin: 08/01/23 08:20 Dose: 5 mg Magnesium Hydroxide (Milk Of Magnesia 30 Ml Oral.Susp) 30 ml PO DAILY PRN PRN Reason: Constipation Melatonin (Melatonin 3 Mg Tablet) 6 mg PO BEDTIME PRN PRN Reason: Sleep Last Admin: 07/31/23 21:16 Dose: 6 mg Nystatin (Nystatin Powder 15 Gm Bottle) 1 appl TOPICAL BID [facility] Last Admin: 08/01/23 08:21 Dose: Not Given Olanzapine (Olanzapine 5 Mg Tablet) 5 mg PO Q6H PRN PRN Reason: agitation Last Admin: 08/01/23 08:20 Dose: 5 mg Pyridoxine HCl (Pyridoxine Hcl (Vitamin B6) 50 Mg Tablet) 50 mg PO DAILY [facility] Last Admin: 08/01/23 08:20 Dose: 50 mg Quetiapine Fumarate (Quetiapine Fumarate 100 Mg Tablet) 100 mg PO BEDTIME [facility] Last Admin: 07/31/23 21:16 Dose: 100 mg Quetiapine Fumarate (Quetiapine Fumarate 50 Mg Tablet) 50 mg PO DAILY [facility] Last Admin: 08/01/23 10:19 Dose: 50 mg Senna/Docusate Sodium (Sennosides/Docusate Sodium Tablet) 1 tab PO BID [facility] Last Admin: 08/01/23 08:20 Dose: 1 tab Trazodone HCl (Trazodone Hcl 50 Mg Tablet) 50 mg PO BEDTIME MRX1 PRN PRN Reason: Insomnia Last Admin: 07/29/23 00:03 Dose: 50 mg Allergies Allergies Allergy/AdvReac Type Severity Reaction Status Date / Time No Known Allergies Allergy Verified 06/08/23 20:39 Assessment & Plan Assessment & Plan (1) Major 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 start ceftin 250mg po BID for UTI. 07/28 continue tx. 07/30 continue current treatment plan 07/31 continue tx plan 08/01- will switch depakote to night time to avoid day time sedation. Reason for continued inpatient stay Substantial Risk for: inability to function Time Spent With Patient Time: Total time managing care of this patient today ____ minutes.
[2023-08-01 18:00] VITALS: BP 117/71; PULSE 72; RESP 18; TEMP 37; O2SAT 97
[2023-08-01] MEDS: Melatonin 3 MG TABLET 6 MG PO (19:56)
[2023-08-01] MEDS: QUEtiapine Fumarate 100 MG TABLET PO (19:57)
[2023-08-02 06:00] VITALS: BP 160/75; PULSE 58; RESP 18; TEMP 36.1; O2SAT 95
[2023-08-02 09:31] LABS: IDNOW Serial# 6674DD1D
[2023-08-02 09:32] LABS: COVID-19 Test Negative (Negative)
--- NOTE | 2023-08-02 09:59 | HO.PSYCHPN ---
Subjective Subjective Date of Service: 08/02/23 Reason For Visit: Adjustment disorders Subjective Notes: Section 8 Interim History: Pt slept through the night. She was visible on the unit. She is eating well. More alert and awake today. She denies SI/HI. No overt delusional content. No aggression towards self or others. VS- stable. Review of Systems Review of Systems Nothing acute Yes all other systems are reviewed and are negative Mental Status Exam Mental Status Exam Narrative: Appearance: wearing casual clothing, good hygiene, in NAD Behavior: Sometimes cooperative some time resistant to care; can be disorganized Speech: mostly clear, intermittently hyperverbal, not pressured, regular tone, spontaneous TP: tangential TC: delusional thoughts about her son Mood: ok Affect:mildly irritable; some lability SI: none HI: none VH/AH: no overt signs Insight/judgment: impaired x 2. Diagnostics Vital Signs (24Hr): Vital Signs - 24 hr 08/01/23 18:00 Temperature 98.6 F Pulse Rate 72 Respiratory Rate 18 Blood Pressure 117/71 Pulse Oximetry 97 Oxygen Delivery Method Room Air BMI result Body Mass Index 39.4 Labs 06/09/23 07:49 Labs: Laboratory Results - last 48 hr 08/02/23 08:31 COVID-19 ([facility]) Negative COVID-19 Clin Com See Note Medications Medications Current Medications Acetaminophen (Acetaminophen 325 Mg Tablet) 650 mg PO TID [facility] Al Hydroxide/Mg Hydroxide (Magnesium Hydrox/Alum Hydrox 30 Ml Oral.Susp) 30 ml PO Q6H PRN PRN Reason: Heartburn/Nausea Aspirin (Aspirin 81 Mg Tab.Chew) 81 mg PO DAILY [facility] Last Admin: 08/01/23 08:20 Dose: 81 mg Cefuroxime Axetil (Cefuroxime Axetil 250 Mg Tablet) 250 mg PO BID [facility] Stop: 08/02/23 21:01 Last Admin: 08/01/23 19:57 Dose: 250 mg Divalproex Sodium (Divalproex Sodium Er 500 Mg Tab.Er.24h) 1,500 mg PO BEDTIME [facility] Escitalopram Oxalate (Escitalopram Oxalate 10 Mg Tablet) 10 mg PO DAILY [facility] Last Admin: 08/01/23 08:20 Dose: 10 mg Lisinopril (Lisinopril 5 Mg Tablet) 5 mg PO DAILY [facility]; Protocol Last Admin: 08/01/23 08:20 Dose: 5 mg Magnesium Hydroxide (Milk Of Magnesia 30 Ml Oral.Susp) 30 ml PO DAILY PRN PRN Reason: Constipation Melatonin (Melatonin 3 Mg Tablet) 6 mg PO BEDTIME PRN PRN Reason: Sleep Last Admin: 08/01/23 19:56 Dose: 6 mg Nystatin (Nystatin Powder 15 Gm Bottle) 1 appl TOPICAL BID [facility] Last Admin: 08/02/23 01:43 Dose: Not Given Olanzapine (Olanzapine 5 Mg Tablet) 5 mg PO Q6H PRN PRN Reason: agitation Last Admin: 08/01/23 19:57 Dose: 5 mg Pyridoxine HCl (Pyridoxine Hcl (Vitamin B6) 50 Mg Tablet) 50 mg PO DAILY [facility] Last Admin: 08/01/23 08:20 Dose: 50 mg Quetiapine Fumarate (Quetiapine Fumarate 100 Mg Tablet) 100 mg PO BEDTIME [facility] Last Admin: 08/01/23 19:57 Dose: 100 mg Quetiapine Fumarate (Quetiapine Fumarate 50 Mg Tablet) 50 mg PO DAILY [facility] Last Admin: 08/01/23 10:19 Dose: 50 mg Senna/Docusate Sodium (Sennosides/Docusate Sodium Tablet) 1 tab PO BID [facility] Last Admin: 08/02/23 01:43 Dose: Not Given Trazodone HCl (Trazodone Hcl 50 Mg Tablet) 50 mg PO BEDTIME MRX1 PRN PRN Reason: Insomnia Last Admin: 07/29/23 00:03 Dose: 50 mg Allergies Allergies Allergy/AdvReac Type Severity Reaction Status Date / Time No Known Allergies Allergy Verified 06/08/23 20:39 Assessment & Plan Assessment & Plan (1) Major 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 start ceftin 250mg po BID for UTI. 07/28 continue tx. 07/30 continue current treatment plan 07/31 continue tx plan 08/01- will switch depakote to night time to avoid day time sedation. 08/02 continue tx. scheduled tylenol for arthritis Reason for continued inpatient stay Substantial Risk for: inability to function Time Spent With Patient Time: Total time managing care of this patient today ____ minutes.
[2023-08-02] MEDS: OLANZapine 5 MG TABLET PO (15:57)
[2023-08-02] MEDS: Acetaminophen 325 MG TABLET 650 MG PO ×2 (15:58→20:09)
--- NOTE | 2023-08-02 16:03 | PC.NURSE ---
Patient wandering into other patient's rooms on Covid precautions. Became angry and aggressive when asked to leave the room. PRN Zyprexa 5mg given PO with scheduled Tylenol at 1557.
[2023-08-02 18:00] VITALS: BP 132/70; PULSE 104; RESP 18; TEMP 36.4; O2SAT 97
[2023-08-02] MEDS: Sennosides/Docusate Sodium TABLET 1 TAB PO (20:10)
[2023-08-02] MEDS: traZODone HCL 50 MG TABLET PO (20:11)
[2023-08-02] MEDS: QUEtiapine Fumarate 100 MG TABLET PO (20:11)
[2023-08-02] MEDS: cefuroxime axetiL 250 MG TABLET PO (20:12)
--- NOTE | 2023-08-03 08:41 | P.PNPSI_ITS ---
Subjective Subjective Date of Service: 08/03/23 Reason For Visit: Adjustment disorders Subjective Notes: Section 8 Interim History: Pt slept all night. She is taking medications as prescribed. No behavioral concerns. More rapid declined noted. She is not oriented to place, situation, month or year. She is tearful at times talking about her son and asks if I have seen him. VS slightly elevated, not her usual, will continued to monitor. Review of Systems Review of Systems Nothing acute Yes all other systems are reviewed and are negative Mental Status Exam Mental Status Exam Narrative: Appearance: wearing casual clothing, good hygiene, in NAD Behavior: Sometimes cooperative some time resistant to care; can be disorganized Speech: mostly clear, intermittently hyperverbal, not pressured, regular tone, spontaneous TP: tangential TC: delusional thoughts about her son Mood: ok Affect:mildly irritable; some lability SI: none HI: none VH/AH: no overt signs Insight/judgment: impaired x 2. Diagnostics Vital Signs (24Hr): Vital Signs - 24 hr 08/02/23 18:00 Temperature 97.6 F Pulse Rate 104 H Respiratory Rate 18 Blood Pressure 132/70 Pulse Oximetry 97 Oxygen Delivery Method Room Air BMI result Body Mass Index 39.4 Labs 06/09/23 07:49 Labs: Laboratory Results - last 48 hr 08/02/23 08:31 COVID-19 ([facility]) Negative COVID-19 Clin Com See Note Medications Medications Current Medications Acetaminophen (Acetaminophen 325 Mg Tablet) 650 mg PO TID [facility] Last Admin: 08/02/23 20:09 Dose: 650 mg Al Hydroxide/Mg Hydroxide (Magnesium Hydrox/Alum Hydrox 30 Ml Oral.Susp) 30 ml PO Q6H PRN PRN Reason: Heartburn/Nausea Aspirin (Aspirin 81 Mg Tab.Chew) 81 mg PO DAILY [facility] Last Admin: 08/02/23 11:28 Dose: Not Given Divalproex Sodium (Divalproex Sodium Er 500 Mg Tab.Er.24h) 1,500 mg PO BEDTIME [facility] Escitalopram Oxalate (Escitalopram Oxalate 10 Mg Tablet) 10 mg PO DAILY [facility] Last Admin: 08/02/23 11:28 Dose: Not Given Lisinopril (Lisinopril 5 Mg Tablet) 5 mg PO DAILY [facility]; Protocol Last Admin: 08/02/23 11:28 Dose: Not Given Magnesium Hydroxide (Milk Of Magnesia 30 Ml Oral.Susp) 30 ml PO DAILY PRN PRN Reason: Constipation Melatonin (Melatonin 3 Mg Tablet) 6 mg PO BEDTIME PRN PRN Reason: Sleep Last Admin: 08/01/23 19:56 Dose: 6 mg Nystatin (Nystatin Powder 15 Gm Bottle) 1 appl TOPICAL BID [facility] Last Admin: 08/02/23 22:46 Dose: Not Given Olanzapine (Olanzapine 5 Mg Tablet) 5 mg PO Q6H PRN PRN Reason: agitation Last Admin: 08/02/23 15:57 Dose: 5 mg Pyridoxine HCl (Pyridoxine Hcl (Vitamin B6) 50 Mg Tablet) 50 mg PO DAILY [facility] Last Admin: 08/02/23 11:29 Dose: Not Given Quetiapine Fumarate (Quetiapine Fumarate 100 Mg Tablet) 100 mg PO BEDTIME [facility] Last Admin: 08/02/23 20:11 Dose: 100 mg Quetiapine Fumarate (Quetiapine Fumarate 50 Mg Tablet) 50 mg PO DAILY [facility] Last Admin: 08/02/23 11:29 Dose: Not Given Senna/Docusate Sodium (Sennosides/Docusate Sodium Tablet) 1 tab PO BID [facility] Last Admin: 08/02/23 20:10 Dose: 1 tab Trazodone HCl (Trazodone Hcl 50 Mg Tablet) 50 mg PO BEDTIME MRX1 PRN PRN Reason: Insomnia Last Admin: 08/02/23 20:11 Dose: 50 mg Allergies Allergies Allergy/AdvReac Type Severity Reaction Status Date / Time No Known Allergies Allergy Verified 06/08/23 20:39 Assessment & Plan Assessment & Plan (1) Major 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 start ceftin 250mg po BID for UTI. 07/28 continue tx. 07/30 continue current treatment plan 07/31 continue tx plan 08/01- will switch depakote to night time to avoid day time sedation. 08/02 continue tx. scheduled tylenol for arthritis 08/03 continue tx. Reason for continued inpatient stay Substantial Risk for: inability to function Time Spent With Patient Time: Total time managing care of this patient today ____ minutes.
[2023-08-03 09:32] VITALS: BP 136/68; PULSE 75; RESP 17; TEMP 36.3; O2SAT 93
[2023-08-03] MEDS: lisinopriL 5 MG TABLET PO (09:52)
[2023-08-03] MEDS: QUEtiapine Fumarate 50 MG TABLET PO (09:52)
[2023-08-03] MEDS: Aspirin 81 MG TAB.CHEW PO (09:52)
[2023-08-03] MEDS: Pyridoxine HCl (Vitamin B6) 50 MG TABLET PO (09:52)
[2023-08-03] MEDS: Sennosides/Docusate Sodium TABLET 1 TAB PO ×2 (09:52→20:17)
[2023-08-03] MEDS: Escitalopram Oxalate 10 MG TABLET PO (09:52)
[2023-08-03] MEDS: Acetaminophen 325 MG TABLET 650 MG PO ×3 (09:53→20:17)
[2023-08-03] MEDS: Nystatin Powder 15 GM BOTTLE 1 APPL TOPICAL (10:09)
[2023-08-03] MEDS: OLANZapine 5 MG TABLET PO (12:09)
[2023-08-03 19:35] VITALS: BP 110/79; PULSE 72; RESP 18; TEMP 36.4; O2SAT 95
[2023-08-03] MEDS: QUEtiapine Fumarate 100 MG TABLET PO (20:17)
[2023-08-03] MEDS: traZODone HCL 50 MG TABLET PO (20:17)
[2023-08-03] MEDS: Divalproex Sodium ER 500 MG TAB.ER.24H 1500 MG PO (20:17)
[2023-08-04 06:00] VITALS: BP 155/76; PULSE 65; RESP 18; TEMP 36.1; O2SAT 93
[2023-08-04 07:00] VITALS: BMI 41.0
[2023-08-04] MEDS: OLANZapine 5 MG TABLET PO (08:38)
[2023-08-04] MEDS: lisinopriL 5 MG TABLET PO (08:38)
[2023-08-04] MEDS: Acetaminophen 325 MG TABLET 650 MG PO ×3 (08:38→20:57)
[2023-08-04] MEDS: Escitalopram Oxalate 10 MG TABLET PO (08:38)
[2023-08-04] MEDS: Sennosides/Docusate Sodium TABLET 1 TAB PO ×2 (08:38→20:57)
[2023-08-04] MEDS: QUEtiapine Fumarate 50 MG TABLET PO (08:38)
[2023-08-04] MEDS: Pyridoxine HCl (Vitamin B6) 50 MG TABLET PO (08:38)
[2023-08-04] MEDS: Aspirin 81 MG TAB.CHEW PO (08:38)
--- NOTE | 2023-08-04 17:01 | HO.PSYCHPN ---
Subjective Subjective Date of Service: 08/04/23 Reason For Visit: Adjustment disorders Subjective Notes: Conditional Voluntary Interim History: Pt sleeping through the night. No behavioral concerns. 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 Review of Systems Review of Systems Nothing acute Yes all other systems are reviewed and are negative Mental Status Exam Mental Status Exam Narrative: Appearance: wearing casual clothing, good hygiene, in NAD Behavior: Sometimes cooperative some time resistant to care; can be disorganized Speech: mostly clear, intermittently hyperverbal, not pressured, regular tone, spontaneous TP: tangential TC: delusional thoughts about her son Mood: ok Affect:mildly irritable; some lability SI: none HI: none VH/AH: no overt signs Insight/judgment: impaired x 2. Diagnostics Vital Signs (24Hr): Vital Signs - 24 hr 08/03/23 19:35 08/04/23 06:00 Temperature 97.6 F 97.0 F Pulse Rate 72 65 Respiratory Rate 18 18 Blood Pressure 110/79 155/76 H Pulse Oximetry 95 93 Oxygen Delivery Method Room Air Room Air BMI result Body Mass Index 41.0 Labs 06/09/23 07:49 Medications Medications Current Medications Acetaminophen (Acetaminophen 325 Mg Tablet) 650 mg PO TID [facility] Last Admin: 08/04/23 14:43 Dose: 650 mg Al Hydroxide/Mg Hydroxide (Magnesium Hydrox/Alum Hydrox 30 Ml Oral.Susp) 30 ml PO Q6H PRN PRN Reason: Heartburn/Nausea Aspirin (Aspirin 81 Mg Tab.Chew) 81 mg PO DAILY [facility] Last Admin: 08/04/23 08:38 Dose: 81 mg Divalproex Sodium (Divalproex Sodium Er 500 Mg Tab.Er.24h) 1,500 mg PO BEDTIME [facility] Last Admin: 08/03/23 20:17 Dose: 1,500 mg Escitalopram Oxalate (Escitalopram Oxalate 10 Mg Tablet) 10 mg PO DAILY [facility] Last Admin: 08/04/23 08:38 Dose: 10 mg Lisinopril (Lisinopril 5 Mg Tablet) 5 mg PO DAILY [facility]; Protocol Last Admin: 08/04/23 08:38 Dose: 5 mg Magnesium Hydroxide (Milk Of Magnesia 30 Ml Oral.Susp) 30 ml PO DAILY PRN PRN Reason: Constipation Melatonin (Melatonin 3 Mg Tablet) 6 mg PO BEDTIME PRN PRN Reason: Sleep Last Admin: 08/01/23 19:56 Dose: 6 mg Nystatin (Nystatin Powder 15 Gm Bottle) 1 appl TOPICAL BID [facility] Last Admin: 08/04/23 08:39 Dose: Not Given Olanzapine (Olanzapine 5 Mg Tablet) 5 mg PO Q6H PRN PRN Reason: agitation Last Admin: 08/04/23 08:38 Dose: 5 mg Pyridoxine HCl (Pyridoxine Hcl (Vitamin B6) 50 Mg Tablet) 50 mg PO DAILY [facility] Last Admin: 08/04/23 08:38 Dose: 50 mg Quetiapine Fumarate (Quetiapine Fumarate 100 Mg Tablet) 100 mg PO BEDTIME [facility] Last Admin: 08/03/23 20:17 Dose: 100 mg Quetiapine Fumarate (Quetiapine Fumarate 50 Mg Tablet) 50 mg PO DAILY [facility] Last Admin: 08/04/23 08:38 Dose: 50 mg Senna/Docusate Sodium (Sennosides/Docusate Sodium Tablet) 1 tab PO BID [facility] Last Admin: 08/04/23 08:38 Dose: 1 tab Trazodone HCl (Trazodone Hcl 50 Mg Tablet) 50 mg PO BEDTIME MRX1 PRN PRN Reason: Insomnia Last Admin: 08/03/23 20:17 Dose: 50 mg Allergies Allergies Allergy/AdvReac Type Severity Reaction Status Date / Time No Known Allergies Allergy Verified 06/08/23 20:39 Assessment & Plan Assessment & Plan (1) Major 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 start ceftin 250mg po BID for UTI. 07/28 continue tx. 07/30 continue current treatment plan 07/31 continue tx plan 08/01- will switch depakote to night time to avoid day time sedation. 08/02 continue tx. scheduled tylenol for arthritis 08/03 continue tx. 08/04 continue tx. Reason for continued inpatient stay Substantial Risk for: inability to function Time Spent With Patient Time: Total time managing care of this patient today ____ minutes.
[2023-08-04] MEDS: QUEtiapine Fumarate 100 MG TABLET PO (20:56)
[2023-08-04] MEDS: Divalproex Sodium ER 500 MG TAB.ER.24H 1500 MG PO (20:57)
[2023-08-05 06:00] VITALS: BP 150/70; PULSE 92; RESP 18; TEMP 37.4; O2SAT 92
[2023-08-05] MEDS: QUEtiapine Fumarate 50 MG TABLET PO ×2 (09:00→17:42)
[2023-08-05] MEDS: Acetaminophen 325 MG TABLET 650 MG PO ×2 (09:00→20:02)
[2023-08-05] MEDS: Pyridoxine HCl (Vitamin B6) 50 MG TABLET PO (09:00)
[2023-08-05] MEDS: OLANZapine 5 MG TABLET PO (09:00)
[2023-08-05] MEDS: Aspirin 81 MG TAB.CHEW PO (09:00)
[2023-08-05] MEDS: Sennosides/Docusate Sodium TABLET 1 TAB PO ×2 (09:00→20:03)
[2023-08-05] MEDS: Escitalopram Oxalate 10 MG TABLET PO (09:00)
[2023-08-05] MEDS: lisinopriL 5 MG TABLET PO (09:01)
[2023-08-05 09:39] LABS: COVID-19 Test Positive (Negative); IDNOW Serial# BCCEAD1C
[2023-08-05] MEDS: Divalproex Sodium Sprinkles 125 MG CAP.DR.SPR 750 MG PO ×2 (10:18→20:02)
[2023-08-05] MEDS: guaiFENesin DM 600/30 1 TAB TAB.ER.12H PO (20:03)
[2023-08-05] MEDS: QUEtiapine Fumarate 100 MG TABLET PO (20:03)
[2023-08-05] MEDS: Melatonin 3 MG TABLET 6 MG PO (20:04)
--- NOTE | 2023-08-05 23:20 | P.PNPSI_ITS ---
Subjective Subjective Date of Service: 08/05/23 Reason For Visit: Adjustment disorders Subjective Notes: Conditional Voluntary Interim History: Pt slept through the night. She is covid positive. Some cough noted. afebrile. not SOB, o2sat stable >95% Review of Systems Review of Systems Nothing acute Yes all other systems are reviewed and are negative Mental Status Exam Mental Status Exam Narrative: Appearance: wearing casual clothing, good hygiene, in NAD Behavior: Sometimes cooperative some time resistant to care; can be disorganized Speech: mostly clear, intermittently hyperverbal, not pressured, regular tone, spontaneous TP: tangential TC: delusional thoughts about her son Mood: ok Affect:mildly irritable; some lability SI: none HI: none VH/AH: no overt signs Insight/judgment: impaired x 2. Diagnostics Vital Signs (24Hr): Vital Signs - 24 hr 08/05/23 06:00 Temperature 99.3 F Pulse Rate 92 Respiratory Rate 18 Blood Pressure 150/70 H Pulse Oximetry 92 Oxygen Delivery Method Room Air BMI result Body Mass Index 41.0 Labs 06/09/23 07:49 Labs: Laboratory Results - last 48 hr 08/05/23 09:10 COVID-19 ([facility]) Positive A COVID-19 Clin Com See Note Medications Medications Current Medications Acetaminophen (Acetaminophen 325 Mg Tablet) 650 mg PO TID [facility] Last Admin: 08/05/23 20:02 Dose: 650 mg Al Hydroxide/Mg Hydroxide (Magnesium Hydrox/Alum Hydrox 30 Ml Oral.Susp) 30 ml PO Q6H PRN PRN Reason: Heartburn/Nausea Aspirin (Aspirin 81 Mg Tab.Chew) 81 mg PO DAILY [facility] Last Admin: 08/05/23 09:00 Dose: 81 mg Divalproex Sodium (Divalproex Sodium Sprinkles 125 Mg ) 750 mg PO BID [facility] Last Admin: 08/05/23 20:02 Dose: 750 mg Escitalopram Oxalate (Escitalopram Oxalate 10 Mg Tablet) 10 mg PO DAILY [facility] Last Admin: 08/05/23 09:00 Dose: 10 mg Fluticasone Propionate (Fluticasone Propionate Nasal 16 Gm [place]) 1 spray NOSTRIL-B BID [facility] Last Admin: 08/05/23 20:11 Dose: Not Given Guaifenesin/Dextromethorphan (Guaifenesin Dm 600/30 1 Tab Tab.Er.12h) 1 tab PO BID [facility] Last Admin: 08/05/23 20:03 Dose: 1 tab Lisinopril (Lisinopril 5 Mg Tablet) 5 mg PO DAILY [facility]; Protocol Last Admin: 08/05/23 09:01 Dose: 5 mg Magnesium Hydroxide (Milk Of Magnesia 30 Ml Oral.Susp) 30 ml PO DAILY PRN PRN Reason: Constipation Melatonin (Melatonin 3 Mg Tablet) 6 mg PO BEDTIME PRN PRN Reason: Sleep Last Admin: 08/05/23 20:04 Dose: 6 mg Nystatin (Nystatin Powder 15 Gm Bottle) 1 appl TOPICAL BID [facility] Last Admin: 08/05/23 20:08 Dose: Not Given Pyridoxine HCl (Pyridoxine Hcl (Vitamin B6) 50 Mg Tablet) 50 mg PO DAILY [facility] Last Admin: 08/05/23 09:00 Dose: 50 mg Quetiapine Fumarate (Quetiapine Fumarate 100 Mg Tablet) 100 mg PO BEDTIME [facility] Last Admin: 08/05/23 20:03 Dose: 100 mg Quetiapine Fumarate (Quetiapine Fumarate 50 Mg Tablet) 50 mg PO DAILY [facility] Last Admin: 08/05/23 09:00 Dose: 50 mg Quetiapine Fumarate (Quetiapine Fumarate 50 Mg Tablet) 50 mg PO Q6H PRN PRN Reason: agitation Last Admin: 08/05/23 17:42 Dose: 50 mg Senna/Docusate Sodium (Sennosides/Docusate Sodium Tablet) 1 tab PO BID [facility] Last Admin: 08/05/23 20:03 Dose: 1 tab Trazodone HCl (Trazodone Hcl 50 Mg Tablet) 50 mg PO BEDTIME MRX1 PRN PRN Reason: Insomnia Last Admin: 08/03/23 20:17 Dose: 50 mg Allergies Allergies Allergy/AdvReac Type Severity Reaction Status Date / Time No Known Allergies Allergy Verified 06/08/23 20:39 Assessment & Plan Assessment & Plan (1) Major 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 start ceftin 250mg po BID for UTI. 07/28 continue tx. 07/30 continue current treatment plan 07/31 continue tx plan 08/01- will switch depakote to night time to avoid day time sedation. 08/02 continue tx. scheduled tylenol for arthritis 08/03 continue tx. 08/04 continue tx. 08/05 continue tx. Reason for continued inpatient stay Substantial Risk for: inability to function Time Spent With Patient Time: Total time managing care of this patient today ____ minutes.
[2023-08-06] MEDS: Nystatin Powder 15 GM BOTTLE 1 APPL TOPICAL (00:09)
--- NOTE | 2023-08-06 10:41 | P.PNPSI_ITS ---
Subjective Subjective Date of Service: 08/06/23 Reason For Visit: Adjustment disorders Interim History: in bed, labile. c/o heartbreaking losses in recent weeks. unclear to what she is referring. no complaints or requests otherwise. reminded to remain in her room as she is COVID POS. per staff, no change in presentation. Mental Status Exam Mental Status Exam Narrative: Appearance: wearing casual clothing, good hygiene, in NAD Behavior: Sometimes cooperative some time resistant to care; can be disorganized Speech: mostly clear, intermittently hyperverbal, not pressured, regular tone, spontaneous TP: tangential TC: delusional thoughts about her son Mood: ok Affect:mildly irritable; some lability SI: none HI: none VH/AH: no overt signs Insight/judgment: impaired x 2. Diagnostics Vital Signs (24Hr): BMI result Body Mass Index 41.0 Labs 06/09/23 07:49 Labs: Laboratory Results - last 48 hr 08/05/23 09:10 COVID-19 ([facility]) Positive A COVID-19 Clin Com See Note Medications Medications Current Medications Acetaminophen (Acetaminophen 325 Mg Tablet) 650 mg PO TID [facility] Last Admin: 08/05/23 20:02 Dose: 650 mg Al Hydroxide/Mg Hydroxide (Magnesium Hydrox/Alum Hydrox 30 Ml Oral.Susp) 30 ml PO Q6H PRN PRN Reason: Heartburn/Nausea Aspirin (Aspirin 81 Mg Tab.Chew) 81 mg PO DAILY [facility] Last Admin: 08/05/23 09:00 Dose: 81 mg Divalproex Sodium (Divalproex Sodium Sprinkles 125 Mg ) 750 mg PO BID [facility] Last Admin: 08/05/23 20:02 Dose: 750 mg Escitalopram Oxalate (Escitalopram Oxalate 10 Mg Tablet) 10 mg PO DAILY [facility] Last Admin: 08/05/23 09:00 Dose: 10 mg Fluticasone Propionate (Fluticasone Propionate Nasal 16 Gm [place]) 1 spray NOSTRIL-B BID [facility] Last Admin: 08/05/23 20:11 Dose: Not Given Guaifenesin/Dextromethorphan (Guaifenesin Dm 600/30 1 Tab Tab.Er.12h) 1 tab PO BID [facility] Last Admin: 08/05/23 20:03 Dose: 1 tab Lisinopril (Lisinopril 5 Mg Tablet) 5 mg PO DAILY [facility]; Protocol Last Admin: 08/05/23 09:01 Dose: 5 mg Magnesium Hydroxide (Milk Of Magnesia 30 Ml Oral.Susp) 30 ml PO DAILY PRN PRN Reason: Constipation Melatonin (Melatonin 3 Mg Tablet) 6 mg PO BEDTIME PRN PRN Reason: Sleep Last Admin: 08/05/23 20:04 Dose: 6 mg Nystatin (Nystatin Powder 15 Gm Bottle) 1 appl TOPICAL BID [facility] Last Admin: 08/06/23 00:11 Dose: Not Given Pyridoxine HCl (Pyridoxine Hcl (Vitamin B6) 50 Mg Tablet) 50 mg PO DAILY [facility] Last Admin: 08/05/23 09:00 Dose: 50 mg Quetiapine Fumarate (Quetiapine Fumarate 100 Mg Tablet) 100 mg PO BEDTIME [facility] Last Admin: 08/05/23 20:03 Dose: 100 mg Quetiapine Fumarate (Quetiapine Fumarate 50 Mg Tablet) 50 mg PO DAILY [facility] Last Admin: 08/05/23 09:00 Dose: 50 mg Quetiapine Fumarate (Quetiapine Fumarate 50 Mg Tablet) 50 mg PO Q6H PRN PRN Reason: agitation Last Admin: 08/05/23 17:42 Dose: 50 mg Senna/Docusate Sodium (Sennosides/Docusate Sodium Tablet) 1 tab PO BID [facility] Last Admin: 08/05/23 20:03 Dose: 1 tab Trazodone HCl (Trazodone Hcl 50 Mg Tablet) 50 mg PO BEDTIME MRX1 PRN PRN Reason: Insomnia Last Admin: 08/03/23 20:17 Dose: 50 mg Allergies Allergies Allergy/AdvReac Type Severity Reaction Status Date / Time No Known Allergies Allergy Verified 06/08/23 20:39 Assessment & Plan Assessment & Plan (1) Major 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 start ceftin 250mg po BID for UTI. 07/28 continue tx. 07/30 continue current treatment plan 07/31 continue tx plan 08/01- will switch depakote to night time to avoid day time sedation. 08/02 continue tx. scheduled tylenol for arthritis 08/03 continue tx. 08/06: COVID +. moderate lability. continue current mgmt. Reason for continued inpatient stay Substantial Risk for: inability to function and rapid decompensation Time Spent With Patient Time: Total time managing care of this patient today ____ minutes.
[2023-08-06 13:00] VITALS: BP 142/72; PULSE 72; RESP 15; TEMP 37.3; O2SAT 93
[2023-08-06] MEDS: QUEtiapine Fumarate 50 MG TABLET PO (13:25)
[2023-08-06] MEDS: Acetaminophen 325 MG TABLET 650 MG PO ×2 (14:55→20:11)
[2023-08-06 18:00] VITALS: BP 137/91; PULSE 94; RESP 18; TEMP 36.6; O2SAT 95
[2023-08-06] MEDS: Fluticasone Propionate Nasal 16 GM SPRAY 1 SPRAY NOSTRIL-B (20:12)
[2023-08-06] MEDS: guaiFENesin DM 600/30 1 TAB TAB.ER.12H PO (20:12)
[2023-08-06] MEDS: Divalproex Sodium Sprinkles 125 MG CAP.DR.SPR 750 MG PO (20:12)
[2023-08-06] MEDS: Melatonin 3 MG TABLET 6 MG PO (20:12)
[2023-08-06] MEDS: QUEtiapine Fumarate 100 MG TABLET PO (20:12)
[2023-08-07 08:35] VITALS: BP 128/61; PULSE 63; RESP 15; TEMP 36.7; O2SAT 96
[2023-08-07] MEDS: Sennosides/Docusate Sodium TABLET 1 TAB PO ×2 (08:36→20:50)
[2023-08-07] MEDS: Aspirin 81 MG TAB.CHEW PO (08:36)
[2023-08-07] MEDS: Divalproex Sodium Sprinkles 125 MG CAP.DR.SPR 750 MG PO ×2 (08:37→20:48)
[2023-08-07] MEDS: QUEtiapine Fumarate 50 MG TABLET PO ×2 (08:37→20:50)
[2023-08-07] MEDS: Nystatin Powder 15 GM BOTTLE 1 APPL TOPICAL ×2 (08:48→20:56)
--- NOTE | 2023-08-07 10:47 | P.PNPSI_ITS ---
Subjective Subjective Date of Service: 08/07/23 Reason For Visit: Adjustment disorders Interim History: sleeping soundly. per staff, COVID +, convalescing in bed. VSS. perineal fungal infection, raw, getting treated. Mental Status Exam Mental Status Exam Narrative: sleeping soundly in bed, snoring softly. not rousable to loud voice. Diagnostics Vital Signs (24Hr): Vital Signs - 24 hr 08/06/23 13:00 08/06/23 18:00 08/07/23 08:35 Temperature 99.2 F 98 F 98.1 F Pulse Rate 72 94 63 Respiratory Rate 15 18 15 Blood Pressure 142/72 H 137/91 H 128/61 Pulse Oximetry 93 95 96 Oxygen Delivery Method Room Air Room Air Room Air BMI result Body Mass Index 41.0 Labs 06/09/23 07:49 Medications Medications Current Medications Acetaminophen (Acetaminophen 325 Mg Tablet) 650 mg PO TID [facility] Last Admin: 08/07/23 08:46 Dose: Not Given Al Hydroxide/Mg Hydroxide (Magnesium Hydrox/Alum Hydrox 30 Ml Oral.Susp) 30 ml PO Q6H PRN PRN Reason: Heartburn/Nausea Aspirin (Aspirin 81 Mg Tab.Chew) 81 mg PO DAILY [facility] Last Admin: 08/07/23 08:36 Dose: 81 mg Divalproex Sodium (Divalproex Sodium Sprinkles 125 Mg ) 750 mg PO BID [facility] Last Admin: 08/07/23 08:37 Dose: 750 mg Escitalopram Oxalate (Escitalopram Oxalate 10 Mg Tablet) 10 mg PO DAILY [facility] Last Admin: 08/07/23 08:46 Dose: Not Given Fluticasone Propionate (Fluticasone Propionate Nasal 16 Gm [place]) 1 spray NOSTRIL-B BID [facility] Last Admin: 08/07/23 08:48 Dose: Not Given Guaifenesin/Dextromethorphan (Guaifenesin Dm 600/30 1 Tab Tab.Er.12h) 1 tab PO BID [facility] Last Admin: 08/07/23 08:47 Dose: Not Given Lisinopril (Lisinopril 5 Mg Tablet) 5 mg PO DAILY [facility]; Protocol Last Admin: 08/07/23 08:47 Dose: Not Given Magnesium Hydroxide (Milk Of Magnesia 30 Ml Oral.Susp) 30 ml PO DAILY PRN PRN Reason: Constipation Melatonin (Melatonin 3 Mg Tablet) 6 mg PO BEDTIME PRN PRN Reason: Sleep Last Admin: 08/06/23 20:12 Dose: 6 mg Nystatin (Nystatin Powder 15 Gm Bottle) 1 appl TOPICAL BID [facility] Last Admin: 08/07/23 08:48 Dose: 1 appl Pyridoxine HCl (Pyridoxine Hcl (Vitamin B6) 50 Mg Tablet) 50 mg PO DAILY [facility] Last Admin: 08/07/23 08:47 Dose: Not Given Quetiapine Fumarate (Quetiapine Fumarate 100 Mg Tablet) 100 mg PO BEDTIME [facility] Last Admin: 08/06/23 20:12 Dose: 100 mg Quetiapine Fumarate (Quetiapine Fumarate 50 Mg Tablet) 50 mg PO DAILY [facility] Last Admin: 08/07/23 08:37 Dose: 50 mg Quetiapine Fumarate (Quetiapine Fumarate 50 Mg Tablet) 50 mg PO Q6H PRN PRN Reason: agitation Last Admin: 08/06/23 13:25 Dose: 50 mg Senna/Docusate Sodium (Sennosides/Docusate Sodium Tablet) 1 tab PO BID [facility] Last Admin: 08/07/23 08:36 Dose: 1 tab Trazodone HCl (Trazodone Hcl 50 Mg Tablet) 50 mg PO BEDTIME MRX1 PRN PRN Reason: Insomnia Last Admin: 08/03/23 20:17 Dose: 50 mg Allergies Allergies Allergy/AdvReac Type Severity Reaction Status Date / Time No Known Allergies Allergy Verified 06/08/23 20:39 Assessment & Plan Assessment & Plan (1) Major 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 start ceftin 250mg po BID for UTI. 07/28 continue tx. 07/30 continue current treatment plan 07/31 continue tx plan 08/01- will switch depakote to night time to avoid day time sedation. 08/02 continue tx. scheduled tylenol for arthritis 08/03 continue tx. 08/04 continue tx. 08/05 continue tx. 08/06: COVID +. fatigued, spending much time in bed. VSS. continue current mgmt. Reason for continued inpatient stay Substantial Risk for: inability to function Time Spent With Patient Time: Total time managing care of this patient today ____ minutes.
[2023-08-07 18:00] VITALS: BP 140/66; PULSE 65; RESP 18; TEMP 36.1; O2SAT 94
[2023-08-07] MEDS: Fluticasone Propionate Nasal 16 GM SPRAY 1 SPRAY NOSTRIL-B (20:47)
[2023-08-07] MEDS: Acetaminophen 325 MG TABLET 650 MG PO (20:47)
[2023-08-07] MEDS: guaiFENesin DM 600/30 1 TAB TAB.ER.12H PO (20:49)
[2023-08-07] MEDS: Melatonin 3 MG TABLET 6 MG PO (20:49)
[2023-08-07] MEDS: QUEtiapine Fumarate 100 MG TABLET PO (20:50)
[2023-08-08 06:00] VITALS: BP 138/70; PULSE 70; RESP 18; TEMP 36.6; O2SAT 94
[2023-08-08] MEDS: Divalproex Sodium Sprinkles 125 MG CAP.DR.SPR 750 MG PO ×2 (11:08→20:50)
--- NOTE | 2023-08-08 11:09 | P.PNPSI_ITS ---
Subjective Subjective Date of Service: 08/08/23 Reason For Visit: Adjustment disorders Interim History: i'm going to take rin up through [place] with my son this afternoon.... no other complaints or requests. per staff, COVID +. slept 8 hours. eating. combative with care. Mental Status Exam Mental Status Exam Narrative: Appearance: wearing casual clothing, good hygiene, in NAD Behavior: Sometimes cooperative some time resistant to care; can be disorganized Speech: mostly clear, intermittently hyperverbal, not pressured, regular tone, spontaneous TP: tangential TC: delusional thoughts about her son Mood: not assessed Affect:mildly irritable; some lability SI: none expressed HI: none expressed VH/AH: no overt signs Insight/judgment: impaired x 2. Diagnostics Vital Signs (24Hr): Vital Signs - 24 hr 08/07/23 18:00 Temperature 96.9 F Pulse Rate 65 Respiratory Rate 18 Blood Pressure 140/66 H Pulse Oximetry 94 Oxygen Delivery Method Room Air BMI result Body Mass Index 41.0 Labs 06/09/23 07:49 Medications Medications Current Medications Acetaminophen (Acetaminophen 325 Mg Tablet) 650 mg PO TID [facility] Last Admin: 08/07/23 20:47 Dose: 650 mg Al Hydroxide/Mg Hydroxide (Magnesium Hydrox/Alum Hydrox 30 Ml Oral.Susp) 30 ml PO Q6H PRN PRN Reason: Heartburn/Nausea Aspirin (Aspirin 81 Mg Tab.Chew) 81 mg PO DAILY [facility] Last Admin: 08/07/23 08:36 Dose: 81 mg Divalproex Sodium (Divalproex Sodium Sprinkles 125 Mg ) 750 mg PO BID [facility] Last Admin: 08/07/23 20:48 Dose: 750 mg Escitalopram Oxalate (Escitalopram Oxalate 10 Mg Tablet) 10 mg PO DAILY [facility] Last Admin: 08/07/23 08:46 Dose: Not Given Fluticasone Propionate (Fluticasone Propionate Nasal 16 Gm [place]) 1 spray NOSTRIL-B BID [facility] Last Admin: 08/07/23 20:47 Dose: 1 spray Guaifenesin/Dextromethorphan (Guaifenesin Dm 600/30 1 Tab Tab.Er.12h) 1 tab PO BID [facility] Last Admin: 08/07/23 20:49 Dose: 1 tab Lisinopril (Lisinopril 5 Mg Tablet) 5 mg PO DAILY [facility]; Protocol Last Admin: 08/07/23 08:47 Dose: Not Given Magnesium Hydroxide (Milk Of Magnesia 30 Ml Oral.Susp) 30 ml PO DAILY PRN PRN Reason: Constipation Melatonin (Melatonin 3 Mg Tablet) 6 mg PO BEDTIME PRN PRN Reason: Sleep Last Admin: 08/07/23 20:49 Dose: 6 mg Nystatin (Nystatin Powder 15 Gm Bottle) 1 appl TOPICAL BID [facility] Last Admin: 08/07/23 20:56 Dose: 1 appl Pyridoxine HCl (Pyridoxine Hcl (Vitamin B6) 50 Mg Tablet) 50 mg PO DAILY [facility] Last Admin: 08/07/23 08:47 Dose: Not Given Quetiapine Fumarate (Quetiapine Fumarate 100 Mg Tablet) 100 mg PO BEDTIME [facility] Last Admin: 08/07/23 20:50 Dose: 100 mg Quetiapine Fumarate (Quetiapine Fumarate 50 Mg Tablet) 50 mg PO DAILY [facility] Last Admin: 08/07/23 08:37 Dose: 50 mg Quetiapine Fumarate (Quetiapine Fumarate 50 Mg Tablet) 50 mg PO Q6H PRN PRN Reason: agitation Last Admin: 08/07/23 20:50 Dose: 50 mg Senna/Docusate Sodium (Sennosides/Docusate Sodium Tablet) 1 tab PO BID [facility] Last Admin: 08/07/23 20:50 Dose: 1 tab Trazodone HCl (Trazodone Hcl 50 Mg Tablet) 50 mg PO BEDTIME MRX1 PRN PRN Reason: Insomnia Last Admin: 08/03/23 20:17 Dose: 50 mg Allergies Allergies Allergy/AdvReac Type Severity Reaction Status Date / Time No Known Allergies Allergy Verified 06/08/23 20:39 Assessment & Plan Assessment & Plan (1) Major 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 start ceftin 250mg po BID for UTI. 07/28 continue tx. 07/30 continue current treatment plan 07/31 continue tx plan 08/01- will switch depakote to night time to avoid day time sedation. 08/02 continue tx. scheduled tylenol for arthritis 08/03 continue tx. 08/04 continue tx. 08/05 continue tx. 08/06: COVID +. fatigued, spending much time in bed. VSS. continue current mgmt. 08/08: as per yesterday. continue current mgmt. Reason for continued inpatient stay Substantial Risk for: inability to function and med/psych decompensation Time Spent With Patient Time: Total time managing care of this patient today ____ minutes.
[2023-08-08] MEDS: QUEtiapine Fumarate 50 MG TABLET PO ×2 (11:10→11:12)
[2023-08-08] MEDS: Acetaminophen 325 MG TABLET 650 MG PO ×2 (11:10→20:50)
[2023-08-08] MEDS: guaiFENesin DM 600/30 1 TAB TAB.ER.12H PO ×2 (11:10→20:50)
[2023-08-08] MEDS: Aspirin 81 MG TAB.CHEW PO (11:11)
[2023-08-08] MEDS: Escitalopram Oxalate 10 MG TABLET PO (11:11)
[2023-08-08] MEDS: lisinopriL 5 MG TABLET PO (11:11)
[2023-08-08] MEDS: Pyridoxine HCl (Vitamin B6) 50 MG TABLET PO (11:12)
[2023-08-08] MEDS: Fluticasone Propionate Nasal 16 GM SPRAY 1 SPRAY NOSTRIL-B (11:16)
[2023-08-08] MEDS: Sennosides/Docusate Sodium TABLET 1 TAB PO ×2 (11:17→20:50)
[2023-08-08] MEDS: Nystatin Powder 15 GM BOTTLE 1 APPL TOPICAL ×2 (11:17→20:51)
[2023-08-08 18:00] VITALS: BP 94/62; PULSE 62; RESP 16; TEMP 36.2; O2SAT 99
[2023-08-08] MEDS: traZODone HCL 50 MG TABLET PO (20:50)
[2023-08-08] MEDS: QUEtiapine Fumarate 100 MG TABLET PO (20:50)
[2023-08-09 06:00] VITALS: BP 132/74; PULSE 68; RESP 18; TEMP 36.5; O2SAT 98
--- NOTE | 2023-08-09 09:35 | HO.PSYCHPN ---
Subjective Subjective Date of Service: 08/09/23 Reason For Visit: Adjustment disorders Subjective Notes: Section 8 Interim History: Pt slept through the night. She denies any physical concerns. VS stable, o2sat 99% RA. She has been mostly in bed. No SI/HI. No aggression towards self or others. Review of Systems Review of Systems Nothing acute Yes all other systems are reviewed and are negative Mental Status Exam Mental Status Exam Narrative: Appearance: wearing casual clothing, good hygiene, in NAD Behavior: Sometimes cooperative some time resistant to care; can be disorganized Speech: mostly clear, intermittently hyperverbal, not pressured, regular tone, spontaneous TP: tangential TC: delusional thoughts about her son Mood: not assessed Affect:mildly irritable; some lability SI: none expressed HI: none expressed VH/AH: no overt signs Insight/judgment: impaired x 2. Diagnostics Vital Signs (24Hr): Vital Signs - 24 hr 08/08/23 18:00 Temperature 97.1 F Pulse Rate 62 Respiratory Rate 16 Blood Pressure 94/62 Pulse Oximetry 99 Oxygen Delivery Method Room Air BMI result Body Mass Index 41.0 Labs 06/09/23 07:49 Medications Medications Current Medications Acetaminophen (Acetaminophen 325 Mg Tablet) 650 mg PO TID [facility] Last Admin: 08/08/23 20:50 Dose: 650 mg Al Hydroxide/Mg Hydroxide (Magnesium Hydrox/Alum Hydrox 30 Ml Oral.Susp) 30 ml PO Q6H PRN PRN Reason: Heartburn/Nausea Aspirin (Aspirin 81 Mg Tab.Chew) 81 mg PO DAILY [facility] Last Admin: 08/08/23 11:11 Dose: 81 mg Divalproex Sodium (Divalproex Sodium Sprinkles 125 Mg ) 750 mg PO BID [facility] Last Admin: 08/08/23 20:50 Dose: 750 mg Escitalopram Oxalate (Escitalopram Oxalate 10 Mg Tablet) 10 mg PO DAILY [facility] Last Admin: 08/08/23 11:11 Dose: 10 mg Fluticasone Propionate (Fluticasone Propionate Nasal 16 Gm [place]) 1 spray NOSTRIL-B BID [facility] Last Admin: 08/08/23 21:35 Dose: Not Given Guaifenesin/Dextromethorphan (Guaifenesin Dm 600/30 1 Tab Tab.Er.12h) 1 tab PO BID [facility] Last Admin: 08/08/23 20:50 Dose: 1 tab Lisinopril (Lisinopril 5 Mg Tablet) 5 mg PO DAILY [facility]; Protocol Last Admin: 08/08/23 11:11 Dose: 5 mg Magnesium Hydroxide (Milk Of Magnesia 30 Ml Oral.Susp) 30 ml PO DAILY PRN PRN Reason: Constipation Melatonin (Melatonin 3 Mg Tablet) 6 mg PO BEDTIME PRN PRN Reason: Sleep Last Admin: 08/07/23 20:49 Dose: 6 mg Nystatin (Nystatin Powder 15 Gm Bottle) 1 appl TOPICAL BID [facility] Last Admin: 08/08/23 20:51 Dose: 1 appl Pyridoxine HCl (Pyridoxine Hcl (Vitamin B6) 50 Mg Tablet) 50 mg PO DAILY [facility] Last Admin: 08/08/23 11:12 Dose: 50 mg Quetiapine Fumarate (Quetiapine Fumarate 100 Mg Tablet) 100 mg PO BEDTIME [facility] Last Admin: 08/08/23 20:50 Dose: 100 mg Quetiapine Fumarate (Quetiapine Fumarate 50 Mg Tablet) 50 mg PO DAILY [facility] Last Admin: 08/08/23 11:10 Dose: 50 mg Quetiapine Fumarate (Quetiapine Fumarate 50 Mg Tablet) 50 mg PO Q6H PRN PRN Reason: agitation Last Admin: 08/08/23 11:12 Dose: 50 mg Senna/Docusate Sodium (Sennosides/Docusate Sodium Tablet) 1 tab PO BID [facility] Last Admin: 08/08/23 20:50 Dose: 1 tab Trazodone HCl (Trazodone Hcl 50 Mg Tablet) 50 mg PO BEDTIME MRX1 PRN PRN Reason: Insomnia Last Admin: 08/08/23 20:50 Dose: 50 mg Allergies Allergies Allergy/AdvReac Type Severity Reaction Status Date / Time No Known Allergies Allergy Verified 06/08/23 20:39 Assessment & Plan Assessment & Plan (1) Major 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 start ceftin 250mg po BID for UTI. 07/28 continue tx. 07/30 continue current treatment plan 07/31 continue tx plan 08/01- will switch depakote to night time to avoid day time sedation. 08/02 continue tx. scheduled tylenol for arthritis 08/03 continue tx. 08/04 continue tx. 08/05 continue tx. 08/06: COVID +. fatigued, spending much time in bed. VSS. continue current mgmt. 08/08: as per yesterday. continue current mgmt. 08/09 continue tx. Reason for continued inpatient stay Substantial Risk for: inability to function Time Spent With Patient Time: Total time managing care of this patient today ____ minutes.
[2023-08-09] MEDS: Escitalopram Oxalate 10 MG TABLET PO (10:38)
[2023-08-09] MEDS: Aspirin 81 MG TAB.CHEW PO (10:38)
[2023-08-09] MEDS: Pyridoxine HCl (Vitamin B6) 50 MG TABLET PO (10:38)
[2023-08-09] MEDS: Divalproex Sodium Sprinkles 125 MG CAP.DR.SPR 750 MG PO ×2 (10:38→22:13)
[2023-08-09] MEDS: guaiFENesin DM 600/30 1 TAB TAB.ER.12H PO ×2 (10:39→22:14)
[2023-08-09] MEDS: Sennosides/Docusate Sodium TABLET 1 TAB PO ×2 (10:39→22:15)
[2023-08-09] MEDS: QUEtiapine Fumarate 50 MG TABLET PO (10:40)
[2023-08-09] MEDS: lisinopriL 5 MG TABLET PO (10:40)
[2023-08-09] MEDS: Fluticasone Propionate Nasal 16 GM SPRAY 1 SPRAY NOSTRIL-B (10:40)
[2023-08-09] MEDS: Nystatin Powder 15 GM BOTTLE 1 APPL TOPICAL ×2 (10:41→22:17)
[2023-08-09] MEDS: Acetaminophen 325 MG TABLET 650 MG PO ×2 (10:45→22:16)
[2023-08-09 18:00] VITALS: BP 110/55; PULSE 70; RESP 18; O2SAT 96
[2023-08-09] MEDS: traZODone HCL 50 MG TABLET PO (22:14)
[2023-08-09] MEDS: QUEtiapine Fumarate 100 MG TABLET PO (22:15)
[2023-08-10] MEDS: Divalproex Sodium Sprinkles 125 MG CAP.DR.SPR 750 MG PO ×2 (11:24→20:52)
[2023-08-10] MEDS: Escitalopram Oxalate 10 MG TABLET PO (11:26)
[2023-08-10] MEDS: Nystatin Powder 15 GM BOTTLE 1 APPL TOPICAL ×2 (11:26→21:31)
[2023-08-10] MEDS: QUEtiapine Fumarate 50 MG TABLET PO (11:27)
--- NOTE | 2023-08-10 12:05 | HO.PSYCHPN ---
Subjective Subjective Date of Service: 08/10/23 Reason For Visit: Adjustment disorders Subjective Notes: Section 8 Interim History: Pt slept through the night. She has been visible on the unit, although advised to isolate due to covid. Pt denies any physical concerns. At times she is tearful talking about her son and stating that she does not know where he is or if others know where he is. SV stable, afebrile, no s/s of respiratory distress. O2sat 96 on room air. afebrile. Review of Systems Review of Systems Nothing acute Yes all other systems are reviewed and are negative Mental Status Exam Mental Status Exam Narrative: Appearance: wearing casual clothing, good hygiene, in NAD Behavior: Sometimes cooperative some time resistant to care; can be disorganized Speech: mostly clear, intermittently hyperverbal, not pressured, regular tone, spontaneous TP: tangential TC: delusional thoughts about her son Mood: not assessed Affect:mildly irritable; some lability SI: none expressed HI: none expressed VH/AH: no overt signs Insight/judgment: impaired x 2. Diagnostics Vital Signs (24Hr): Vital Signs - 24 hr 08/09/23 18:00 Pulse Rate 70 Respiratory Rate 18 Blood Pressure 110/55 L Pulse Oximetry 96 BMI result Body Mass Index 41.0 Labs 06/09/23 07:49 Medications Medications Current Medications Acetaminophen (Acetaminophen 325 Mg Tablet) 650 mg PO TID [facility] Last Admin: 08/10/23 09:55 Dose: Not Given Al Hydroxide/Mg Hydroxide (Magnesium Hydrox/Alum Hydrox 30 Ml Oral.Susp) 30 ml PO Q6H PRN PRN Reason: Heartburn/Nausea Aspirin (Aspirin 81 Mg Tab.Chew) 81 mg PO DAILY [facility] Last Admin: 08/10/23 09:55 Dose: Not Given Divalproex Sodium (Divalproex Sodium Sprinkles 125 Mg ) 750 mg PO BID [facility] Last Admin: 08/10/23 11:24 Dose: 750 mg Escitalopram Oxalate (Escitalopram Oxalate 10 Mg Tablet) 10 mg PO DAILY [facility] Last Admin: 08/10/23 11:26 Dose: 10 mg Fluticasone Propionate (Fluticasone Propionate Nasal 16 Gm [place]) 1 spray NOSTRIL-B BID [facility] Last Admin: 08/10/23 09:56 Dose: Not Given Guaifenesin/Dextromethorphan (Guaifenesin Dm 600/30 1 Tab Tab.Er.12h) 1 tab PO BID [facility] Last Admin: 08/10/23 09:56 Dose: Not Given Lisinopril (Lisinopril 5 Mg Tablet) 5 mg PO DAILY [facility]; Protocol Last Admin: 08/10/23 09:56 Dose: Not Given Magnesium Hydroxide (Milk Of Magnesia 30 Ml Oral.Susp) 30 ml PO DAILY PRN PRN Reason: Constipation Melatonin (Melatonin 3 Mg Tablet) 6 mg PO BEDTIME PRN PRN Reason: Sleep Last Admin: 08/07/23 20:49 Dose: 6 mg Nystatin (Nystatin Powder 15 Gm Bottle) 1 appl TOPICAL BID [facility] Last Admin: 08/10/23 11:26 Dose: 1 appl Pyridoxine HCl (Pyridoxine Hcl (Vitamin B6) 50 Mg Tablet) 50 mg PO DAILY [facility] Last Admin: 08/10/23 09:57 Dose: Not Given Quetiapine Fumarate (Quetiapine Fumarate 100 Mg Tablet) 100 mg PO BEDTIME [facility] Last Admin: 08/09/23 22:15 Dose: 100 mg Quetiapine Fumarate (Quetiapine Fumarate 50 Mg Tablet) 50 mg PO DAILY [facility] Last Admin: 08/10/23 11:27 Dose: 50 mg Quetiapine Fumarate (Quetiapine Fumarate 50 Mg Tablet) 50 mg PO Q6H PRN PRN Reason: agitation Last Admin: 08/08/23 11:12 Dose: 50 mg Senna/Docusate Sodium (Sennosides/Docusate Sodium Tablet) 1 tab PO BID [facility] Last Admin: 08/10/23 09:57 Dose: Not Given Trazodone HCl (Trazodone Hcl 50 Mg Tablet) 50 mg PO BEDTIME MRX1 PRN PRN Reason: Insomnia Last Admin: 08/09/23 22:14 Dose: 50 mg Allergies Allergies Allergy/AdvReac Type Severity Reaction Status Date / Time No Known Allergies Allergy Verified 06/08/23 20:39 Assessment & Plan Assessment & Plan (1) Major 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 start ceftin 250mg po BID for UTI. 07/28 continue tx. 07/30 continue current treatment plan 07/31 continue tx plan 08/01- will switch depakote to night time to avoid day time sedation. 08/02 continue tx. scheduled tylenol for arthritis 08/03 continue tx. 08/04 continue tx. 08/05 continue tx. 08/06: COVID +. fatigued, spending much time in bed. VSS. continue current mgmt. 08/08: as per yesterday. continue current mgmt. 08/09 continue tx. 08/10 continue tx. Reason for continued inpatient stay Substantial Risk for: inability to function Time Spent With Patient Time: Total time managing care of this patient today ____ minutes.
[2023-08-10] MEDS: Acetaminophen 325 MG TABLET 650 MG PO ×2 (15:13→20:52)
[2023-08-10 16:08] LABS: COVID-19 Test Positive (Negative); IDNOW Serial# 58CA691E
[2023-08-10 18:00] VITALS: BP 125/67; PULSE 69; RESP 16; TEMP 36.3; O2SAT 95
[2023-08-10] MEDS: QUEtiapine Fumarate 100 MG TABLET PO (20:53)
[2023-08-10] MEDS: Fluticasone Propionate Nasal 16 GM SPRAY 1 SPRAY NOSTRIL-B (20:53)
[2023-08-10] MEDS: guaiFENesin DM 600/30 1 TAB TAB.ER.12H PO (20:53)
[2023-08-10] MEDS: Sennosides/Docusate Sodium TABLET 1 TAB PO (20:53)
[2023-08-11 07:00] VITALS: BMI 39.4
--- NOTE | 2023-08-11 09:05 | HO.PSYCHPN ---
Subjective Subjective Date of Service: 08/11/23 Reason For Visit: Adjustment disorders Subjective Notes: Section 8 Interim History: Pt slept through the night. She is eating well. VS stable, although positive for covid. No aggression towards self or others. Pt is very confused as to why she is here or who this keno writer / runner is despite having seen me several times in the past. She asks at times about Inderjit her son and if I have seen him. afebrile no respiratory distress. Review of Systems Review of Systems Nothing acute Yes all other systems are reviewed and are negative Mental Status Exam Mental Status Exam Narrative: Appearance: wearing casual clothing, good hygiene, in NAD Behavior: Sometimes cooperative some time resistant to care; can be disorganized Speech: mostly clear, intermittently hyperverbal, not pressured, regular tone, spontaneous TP: tangential TC: delusional thoughts about her son Mood: not assessed Affect:mildly irritable; some lability SI: none expressed HI: none expressed VH/AH: no overt signs Insight/judgment: impaired x 2. Diagnostics Vital Signs (24Hr): Vital Signs - 24 hr 08/10/23 18:00 Temperature 97.4 F Pulse Rate 69 Respiratory Rate 16 Blood Pressure 125/67 Pulse Oximetry 95 Oxygen Delivery Method Room Air BMI result Body Mass Index 41.0 Labs 06/09/23 07:49 Labs: Laboratory Results - last 48 hr 08/10/23 15:36 COVID-19 ([facility]) Positive A COVID-19 Clin Com See Note Medications Medications Current Medications Acetaminophen (Acetaminophen 325 Mg Tablet) 650 mg PO TID [facility] Last Admin: 08/10/23 20:52 Dose: 650 mg Al Hydroxide/Mg Hydroxide (Magnesium Hydrox/Alum Hydrox 30 Ml Oral.Susp) 30 ml PO Q6H PRN PRN Reason: Heartburn/Nausea Aspirin (Aspirin 81 Mg Tab.Chew) 81 mg PO DAILY [facility] Last Admin: 08/10/23 09:55 Dose: Not Given Divalproex Sodium (Divalproex Sodium Sprinkles 125 Mg ) 750 mg PO BID [facility] Last Admin: 08/10/23 20:52 Dose: 750 mg Escitalopram Oxalate (Escitalopram Oxalate 10 Mg Tablet) 10 mg PO DAILY [facility] Last Admin: 08/10/23 11:26 Dose: 10 mg Fluticasone Propionate (Fluticasone Propionate Nasal 16 Gm [place]) 1 spray NOSTRIL-B BID [facility] Last Admin: 08/10/23 20:53 Dose: 1 spray Guaifenesin/Dextromethorphan (Guaifenesin Dm 600/30 1 Tab Tab.Er.12h) 1 tab PO BID [facility] Last Admin: 08/10/23 20:53 Dose: 1 tab Lisinopril (Lisinopril 5 Mg Tablet) 5 mg PO DAILY [facility]; Protocol Last Admin: 08/10/23 09:56 Dose: Not Given Magnesium Hydroxide (Milk Of Magnesia 30 Ml Oral.Susp) 30 ml PO DAILY PRN PRN Reason: Constipation Melatonin (Melatonin 3 Mg Tablet) 6 mg PO BEDTIME PRN PRN Reason: Sleep Last Admin: 08/07/23 20:49 Dose: 6 mg Nystatin (Nystatin Powder 15 Gm Bottle) 1 appl TOPICAL BID [facility] Last Admin: 08/10/23 21:31 Dose: 1 appl Pyridoxine HCl (Pyridoxine Hcl (Vitamin B6) 50 Mg Tablet) 50 mg PO DAILY [facility] Last Admin: 08/10/23 09:57 Dose: Not Given Quetiapine Fumarate (Quetiapine Fumarate 100 Mg Tablet) 100 mg PO BEDTIME [facility] Last Admin: 08/10/23 20:53 Dose: 100 mg Quetiapine Fumarate (Quetiapine Fumarate 50 Mg Tablet) 50 mg PO DAILY [facility] Last Admin: 08/10/23 11:27 Dose: 50 mg Quetiapine Fumarate (Quetiapine Fumarate 50 Mg Tablet) 50 mg PO Q6H PRN PRN Reason: agitation Last Admin: 08/08/23 11:12 Dose: 50 mg Senna/Docusate Sodium (Sennosides/Docusate Sodium Tablet) 1 tab PO BID [facility] Last Admin: 08/10/23 20:53 Dose: 1 tab Trazodone HCl (Trazodone Hcl 50 Mg Tablet) 50 mg PO BEDTIME MRX1 PRN PRN Reason: Insomnia Last Admin: 08/09/23 22:14 Dose: 50 mg Allergies Allergies Allergy/AdvReac Type Severity Reaction Status Date / Time No Known Allergies Allergy Verified 06/08/23 20:39 Assessment & Plan Assessment & Plan (1) Major 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 start ceftin 250mg po BID for UTI. 07/28 continue tx. 07/30 continue current treatment plan 07/31 continue tx plan 08/01- will switch depakote to night time to avoid day time sedation. 08/02 continue tx. scheduled tylenol for arthritis 08/03 continue tx. 08/04 continue tx. 08/05 continue tx. 08/06: COVID +. fatigued, spending much time in bed. VSS. continue current mgmt. 08/08: as per yesterday. continue current mgmt. 08/09 continue tx. 08/10 continue tx. 08/11 continue tx. Reason for continued inpatient stay Substantial Risk for: inability to function Time Spent With Patient Time: Total time managing care of this patient today ____ minutes.
[2023-08-11] MEDS: Divalproex Sodium Sprinkles 125 MG CAP.DR.SPR 750 MG PO ×2 (12:45→20:23)
[2023-08-11] MEDS: Acetaminophen 325 MG TABLET 650 MG PO ×3 (12:46→20:23)
[2023-08-11] MEDS: guaiFENesin DM 600/30 1 TAB TAB.ER.12H PO ×2 (12:46→20:23)
[2023-08-11] MEDS: Sennosides/Docusate Sodium TABLET 1 TAB PO ×2 (12:46→20:23)
[2023-08-11] MEDS: QUEtiapine Fumarate 50 MG TABLET PO (12:46)
[2023-08-11] MEDS: Aspirin 81 MG TAB.CHEW PO (12:46)
[2023-08-11] MEDS: Escitalopram Oxalate 10 MG TABLET PO (12:54)
[2023-08-11] MEDS: Pyridoxine HCl (Vitamin B6) 50 MG TABLET PO (12:54)
[2023-08-11 19:42] VITALS: BP 126/60; PULSE 63; RESP 16; TEMP 36.5; O2SAT 95
[2023-08-11] MEDS: Nystatin Powder 15 GM BOTTLE 1 APPL TOPICAL (20:22)
[2023-08-11] MEDS: traZODone HCL 50 MG TABLET PO (20:23)
[2023-08-11] MEDS: QUEtiapine Fumarate 100 MG TABLET PO (20:23)
[2023-08-12 09:41] VITALS: BP 146/65; PULSE 62; RESP 17; TEMP 36.2; O2SAT 93
--- NOTE | 2023-08-12 10:03 | HO.PSYCHPN ---
Subjective Subjective Date of Service: 08/12/23 Reason For Visit: dementia Subjective Notes: Section 8 Interim History: Pt slept through the night. She is very tearful today, asking for her mother and stating I always loved my mother. She is confused as to place and situation but this is her baseline. No SI/HI. She is taking medications as prescribed. No behavioral concerns. Review of Systems Review of Systems Nothing acute Yes all other systems are reviewed and are negative Mental Status Exam Mental Status Exam Narrative: Appearance: wearing casual clothing, good hygiene, in NAD Behavior: Sometimes cooperative some time resistant to care; can be disorganized Speech: mostly clear, intermittently hyperverbal, not pressured, regular tone, spontaneous TP: tangential TC: delusional thoughts about her son Mood: not assessed Affect:mildly irritable; some lability SI: none expressed HI: none expressed VH/AH: no overt signs Insight/judgment: impaired x 2. Diagnostics Vital Signs (24Hr): Vital Signs - 24 hr 08/11/23 19:42 08/12/23 09:41 Temperature 97.7 F 97.2 F Pulse Rate 63 62 Respiratory Rate 16 17 Blood Pressure 126/60 146/65 H Pulse Oximetry 95 93 Oxygen Delivery Method Room Air Room Air BMI result Body Mass Index 39.4 Labs 06/09/23 07:49 Labs: Laboratory Results - last 48 hr 08/10/23 15:36 COVID-19 ([facility]) Positive A COVID-19 Clin Com See Note Medications Medications Current Medications Acetaminophen (Acetaminophen 325 Mg Tablet) 650 mg PO TID [facility] Last Admin: 08/11/23 20:23 Dose: 650 mg Al Hydroxide/Mg Hydroxide (Magnesium Hydrox/Alum Hydrox 30 Ml Oral.Susp) 30 ml PO Q6H PRN PRN Reason: Heartburn/Nausea Aspirin (Aspirin 81 Mg Tab.Chew) 81 mg PO DAILY [facility] Last Admin: 08/11/23 12:46 Dose: 81 mg Divalproex Sodium (Divalproex Sodium Sprinkles 125 Mg ) 750 mg PO BID [facility] Last Admin: 08/11/23 20:23 Dose: 750 mg Escitalopram Oxalate (Escitalopram Oxalate 10 Mg Tablet) 10 mg PO DAILY [facility] Last Admin: 08/11/23 12:54 Dose: 10 mg Fluticasone Propionate (Fluticasone Propionate Nasal 16 Gm [place]) 1 spray NOSTRIL-B BID [facility] Last Admin: 08/11/23 20:22 Dose: Not Given Guaifenesin/Dextromethorphan (Guaifenesin Dm 600/30 1 Tab Tab.Er.12h) 1 tab PO BID [facility] Last Admin: 08/11/23 20:23 Dose: 1 tab Lisinopril (Lisinopril 5 Mg Tablet) 5 mg PO DAILY [facility]; Protocol Last Admin: 08/11/23 12:57 Dose: Not Given Magnesium Hydroxide (Milk Of Magnesia 30 Ml Oral.Susp) 30 ml PO DAILY PRN PRN Reason: Constipation Melatonin (Melatonin 3 Mg Tablet) 6 mg PO BEDTIME PRN PRN Reason: Sleep Last Admin: 08/07/23 20:49 Dose: 6 mg Nystatin (Nystatin Powder 15 Gm Bottle) 1 appl TOPICAL BID [facility] Last Admin: 08/11/23 20:22 Dose: 1 appl Pyridoxine HCl (Pyridoxine Hcl (Vitamin B6) 50 Mg Tablet) 50 mg PO DAILY [facility] Last Admin: 08/11/23 12:54 Dose: 50 mg Quetiapine Fumarate (Quetiapine Fumarate 100 Mg Tablet) 100 mg PO BEDTIME [facility] Last Admin: 08/11/23 20:23 Dose: 100 mg Quetiapine Fumarate (Quetiapine Fumarate 50 Mg Tablet) 50 mg PO DAILY [facility] Last Admin: 08/11/23 12:46 Dose: 50 mg Quetiapine Fumarate (Quetiapine Fumarate 50 Mg Tablet) 50 mg PO Q6H PRN PRN Reason: agitation Last Admin: 08/08/23 11:12 Dose: 50 mg Senna/Docusate Sodium (Sennosides/Docusate Sodium Tablet) 1 tab PO BID [facility] Last Admin: 08/11/23 20:23 Dose: 1 tab Trazodone HCl (Trazodone Hcl 50 Mg Tablet) 50 mg PO BEDTIME MRX1 PRN PRN Reason: Insomnia Last Admin: 08/11/23 20:23 Dose: 50 mg Allergies Allergies Allergy/AdvReac Type Severity Reaction Status Date / Time No Known Allergies Allergy Verified 06/08/23 20:39 Assessment & Plan Assessment & Plan (1) Major 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 start ceftin 250mg po BID for UTI. 07/28 continue tx. 07/30 continue current treatment plan 07/31 continue tx plan 08/01- will switch depakote to night time to avoid day time sedation. 08/02 continue tx. scheduled tylenol for arthritis 08/03 continue tx. 08/04 continue tx. 08/05 continue tx. 08/06: COVID +. fatigued, spending much time in bed. VSS. continue current mgmt. 08/08: as per yesterday. continue current mgmt. 08/09 continue tx. 08/10 continue tx. 08/11 continue tx. 08/12 continue tx. stable from covid symptoms, afebrile, o2sat on RA>97% Reason for continued inpatient stay Substantial Risk for: inability to function Time Spent With Patient Time: Total time managing care of this patient today ____ minutes.
[2023-08-12] MEDS: QUEtiapine Fumarate 50 MG TABLET PO (13:17)
[2023-08-12] MEDS: Acetaminophen 325 MG TABLET 650 MG PO ×2 (15:21→20:54)
[2023-08-12 18:00] VITALS: BP 148/69; PULSE 59; RESP 18; TEMP 36.5; O2SAT 96
[2023-08-12] MEDS: Sennosides/Docusate Sodium TABLET 1 TAB PO (20:54)
[2023-08-12] MEDS: Melatonin 3 MG TABLET 6 MG PO (20:54)
[2023-08-12] MEDS: guaiFENesin DM 600/30 1 TAB TAB.ER.12H PO (20:54)
[2023-08-12] MEDS: Divalproex Sodium Sprinkles 125 MG CAP.DR.SPR 750 MG PO (20:54)
[2023-08-12] MEDS: QUEtiapine Fumarate 100 MG TABLET PO (20:54)
[2023-08-12] MEDS: Nystatin Powder 15 GM BOTTLE 1 APPL TOPICAL (21:05)
[2023-08-12] MEDS: Fluticasone Propionate Nasal 16 GM SPRAY 1 SPRAY NOSTRIL-B (21:05)
--- NOTE | 2023-08-13 07:47 | P.PNPSI_ITS ---
Subjective Subjective Date of Service: 08/13/23 Reason For Visit: dementia Subjective Notes: Conditional Voluntary Healthcare Proxy: Yes Medical Problems Affecting Mental Status: Yes (covid) Interim History: Patient mute with this provider, agitated on adls done by nursing, pt yelling- Pt symptomatic from covid- not feeling well - no resp sys Medication Compliance: Yes Side effects from medications: No Attending Groups: No Review of Systems Acute medical concerns: Yes covid 19 Medical Review of Systems: unchanged Mental Status Exam Mental Status Exam Patient Appearance: Fatigued and Unkempt Patient Orientation: Person Level of Consciousness: Awake and Drowsy Patient Behavior: Dependent, Passive and Resistive to Care Mood Description: Apathetic Affect Description: Labile Patient Cognition Impaired: Yes Ability to Follow Directions: Poor Thought Process: Slowed Thinking Judgement: Poor Diagnostics Vital Signs (24Hr): Vital Signs - 24 hr 08/12/23 09:41 08/12/23 18:00 Temperature 97.2 F 97.7 F Pulse Rate 62 59 Respiratory Rate 17 18 Blood Pressure 146/65 H 148/69 H Pulse Oximetry 93 96 Oxygen Delivery Method Room Air Room Air BMI result Body Mass Index 39.4 Labs 06/09/23 07:49 Medications Medications Current Medications Acetaminophen (Acetaminophen 325 Mg Tablet) 650 mg PO TID [facility] Last Admin: 08/12/23 20:54 Dose: 650 mg Al Hydroxide/Mg Hydroxide (Magnesium Hydrox/Alum Hydrox 30 Ml Oral.Susp) 30 ml PO Q6H PRN PRN Reason: Heartburn/Nausea Aspirin (Aspirin 81 Mg Tab.Chew) 81 mg PO DAILY [facility] Last Admin: 08/12/23 12:32 Dose: Not Given Divalproex Sodium (Divalproex Sodium Sprinkles 125 Mg ) 750 mg PO BID [facility] Last Admin: 08/12/23 20:54 Dose: 750 mg Escitalopram Oxalate (Escitalopram Oxalate 20 Mg Tablet) 20 mg PO DAILY [facility] Fluticasone Propionate (Fluticasone Propionate Nasal [address] [place]) 1 spray NOSTRIL-B BID [facility] Last Admin: 08/12/23 21:05 Dose: 1 spray Guaifenesin/Dextromethorphan (Guaifenesin Dm 600/30 1 Tab Tab.Er.12h) 1 tab PO BID [facility] Last Admin: 08/12/23 20:54 Dose: 1 tab Lisinopril (Lisinopril 5 Mg Tablet) 5 mg PO DAILY [facility]; Protocol Last Admin: 08/12/23 12:32 Dose: Not Given Magnesium Hydroxide (Milk Of Magnesia 30 Ml Oral.Susp) 30 ml PO DAILY PRN PRN Reason: Constipation Melatonin (Melatonin 3 Mg Tablet) 6 mg PO BEDTIME PRN PRN Reason: Sleep Last Admin: 08/12/23 20:54 Dose: 6 mg Nystatin (Nystatin Powder 15 Gm Bottle) 1 appl TOPICAL BID [facility] Last Admin: 08/12/23 21:05 Dose: 1 appl Pyridoxine HCl (Pyridoxine Hcl (Vitamin B6) 50 Mg Tablet) 50 mg PO DAILY [facility] Last Admin: 08/12/23 12:32 Dose: Not Given Quetiapine Fumarate (Quetiapine Fumarate 100 Mg Tablet) 100 mg PO BEDTIME [facility] Last Admin: 08/12/23 20:54 Dose: 100 mg Quetiapine Fumarate (Quetiapine Fumarate 50 Mg Tablet) 50 mg PO DAILY [facility] Last Admin: 08/12/23 12:32 Dose: Not Given Quetiapine Fumarate (Quetiapine Fumarate 50 Mg Tablet) 50 mg PO Q6H PRN PRN Reason: agitation Last Admin: 08/12/23 13:17 Dose: 50 mg Senna/Docusate Sodium (Sennosides/Docusate Sodium Tablet) 1 tab PO BID [facility] Last Admin: 08/12/23 20:54 Dose: 1 tab Trazodone HCl (Trazodone Hcl 50 Mg Tablet) 50 mg PO BEDTIME MRX1 PRN PRN Reason: Insomnia Last Admin: 08/11/23 20:23 Dose: 50 mg Allergies Allergies Allergy/AdvReac Type Severity Reaction Status Date / Time No Known Allergies Allergy Verified 06/08/23 20:39 Assessment & Plan Assessment & Plan (1) Major 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 start ceftin 250mg po BID for UTI. 07/28 continue tx. 07/30 continue current treatment plan 07/31 continue tx plan 08/01- will switch depakote to night time to avoid day time sedation. 08/02 continue tx. scheduled tylenol for arthritis 08/03 continue tx. 08/04 continue tx. 08/05 continue tx. 08/06: COVID +. fatigued, spending much time in bed. VSS. continue current mgmt. 08/08: as per yesterday. continue current mgmt. 08/09 continue tx. 08/10 continue tx. 08/11 continue tx. 08/12 continue tx. stable from covid symptoms, afebrile, o2sat on RA>97% 08/13 ongoing illness with covid affecting pt behavior and mental health- as well as somatic symptoms Reason for continued inpatient stay Substantial Risk for: inability to function and med/psych decompensation Time Spent With Patient Time: Total time managing care of this patient today ____ minutes.
[2023-08-13 08:57] VITALS: BP 132/68; PULSE 61; RESP 16; TEMP 36.9; O2SAT 96
[2023-08-13] MEDS: Aspirin 81 MG TAB.CHEW PO (12:07)
[2023-08-13] MEDS: Acetaminophen 325 MG TABLET 650 MG PO ×2 (12:07→21:07)
[2023-08-13] MEDS: lisinopriL 5 MG TABLET PO (12:07)
[2023-08-13] MEDS: Divalproex Sodium Sprinkles 125 MG CAP.DR.SPR 750 MG PO ×2 (12:07→21:07)
[2023-08-13] MEDS: Pyridoxine HCl (Vitamin B6) 50 MG TABLET PO (12:08)
[2023-08-13] MEDS: Nystatin Powder 15 GM BOTTLE 1 APPL TOPICAL ×2 (12:08→21:06)
[2023-08-13] MEDS: Sennosides/Docusate Sodium TABLET 1 TAB PO ×2 (12:08→21:08)
[2023-08-13] MEDS: Escitalopram Oxalate 20 MG TABLET PO (12:08)
[2023-08-13] MEDS: guaiFENesin DM 600/30 1 TAB TAB.ER.12H PO ×2 (12:08→21:08)
[2023-08-13] MEDS: QUEtiapine Fumarate 50 MG TABLET PO (12:08)
[2023-08-13 18:00] VITALS: BP 118/65; PULSE 68; RESP 18; TEMP 36.6; O2SAT 96
[2023-08-13] MEDS: Fluticasone Propionate Nasal 16 GM SPRAY 1 SPRAY NOSTRIL-B (21:06)
[2023-08-13] MEDS: Melatonin 3 MG TABLET 6 MG PO (21:07)
[2023-08-13] MEDS: QUEtiapine Fumarate 100 MG TABLET PO (21:08)
[2023-08-14 09:08] VITALS: BP 157/72; PULSE 63; RESP 16; TEMP 36.6; O2SAT 96
[2023-08-14] MEDS: Divalproex Sodium Sprinkles 125 MG CAP.DR.SPR 750 MG PO ×2 (11:56→20:01)
[2023-08-14] MEDS: lisinopriL 5 MG TABLET PO (11:56)
[2023-08-14] MEDS: QUEtiapine Fumarate 50 MG TABLET PO ×2 (11:56→20:02)
[2023-08-14] MEDS: Pyridoxine HCl (Vitamin B6) 50 MG TABLET PO (11:56)
[2023-08-14] MEDS: Escitalopram Oxalate 20 MG TABLET PO (11:56)
[2023-08-14] MEDS: Sennosides/Docusate Sodium TABLET 1 TAB PO ×2 (11:57→20:01)
[2023-08-14] MEDS: guaiFENesin DM 600/30 1 TAB TAB.ER.12H PO ×2 (11:57→20:02)
[2023-08-14] MEDS: Acetaminophen 325 MG TABLET 650 MG PO ×2 (11:57→20:02)
[2023-08-14] MEDS: Aspirin 81 MG TAB.CHEW PO (11:57)
[2023-08-14] MEDS: Nystatin Powder 15 GM BOTTLE 1 APPL TOPICAL (11:57)
--- NOTE | 2023-08-14 16:28 | HO.PSYCHPN ---
Subjective Subjective Date of Service: 08/14/23 Reason For Visit: dementia Subjective Notes: Conditional Voluntary Healthcare Proxy: Yes Interim History: Pt mostly mute with this provider- Nursing reports more redirectable- less aggressive/resistent to ADL care- eg yesterday was screaming when given sponge bath/changed and gotten out of bed - today was more compliant and less irritated by this process. Ate and took her meds- perseverates at times that she wants her son- (who doesn't visit because when he did she was too distraught when he left) Medication Compliance: Yes Side effects from medications: No Attending Groups: Intermittent Review of Systems Acute medical concerns: No 8 days post covid + Medical Review of Systems: unchanged Mental Status Exam Mental Status Exam Patient Appearance: Well Grooomed Patient Orientation: Person Level of Consciousness: Awake and Alert Patient Behavior: Dependent, Passive and Poor Eye Contact (shuts her eyes) Mood Description: Apathetic Affect Description: Flat Patient Cognition Impaired: Yes Ability to Follow Directions: Poor Speech Pattern: Impoverished Abnormal Motor Activity Signs and Symptoms: Muscle Rigidity Judgement: Poor Diagnostics Vital Signs (24Hr): Vital Signs - 24 hr 08/13/23 18:00 08/14/23 09:08 Temperature 98 F 97.9 F Pulse Rate 68 63 Respiratory Rate 18 16 Blood Pressure 118/65 157/72 H Pulse Oximetry 96 96 Oxygen Delivery Method Room Air Room Air BMI result Body Mass Index 39.4 Labs 06/09/23 07:49 Medications Medications Current Medications Acetaminophen (Acetaminophen 325 Mg Tablet) 650 mg PO TID [facility]PL[facility] Last Admin: 08/14/23 15:44 Dose: Not Given Al Hydroxide/Mg Hydroxide (Magnesium Hydrox/Alum Hydrox 30 Ml Oral.Susp) 30 ml PO Q6H PRN PRN Reason: Heartburn/Nausea Aspirin (Aspirin 81 Mg Tab.Chew) 81 mg PO DAILY [facility] Last Admin: 08/14/23 11:57 Dose: 81 mg Divalproex Sodium (Divalproex Sodium Sprinkles 125 Mg ) 750 mg PO BID [facility] Last Admin: 08/14/23 11:56 Dose: 750 mg Escitalopram Oxalate (Escitalopram Oxalate 20 Mg Tablet) 20 mg PO DAILY [facility] Last Admin: 08/14/23 11:56 Dose: 20 mg Fluticasone Propionate (Fluticasone Propionate Nasal 16 Gm [place]) 1 spray NOSTRIL-B BID [facility] Last Admin: 08/14/23 11:57 Dose: Not Given Guaifenesin/Dextromethorphan (Guaifenesin Dm 600/30 1 Tab Tab.Er.12h) 1 tab PO BID [facility] Last Admin: 08/14/23 11:57 Dose: 1 tab Lisinopril (Lisinopril 5 Mg Tablet) 5 mg PO DAILY [facility]; Protocol Last Admin: 08/14/23 11:56 Dose: 5 mg Magnesium Hydroxide (Milk Of Magnesia 30 Ml Oral.Susp) 30 ml PO DAILY PRN PRN Reason: Constipation Melatonin (Melatonin 3 Mg Tablet) 6 mg PO BEDTIME PRN PRN Reason: Sleep Last Admin: 08/13/23 21:07 Dose: 6 mg Nystatin (Nystatin Powder 15 Gm Bottle) 1 appl TOPICAL BID [facility]PL[facility] Last Admin: 08/14/23 11:57 Dose: 1 appl Pyridoxine HCl (Pyridoxine Hcl (Vitamin B6) 50 Mg Tablet) 50 mg PO DAILY [facility] Last Admin: 08/14/23 11:56 Dose: 50 mg Quetiapine Fumarate (Quetiapine Fumarate 100 Mg Tablet) 100 mg PO BEDTIME REPLACED [facility] Last Admin: 08/13/23 21:08 Dose: 100 mg Quetiapine Fumarate (Quetiapine Fumarate 50 Mg Tablet) 50 mg PO DAILY [facility] Last Admin: 08/14/23 11:56 Dose: 50 mg Quetiapine Fumarate (Quetiapine Fumarate 50 Mg Tablet) 50 mg PO Q6H PRN PRN Reason: agitation Last Admin: 08/12/23 13:17 Dose: 50 mg Senna/Docusate Sodium (Sennosides/Docusate Sodium Tablet) 1 tab PO BID [facility] Last Admin: 08/14/23 11:57 Dose: 1 tab Trazodone HCl (Trazodone Hcl 50 Mg Tablet) 50 mg PO BEDTIME MRX1 PRN PRN Reason: Insomnia Last Admin: 08/11/23 20:23 Dose: 50 mg Allergies Allergies Allergy/AdvReac Type Severity Reaction Status Date / Time No Known Allergies Allergy Verified 06/08/23 20:39 Assessment & Plan Assessment & Plan (1) Major 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 start ceftin 250mg po BID for UTI. 07/28 continue tx. 07/30 continue current treatment plan 07/31 continue tx plan 08/01- will switch depakote to night time to avoid day time sedation. 08/02 continue tx. scheduled tylenol for arthritis 08/03 continue tx. 08/04 continue tx. 08/05 continue tx. 08/06: COVID +. fatigued, spending much time in bed. VSS. continue current mgmt. 08/08: as per yesterday. continue current mgmt. 08/09 continue tx. 08/10 continue tx. 08/11 continue tx. 08/12 continue tx. stable from covid symptoms, afebrile, o2sat on RA>97% 08/13 ongoing illness with covid affecting pt behavior and mental health- as well as somatic symptoms 08/14 seems improved physically and mentally today- still mute- more cooperative with care Informed Consent: does not understand Reason for continued inpatient stay Substantial Risk for: rapid decompensation and med/psych decompensation Time Spent With Patient Time: Total time managing care of this patient today ____ minutes.
[2023-08-14 17:26] VITALS: BP 114/60; PULSE 65; TEMP 36.8; O2SAT 98
[2023-08-14] MEDS: traZODone HCL 50 MG TABLET PO (20:01)
[2023-08-14] MEDS: QUEtiapine Fumarate 100 MG TABLET PO (20:02)
[2023-08-14] MEDS: Melatonin 3 MG TABLET 6 MG PO (20:02)
[2023-08-15 07:45] VITALS: BP 131/67; PULSE 56; RESP 16; TEMP 36.3; O2SAT 94
[2023-08-15] MEDS: Nystatin Powder 15 GM BOTTLE 1 APPL TOPICAL (08:25)
[2023-08-15] MEDS: Divalproex Sodium Sprinkles 125 MG CAP.DR.SPR 750 MG PO ×2 (08:27→20:03)
[2023-08-15] MEDS: Sennosides/Docusate Sodium TABLET 1 TAB PO ×2 (08:28→20:10)
[2023-08-15] MEDS: Acetaminophen 325 MG TABLET 650 MG PO ×3 (08:28→20:08)
[2023-08-15] MEDS: lisinopriL 5 MG TABLET PO (08:29)
[2023-08-15] MEDS: QUEtiapine Fumarate 50 MG TABLET PO (08:29)
[2023-08-15] MEDS: Escitalopram Oxalate 20 MG TABLET PO (08:29)
[2023-08-15] MEDS: Pyridoxine HCl (Vitamin B6) 50 MG TABLET PO (08:30)
[2023-08-15] MEDS: guaiFENesin DM 600/30 1 TAB TAB.ER.12H PO ×2 (08:30→20:09)
[2023-08-15] MEDS: Aspirin 81 MG TAB.CHEW PO (08:30)
--- NOTE | 2023-08-15 10:53 | HO.PSYCHPN ---
Subjective Subjective Date of Service: 08/15/23 Reason For Visit: dementia Medical Problems Affecting Mental Status: Yes (recent covid) Interim History: Had better day yesterday = today again resisitive to adl care and sleeping in bed- unable to engage- Medication Compliance: Yes (with support from staff) Side effects from medications: No Attending Groups: No Review of Systems Acute medical concerns: Yes recent covid Medical Review of Systems: unchanged Mental Status Exam Mental Status Exam Narrative: lying in bed sleeping Patient Orientation: Person and Place Level of Consciousness: Drowsy Diagnostics Vital Signs (24Hr): Vital Signs - 24 hr 08/14/23 17:26 08/15/23 07:45 Temperature 98.2 F 97.4 F Pulse Rate 65 56 Respiratory Rate 16 Blood Pressure 114/60 131/67 Pulse Oximetry 98 94 Oxygen Delivery Method Room Air Room Air BMI result Body Mass Index 39.4 Labs 06/09/23 07:49 Medications Medications Current Medications Acetaminophen (Acetaminophen 325 Mg Tablet) 650 mg PO TID [facility] Last Admin: 08/15/23 08:28 Dose: 650 mg Al Hydroxide/Mg Hydroxide (Magnesium Hydrox/Alum Hydrox 30 Ml Oral.Susp) 30 ml PO Q6H PRN PRN Reason: Heartburn/Nausea Aspirin (Aspirin 81 Mg Tab.Chew) 81 mg PO DAILY [facility] Last Admin: 08/15/23 08:30 Dose: 81 mg Divalproex Sodium (Divalproex Sodium Sprinkles 125 Mg Cap.Spr) 750 mg PO BID [facility] Last Admin: 08/15/23 08:27 Dose: 750 mg Escitalopram Oxalate (Escitalopram Oxalate 20 Mg Tablet) 20 mg PO DAILY [facility] Last Admin: 08/15/23 08:29 Dose: 20 mg Fluticasone Propionate (Fluticasone Propionate Nasal 16 Gm [place]) 1 spray NOSTRIL-B BID [facility] Last Admin: 08/15/23 08:35 Dose: Not Given Guaifenesin/Dextromethorphan (Guaifenesin Dm 600/30 1 Tab Tab.Er.12h) 1 tab PO BID [facility] Last Admin: 08/15/23 08:30 Dose: 1 tab Lisinopril (Lisinopril 5 Mg Tablet) 5 mg PO DAILY [facility]; Protocol Last Admin: 08/15/23 08:29 Dose: 5 mg Magnesium Hydroxide (Milk Of Magnesia 30 Ml Oral.Susp) 30 ml PO DAILY PRN PRN Reason: Constipation Melatonin (Melatonin 3 Mg Tablet) 6 mg PO BEDTIME PRN PRN Reason: Sleep Last Admin: 08/14/23 20:02 Dose: 6 mg Nystatin (Nystatin Powder 15 Gm Bottle) 1 appl TOPICAL BID [facility] Last Admin: 08/15/23 08:25 Dose: 1 appl Pyridoxine HCl (Pyridoxine Hcl (Vitamin B6) 50 Mg Tablet) 50 mg PO DAILY [facility] Last Admin: 08/15/23 08:30 Dose: 50 mg Quetiapine Fumarate (Quetiapine Fumarate 100 Mg Tablet) 100 mg PO BEDTIME [facility] Last Admin: 08/14/23 20:02 Dose: 100 mg Quetiapine Fumarate (Quetiapine Fumarate 50 Mg Tablet) 50 mg PO DAILY [facility] Last Admin: 08/15/23 08:29 Dose: 50 mg Quetiapine Fumarate (Quetiapine Fumarate 50 Mg Tablet) 50 mg PO Q6H PRN PRN Reason: agitation Last Admin: 08/14/23 20:02 Dose: 50 mg Senna/Docusate Sodium (Sennosides/Docusate Sodium Tablet) 1 tab PO BID [facility] Last Admin: 08/15/23 08:28 Dose: 1 tab Trazodone HCl (Trazodone Hcl 50 Mg Tablet) 50 mg PO BEDTIME MRX1 PRN PRN Reason: Insomnia Last Admin: 08/14/23 20:01 Dose: 50 mg Allergies Allergies Allergy/AdvReac Type Severity Reaction Status Date / Time No Known Allergies Allergy Verified 06/08/23 20:39 Assessment & Plan Assessment & Plan (1) Major 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 start ceftin 250mg po BID for UTI. 07/28 continue tx. 07/30 continue current treatment plan 07/31 continue tx plan 08/01- will switch depakote to night time to avoid day time sedation. 08/02 continue tx. scheduled tylenol for arthritis 08/03 continue tx. 08/04 continue tx. 08/05 continue tx. 08/06: COVID +. fatigued, spending much time in bed. VSS. continue current mgmt. 08/08: as per yesterday. continue current mgmt. 08/09 continue tx. 08/10 continue tx. 08/11 continue tx. 08/12 continue tx. stable from covid symptoms, afebrile, o2sat on RA>97% 08/13 ongoing illness with covid affecting pt behavior and mental health- as well as somatic symptoms 08/14 seems improved physically and mentally today- still mute- more cooperative with care 08/15/23 again in bed, withdrawn , mute and sleeping- resisitive to adls which have to be performed for her Reason for continued inpatient stay Substantial Risk for: inability to function, rapid decompensation and med/psych decompensation Time Spent With Patient Time: Total time managing care of this patient today ____ minutes.
[2023-08-15] MEDS: Melatonin 3 MG TABLET 6 MG PO (20:00)
[2023-08-15] MEDS: QUEtiapine Fumarate 100 MG TABLET PO (20:09)
[2023-08-15] MEDS: traZODone HCL 50 MG TABLET PO (20:10)
[2023-08-16 07:55] VITALS: BP 133/68; PULSE 62; RESP 18; TEMP 36.9; O2SAT 94
[2023-08-16] MEDS: Nystatin Powder 15 GM BOTTLE 1 APPL TOPICAL ×2 (09:18→20:43)
[2023-08-16] MEDS: Divalproex Sodium Sprinkles 125 MG CAP.DR.SPR 750 MG PO ×2 (09:19→20:44)
[2023-08-16] MEDS: lisinopriL 5 MG TABLET PO (09:20)
[2023-08-16] MEDS: Acetaminophen 325 MG TABLET 650 MG PO ×2 (09:20→20:47)
[2023-08-16] MEDS: Escitalopram Oxalate 20 MG TABLET PO (09:21)
[2023-08-16] MEDS: Sennosides/Docusate Sodium TABLET 1 TAB PO ×2 (09:21→20:45)
[2023-08-16] MEDS: Aspirin 81 MG TAB.CHEW PO (09:21)
[2023-08-16] MEDS: QUEtiapine Fumarate 50 MG TABLET PO (09:21)
[2023-08-16] MEDS: guaiFENesin DM 600/30 1 TAB TAB.ER.12H PO ×2 (09:22→20:44)
[2023-08-16] MEDS: Pyridoxine HCl (Vitamin B6) 50 MG TABLET PO (09:22)
--- NOTE | 2023-08-16 10:10 | P.PNPSI_ITS ---
Subjective Subjective Date of Service: 08/16/23 Reason For Visit: dementia Subjective Notes: Conditional Voluntary Interim History: Pt slept through the night. She is in bed. she reports she is resting. confused as to where she is and why. No behavioral concerns. No symptoms from covid- afebrile, no sob, o2sat>94% Review of Systems Review of Systems Nothing acute Yes all other systems are reviewed and are negative Mental Status Exam Mental Status Exam Patient Orientation: Person and Place Level of Consciousness: Drowsy Patient Behavior: Dependent, Passive and Poor Eye Contact (shuts her eyes) Mood Description: Apathetic Affect Description: Flat Patient Cognition Impaired: Yes Ability to Follow Directions: Poor Speech Pattern: Impoverished Diagnostics Vital Signs (24Hr): Vital Signs - 24 hr 08/16/23 07:55 Temperature 98.4 F Pulse Rate 62 Respiratory Rate 18 Blood Pressure 133/68 Pulse Oximetry 94 Oxygen Delivery Method Room Air BMI result Body Mass Index 39.4 Labs 06/09/23 07:49 Medications Medications Current Medications Acetaminophen (Acetaminophen 325 Mg Tablet) 650 mg PO TID [facility] Last Admin: 08/16/23 09:20 Dose: 650 mg Al Hydroxide/Mg Hydroxide (Magnesium Hydrox/Alum Hydrox 30 Ml Oral.Susp) 30 ml PO Q6H PRN PRN Reason: Heartburn/Nausea Aspirin (Aspirin 81 Mg Tab.Chew) 81 mg PO DAILY [facility] Last Admin: 08/16/23 09:21 Dose: 81 mg Divalproex Sodium (Divalproex Sodium Sprinkles 125 Mg ) 750 mg PO BID [facility] Last Admin: 08/16/23 09:19 Dose: 750 mg Escitalopram Oxalate (Escitalopram Oxalate 20 Mg Tablet) 20 mg PO DAILY [facility] Last Admin: 08/16/23 09:21 Dose: 20 mg Fluticasone Propionate (Fluticasone Propionate Nasal 16 Gm [place]) 1 spray NOSTRIL-B BID [facility] Last Admin: 08/15/23 20:13 Dose: Not Given Guaifenesin/Dextromethorphan (Guaifenesin Dm 600/30 1 Tab Tab.Er.12h) 1 tab PO BID [facility] Last Admin: 08/16/23 09:22 Dose: 1 tab Lisinopril (Lisinopril 5 Mg Tablet) 5 mg PO DAILY [facility]; Protocol Last Admin: 08/16/23 09:20 Dose: 5 mg Magnesium Hydroxide (Milk Of Magnesia 30 Ml Oral.Susp) 30 ml PO DAILY PRN PRN Reason: Constipation Melatonin (Melatonin 3 Mg Tablet) 6 mg PO BEDTIME PRN PRN Reason: Sleep Last Admin: 08/15/23 20:00 Dose: 6 mg Nystatin (Nystatin Powder 15 Gm Bottle) 1 appl TOPICAL BID [facility] Last Admin: 08/16/23 09:18 Dose: 1 appl Pyridoxine HCl (Pyridoxine Hcl (Vitamin B6) 50 Mg Tablet) 50 mg PO DAILY [facility] Last Admin: 08/16/23 09:22 Dose: 50 mg Quetiapine Fumarate (Quetiapine Fumarate 100 Mg Tablet) 100 mg PO BEDTIME [facility] Last Admin: 08/15/23 20:09 Dose: 100 mg Quetiapine Fumarate (Quetiapine Fumarate 50 Mg Tablet) 50 mg PO DAILY [facility] Last Admin: 08/16/23 09:21 Dose: 50 mg Quetiapine Fumarate (Quetiapine Fumarate 50 Mg Tablet) 50 mg PO Q6H PRN PRN Reason: agitation Last Admin: 08/14/23 20:02 Dose: 50 mg Senna/Docusate Sodium (Sennosides/Docusate Sodium Tablet) 1 tab PO BID [facility] Last Admin: 08/16/23 09:21 Dose: 1 tab Trazodone HCl (Trazodone Hcl 50 Mg Tablet) 50 mg PO BEDTIME MRX1 PRN PRN Reason: Insomnia Last Admin: 08/15/23 20:10 Dose: 50 mg Allergies Allergies Allergy/AdvReac Type Severity Reaction Status Date / Time No Known Allergies Allergy Verified 06/08/23 20:39 Assessment & Plan Assessment & Plan (1) Major 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 start ceftin 250mg po BID for UTI. 07/28 continue tx. 07/30 continue current treatment plan 07/31 continue tx plan 08/01- will switch depakote to night time to avoid day time sedation. 08/02 continue tx. scheduled tylenol for arthritis 08/03 continue tx. 08/04 continue tx. 08/05 continue tx. 08/06: COVID +. fatigued, spending much time in bed. VSS. continue current mgmt. 08/08: as per yesterday. continue current mgmt. 08/09 continue tx. 08/10 continue tx. 08/11 continue tx. 08/12 continue tx. stable from covid symptoms, afebrile, o2sat on RA>97% 08/13 ongoing illness with covid affecting pt behavior and mental health- as well as somatic symptoms 08/14 seems improved physically and mentally today- still mute- more cooperative with care 08/15/23 again in bed, withdrawn , mute and sleeping- resisitive to adls which have to be performed for her 08/16 continue tx. Reason for continued inpatient stay Substantial Risk for: inability to function Time Spent With Patient Time: Total time managing care of this patient today ____ minutes.
[2023-08-16 18:00] VITALS: BP 137/72; PULSE 62; RESP 18; TEMP 36.1; O2SAT 95
[2023-08-16] MEDS: Fluticasone Propionate Nasal 16 GM SPRAY 1 SPRAY NOSTRIL-B (20:43)
[2023-08-16] MEDS: QUEtiapine Fumarate 100 MG TABLET PO (20:44)
[2023-08-16] MEDS: traZODone HCL 50 MG TABLET PO (20:45)
--- NOTE | 2023-08-17 09:22 | P.PNPSI_ITS ---
Subjective Subjective Date of Service: 08/17/23 Reason For Visit: dementia Subjective Notes: Conditional Voluntary Interim History: Pt slept through the night. She reports feeling well. She has been mostly in her room, not talkative. Minimally interactive with peers or staff. She is taking medications as prescribed. No behavioral concerns. but quick declined in cognitive and memory. Diagnostics Vital Signs (24Hr): Vital Signs - 24 hr 08/16/23 18:00 Temperature 97.0 F Pulse Rate 62 Respiratory Rate 18 Blood Pressure 137/72 Pulse Oximetry 95 Oxygen Delivery Method Room Air BMI result Body Mass Index 39.4 Labs 06/09/23 07:49 Medications Medications Current Medications Acetaminophen (Acetaminophen 325 Mg Tablet) 650 mg PO TID [facility] Last Admin: 08/16/23 20:47 Dose: 650 mg Al Hydroxide/Mg Hydroxide (Magnesium Hydrox/Alum Hydrox 30 Ml Oral.Susp) 30 ml PO Q6H PRN PRN Reason: Heartburn/Nausea Aspirin (Aspirin 81 Mg Tab.Chew) 81 mg PO DAILY [facility] Last Admin: 08/16/23 09:21 Dose: 81 mg Divalproex Sodium (Divalproex Sodium Sprinkles 125 Mg Vin.) 750 mg PO BID [facility] Last Admin: 08/16/23 20:44 Dose: 750 mg Escitalopram Oxalate (Escitalopram Oxalate 20 Mg Tablet) 20 mg PO DAILY [facility] Last Admin: 08/16/23 09:21 Dose: 20 mg Fluticasone Propionate (Fluticasone Propionate Nasal 16 Gm [place]) 1 spray NOSTRIL-B BID [facility] Last Admin: 08/16/23 20:43 Dose: 1 spray Guaifenesin/Dextromethorphan (Guaifenesin Dm 600/30 1 Tab Tab.Er.12h) 1 tab PO BID [facility] Last Admin: 08/16/23 20:44 Dose: 1 tab Lisinopril (Lisinopril 5 Mg Tablet) 5 mg PO DAILY [facility]; Protocol Last Admin: 08/16/23 09:20 Dose: 5 mg Magnesium Hydroxide (Milk Of Magnesia 30 Ml Oral.Susp) 30 ml PO DAILY PRN PRN Reason: Constipation Melatonin (Melatonin 3 Mg Tablet) 6 mg PO BEDTIME PRN PRN Reason: Sleep Last Admin: 08/15/23 20:00 Dose: 6 mg Nystatin (Nystatin Powder 15 Gm Bottle) 1 appl TOPICAL BID [facility] Last Admin: 08/16/23 20:43 Dose: 1 appl Pyridoxine HCl (Pyridoxine Hcl (Vitamin B6) 50 Mg Tablet) 50 mg PO DAILY [facility] Last Admin: 08/16/23 09:22 Dose: 50 mg Quetiapine Fumarate (Quetiapine Fumarate 100 Mg Tablet) 100 mg PO BEDTIME [facility] Last Admin: 08/16/23 20:44 Dose: 100 mg Quetiapine Fumarate (Quetiapine Fumarate 50 Mg Tablet) 50 mg PO DAILY [facility] Last Admin: 08/16/23 09:21 Dose: 50 mg Quetiapine Fumarate (Quetiapine Fumarate 50 Mg Tablet) 50 mg PO Q6H PRN PRN Reason: agitation Last Admin: 08/14/23 20:02 Dose: 50 mg Senna/Docusate Sodium (Sennosides/Docusate Sodium Tablet) 1 tab PO BID [facility] Last Admin: 08/16/23 20:45 Dose: 1 tab Trazodone HCl (Trazodone Hcl 50 Mg Tablet) 50 mg PO BEDTIME MRX1 PRN PRN Reason: Insomnia Last Admin: 08/16/23 20:45 Dose: 50 mg Allergies Allergies Allergy/AdvReac Type Severity Reaction Status Date / Time No Known Allergies Allergy Verified 06/08/23 20:39 Assessment & Plan Assessment & Plan (1) Major 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 start ceftin 250mg po BID for UTI. 07/28 continue tx. 07/30 continue current treatment plan 07/31 continue tx plan 08/01- will switch depakote to night time to avoid day time sedation. 08/02 continue tx. scheduled tylenol for arthritis 08/03 continue tx. 08/04 continue tx. 08/05 continue tx. 08/06: COVID +. fatigued, spending much time in bed. VSS. continue current mgmt. 08/08: as per yesterday. continue current mgmt. 08/09 continue tx. 08/10 continue tx. 08/11 continue tx. 08/12 continue tx. stable from covid symptoms, afebrile, o2sat on RA>97% 08/13 ongoing illness with covid affecting pt behavior and mental health- as well as somatic symptoms 08/14 seems improved physically and mentally today- still mute- more cooperative with care 08/15/23 again in bed, withdrawn , mute and sleeping- resistant to adls which have to be performed for her 08/16 continue tx. 08/17 continue tx. Reason for continued inpatient stay Substantial Risk for: inability to function Time Spent With Patient Time: Total time managing care of this patient today ____ minutes.
[2023-08-17 11:15] VITALS: BP 163/80; PULSE 97; RESP 18; TEMP 36.2; O2SAT 96
[2023-08-17] MEDS: Nystatin Powder 15 GM BOTTLE 1 APPL TOPICAL ×2 (11:34→21:37)
[2023-08-17] MEDS: Fluticasone Propionate Nasal 16 GM SPRAY 1 SPRAY NOSTRIL-B ×2 (11:34→21:37)
[2023-08-17] MEDS: QUEtiapine Fumarate 50 MG TABLET PO (11:35)
[2023-08-17] MEDS: lisinopriL 5 MG TABLET PO (11:35)
[2023-08-17] MEDS: Acetaminophen 325 MG TABLET 650 MG PO ×2 (11:35→16:03)
[2023-08-17] MEDS: Sennosides/Docusate Sodium TABLET 1 TAB PO ×2 (11:35→21:36)
[2023-08-17] MEDS: Divalproex Sodium Sprinkles 125 MG CAP.DR.SPR 750 MG PO ×2 (11:36→21:35)
[2023-08-17] MEDS: guaiFENesin DM 600/30 1 TAB TAB.ER.12H PO (11:36)
[2023-08-17] MEDS: Escitalopram Oxalate 20 MG TABLET PO (11:36)
[2023-08-17] MEDS: Aspirin 81 MG TAB.CHEW PO (11:36)
[2023-08-17 18:00] VITALS: BP 140/67; PULSE 94; RESP 18; TEMP 36.8; O2SAT 94
[2023-08-17] MEDS: Melatonin 3 MG TABLET 6 MG PO (21:36)
[2023-08-17] MEDS: QUEtiapine Fumarate 100 MG TABLET PO (21:36)
--- NOTE | 2023-08-18 08:33 | HO.PSYCHPN ---
Subjective Subjective Date of Service: 08/18/23 Reason For Visit: dementia Subjective Notes: Section 8 Healthcare Proxy: Yes Interim History: Pt slept through the night. She has been more visible on the unit, however, interacting much less with peers or staff. She reports she is tired. Per nursing, taking medications as prescribed, but needing more assistance eating and completing other ADLs. Medication Compliance: Yes Review of Systems Review of Systems Nothing acute Yes all other systems are reviewed and are negative Mental Status Exam Mental Status Exam Patient Appearance: Well Grooomed Patient Orientation: Person and Place Level of Consciousness: Drowsy Patient Behavior: Dependent, Passive and Poor Eye Contact (shuts her eyes) Mood Description: Apathetic Affect Description: Flat Patient Cognition Impaired: Yes Ability to Follow Directions: Poor Speech Pattern: Impoverished Diagnostics Vital Signs (24Hr): Vital Signs - 24 hr 08/17/23 11:15 08/17/23 18:00 Temperature 97.2 F 98.3 F Pulse Rate 97 94 Respiratory Rate 18 18 Blood Pressure 163/80 H 140/67 H Pulse Oximetry 96 94 Oxygen Delivery Method Room Air Room Air BMI result Body Mass Index 39.4 Labs 06/09/23 07:49 Medications Medications Current Medications Acetaminophen (Acetaminophen 325 Mg Tablet) 650 mg PO TID [facility] Last Admin: 08/17/23 21:36 Dose: 650 mg Al Hydroxide/Mg Hydroxide (Magnesium Hydrox/Alum Hydrox 30 Ml Oral.Susp) 30 ml PO Q6H PRN PRN Reason: Heartburn/Nausea Aspirin (Aspirin 81 Mg Tab.Chew) 81 mg PO DAILY [facility] Last Admin: 08/17/23 11:36 Dose: 81 mg Divalproex Sodium (Divalproex Sodium Sprinkles 125 Mg ) 750 mg PO BID [facility] Last Admin: 08/17/23 21:35 Dose: 750 mg Escitalopram Oxalate (Escitalopram Oxalate 20 Mg Tablet) 20 mg PO DAILY [facility] Last Admin: 08/17/23 11:36 Dose: 20 mg Fluticasone Propionate (Fluticasone Propionate Nasal 16 Gm [place]) 1 spray NOSTRIL-B BID [facility] Last Admin: 08/17/23 21:37 Dose: 1 spray Guaifenesin/Dextromethorphan (Guaifenesin Dm 600/30 1 Tab Tab.Er.12h) 1 tab PO BID [facility] Last Admin: 01/03/24 21:58 Dose: Not Given Lisinopril (Lisinopril 5 Mg Tablet) 5 mg PO DAILY [facility]; Protocol Last Admin: 08/17/23 11:35 Dose: 5 mg Magnesium Hydroxide (Milk Of Magnesia 30 Ml Oral.Susp) 30 ml PO DAILY PRN PRN Reason: Constipation Melatonin (Melatonin 3 Mg Tablet) 6 mg PO BEDTIME PRN PRN Reason: Sleep Last Admin: 08/17/23 21:36 Dose: 6 mg Nystatin (Nystatin Powder 15 Gm Bottle) 1 appl TOPICAL BID [facility] Last Admin: 08/17/23 21:37 Dose: 1 appl Pyridoxine HCl (Pyridoxine Hcl (Vitamin B6) 50 Mg Tablet) 50 mg PO DAILY [facility] Last Admin: 08/17/23 11:35 Dose: 50 mg Quetiapine Fumarate (Quetiapine Fumarate 100 Mg Tablet) 100 mg PO BEDTIME [facility] Last Admin: 08/17/23 21:36 Dose: 100 mg Quetiapine Fumarate (Quetiapine Fumarate 50 Mg Tablet) 50 mg PO DAILY [facility] Last Admin: 08/17/23 11:35 Dose: 50 mg Quetiapine Fumarate (Quetiapine Fumarate 50 Mg Tablet) 50 mg PO Q6H PRN PRN Reason: agitation Last Admin: 08/14/23 20:02 Dose: 50 mg Senna/Docusate Sodium (Sennosides/Docusate Sodium Tablet) 1 tab PO BID [facility] Last Admin: 08/17/23 21:36 Dose: 1 tab Trazodone HCl (Trazodone Hcl 50 Mg Tablet) 50 mg PO BEDTIME MRX1 PRN PRN Reason: Insomnia Last Admin: 08/16/23 20:45 Dose: 50 mg Allergies Allergies Allergy/AdvReac Type Severity Reaction Status Date / Time No Known Allergies Allergy Verified 06/08/23 20:39 Assessment & Plan Assessment & Plan (1) Major 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 start ceftin 250mg po BID for UTI. 07/28 continue tx. 07/30 continue current treatment plan 07/31 continue tx plan 08/01- will switch depakote to night time to avoid day time sedation. 08/02 continue tx. scheduled tylenol for arthritis 08/03 continue tx. 08/04 continue tx. 08/05 continue tx. 08/06: COVID +. fatigued, spending much time in bed. VSS. continue current mgmt. 08/08: as per yesterday. continue current mgmt. 08/09 continue tx. 08/10 continue tx. 08/11 continue tx. 08/12 continue tx. stable from covid symptoms, afebrile, o2sat on RA>97% 08/13 ongoing illness with covid affecting pt behavior and mental health- as well as somatic symptoms 08/14 seems improved physically and mentally today- still mute- more cooperative with care 08/15/23 again in bed, withdrawn , mute and sleeping- resistant to adls which have to be performed for her 08/16 continue tx. 08/17 continue tx. 08/18 continue tx. Reason for continued inpatient stay Substantial Risk for: inability to function Time Spent With Patient Time: Total time managing care of this patient today ____ minutes.
[2023-08-18 09:00] VITALS: BP 145/70; PULSE 77; RESP 15; TEMP 36.8; O2SAT 93
[2023-08-18] MEDS: Divalproex Sodium Sprinkles 125 MG CAP.DR.SPR 750 MG PO ×2 (11:30→20:33)
[2023-08-18] MEDS: lisinopriL 5 MG TABLET PO (11:31)
[2023-08-18] MEDS: Sennosides/Docusate Sodium TABLET 1 TAB PO ×2 (11:31→20:33)
[2023-08-18] MEDS: Aspirin 81 MG TAB.CHEW PO (11:31)
[2023-08-18] MEDS: QUEtiapine Fumarate 50 MG TABLET PO (11:31)
[2023-08-18] MEDS: guaiFENesin DM 600/30 1 TAB TAB.ER.12H PO ×2 (11:31→20:45)
[2023-08-18] MEDS: Escitalopram Oxalate 20 MG TABLET PO (11:32)
[2023-08-18 18:00] VITALS: BP 110/81; PULSE 78; RESP 18; TEMP 36.1; O2SAT 96
[2023-08-18] MEDS: QUEtiapine Fumarate 100 MG TABLET PO (20:33)
[2023-08-18] MEDS: Nystatin Powder 15 GM BOTTLE 1 APPL TOPICAL (20:42)
--- NOTE | 2023-08-19 04:45 | PC.NURSE ---
Patient's R pinky toe bleeding by REMOTE SENSING [employer]IST during PM care, area cleansed with NS and covered with clean dressing. Will continue to monitor.
--- NOTE | 2023-08-19 08:50 | HO.PSYCHPN ---
Subjective Subjective Date of Service: 08/19/23 Reason For Visit: dementia Subjective Notes: Section 8 Healthcare Proxy: Yes Interim History: Pt slept through the night. Pt presents as more and more withdrawn, not answering questions today when this writer technical publications asked about pain or her mood. She kept holding her head but no respond to whether she has pain or not. will do set of labs. VS stable- afebrile, no SOB. maybe a more rapid decline of dementia. Review of Systems Review of Systems Nothing acute Yes all other systems are reviewed and are negative Mental Status Exam Mental Status Exam Patient Appearance: Well Grooomed Patient Orientation: Person and Place Level of Consciousness: Drowsy Patient Behavior: Dependent, Passive and Poor Eye Contact (shuts her eyes) Mood Description: Apathetic Affect Description: Flat Patient Cognition Impaired: Yes Ability to Follow Directions: Poor Speech Pattern: Impoverished Diagnostics Vital Signs (24Hr): Vital Signs - 24 hr 08/18/23 09:00 08/18/23 18:00 Temperature 98.2 F 97 F Pulse Rate 77 78 Respiratory Rate 15 18 Blood Pressure 145/70 H 110/81 Pulse Oximetry 93 96 Oxygen Delivery Method Room Air Room Air BMI result Body Mass Index 39.4 Labs 06/09/23 07:49 Medications Medications Current Medications Acetaminophen (Acetaminophen 325 Mg Tablet) 650 mg PO TID [facility] Last Admin: 08/18/23 20:33 Dose: 650 mg Al Hydroxide/Mg Hydroxide (Magnesium Hydrox/Alum Hydrox 30 Ml Oral.Susp) 30 ml PO Q6H PRN PRN Reason: Heartburn/Nausea Aspirin (Aspirin 81 Mg Tab.Chew) 81 mg PO DAILY [facility] Last Admin: 08/18/23 11:31 Dose: 81 mg Divalproex Sodium (Divalproex Sodium Sprinkles 125 Mg ) 750 mg PO BID [facility] Last Admin: 08/18/23 20:33 Dose: 750 mg Escitalopram Oxalate (Escitalopram Oxalate 20 Mg Tablet) 20 mg PO DAILY [facility] Last Admin: 08/18/23 11:32 Dose: 20 mg Fluticasone Propionate (Fluticasone Propionate Nasal 16 Gm [place]) 1 spray NOSTRIL-B BID [facility] Last Admin: 08/18/23 20:42 Dose: 1 spray Guaifenesin/Dextromethorphan (Guaifenesin Dm 600/30 1 Tab Tab.Er.12h) 1 tab PO BID [facility] Last Admin: 08/18/23 20:45 Dose: 1 tab Lisinopril (Lisinopril 5 Mg Tablet) 5 mg PO DAILY [facility]; Protocol Last Admin: 08/18/23 11:31 Dose: 5 mg Magnesium Hydroxide (Milk Of Magnesia 30 Ml Oral.Susp) 30 ml PO DAILY PRN PRN Reason: Constipation Melatonin (Melatonin 3 Mg Tablet) 6 mg PO BEDTIME PRN PRN Reason: Sleep Last Admin: 08/17/23 21:36 Dose: 6 mg Nystatin (Nystatin Powder 15 Gm Bottle) 1 appl TOPICAL BID [facility] Last Admin: 08/18/23 20:42 Dose: 1 appl Pyridoxine HCl (Pyridoxine Hcl (Vitamin B6) 50 Mg Tablet) 50 mg PO DAILY [facility] Last Admin: 08/18/23 11:31 Dose: 50 mg Quetiapine Fumarate (Quetiapine Fumarate 100 Mg Tablet) 100 mg PO BEDTIME [facility] Last Admin: 08/18/23 20:33 Dose: 100 mg Quetiapine Fumarate (Quetiapine Fumarate 50 Mg Tablet) 50 mg PO DAILY [facility] Last Admin: 08/18/23 11:31 Dose: 50 mg Quetiapine Fumarate (Quetiapine Fumarate 50 Mg Tablet) 50 mg PO Q6H PRN PRN Reason: agitation Last Admin: 08/14/23 20:02 Dose: 50 mg Senna/Docusate Sodium (Sennosides/Docusate Sodium Tablet) 1 tab PO BID [facility] Last Admin: 08/18/23 20:33 Dose: 1 tab Trazodone HCl (Trazodone Hcl 50 Mg Tablet) 50 mg PO BEDTIME MRX1 PRN PRN Reason: Insomnia Last Admin: 08/16/23 20:45 Dose: 50 mg Allergies Allergies Allergy/AdvReac Type Severity Reaction Status Date / Time No Known Allergies Allergy Verified 06/08/23 20:39 Assessment & Plan Assessment & Plan (1) Major 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 start ceftin 250mg po BID for UTI. 07/28 continue tx. 07/30 continue current treatment plan 07/31 continue tx plan 08/01- will switch depakote to night time to avoid day time sedation. 08/02 continue tx. scheduled tylenol for arthritis 08/03 continue tx. 08/04 continue tx. 08/05 continue tx. 08/06: COVID +. fatigued, spending much time in bed. VSS. continue current mgmt. 08/08: as per yesterday. continue current mgmt. 08/09 continue tx. 08/10 continue tx. 08/11 continue tx. 08/12 continue tx. stable from covid symptoms, afebrile, o2sat on RA>97% 08/13 ongoing illness with covid affecting pt behavior and mental health- as well as somatic symptoms 08/14 seems improved physically and mentally today- still mute- more cooperative with care 08/15/23 again in bed, withdrawn , mute and sleeping- resistant to adls which have to be performed for her 08/16 continue tx. 08/17 continue tx. 08/18 continue tx. 08/19 continue tx. Reason for continued inpatient stay Substantial Risk for: inability to function Time Spent With Patient Time: Total time managing care of this patient today ____ minutes.
[2023-08-19] MEDS: Divalproex Sodium Sprinkles 125 MG CAP.DR.SPR 750 MG PO ×2 (10:50→20:33)
[2023-08-19] MEDS: Aspirin 81 MG TAB.CHEW PO (10:50)
[2023-08-19] MEDS: guaiFENesin DM 600/30 1 TAB TAB.ER.12H PO ×2 (10:51→20:33)
[2023-08-19] MEDS: lisinopriL 5 MG TABLET PO (10:51)
[2023-08-19] MEDS: Escitalopram Oxalate 20 MG TABLET PO (10:52)
[2023-08-19] MEDS: QUEtiapine Fumarate 50 MG TABLET PO (10:52)
[2023-08-19] MEDS: Sennosides/Docusate Sodium TABLET 1 TAB PO ×2 (10:53→20:34)
[2023-08-19] MEDS: Nystatin Powder 15 GM BOTTLE 1 APPL TOPICAL ×2 (10:54→20:33)
[2023-08-19 18:00] VITALS: BP 130/64; PULSE 64; RESP 16; TEMP 37.1; O2SAT 94
[2023-08-19] MEDS: QUEtiapine Fumarate 100 MG TABLET PO (20:34)
[2023-08-20 08:39] VITALS: BP 159/78; PULSE 66; RESP 16; TEMP 36.6; O2SAT 91
[2023-08-20] MEDS: Divalproex Sodium Sprinkles 125 MG CAP.DR.SPR 750 MG PO ×2 (08:52→20:59)
[2023-08-20] MEDS: Aspirin 81 MG TAB.CHEW PO (08:54)
[2023-08-20] MEDS: lisinopriL 5 MG TABLET PO (08:57)
[2023-08-20] MEDS: Sennosides/Docusate Sodium TABLET 1 TAB PO ×2 (08:59→21:00)
[2023-08-20] MEDS: Escitalopram Oxalate 20 MG TABLET PO (08:59)
[2023-08-20] MEDS: QUEtiapine Fumarate 50 MG TABLET PO (08:59)
--- NOTE | 2023-08-20 15:24 | HO.PSYCHPN ---
Subjective Subjective Date of Service: 08/20/23 Reason For Visit: dementia Interim History: Pt was seen and discussed in team rounds today. Plans reviewed. Team reports a rapid decline for pt. She is unable to walk, is not talking much and overall they see decline. She requires assistance with feeding and uses a [place] to transfer. Neosporin ordered for L small toenail which has fallen off. Nystating held by team as her area of rash is absent. Team report she spends much time asleep, which she was today when seen. She appears comfortable, without acute distress. Medication Compliance: Yes Side effects from medications: No Attending Groups: No Review of Systems Acute medical concerns: No Team reports significant decline Medical Review of Systems: unchanged Review of Systems Review of Systems Yes Unobtainable due to mental status Mental Status Exam Mental Status Exam Patient Appearance: Well Grooomed Patient Orientation: Person and Place Level of Consciousness: Drowsy Patient Behavior: Dependent, Passive and Poor Eye Contact (shuts her eyes) Mood Description: Apathetic Affect Description: Flat Patient Cognition Impaired: Yes Ability to Follow Directions: Poor Speech Pattern: Impoverished Diagnostics Vital Signs (24Hr): Vital Signs - 24 hr 08/19/23 18:00 08/20/23 08:39 Temperature 98.7 F 98 F Pulse Rate 64 66 Respiratory Rate 16 16 Blood Pressure 130/64 159/78 H Pulse Oximetry 94 91 L Oxygen Delivery Method Room Air Room Air BMI result Body Mass Index 39.4 Labs 06/09/23 07:49 Medications Medications Current Medications Acetaminophen (Acetaminophen 325 Mg Tablet) 650 mg PO TID [facility] Last Admin: 08/20/23 08:54 Dose: 650 mg Al Hydroxide/Mg Hydroxide (Magnesium Hydrox/Alum Hydrox 30 Ml Oral.Susp) 30 ml PO Q6H PRN PRN Reason: Heartburn/Nausea Aspirin (Aspirin 81 Mg Tab.Chew) 81 mg PO DAILY [facility] Last Admin: 08/20/23 08:54 Dose: 81 mg Divalproex Sodium (Divalproex Sodium Sprinkles 125 Mg ) 750 mg PO BID [facility] Last Admin: 08/20/23 08:52 Dose: 750 mg Escitalopram Oxalate (Escitalopram Oxalate 20 Mg Tablet) 20 mg PO DAILY [facility] Last Admin: 08/20/23 08:59 Dose: 20 mg Fluticasone Propionate (Fluticasone Propionate Nasal 16 Gm [place]) 1 spray NOSTRIL-B BID [facility] Last Admin: 08/20/23 09:11 Dose: Not Given Guaifenesin/Dextromethorphan (Guaifenesin Dm 600/30 1 Tab Tab.Er.12h) 1 tab PO BID [facility] Last Admin: 08/20/23 09:14 Dose: Not Given Lisinopril (Lisinopril 5 Mg Tablet) 5 mg PO DAILY [facility]; Protocol Last Admin: 08/20/23 08:57 Dose: 5 mg Magnesium Hydroxide (Milk Of Magnesia 30 Ml Oral.Susp) 30 ml PO DAILY PRN PRN Reason: Constipation Melatonin (Melatonin 3 Mg Tablet) 6 mg PO BEDTIME PRN PRN Reason: Sleep Last Admin: 08/17/23 21:36 Dose: 6 mg Nystatin (Nystatin Powder 15 Gm Bottle) 1 appl TOPICAL BID [facility] Last Admin: 08/20/23 10:55 Dose: Not Given Pyridoxine HCl (Pyridoxine Hcl (Vitamin B6) 50 Mg Tablet) 50 mg PO DAILY [facility] Last Admin: 08/20/23 08:59 Dose: 50 mg Quetiapine Fumarate (Quetiapine Fumarate 100 Mg Tablet) 100 mg PO BEDTIME [facility] Last Admin: 08/19/23 20:34 Dose: 100 mg Quetiapine Fumarate (Quetiapine Fumarate 50 Mg Tablet) 50 mg PO DAILY [facility] Last Admin: 08/20/23 08:59 Dose: 50 mg Quetiapine Fumarate (Quetiapine Fumarate 50 Mg Tablet) 50 mg PO Q6H PRN PRN Reason: agitation Last Admin: 08/14/23 20:02 Dose: 50 mg Senna/Docusate Sodium (Sennosides/Docusate Sodium Tablet) 1 tab PO BID [facility] Last Admin: 08/20/23 08:59 Dose: 1 tab Trazodone HCl (Trazodone Hcl 50 Mg Tablet) 50 mg PO BEDTIME MRX1 PRN PRN Reason: Insomnia Last Admin: 08/16/23 20:45 Dose: 50 mg Allergies Allergies Allergy/AdvReac Type Severity Reaction Status Date / Time No Known Allergies Allergy Verified 06/08/23 20:39 Assessment & Plan Assessment & Plan (1) Major 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 start ceftin 250mg po BID for UTI. 07/28 continue tx. 07/30 continue current treatment plan 07/31 continue tx plan 08/01- will switch depakote to night time to avoid day time sedation. 08/02 continue tx. scheduled tylenol for arthritis 08/03 continue tx. 08/04 continue tx. 08/05 continue tx. 08/06: COVID +. fatigued, spending much time in bed. VSS. continue current mgmt. 08/08: as per yesterday. continue current mgmt. 08/09 continue tx. 08/10 continue tx. 08/11 continue tx. 08/12 continue tx. stable from covid symptoms, afebrile, o2sat on RA>97% 08/13 ongoing illness with covid affecting pt behavior and mental health- as well as somatic symptoms 08/14 seems improved physically and mentally today- still mute- more cooperative with care 08/15/23 again in bed, withdrawn , mute and sleeping- resistant to adls which have to be performed for her 08/16 continue tx. 08/17 continue tx. 08/18 continue tx. 08/19 continue tx. 08/20 continue tx. Informed Consent: does not understand Reason for continued inpatient stay Substantial Risk for: med/psych decompensation Time Spent With Patient Time: Total time managing care of this patient today ____ minutes.
[2023-08-20 18:00] VITALS: BP 147/76; PULSE 62; RESP 16; TEMP 36.7; O2SAT 92
[2023-08-20] MEDS: Nystatin Powder 15 GM BOTTLE 1 APPL TOPICAL (20:59)
[2023-08-20] MEDS: QUEtiapine Fumarate 100 MG TABLET PO (21:00)
[2023-08-21 09:02] VITALS: BP 138/75; PULSE 64; RESP 16; TEMP 37.1; O2SAT 93
[2023-08-21] MEDS: Divalproex Sodium Sprinkles 125 MG CAP.DR.SPR 750 MG PO ×2 (09:39→21:45)
[2023-08-21] MEDS: lisinopriL 5 MG TABLET PO (09:40)
[2023-08-21] MEDS: QUEtiapine Fumarate 50 MG TABLET PO (09:40)
[2023-08-21] MEDS: Aspirin 81 MG TAB.CHEW PO (09:41)
--- NOTE | 2023-08-21 13:11 | PC.NURSE ---
Order was put in this morning by provider for abx ointment for pt's R pinky toe. Ointment and new clean dressings applied this morning to pt's toe.
--- NOTE | 2023-08-21 15:47 | HO.PSYCHPN ---
Subjective Subjective Date of Service: 08/21/23 Reason For Visit: dementia Interim History: Team continues to report concern over their observations of pt's rapid decline since having COVID. They report pt does not know her name, has experienced a marked decrease in verbal communication, continues with agitation with care, has been essentially unable to interact with them. PO Intake has decreased and pt is now changed to puree diet. Confusion has increased, pt often responds to the team with a blank stare and has increasing disorganization. BP has been elevated, temps have been within range, O2 sat 91% on 08/20 today 93%. Met with pt who is in bed. She has BLE edema as reported. She does not open her eyes when her name is called or when touched on her arm. She has eyes closed, talking, without sound, pointing and making contact with her clothing. She presents with no acute distress. Discussed team concerns with them. Will order labs for 08/22 CBC,,CMP Valproate Level, Urine and ask hospitalist to consult. Team reports their main concern is the brief amount of time pt has declined so severely and they express concern COVID has had effects to contribute to this. Medication Compliance: Yes Side effects from medications: No (?) Attending Groups: No Review of Systems Acute medical concerns: No As noted above Medical Review of Systems: unchanged Review of Systems Review of Systems Yes Unobtainable due to mental condition Mental Status Exam Mental Status Exam Patient Appearance: Well Grooomed Level of Consciousness: Drowsy Patient Behavior: Dependent, Passive and Poor Eye Contact (shuts her eyes) Mood Description: Apathetic Affect Description: Flat Patient Cognition Impaired: Yes Ability to Follow Directions: Poor Speech Pattern: Impoverished and No Speech Memory Description: Remote Impaired, Immediate Impaired, Senior Care Impaired, Episodic Impaired, Recent Impaired and Working Impaired Judgement: Poor Diagnostics Vital Signs (24Hr): Vital Signs - 24 hr 08/20/23 18:00 08/21/23 09:02 Temperature 98.1 F 98.7 F Pulse Rate 62 64 Respiratory Rate 16 16 Blood Pressure 147/76 H 138/75 Pulse Oximetry 92 93 Oxygen Delivery Method Room Air Room Air BMI result Body Mass Index 39.4 Labs 06/09/23 07:49 Medications Medications Current Medications Acetaminophen (Acetaminophen 325 Mg Tablet) 650 mg PO TID PENDING SALE TO [facility] Last Admin: 08/21/23 15:15 Dose: 650 mg Al Hydroxide/Mg Hydroxide (Magnesium Hydrox/Alum Hydrox 30 Ml Oral.Susp) 30 ml PO Q6H PRN PRN Reason: Heartburn/Nausea Aspirin (Aspirin 81 Mg Tab.Chew) 81 mg PO DAILY PENDING [facility] Last Admin: 08/21/23 09:41 Dose: 81 mg Divalproex Sodium (Divalproex Sodium Sprinkles 125 Mg Cap.) 750 mg PO BID PENDING SALE TO [facility] Last Admin: 08/21/23 09:39 Dose: 750 mg Escitalopram Oxalate (Escitalopram Oxalate 20 Mg Tablet) 20 mg PO DAILY P[facility]ING [facility] Last Admin: 08/21/23 09:41 Dose: 20 mg Fluticasone Propionate (Fluticasone Propionate Nasal 16 Gm [place]) 1 spray NOSTRIL-B BID PENDING [facility] TO [facility] Last Admin: 08/21/23 10:01 Dose: Not Given Guaifenesin (Guaifenesin La 600 Mg Tab.Er.12h) 600 mg PO BID PRN PRN Reason: Congestion Lisinopril (Lisinopril 5 Mg Tablet) 5 mg PO DAILY PENDING [facility] TO [facility]; Protocol Last Admin: 08/21/23 09:40 Dose: 5 mg Magnesium Hydroxide (Milk Of Magnesia 30 Ml Oral.Susp) 30 ml PO DAILY PRN PRN Reason: Constipation Melatonin (Melatonin 3 Mg Tablet) 6 mg PO BEDTIME PRN PRN Reason: Sleep Last Admin: 08/17/23 21:36 Dose: 6 mg Neomycin/Polymyxin/Bacitracin (Neomy/Polymyx/Bacit/Ointment 14 Gm Tube) 1 gm TOPICAL BID PENDING [facility] TO [facility]; Protocol Last Admin: 08/21/23 10:30 Dose: 1 gm Nystatin (Nystatin Powder 15 Gm Bottle) 1 appl TOPICAL BID PENDING [facility] Last Admin: 08/21/23 10:02 Dose: Not Given Pyridoxine HCl (Pyridoxine Hcl (Vitamin B6) 50 Mg Tablet) 50 mg PO DAILY PENDING [facility] Last Admin: 08/21/23 09:40 Dose: 50 mg Quetiapine Fumarate (Quetiapine Fumarate 100 Mg Tablet) 100 mg PO BEDTIME PENDING [facility] TO [facility] Last Admin: 08/20/23 21:00 Dose: 100 mg Quetiapine Fumarate (Quetiapine Fumarate 50 Mg Tablet) 50 mg PO DAILY PENDING [facility] Last Admin: 08/21/23 09:40 Dose: 50 mg Quetiapine Fumarate (Quetiapine Fumarate 50 Mg Tablet) 50 mg PO Q6H PRN PRN Reason: agitation Last Admin: 08/14/23 20:02 Dose: 50 mg Senna/Docusate Sodium (Sennosides/Docusate Sodium Tablet) 1 tab PO BID RUBI Last Admin: 08/21/23 10:02 Dose: Not Given Trazodone HCl (Trazodone Hcl 50 Mg Tablet) 50 mg PO BEDTIME MRX1 PRN PRN Reason: Insomnia Last Admin: 08/16/23 20:45 Dose: 50 mg Allergies Allergies Allergy/AdvReac Type Severity Reaction Status Date / Time No Known Allergies Allergy Verified 06/08/23 20:39 Assessment & Plan Assessment & Plan (1) Major 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 start ceftin 250mg po BID for UTI. 07/28 continue tx. 07/30 continue current treatment plan 07/31 continue tx plan 08/01- will switch depakote to night time to avoid day time sedation. 08/02 continue tx. scheduled tylenol for arthritis 08/03 continue tx. 08/04 continue tx. 08/05 continue tx. 08/06: COVID +. fatigued, spending much time in bed. VSS. continue current mgmt. 08/08: as per yesterday. continue current mgmt. 08/09 continue tx. 08/10 continue tx. 08/11 continue tx. 08/12 continue tx. stable from covid symptoms, afebrile, o2sat on RA>97% 08/13 ongoing illness with covid affecting pt behavior and mental health- as well as somatic symptoms 08/14 seems improved physically and mentally today- still mute- more cooperative with care 08/15/23 again in bed, withdrawn , mute and sleeping- resistant to adls which have to be performed for her 08/16 continue tx. 08/17 continue tx. 08/18 continue tx. 08/19 continue tx. 08/20 continue tx. 08/21/23- Labs TSH, urine culture, CMP, CBCD, Valproate Level Hospitalist consult Neosporin to small toe as her nail has fallen off Informed Consent: does not understand Reason for continued inpatient stay Substantial Risk for: med/psych decompensation Time Spent With Patient Time: Total time managing care of this patient today ____ minutes.
--- NOTE | 2023-08-21 16:05 | PM.EVENT ---
Event Note Date of Service: 08/21/23 Event Note: Consult placed to hospitalist service due to rapid cognitive/functional decline. Staff reports patient has been gradually declining since admission. Recently diagnosed with COVID-19 on 08/05. Symptoms relatively mild, no antiviral therapy used. However rapid decline over the last 2 days noted. Patient largely nonverbal, oriented only to self on exam. Largely bedbound, requiring dank lift. Requiring assistance with assist with feeding, on pureed diet, with poor po intake. Failure to thrive picture. However, given rapid decline in last two days consult placed to hospitalist service for evaluation. On exam, pt in no distress, somnolent but arousable, oriented to self only. Unable to follow commands but PERRLA, EOMI appear to be in tact, tracking around room. Lungs CTA, heart RRR. 1+ ble edema, likely dependent. Plan- encephalopathy evaluation: -head ct -check tsh w/ reflex free t4, ua/uc with straight cath, cbc, bmp, liver panel, vbg, ammonia, cxr ordered -Need PT/OT eval. QC TECH eval -Encourage OOB to chair with assist -1:1 feeds and pureed diet for now Will work up for any medical cause for patient's rapid cognitive decline. It is possible that this is COVID encephalopathy which can persist for some time. However, given overall clinical picture and decline, hospice may need to be considered. Defer to psychiatry. Time Spent With Patient Time: Total time managing care of this patient today ____ minutes.
[2023-08-21 18:00] VITALS: BP 137/89; PULSE 60; RESP 18; TEMP 36.8; O2SAT 93
--- NOTE | 2023-08-21 18:17 | PC.NURSE ---
Patient sleeping throughout shift, nonsensical. Diet changed to puree d/t concerns of choking, patient falling asleep during feeding and upon assessment noted moderate amount of gaytan mucosal lining of inside of mouth, which was removed by another nurse. Lungs clear, but HOB kept elevated d/t decreased o2 when lying supine. Requested order for hospitalist consult and new orders for CT scan, chest x-ray, UA and labs placed. CT and x-ray completed, waiting on Labs and UA. Patient is now bed bound and has been started on Heparin subq per GUY Monteiro. Patient is alert only, no longer oriented to self, rapid decline in cognition noted.
--- NOTE | 2023-08-21 20:30 | PM.EVENT ---
Event Note Date of Service: 08/21/23 Event Note: Follow-up for consult placed earlier this afternoon for patient with rapid cognitive/functional decline. Patient hemodynamically stable, vitals WNL. Labs reassuring: No leukocytosis, stable H&H, no significant electrolyte abnormalities, renal function WNL, hepatic function WNL. CT of head negative for acute territorial infarct or hemorrhage, but did show possible progression of temporal lobe atrophy. CXR showed right mid lung and left basilar focal patchy densities suggesting infiltrates and or atelectasis, likely secondary to recent COVID infection. Will defer antibiotics at this time. Altered mental status could be secondary to COVID encephalopathy. Will consult Neurology. Time Spent With Patient Time: Total time managing care of this patient today ____ minutes.
[2023-08-21] MEDS: QUEtiapine Fumarate 100 MG TABLET PO (21:45)
[2023-08-21] MEDS: Sennosides/Docusate Sodium TABLET 1 TAB PO (21:45)
[2023-08-21] MEDS: traZODone HCL 50 MG TABLET PO (21:45)
[2023-08-21] MEDS: Nystatin Powder 15 GM BOTTLE 1 APPL TOPICAL (21:45)
[2023-08-22 09:22] LABS: Alanine Aminotransferase 12 U/L (0-31); Alkaline Phosphatase 54 U/L (39-117); Anion Gap 10 (12-20); Aspartate Amino Transferase 21 U/L (5-31); Bilirubin Total 0.6 mg/dL (0.0-1.0); Blood Urea Nitrogen 25 mg/dL (9-16); Calcium 8.9 mg/dL (8.4-10.2); Carbon Dioxide 25 mmol/L (22-29); Chloride 113 mmol/L (96-108); Creatinine Clr Calc Pharmacy 103.8; Estimated Glomerular Filt Rate > 60; Glucose Random 97 mg/dL (60-115); Potassium 4.1 mmol/L (3.3-5.1); Sodium 144 mmol/L (135-145); Total Protein 5.4 g/dL (6.5-8.0)
[2023-08-22 09:28] LABS: Thyroid Stimulating Hormone 3.22 uIU/mL (0.32-4.0)
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
--- NOTE | 2023-08-22 10:15 | HO.PSYCHPN ---
Subjective Subjective Date of Service: 08/22/23 Reason For Visit: dementia Subjective Notes: Section 8 Interim History: Pt mostly in bed. Needed assistance to get up. Minimally verbal. Head CT showed worsening atrophy on right frontal side of the brain. neurology saw pt today- recommend MRI- ordered. VS stable- afebrile. Review of Systems Review of Systems Could not be done with her Yes all other systems are reviewed and are negative, Unobtainable due to mental condition and Unobtainable due to mental status Diagnostics Vital Signs (24Hr): Vital Signs - 24 hr 08/21/23 18:00 Temperature 98.2 F Pulse Rate 60 Respiratory Rate 18 Blood Pressure 137/89 Pulse Oximetry 93 Oxygen Delivery Method Room Air BMI result Body Mass Index 39.4 Labs 08/22/23 08:42 08/22/23 08:42 Labs: Laboratory Results - last 48 hr 08/21/23 08/21/23 08/21/23 16:21 16:24 22:30 WBC 10.3 RBC 3.84 L Hgb 12.0 Hct 37.6 MCV 97.9 MCH 31.3 MCHC 31.9 RDW 13.2 Plt Count 125 L MPV 9.9 Immature Gran % (Auto) 2.4 H Neut % (Auto) 74.4 H Lymph % (Auto) 14.9 L [place] % (Auto) 6.3 Eos % (Auto) 1.5 Baso % (Auto) 0.5 Lymph # (Auto) 1.5 [place] # (Auto) 0.7 Eos # (Auto) 0.2 Baso # (Auto) 0.1 Abs Immat Gran (auto) 0.25 H Absolute Neuts (auto) 7.7 Absolute Nucleated RBC 0.000 Nucleated RBC % (auto) 0.0 VBG pH 7.56 H VBG pCO2 28 VBG pO2 77 VBG HCO3 25 VBG O2 Saturation 96.0 VBG Base Excess 3.9 Sodium 144 Potassium 4.6 Chloride 112 H Carbon Dioxide 23 Anion Gap 14 BUN 29 H Creatinine 0.57 Estim Creat Clear Calc 100.1 Estimated GFR > 60 Random Glucose 100 Calcium 9.3 Total Bilirubin 0.6 Direct Bilirubin 0.2 AST 29 ALT 14 Alkaline Phosphatase 60 Ammonia 48 Total Protein 6.3 L Albumin 3.4 L TSH 3.03 Urine Color [place] A Urine Appearance Clear Urine pH 6.0 Ur Specific [place] >= 1.030 H Urine Protein Trace Urine Glucose (UA) Negative Urine Ketones Negative Urine Blood Negative Urine Nitrite Positive H Ur Leukocyte Esterase Small (1+) H Urine RBC 0-2 Urine WBC 0-5 Ur Squamous Epith Cells 0-2 Urine Bacteria None Seen Hyaline Casts 0-2 Valproic Acid 89.9 Influenza Type A (PCR) Influenza Type B (PCR) RSV RNA Qual (PCR) SARS-CoV-2 RNA (RT-PCR) 08/22/23 08/22/23 05:00 08:42 WBC 7.9 RBC 3.46 L Hgb 11.1 L Hct 33.8 L MCV 97.7 MCH 32.1 MCHC 32.8 RDW 13.0 Plt Count 98 L MPV 9.8 Immature Gran % (Auto) 2.0 H Neut % (Auto) 76.0 H Lymph % (Auto) 13.1 L [place] % (Auto) 6.7 Eos % (Auto) 1.8 Baso % (Auto) 0.4 Lymph # (Auto) 1.0 L [place] # (Auto) 0.5 Eos # (Auto) 0.1 Baso # (Auto) 0.0 Abs Immat Gran (auto) 0.16 H Absolute Neuts (auto) 6.0 Absolute Nucleated RBC 0.000 Nucleated RBC % (auto) 0.0 VBG pH VBG pCO2 VBG pO2 VBG HCO3 VBG O2 Saturation VBG Base Excess Sodium 144 Potassium 4.1 Chloride 113 H Carbon Dioxide 25 Anion Gap 10 L BUN 25 H Creatinine 0.55 Estim Creat Clear Calc 103.8 Estimated GFR > 60 Random Glucose 97 Calcium 8.9 Total Bilirubin 0.6 Direct Bilirubin AST 21 ALT 12 Alkaline Phosphatase 54 Ammonia Total Protein 5.4 L Albumin 3.0 L TSH 3.22 Urine Color Urine Appearance Urine pH Ur Specific [place] Urine Protein Urine Glucose (UA) Urine Ketones Urine Blood Urine Nitrite Ur Leukocyte Esterase Urine RBC Urine WBC Ur Squamous Epith Cells Urine Bacteria Hyaline Casts Valproic Acid 71.5 Influenza Type A (PCR) NEGATIVE Influenza Type B (PCR) NEGATIVE RSV RNA Qual (PCR) NEGATIVE SARS-CoV-2 RNA (RT-PCR) POSITIVE A Imaging Radiology Impressions: ITS Impressions Chest X-Ray 08/21/23 16:41 FINDINGS/IMPRESSION: The study is limited by portable technique and low lung volumes. There are right mid lung and left basilar focal patchy densities suggesting infiltrates and/or atelectasis. No effusion or pneumothorax is seen. The cardiac silhouette is suboptimally evaluated. There is mildly atherosclerotic and uncoiled, suggesting hypertension. Mild degenerative changes of the spine. Head CT 08/21/23 16:53 IMPRESSION: Patient motion degrades image quality therefore the diagnostic accuracy of this examination is limited. Numerous chronic small vessel ischemic changes are also visualized within the periventricular white matter. Grossly no evidence of acute territorial infarct or hemorrhage. Possible progression of temporal lobe atrophy when compared to prior imaging. Medications Medications Current Medications Acetaminophen (Acetaminophen 325 Mg Tablet) 650 mg PO TID [facility] Last Admin: 08/21/23 21:45 Dose: 650 mg Al Hydroxide/Mg Hydroxide (Magnesium Hydrox/Alum Hydrox 30 Ml Oral.Susp) 30 ml PO Q6H PRN PRN Reason: Heartburn/Nausea Aspirin (Aspirin 81 Mg Tab.Chew) 81 mg PO DAILY [facility] Last Admin: 08/21/23 09:41 Dose: 81 mg Divalproex Sodium (Divalproex Sodium Sprinkles 125 Mg Vin.) 750 mg PO BID [facility] Last Admin: 08/21/23 21:45 Dose: 750 mg Escitalopram Oxalate (Escitalopram Oxalate 20 Mg Tablet) 20 mg PO DAILY [facility] Last Admin: 08/21/23 09:41 Dose: 20 mg Fluticasone Propionate (Fluticasone Propionate Nasal 16 Gm [place]) 1 spray NOSTRIL-B BID [facility] Last Admin: 08/21/23 21:45 Dose: 1 spray Guaifenesin (Guaifenesin [place] 600 Mg Tab.Er.12h) 600 mg PO BID PRN PRN Reason: Congestion Heparin Sodium (Porcine) (Heparin Sodium,Porcine 5,000 Unit/Ml Vial) 5,000 unit SUBCUT Q12H [facility] Last Admin: 08/22/23 05:59 Dose: 5,000 unit Lisinopril (Lisinopril 5 Mg Tablet) 5 mg PO DAILY [facility]; Protocol Last Admin: 08/21/23 09:40 Dose: 5 mg Magnesium Hydroxide (Milk Of Magnesia 30 Ml Oral.Susp) 30 ml PO DAILY PRN PRN Reason: Constipation Melatonin (Melatonin 3 Mg Tablet) 6 mg PO BEDTIME PRN PRN Reason: Sleep Last Admin: 08/17/23 21:36 Dose: 6 mg Neomycin/Polymyxin/Bacitracin (Neomy/Polymyx/Bacit/Ointment 14 Gm Tube) 1 gm TOPICAL BID [facility]; Protocol Last Admin: 08/21/23 21:56 Dose: 1 gm Nystatin (Nystatin Powder 15 Gm Bottle) 1 appl TOPICAL BID [facility] Last Admin: 08/21/23 21:45 Dose: 1 appl Pyridoxine HCl (Pyridoxine Hcl (Vitamin B6) 50 Mg Tablet) 50 mg PO DAILY [facility] Last Admin: 08/21/23 09:40 Dose: 50 mg Quetiapine Fumarate (Quetiapine Fumarate 100 Mg Tablet) 100 mg PO BEDTIME [facility] Last Admin: 08/21/23 21:45 Dose: 100 mg Quetiapine Fumarate (Quetiapine Fumarate 50 Mg Tablet) 50 mg PO DAILY [facility] Last Admin: 08/21/23 09:40 Dose: 50 mg Quetiapine Fumarate (Quetiapine Fumarate 50 Mg Tablet) 50 mg PO Q6H PRN PRN Reason: agitation Last Admin: 08/14/23 20:02 Dose: 50 mg Senna/Docusate Sodium (Sennosides/Docusate Sodium Tablet) 1 tab PO BID [facility] Last Admin: 08/21/23 21:45 Dose: 1 tab Trazodone HCl (Trazodone Hcl 50 Mg Tablet) 50 mg PO BEDTIME MRX1 PRN PRN Reason: Insomnia Last Admin: 08/21/23 21:45 Dose: 50 mg Allergies Allergies Allergy/AdvReac Type Severity Reaction Status Date / Time No Known Allergies Allergy Verified 06/08/23 20:39 Assessment & Plan Assessment & Plan (1) Major 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 start ceftin 250mg po BID for UTI. 07/28 continue tx. 07/30 continue current treatment plan 07/31 continue tx plan 08/01- will switch depakote to night time to avoid day time sedation. 08/02 continue tx. scheduled tylenol for arthritis 08/03 continue tx. 08/04 continue tx. 08/05 continue tx. 08/06: COVID +. fatigued, spending much time in bed. VSS. continue current mgmt. 08/08: as per yesterday. continue current mgmt. 08/09 continue tx. 08/10 continue tx. 08/11 continue tx. 08/12 continue tx. stable from covid symptoms, afebrile, o2sat on RA>97% 08/13 ongoing illness with covid affecting pt behavior and mental health- as well as somatic symptoms 08/14 seems improved physically and mentally today- still mute- more cooperative with care 08/15/23 again in bed, withdrawn , mute and sleeping- resistant to adls which have to be performed for her 08/16 continue tx. 08/17 continue tx. 08/18 continue tx. 08/19 continue tx. 08/20 continue tx. 08/21/23- Labs TSH, urine culture, CMP, CBCD, Valproate Level Hospitalist consult Neosporin to small toe as her nail has fallen off 08/22 ordered MRI. will d/c depakote for now as pt barely moving or talking. Reason for continued inpatient stay Substantial Risk for: inability to function Time Spent With Patient Time: Total time managing care of this patient today ____ minutes.
[2023-08-22] MEDS: Divalproex Sodium Sprinkles 125 MG CAP.DR.SPR 750 MG PO (11:13)
[2023-08-22] MEDS: Sennosides/Docusate Sodium TABLET 1 TAB PO ×2 (11:13→21:27)
[2023-08-22] MEDS: lisinopriL 5 MG TABLET PO (11:13)
[2023-08-22] MEDS: Aspirin 81 MG TAB.CHEW PO (11:14)
[2023-08-22] MEDS: QUEtiapine Fumarate 50 MG TABLET PO (11:14)
[2023-08-22] MEDS: Nystatin Powder 15 GM BOTTLE 1 APPL TOPICAL ×2 (11:16→21:24)
[2023-08-22 14:34] VITALS: BP 141/80; PULSE 58; RESP 16; TEMP 36.7; O2SAT 98
--- NOTE | 2023-08-22 15:11 | MHC.SL.SWA ---
Speech Pathologist Impression: Risk of aspiration, oropharyngeal dysphagia Risk of Aspiration Due to: Reduced Cognition Dysphasia Diet Status: Continue on pureed diet Liquid Consistency and Strategies for Safe Swallow: Liquid Intake Recommendation: Thin Liquid Intake Strategies: Small Sips No Straws Solid Food Consistency: Dietary Recommendations: Pureed (NDD1) Additional Modifications to Solid Foods: Recommend CONTINUE on PUREED diet (NDD1) with THIN liquids and CRUSHED pills in PUREE. Pt requires total 1:1 assistance feeding with aspiration precautions. Do not feed pt if she is lethargic, not attending to meal, or displays any clinical signs of aspiration. Minimize distractions during meal time and feed with a slow pace, watching for pt to swallow before presenting next bite/sip. RECOVERY COACH will continue to follow to monitor pt's tolerance of pureed diet and to re-assess for potential upgrade if appropriate. Oral Medication Intake: Crushed with Puree Please contact the pharmacy regarding appropriate crushable or liquid drug formulations that are available whenever modified delivery is recommended. Compensatory Strategies and Precautions to be Taken for Safe Swallow: Sitting Upright (90 deg) No Straw Liquids from Cup Liquids from Spoon Small Bites and Sips Rate of Ingestion Change Oral Check Avoid Specific Foods Supervision While Eating and Drinking for Safe Swallow: Total Assistance (1:1) Foods to Avoid: Mixed textures Swallowing Recommended Treatments: Compens. Strategy Educat. Recommendation for Speech: Inpatient Speech Therapy Postpartum Rn Clinican/Clinical Fellow: No Supervisory Statement: I have reviewed and agree with the student/clinical fellow's documentation: N/A Speech Language Pathologist: Ellen Angel M.A., CCC-RECOVERY COACH
[2023-08-22] MEDS: Acetaminophen 325 MG TABLET 650 MG PO ×2 (17:01→21:25)
[2023-08-22] MEDS: Heparin Sodium,Porcine 5,000 UNIT/ML VIAL 5000 UNIT SUBCUT (17:24)
[2023-08-22 18:00] VITALS: BP 117/62; PULSE 78; RESP 20; TEMP 35.8; O2SAT 93
[2023-08-22] MEDS: Fluticasone Propionate Nasal 16 GM SPRAY 1 SPRAY NOSTRIL-B (21:24)
[2023-08-22] MEDS: traZODone HCL 50 MG TABLET PO (21:26)
[2023-08-22] MEDS: QUEtiapine Fumarate 100 MG TABLET PO (21:27)
[2023-08-23] MEDS: Heparin Sodium,Porcine 5,000 UNIT/ML VIAL 5000 UNIT SUBCUT ×3 (06:18→19:11)
[2023-08-23 07:45] VITALS: BP 157/78; RESP 14; O2SAT 84
[2023-08-23 08:05] VITALS: O2SAT 88
[2023-08-23 08:15] VITALS: O2SAT 94
[2023-08-23 10:12] LABS: VBG Base Excess 4.8 mmol/L; VBG HCO3 28 mmol/L (22-26); VBG pCO2 36 mmHg; VBG pH 7.49 (7.32-7.43); VBG pO2 64 mmHg
[2023-08-23 10:14] LABS: Venous Blood Gas Refer to POC result
--- NOTE | 2023-08-23 10:25 | HO.PSYCHPN ---
Subjective Subjective Date of Service: 08/23/23 Reason For Visit: dementia Subjective Notes: Section 8 Interim History: Pt was hypoxic this morning with O2sat in 88. She received NC 2L, then increase to 4L. This report writer met with pt early in the morning, no significant drop in O2sat when pt reposition. She is coughing. She was mostly sleeping, would open eyes when touch or name called. She was combative when staff changing her, which is her usual. Not eating much. She was also seen by hospitalist. Review of Systems Review of Systems Could not be done with her Yes all other systems are reviewed and are negative, Unobtainable due to mental condition and Unobtainable due to mental status Diagnostics Vital Signs (24Hr): Vital Signs - 24 hr 08/22/23 14:34 08/22/23 18:00 08/23/23 07:45 Temperature 98.0 F 96.5 F L Pulse Rate 58 78 Respiratory Rate 16 20 14 Blood Pressure 141/80 H 117/62 157/78 H Pulse Oximetry 98 93 84 L Oxygen Delivery Method Room Air Room Air Room Air Oxygen Flow Rate 08/23/23 08:05 08/23/23 08:15 Temperature Pulse Rate Respiratory Rate Blood Pressure Pulse Oximetry 88 L 94 Oxygen Delivery Method Nasal Cannula Simple Mask Oxygen Flow Rate 4 4 BMI result Body Mass Index 39.4 Labs 08/22/23 08:42 08/22/23 08:42 Labs: Laboratory Results - last 48 hr 08/21/23 08/21/23 08/21/23 16:21 16:24 22:30 WBC 10.3 RBC 3.84 L Hgb 12.0 Hct 37.6 MCV 97.9 MCH 31.3 MCHC 31.9 RDW 13.2 Plt Count 125 L MPV 9.9 Immature Gran % (Auto) 2.4 H Neut % (Auto) 74.4 H Lymph % (Auto) 14.9 L [place] % (Auto) 6.3 Eos % (Auto) 1.5 Baso % (Auto) 0.5 Lymph # (Auto) 1.5 [place] # (Auto) 0.7 Eos # (Auto) 0.2 Baso # (Auto) 0.1 Abs Immat Gran (auto) 0.25 H Absolute Neuts (auto) 7.7 Absolute Nucleated RBC 0.000 Nucleated RBC % (auto) 0.0 VBG pH 7.56 H VBG pCO2 28 VBG pO2 77 VBG HCO3 25 VBG O2 Saturation 96.0 VBG Base Excess 3.9 Sodium 144 Potassium 4.6 Chloride 112 H Carbon Dioxide 23 Anion Gap 14 BUN 29 H Creatinine 0.57 Estim Creat Clear Calc 100.1 Estimated GFR > 60 Random Glucose 100 Calcium 9.3 Total Bilirubin 0.6 Direct Bilirubin 0.2 AST 29 ALT 14 Alkaline Phosphatase 60 Ammonia 48 Total Protein 6.3 L Albumin 3.4 L TSH 3.03 Urine Color [place] A Urine Appearance Clear Urine pH 6.0 Ur Specific [place] >= 1.030 H Urine Protein Trace Urine Glucose (UA) Negative Urine Ketones Negative Urine Blood Negative Urine Nitrite Positive H Ur Leukocyte Esterase Small (1+) H Urine RBC 0-2 Urine WBC 0-5 Ur Squamous Epith Cells 0-2 Urine Bacteria None Seen Hyaline Casts 0-2 Valproic Acid 89.9 Influenza Type A (PCR) Influenza Type B (PCR) RSV RNA Qual (PCR) SARS-CoV-2 RNA (RT-PCR) 08/22/23 08/22/23 08/23/23 05:00 08:42 10:05 WBC 7.9 RBC 3.46 L Hgb 11.1 L Hct 33.8 L MCV 97.7 MCH 32.1 MCHC 32.8 RDW 13.0 Plt Count 98 L MPV 9.8 Immature Gran % (Auto) 2.0 H Neut % (Auto) 76.0 H Lymph % (Auto) 13.1 L [place] % (Auto) 6.7 Eos % (Auto) 1.8 Baso % (Auto) 0.4 Lymph # (Auto) 1.0 L [place] # (Auto) 0.5 Eos # (Auto) 0.1 Baso # (Auto) 0.0 Abs Immat Gran (auto) 0.16 H Absolute Neuts (auto) 6.0 Absolute Nucleated RBC 0.000 Nucleated RBC % (auto) 0.0 VBG pH 7.49 H VBG pCO2 36 VBG pO2 64 VBG HCO3 28 H VBG O2 Saturation 94.0 VBG Base Excess 4.8 Sodium 144 Potassium 4.1 Chloride 113 H Carbon Dioxide 25 Anion Gap 10 L BUN 25 H Creatinine 0.55 Estim Creat Clear Calc 103.8 Estimated GFR > 60 Random Glucose 97 Calcium 8.9 Total Bilirubin 0.6 Direct Bilirubin AST 21 ALT 12 Alkaline Phosphatase 54 Ammonia Total Protein 5.4 L Albumin 3.0 L TSH 3.22 Urine Color Urine Appearance Urine pH Ur Specific [place] Urine Protein Urine Glucose (UA) Urine Ketones Urine Blood Urine Nitrite Ur Leukocyte Esterase Urine RBC Urine WBC Ur Squamous Epith Cells Urine Bacteria Hyaline Casts Valproic Acid 71.5 Influenza Type A (PCR) NEGATIVE Influenza Type B (PCR) NEGATIVE RSV RNA Qual (PCR) NEGATIVE SARS-CoV-2 RNA (RT-PCR) POSITIVE A Imaging Radiology Impressions: ITS Impressions Chest X-Ray 08/21/23 16:41 FINDINGS/IMPRESSION: The study is limited by portable technique and low lung volumes. There are right mid lung and left basilar focal patchy densities suggesting infiltrates and/or atelectasis. No effusion or pneumothorax is seen. The cardiac silhouette is suboptimally evaluated. There is mildly atherosclerotic and uncoiled, suggesting hypertension. Mild degenerative changes of the spine. Head CT 08/21/23 16:53 IMPRESSION: Patient motion degrades image quality therefore the diagnostic accuracy of this examination is limited. Numerous chronic small vessel ischemic changes are also visualized within the periventricular white matter. Grossly no evidence of acute territorial infarct or hemorrhage. Possible progression of temporal lobe atrophy when compared to prior imaging. Medications Medications Current Medications Acetaminophen (Acetaminophen 325 Mg Tablet) 650 mg PO TID [facility] Last Admin: 08/22/23 21:25 Dose: 650 mg Al Hydroxide/Mg Hydroxide (Magnesium Hydrox/Alum Hydrox 30 Ml Oral.Susp) 30 ml PO Q6H PRN PRN Reason: Heartburn/Nausea Aspirin (Aspirin 81 Mg Tab.Chew) 81 mg PO DAILY [facility] Last Admin: 08/22/23 11:14 Dose: 81 mg Escitalopram Oxalate (Escitalopram Oxalate 20 Mg Tablet) 20 mg PO DAILY [facility] Last Admin: 08/22/23 11:14 Dose: 20 mg Fluticasone Propionate (Fluticasone Propionate Nasal 16 Gm [place]) 1 spray NOSTRIL-B BID [facility] Last Admin: 08/22/23 21:24 Dose: 1 spray Guaifenesin (Guaifenesin [place] 600 Mg Tab.Er.12h) 600 mg PO BID PRN PRN Reason: Congestion Heparin Sodium (Porcine) (Heparin Sodium,Porcine 5,000 Unit/Ml Vial) 5,000 unit SUBCUT Q12H [facility] Last Admin: 08/23/23 06:18 Dose: 5,000 unit Lisinopril (Lisinopril 5 Mg Tablet) 5 mg PO DAILY [facility]; Protocol Last Admin: 08/22/23 11:13 Dose: 5 mg Magnesium Hydroxide (Milk Of Magnesia 30 Ml Oral.Susp) 30 ml PO DAILY PRN PRN Reason: Constipation Melatonin (Melatonin 3 Mg Tablet) 6 mg PO BEDTIME PRN PRN Reason: Sleep Last Admin: 08/17/23 21:36 Dose: 6 mg Neomycin/Polymyxin/Bacitracin (Neomy/Polymyx/Bacit/Ointment 14 Gm Tube) 1 gm TOPICAL BID [facility]; Protocol Last Admin: 08/22/23 21:24 Dose: 1 gm Nystatin (Nystatin Powder 15 Gm Bottle) 1 appl TOPICAL BID [facility] Last Admin: 08/22/23 21:24 Dose: 1 appl Pyridoxine HCl (Pyridoxine Hcl (Vitamin B6) 50 Mg Tablet) 50 mg PO DAILY [facility] Last Admin: 08/22/23 11:14 Dose: 50 mg Quetiapine Fumarate (Quetiapine Fumarate 100 Mg Tablet) 100 mg PO BEDTIME [facility] Last Admin: 08/22/23 21:27 Dose: 100 mg Quetiapine Fumarate (Quetiapine Fumarate 50 Mg Tablet) 50 mg PO Q6H PRN PRN Reason: agitation Last Admin: 08/14/23 20:02 Dose: 50 mg Senna/Docusate Sodium (Sennosides/Docusate Sodium Tablet) 1 tab PO BID [facility] Last Admin: 08/22/23 21:27 Dose: 1 tab Trazodone HCl (Trazodone Hcl 50 Mg Tablet) 50 mg PO BEDTIME MRX1 PRN PRN Reason: Insomnia Last Admin: 08/22/23 21:26 Dose: 50 mg Allergies Allergies Allergy/AdvReac Type Severity Reaction Status Date / Time No Known Allergies Allergy Verified 06/08/23 20:39 Assessment & Plan Assessment & Plan (1) Major 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 start ceftin 250mg po BID for UTI. 07/28 continue tx. 07/30 continue current treatment plan 07/31 continue tx plan 08/01- will switch depakote to night time to avoid day time sedation. 08/02 continue tx. scheduled tylenol for arthritis 08/03 continue tx. 08/04 continue tx. 08/05 continue tx. 08/06: COVID +. fatigued, spending much time in bed. VSS. continue current mgmt. 08/08: as per yesterday. continue current mgmt. 08/09 continue tx. 08/10 continue tx. 08/11 continue tx. 08/12 continue tx. stable from covid symptoms, afebrile, o2sat on RA>97% 08/13 ongoing illness with covid affecting pt behavior and mental health- as well as somatic symptoms 08/14 seems improved physically and mentally today- still mute- more cooperative with care 08/15/23 again in bed, withdrawn , mute and sleeping- resistant to adls which have to be performed for her 08/16 continue tx. 08/17 continue tx. 08/18 continue tx. 08/19 continue tx. 08/20 continue tx. 08/21/23- Labs TSH, urine culture, CMP, CBCD, Valproate Level Hospitalist consult Neosporin to small toe as her nail has fallen off 08/22 ordered MRI. will d/c depakote for now as pt barely moving or talking. 08/23 continue tx. monitor O2sat q6h. continue NC 2-4L. maintain O2sat >92% Reason for continued inpatient stay Substantial Risk for: inability to function Time Spent With Patient Time: Total time managing care of this patient today ____ minutes.
[2023-08-23] MEDS: LORazepam 2 MG/ML VIAL IM (14:44)
--- NOTE | 2023-08-23 14:54 | P.EN_ITS ---
Event Note Date of Service: 08/23/23 Event Note: 68-year-old woman admitted to [facility] with neurocognitive disorder and behavioral disturbances. RN stated patient's oxygen saturation down to 84% on room air recent COVID diagnosis. No fever. Nurses reported apneic episodes placed on 4 L of oxygen with good effect. Patient alert but confused and combative. alert, confused, verbally combative Lungs with normal expansion Soft abdomen No need for treatment for COVID as patient is over 10 days from diagnosis Patient shouting and verbally combative with normal oxygen saturation Discussed with psychiatric provider, can reach out to hospitalist service for any worsening medical condition Time Spent With Patient Time: Total time managing care of this patient today ____ minutes.
[2023-08-23] MEDS: gadobutroL 10 ML VIAL IVPUSH (15:27)
--- NOTE | 2023-08-23 17:36 | P.PNPSI_ITS ---
Subjective Subjective Reason For Visit: dementia Diagnostics Vital Signs (24Hr): Vital Signs - 24 hr 08/22/23 18:00 08/23/23 07:45 08/23/23 08:05 Temperature 96.5 F L Pulse Rate 78 Respiratory Rate 20 14 Blood Pressure 117/62 157/78 H Pulse Oximetry 93 84 L 88 L Oxygen Delivery Method Room Air Room Air Nasal Cannula Oxygen Flow Rate 4 08/23/23 08:15 Temperature Pulse Rate Respiratory Rate Blood Pressure Pulse Oximetry 94 Oxygen Delivery Method Simple Mask Oxygen Flow Rate 4 BMI result Body Mass Index 39.4 Labs 08/22/23 08:42 08/22/23 08:42 Labs: Laboratory Results - last 48 hr 08/21/23 08/22/23 08/22/23 22:30 05:00 08:42 WBC 7.9 RBC 3.46 L Hgb 11.1 L Hct 33.8 L MCV 97.7 MCH 32.1 MCHC 32.8 RDW 13.0 Plt Count 98 L MPV 9.8 Immature Gran % (Auto) 2.0 H Neut % (Auto) 76.0 H Lymph % (Auto) 13.1 L [place] % (Auto) 6.7 Eos % (Auto) 1.8 Baso % (Auto) 0.4 Lymph # (Auto) 1.0 L [place] # (Auto) 0.5 Eos # (Auto) 0.1 Baso # (Auto) 0.0 Abs Immat Gran (auto) 0.16 H Absolute Neuts (auto) 6.0 Absolute Nucleated RBC 0.000 Nucleated RBC % (auto) 0.0 VBG pH VBG pCO2 VBG pO2 VBG HCO3 VBG O2 Saturation VBG Base Excess Sodium 144 Potassium 4.1 Chloride 113 H Carbon Dioxide 25 Anion Gap 10 L BUN 25 H Creatinine 0.55 Estim Creat Clear Calc 103.8 Estimated GFR > 60 Random Glucose 97 Calcium 8.9 Total Bilirubin 0.6 AST 21 ALT 12 Alkaline Phosphatase 54 Total Protein 5.4 L Albumin 3.0 L TSH 3.22 Urine Color [place] A Urine Appearance Clear Urine pH 6.0 Ur Specific [place] >= 1.030 H Urine Protein Trace Urine Glucose (UA) Negative Urine Ketones Negative Urine Blood Negative Urine Nitrite Positive H Ur Leukocyte Esterase Small (1+) H Urine RBC 0-2 Urine WBC 0-5 Ur Squamous Epith Cells 0-2 Urine Bacteria None Seen Hyaline Casts 0-2 Valproic Acid 71.5 Influenza Type A (PCR) NEGATIVE Influenza Type B (PCR) NEGATIVE RSV RNA Qual (PCR) NEGATIVE SARS-CoV-2 RNA (RT-PCR) POSITIVE A 08/23/23 10:05 WBC RBC Hgb Hct MCV MCH MCHC RDW Plt Count MPV Immature Gran % (Auto) Neut % (Auto) Lymph % (Auto) [place] % (Auto) Eos % (Auto) Baso % (Auto) Lymph # (Auto) [place] # (Auto) Eos # (Auto) Baso # (Auto) Abs Immat Gran (auto) Absolute Neuts (auto) Absolute Nucleated RBC Nucleated RBC % (auto) VBG pH 7.49 H VBG pCO2 36 VBG pO2 64 VBG HCO3 28 H VBG O2 Saturation 94.0 VBG Base Excess 4.8 Sodium Potassium Chloride Carbon Dioxide Anion Gap BUN Creatinine Estim Creat Clear Calc Estimated GFR Random Glucose Calcium Total Bilirubin AST ALT Alkaline Phosphatase Total Protein Albumin TSH Urine Color Urine Appearance Urine pH Ur Specific [place] Urine Protein Urine Glucose (UA) Urine Ketones Urine Blood Urine Nitrite Ur Leukocyte Esterase Urine RBC Urine WBC Ur Squamous Epith Cells Urine Bacteria Hyaline Casts Valproic Acid Influenza Type A (PCR) Influenza Type B (PCR) RSV RNA Qual (PCR) SARS-CoV-2 RNA (RT-PCR) Imaging Radiology Impressions: ITS Impressions Chest X-Ray 08/21/23 16:41 FINDINGS/IMPRESSION: The study is limited by portable technique and low lung volumes. There are right mid lung and left basilar focal patchy densities suggesting infiltrates and/or atelectasis. No effusion or pneumothorax is seen. The cardiac silhouette is suboptimally evaluated. There is mildly atherosclerotic and uncoiled, suggesting hypertension. Mild degenerative changes of the spine. Head CT 08/21/23 16:53 IMPRESSION: Patient motion degrades image quality therefore the diagnostic accuracy of this examination is limited. Numerous chronic small vessel ischemic changes are also visualized within the periventricular white matter. Grossly no evidence of acute territorial infarct or hemorrhage. Possible progression of temporal lobe atrophy when compared to prior imaging. Chest X-Ray 08/23/23 10:25 IMPRESSION: Patient tilted to the left limiting evaluation. There is bibasilar atelectasis or scarring slightly greater on the left. There is mild blunting of left CP angle from pleural effusion or thickening.. Brain MRI 08/23/23 15:39 IMPRESSION: 1. No acute intracranial abnormalities. No demonstrated abnormal intracranial enhancement. 2. Chronic regions of encephalomalacia in the right frontal lobe, left temporal lobe, and left occipital lobe. 3. Moderate to extensive underlying microangiopathy and generalized cerebral volume loss. 4. Extensive scattered foci of susceptibility artifact throughout the bilateral cerebral hemispheres as may be seen with underlying amyloid angiopathy. Medications Medications Current Medications Acetaminophen (Acetaminophen 325 Mg Tablet) 650 mg PO TID [facility] Last Admin: 08/23/23 16:35 Dose: Not Given Al Hydroxide/Mg Hydroxide (Magnesium Hydrox/Alum Hydrox 30 Ml Oral.Susp) 30 ml PO Q6H PRN PRN Reason: Heartburn/Nausea Aspirin (Aspirin 81 Mg Tab.Chew) 81 mg PO DAILY [facility] Last Admin: 08/23/23 11:46 Dose: Not Given Dexamethasone (Dexamethasone 6 Mg Tablet) 6 mg PO DAILY [facility] Stop: 09/02/23 09:01 Escitalopram Oxalate (Escitalopram Oxalate 20 Mg Tablet) 20 mg PO DAILY [facility] Last Admin: 08/23/23 11:46 Dose: Not Given Fluticasone Propionate (Fluticasone Propionate Nasal 16 Gm [place]) 1 spray NOSTRIL-B BID [facility] Last Admin: 08/23/23 11:46 Dose: Not Given Guaifenesin (Guaifenesin La 600 Mg Tab.Er.12h) 600 mg PO BID PRN PRN Reason: Congestion Heparin Sodium (Porcine) (Heparin Sodium,Porcine 5,000 Unit/Ml Vial) 5,000 unit SUBCUT Q12H [facility] Last Admin: 08/23/23 16:48 Dose: 5,000 unit Lisinopril (Lisinopril 5 Mg Tablet) 5 mg PO DAILY [facility]; Protocol Last Admin: 08/23/23 11:47 Dose: Not Given Magnesium Hydroxide (Milk Of Magnesia 30 Ml Oral.Susp) 30 ml PO DAILY PRN PRN Reason: Constipation Melatonin (Melatonin 3 Mg Tablet) 6 mg PO BEDTIME PRN PRN Reason: Sleep Last Admin: 08/17/23 21:36 Dose: 6 mg Neomycin/Polymyxin/Bacitracin (Neomy/Polymyx/Bacit/Ointment 14 Gm Tube) 1 gm TOPICAL BID [facility]; Protocol Last Admin: 08/23/23 11:47 Dose: Not Given Nystatin (Nystatin Powder 15 Gm Bottle) 1 appl TOPICAL BID [facility] Last Admin: 08/23/23 11:47 Dose: Not Given Pyridoxine HCl (Pyridoxine Hcl (Vitamin B6) 50 Mg Tablet) 50 mg PO DAILY [facility] Last Admin: 08/23/23 11:47 Dose: Not Given Quetiapine Fumarate (Quetiapine Fumarate 100 Mg Tablet) 100 mg PO BEDTIME [facility] Last Admin: 08/22/23 21:27 Dose: 100 mg Quetiapine Fumarate (Quetiapine Fumarate 50 Mg Tablet) 50 mg PO Q6H PRN PRN Reason: agitation Last Admin: 08/14/23 20:02 Dose: 50 mg Senna/Docusate Sodium (Sennosides/Docusate Sodium Tablet) 1 tab PO BID [facility] Last Admin: 08/23/23 11:47 Dose: Not Given Trazodone HCl (Trazodone Hcl 50 Mg Tablet) 50 mg PO BEDTIME MRX1 PRN PRN Reason: Insomnia Last Admin: 08/22/23 21:26 Dose: 50 mg Allergies Allergies Allergy/AdvReac Type Severity Reaction Status Date / Time No Known Allergies Allergy Verified 06/08/23 20:39 Assessment & Plan Assessment & Plan (1) Major 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 start ceftin 250mg po BID for UTI. 07/28 continue tx. 07/30 continue current treatment plan 07/31 continue tx plan 08/01- will switch depakote to night time to avoid day time sedation. 08/02 continue tx. scheduled tylenol for arthritis 08/03 continue tx. 08/04 continue tx. 08/05 continue tx. 08/06: COVID +. fatigued, spending much time in bed. VSS. continue current mgmt. 08/08: as per yesterday. continue current mgmt. 08/09 continue tx. 08/10 continue tx. 08/11 continue tx. 08/12 continue tx. stable from covid symptoms, afebrile, o2sat on RA>97% 08/13 ongoing illness with covid affecting pt behavior and mental health- as well as somatic symptoms 08/14 seems improved physically and mentally today- still mute- more cooperative with care 08/15/23 again in bed, withdrawn , mute and sleeping- resistant to adls which have to be performed for her 08/16 continue tx. 08/17 continue tx. 08/18 continue tx. 08/19 continue tx. 08/20 continue tx. 08/21/23- Labs TSH, urine culture, CMP, CBCD, Valproate Level Hospitalist consult Neosporin to small toe as her nail has fallen off 08/22 ordered MRI. will d/c depakote for now as pt barely moving or talking. Time Spent With Patient Time: Total time managing care of this patient today ____ minutes.
[2023-08-23 18:34] VITALS: BP 148/70; PULSE 64; RESP 18; TEMP 36.2; O2SAT 100
[2023-08-23 22:37] VITALS: TEMP 36.9; O2SAT 93
--- NOTE | 2023-08-23 23:21 | PC.NURSE ---
SpO2 @ 4 liter of O2 concentration was 100% which above baseline respiratory notified/O2 changed to 2 liter follow up SpO2 is 93 - 94% on 2 liter of O2 concentration, respiration is 18, respiratory congestion evident, afebrile, HS po medication held due to sedation and aspiration risk, will continue to monitor.
[2023-08-24 02:58] VITALS: O2SAT 93
[2023-08-24] MEDS: Heparin Sodium,Porcine 5,000 UNIT/ML VIAL 5000 UNIT SUBCUT ×2 (05:32→17:21)
[2023-08-24 09:00] VITALS: BP 116/53; PULSE 63; RESP 18; TEMP 36.6; O2SAT 94
[2023-08-24 13:30] VITALS: BMI 39.4
--- NOTE | 2023-08-24 13:39 | MHC.CLN ---
NUTRITION DIET=REGULAR, PUREE. PROVIDE FEEDING ASSIST; SEE [employer] CONSULTANT NOTE. COGNITIVE AND PHYSICAL DECLINE REPORTED. POOR PO INTAKE. DEVYN=10; NO PRESSURE INJURIES NOTED. CONTINUE TO ENCOURAGE PO INTAKE ABLE. SEE CLINICAL NUTRITION ASSESSMENT 08/24/23.
--- NOTE | 2023-08-24 16:16 | P.PNPSI_ITS ---
Subjective Subjective Date of Service: 08/24/23 Reason For Visit: dementia Subjective Notes: Section 8 Interim History: Pt in bed. More talkative but unintelligible speech. On nasal cannula on osat>94% VS stable. afebrile. some cough and congestion. No use of accessory muscles SonInderjit completed MOlst. Pt is now DNR/DNI. Mental Status Exam Mental Status Exam Narrative: pt in bed, unintelligible speech, more alert Diagnostics Vital Signs (24Hr): Vital Signs - 24 hr 08/23/23 18:34 08/23/23 22:37 08/24/23 02:58 Temperature 97.2 F 98.5 F Pulse Rate 64 Respiratory Rate 18 Blood Pressure 148/70 H Pulse Oximetry 100 93 93 Oxygen Delivery Method Simple Mask Simple Mask Simple Mask Oxygen Flow Rate 4 08/24/23 09:00 Temperature 97.9 F Pulse Rate 63 Respiratory Rate 18 Blood Pressure 116/53 L Pulse Oximetry 94 Oxygen Delivery Method Simple Mask Oxygen Flow Rate 2 BMI result Body Mass Index 39.4 Labs 08/22/23 08:42 08/22/23 08:42 Labs: Laboratory Results - last 48 hr 08/23/23 10:05 VBG pH 7.49 H VBG pCO2 36 VBG pO2 64 VBG HCO3 28 H VBG O2 Saturation 94.0 VBG Base Excess 4.8 Imaging Radiology Impressions: ITS Impressions Chest X-Ray 08/21/23 16:41 FINDINGS/IMPRESSION: The study is limited by portable technique and low lung volumes. There are right mid lung and left basilar focal patchy densities suggesting infiltrates and/or atelectasis. No effusion or pneumothorax is seen. The cardiac silhouette is suboptimally evaluated. There is mildly atherosclerotic and uncoiled, suggesting hypertension. Mild degenerative changes of the spine. Head CT 08/21/23 16:53 IMPRESSION: Patient motion degrades image quality therefore the diagnostic accuracy of this examination is limited. Numerous chronic small vessel ischemic changes are also visualized within the periventricular white matter. Grossly no evidence of acute territorial infarct or hemorrhage. Possible progression of temporal lobe atrophy when compared to prior imaging. Chest X-Ray 08/23/23 10:25 IMPRESSION: Patient tilted to the left limiting evaluation. There is bibasilar atelectasis or scarring slightly greater on the left. There is mild blunting of left CP angle from pleural effusion or thickening.. Brain MRI 08/23/23 15:39 IMPRESSION: 1. No acute intracranial abnormalities. No demonstrated abnormal intracranial enhancement. 2. Chronic regions of encephalomalacia in the right frontal lobe, left temporal lobe, and left occipital lobe. 3. Moderate to extensive underlying microangiopathy and generalized cerebral volume loss. 4. Extensive scattered foci of susceptibility artifact throughout the bilateral cerebral hemispheres as may be seen with underlying amyloid angiopathy. Medications Medications Current Medications Acetaminophen (Acetaminophen 325 Mg Tablet) 650 mg PO TID [facility] Last Admin: 08/24/23 14:00 Dose: Not Given Al Hydroxide/Mg Hydroxide (Magnesium Hydrox/Alum Hydrox 30 Ml Oral.Susp) 30 ml PO Q6H PRN PRN Reason: Heartburn/Nausea Aspirin (Aspirin 81 Mg Tab.Chew) 81 mg PO DAILY [facility] Last Admin: 08/24/23 11:10 Dose: Not Given Dexamethasone (Dexamethasone 6 Mg Tablet) 6 mg PO DAILY [facility] Stop: 09/02/23 09:01 Last Admin: 08/24/23 11:10 Dose: Not Given Escitalopram Oxalate (Escitalopram Oxalate 20 Mg Tablet) 20 mg PO DAILY [facility] Last Admin: 08/24/23 11:10 Dose: Not Given Fluticasone Propionate (Fluticasone Propionate Nasal 16 Gm [place]) 1 spray NOSTRIL-B BID [facility] Last Admin: 08/24/23 11:10 Dose: Not Given Guaifenesin (Guaifenesin [place] 600 Mg Tab.Er.12h) 600 mg PO BID PRN PRN Reason: Congestion Heparin Sodium (Porcine) (Heparin Sodium,Porcine 5,000 Unit/Ml Vial) 5,000 unit SUBCUT Q12H [facility] Last Admin: 08/24/23 05:32 Dose: 5,000 unit Lisinopril (Lisinopril 5 Mg Tablet) 5 mg PO DAILY [facility]; Protocol Last Admin: 08/24/23 11:10 Dose: Not Given Magnesium Hydroxide (Milk Of Magnesia 30 Ml Oral.Susp) 30 ml PO DAILY PRN PRN Reason: Constipation Melatonin (Melatonin 3 Mg Tablet) 6 mg PO BEDTIME PRN PRN Reason: Sleep Last Admin: 08/17/23 21:36 Dose: 6 mg Neomycin/Polymyxin/Bacitracin (Neomy/Polymyx/Bacit/Ointment 14 Gm Tube) 1 gm TOPICAL BID [facility]; Protocol Last Admin: 08/24/23 11:10 Dose: Not Given Nystatin (Nystatin Powder 15 Gm Bottle) 1 appl TOPICAL BID [facility] Last Admin: 08/24/23 11:10 Dose: Not Given Pyridoxine HCl (Pyridoxine Hcl (Vitamin B6) 50 Mg Tablet) 50 mg PO DAILY [facility] Last Admin: 08/24/23 11:11 Dose: Not Given Quetiapine Fumarate (Quetiapine Fumarate 100 Mg Tablet) 100 mg PO BEDTIME [facility] Last Admin: 08/23/23 22:44 Dose: Not Given Quetiapine Fumarate (Quetiapine Fumarate 50 Mg Tablet) 50 mg PO Q6H PRN PRN Reason: agitation Last Admin: 08/14/23 20:02 Dose: 50 mg Senna/Docusate Sodium (Sennosides/Docusate Sodium Tablet) 1 tab PO BID [facility] Last Admin: 08/24/23 11:11 Dose: Not Given Trazodone HCl (Trazodone Hcl 50 Mg Tablet) 50 mg PO BEDTIME MRX1 PRN PRN Reason: Insomnia Last Admin: 08/22/23 21:26 Dose: 50 mg Allergies Allergies Allergy/AdvReac Type Severity Reaction Status Date / Time No Known Allergies Allergy Verified 06/08/23 20:39 Assessment & Plan Assessment & Plan (1) Major 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 start ceftin 250mg po BID for UTI. 07/28 continue tx. 07/30 continue current treatment plan 07/31 continue tx plan 08/01- will switch depakote to night time to avoid day time sedation. 08/02 continue tx. scheduled tylenol for arthritis 08/03 continue tx. 08/04 continue tx. 08/05 continue tx. 08/06: COVID +. fatigued, spending much time in bed. VSS. continue current mgmt. 08/08: as per yesterday. continue current mgmt. 08/09 continue tx. 08/10 continue tx. 08/11 continue tx. 08/12 continue tx. stable from covid symptoms, afebrile, o2sat on RA>97% 08/13 ongoing illness with covid affecting pt behavior and mental health- as well as somatic symptoms 08/14 seems improved physically and mentally today- still mute- more cooperative with care 08/15/23 again in bed, withdrawn , mute and sleeping- resistant to adls which have to be performed for her 08/16 continue tx. 08/17 continue tx. 08/18 continue tx. 08/19 continue tx. 08/20 continue tx. 08/21/23- Labs TSH, urine culture, CMP, CBCD, Valproate Level Hospitalist consult Neosporin to small toe as her nail has fallen off 08/22 ordered MRI. will d/c depakote for now as pt barely moving or talking. 08/23 continue tx. monitor O2sat q6h. continue NC 2-4L. maintain O2sat >92% 08/24 continue tx. MRI completed awaiting neurology input. Reason for continued inpatient stay Substantial Risk for: inability to function Time Spent With Patient Time: Total time managing care of this patient today ____ minutes.
[2023-08-24] MEDS: Fluticasone Propionate Nasal 16 GM SPRAY 1 SPRAY NOSTRIL-B (21:04)
[2023-08-24] MEDS: dexAMETHasone 6 MG TABLET PO (22:25)
[2023-08-24 22:39] VITALS: BP 144/69; PULSE 74; RESP 15; TEMP 36.6; O2SAT 94
[2023-08-25] MEDS: Heparin Sodium,Porcine 5,000 UNIT/ML VIAL 5000 UNIT SUBCUT ×2 (05:08→18:23)
--- NOTE | 2023-08-25 06:17 | PC.NURSE ---
During rounding it was found that patient was not wearing oxygen simple mask which is consistent with report, SpO2 assessed and was 94% at room air, O2 concentration equipment turned off placed in nurses station, follow up SpO2 was 94% at RA, Dexamethasone 6 mg daily for 10 days, first dose administered/crushed with ice cream which patient swallowed with any difficulties, patient ate one and half cup of ice cream, patient slept well with minimal intermittent coughing, incontinent with bowel and bladder, incontinence care provided, patient was resistive with care and verbally abusive during care, respiration +/=/non-labored bilaterally at this time, scheduled heparin administered as ordered, will continue to monitor.
[2023-08-25 09:00] VITALS: O2SAT 94
--- NOTE | 2023-08-25 09:04 | P.PNPSI_ITS ---
Subjective Subjective Date of Service: 08/25/23 Reason For Visit: dementia Subjective Notes: Section 8 Interim History: Pt in bed. O2sat>94% on RA. Pt mostly in bed, not talking nor getting out of bed. Some sips of water and applesauce. minimal intake. Review of Systems Review of Systems Could not be done with her Yes all other systems are reviewed and are negative, Unobtainable due to mental condition and Unobtainable due to mental status Mental Status Exam Mental Status Exam Narrative: pt in bed, unintelligible speech, more alert Diagnostics Vital Signs (24Hr): Vital Signs - 24 hr 08/24/23 22:39 Temperature 97.8 F Pulse Rate 74 Respiratory Rate 15 Blood Pressure 144/69 H Pulse Oximetry 94 Oxygen Delivery Method Room Air BMI result Body Mass Index 39.4 Labs 08/22/23 08:42 08/22/23 08:42 Labs: Laboratory Results - last 48 hr 08/23/23 10:05 VBG pH 7.49 H VBG pCO2 36 VBG pO2 64 VBG HCO3 28 H VBG O2 Saturation 94.0 VBG Base Excess 4.8 Imaging Radiology Impressions: ITS Impressions Chest X-Ray 08/21/23 16:41 FINDINGS/IMPRESSION: The study is limited by portable technique and low lung volumes. There are right mid lung and left basilar focal patchy densities suggesting infiltrates and/or atelectasis. No effusion or pneumothorax is seen. The cardiac silhouette is suboptimally evaluated. There is mildly atherosclerotic and uncoiled, suggesting hypertension. Mild degenerative changes of the spine. Head CT 08/21/23 16:53 IMPRESSION: Patient motion degrades image quality therefore the diagnostic accuracy of this examination is limited. Numerous chronic small vessel ischemic changes are also visualized within the periventricular white matter. Grossly no evidence of acute territorial infarct or hemorrhage. Possible progression of temporal lobe atrophy when compared to prior imaging. Chest X-Ray 08/23/23 10:25 IMPRESSION: Patient tilted to the left limiting evaluation. There is bibasilar atelectasis or scarring slightly greater on the left. There is mild blunting of left CP angle from pleural effusion or thickening.. Brain MRI 08/23/23 15:39 IMPRESSION: 1. No acute intracranial abnormalities. No demonstrated abnormal intracranial enhancement. 2. Chronic regions of encephalomalacia in the right frontal lobe, left temporal lobe, and left occipital lobe. 3. Moderate to extensive underlying microangiopathy and generalized cerebral volume loss. 4. Extensive scattered foci of susceptibility artifact throughout the bilateral cerebral hemispheres as may be seen with underlying amyloid angiopathy. Medications Medications Current Medications Acetaminophen (Acetaminophen 325 Mg Tablet) 650 mg PO TID [facility] Last Admin: 08/24/23 21:00 Dose: Not Given Al Hydroxide/Mg Hydroxide (Magnesium Hydrox/Alum Hydrox 30 Ml Oral.Susp) 30 ml PO Q6H PRN PRN Reason: Heartburn/Nausea Aspirin (Aspirin 81 Mg Tab.Chew) 81 mg PO DAILY [facility] Last Admin: 08/24/23 11:10 Dose: Not Given Dexamethasone (Dexamethasone 6 Mg Tablet) 6 mg PO DAILY [facility] Stop: 09/02/23 09:01 Last Admin: 08/24/23 22:25 Dose: 6 mg Escitalopram Oxalate (Escitalopram Oxalate 20 Mg Tablet) 20 mg PO DAILY [facility] Last Admin: 08/24/23 11:10 Dose: Not Given Fluticasone Propionate (Fluticasone Propionate Nasal 16 Gm [place]) 1 spray NOSTRIL-B BID [facility] Last Admin: 08/24/23 21:04 Dose: 1 spray Guaifenesin (Guaifenesin La 600 Mg Tab.Er.12h) 600 mg PO BID PRN PRN Reason: Congestion Heparin Sodium (Porcine) (Heparin Sodium,Porcine 5,000 Unit/Ml Vial) 5,000 unit SUBCUT Q12H [facility] Last Admin: 08/25/23 05:08 Dose: 5,000 unit Lisinopril (Lisinopril 5 Mg Tablet) 5 mg PO DAILY [facility]; Protocol Last Admin: 08/24/23 11:10 Dose: Not Given Magnesium Hydroxide (Milk Of Magnesia 30 Ml Oral.Susp) 30 ml PO DAILY PRN PRN Reason: Constipation Melatonin (Melatonin 3 Mg Tablet) 6 mg PO BEDTIME PRN PRN Reason: Sleep Last Admin: 08/17/23 21:36 Dose: 6 mg Neomycin/Polymyxin/Bacitracin (Neomy/Polymyx/Bacit/Ointment 14 Gm Tube) 1 gm TOPICAL BID [facility]; Protocol Last Admin: 08/24/23 21:04 Dose: 1 gm Nystatin (Nystatin Powder 15 Gm Bottle) 1 appl TOPICAL BID [facility] Last Admin: 08/24/23 21:01 Dose: Not Given Pyridoxine HCl (Pyridoxine Hcl (Vitamin B6) 50 Mg Tablet) 50 mg PO DAILY [facility] Last Admin: 08/24/23 11:11 Dose: Not Given Quetiapine Fumarate (Quetiapine Fumarate 100 Mg Tablet) 100 mg PO BEDTIME [facility] Last Admin: 08/23/23 22:44 Dose: Not Given Quetiapine Fumarate (Quetiapine Fumarate 50 Mg Tablet) 50 mg PO Q6H PRN PRN Reason: agitation Last Admin: 08/14/23 20:02 Dose: 50 mg Senna/Docusate Sodium (Sennosides/Docusate Sodium Tablet) 1 tab PO BID [facility] Last Admin: 08/24/23 21:00 Dose: Not Given Trazodone HCl (Trazodone Hcl 50 Mg Tablet) 50 mg PO BEDTIME MRX1 PRN PRN Reason: Insomnia Last Admin: 08/22/23 21:26 Dose: 50 mg Allergies Allergies Allergy/AdvReac Type Severity Reaction Status Date / Time No Known Allergies Allergy Verified 06/08/23 20:39 Assessment & Plan Assessment & Plan (1) Major 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 start ceftin 250mg po BID for UTI. 07/28 continue tx. 07/30 continue current treatment plan 07/31 continue tx plan 08/01- will switch depakote to night time to avoid day time sedation. 08/02 continue tx. scheduled tylenol for arthritis 08/03 continue tx. 08/04 continue tx. 08/05 continue tx. 08/06: COVID +. fatigued, spending much time in bed. VSS. continue current mgmt. 08/08: as per yesterday. continue current mgmt. 08/09 continue tx. 08/10 continue tx. 08/11 continue tx. 08/12 continue tx. stable from covid symptoms, afebrile, o2sat on RA>97% 08/13 ongoing illness with covid affecting pt behavior and mental health- as well as somatic symptoms 08/14 seems improved physically and mentally today- still mute- more cooperative with care 08/15/23 again in bed, withdrawn , mute and sleeping- resistant to adls which have to be performed for her 08/16 continue tx. 08/17 continue tx. 08/18 continue tx. 08/19 continue tx. 08/20 continue tx. 08/21/23- Labs TSH, urine culture, CMP, CBCD, Valproate Level Hospitalist consult Neosporin to small toe as her nail has fallen off 08/22 ordered MRI. will d/c depakote for now as pt barely moving or talking. 08/23 continue tx. monitor O2sat q6h. continue NC 2-4L. maintain O2sat >92% 08/24 continue tx. MRI completed awaiting neurology input. 08/25 continue tx. Reason for continued inpatient stay Substantial Risk for: inability to function Time Spent With Patient Time: Total time managing care of this patient today ____ minutes.
[2023-08-25] MEDS: Pyridoxine HCl (Vitamin B6) 50 MG TABLET PO (10:07)
[2023-08-25] MEDS: lisinopriL 5 MG TABLET PO (10:07)
[2023-08-25] MEDS: dexAMETHasone 6 MG TABLET PO (10:07)
[2023-08-25] MEDS: Acetaminophen 325 MG TABLET 650 MG PO ×3 (10:07→22:09)
[2023-08-25] MEDS: Aspirin 81 MG TAB.CHEW PO (10:07)
[2023-08-25] MEDS: Sennosides/Docusate Sodium TABLET 1 TAB PO ×2 (10:07→19:44)
[2023-08-25] MEDS: Escitalopram Oxalate 20 MG TABLET PO (10:08)
[2023-08-25 11:32] VITALS: BMI 35.5
[2023-08-25 19:30] VITALS: BP 168/92; PULSE 52; RESP 16; TEMP 36.1; O2SAT 95
[2023-08-25] MEDS: Fluticasone Propionate Nasal 16 GM SPRAY 1 SPRAY NOSTRIL-B (19:43)
[2023-08-25] MEDS: traZODone HCL 50 MG TABLET PO (19:44)
[2023-08-25] MEDS: QUEtiapine Fumarate 50 MG TABLET PO (19:44)
[2023-08-26] MEDS: Heparin Sodium,Porcine 5,000 UNIT/ML VIAL 5000 UNIT SUBCUT ×2 (05:00→18:46)
[2023-08-26 05:35] VITALS: RESP 16; O2SAT 94
[2023-08-26 08:30] VITALS: BP 127/74; PULSE 73; RESP 16; TEMP 36.3; O2SAT 96
[2023-08-26] MEDS: lisinopriL 5 MG TABLET PO (08:37)
[2023-08-26] MEDS: Aspirin 81 MG TAB.CHEW PO (08:37)
[2023-08-26] MEDS: Escitalopram Oxalate 20 MG TABLET PO (08:37)
[2023-08-26] MEDS: Sennosides/Docusate Sodium TABLET 1 TAB PO ×2 (08:38→21:08)
[2023-08-26] MEDS: Acetaminophen 325 MG TABLET 650 MG PO ×3 (08:38→21:06)
[2023-08-26] MEDS: Pyridoxine HCl (Vitamin B6) 50 MG TABLET PO (08:38)
[2023-08-26] MEDS: dexAMETHasone 6 MG TABLET PO (08:38)
--- NOTE | 2023-08-26 09:03 | HO.PSYCHPN ---
Subjective Subjective Date of Service: 08/26/23 Reason For Visit: dementia Subjective Notes: Section 8 Interim History: Pt more talkative today. She looked at this public relations writer and stated you look beautiful. nice sweater She was mostly in bed. She was able to drink some fluids with assistance of nursing. VS stable, o2sat>94% Review of Systems Review of Systems Could not be done with her Yes all other systems are reviewed and are negative, Unobtainable due to mental condition and Unobtainable due to mental status Mental Status Exam Mental Status Exam Narrative: In bed, in NAD. More spontaneous speech, slightly more intelligible. Diagnostics Vital Signs (24Hr): Vital Signs - 24 hr 08/25/23 19:30 08/26/23 05:35 Temperature 96.9 F Pulse Rate 52 Respiratory Rate 16 16 Blood Pressure 168/92 H Pulse Oximetry 95 94 Oxygen Delivery Method Room Air Room Air BMI result Body Mass Index 35.5 Labs 08/22/23 08:42 08/22/23 08:42 Imaging Radiology Impressions: ITS Impressions Chest X-Ray 08/21/23 16:41 FINDINGS/IMPRESSION: The study is limited by portable technique and low lung volumes. There are right mid lung and left basilar focal patchy densities suggesting infiltrates and/or atelectasis. No effusion or pneumothorax is seen. The cardiac silhouette is suboptimally evaluated. There is mildly atherosclerotic and uncoiled, suggesting hypertension. Mild degenerative changes of the spine. Head CT 08/21/23 16:53 IMPRESSION: Patient motion degrades image quality therefore the diagnostic accuracy of this examination is limited. Numerous chronic small vessel ischemic changes are also visualized within the periventricular white matter. Grossly no evidence of acute territorial infarct or hemorrhage. Possible progression of temporal lobe atrophy when compared to prior imaging. Chest X-Ray 08/23/23 10:25 IMPRESSION: Patient tilted to the left limiting evaluation. There is bibasilar atelectasis or scarring slightly greater on the left. There is mild blunting of left CP angle from pleural effusion or thickening.. Brain MRI 08/23/23 15:39 IMPRESSION: 1. No acute intracranial abnormalities. No demonstrated abnormal intracranial enhancement. 2. Chronic regions of encephalomalacia in the right frontal lobe, left temporal lobe, and left occipital lobe. 3. Moderate to extensive underlying microangiopathy and generalized cerebral volume loss. 4. Extensive scattered foci of susceptibility artifact throughout the bilateral cerebral hemispheres as may be seen with underlying amyloid angiopathy. Medications Medications Current Medications Acetaminophen (Acetaminophen 325 Mg Tablet) 650 mg PO TID [facility] Last Admin: 08/26/23 08:38 Dose: 650 mg Al Hydroxide/Mg Hydroxide (Magnesium Hydrox/Alum Hydrox 30 Ml Oral.Susp) 30 ml PO Q6H PRN PRN Reason: Heartburn/Nausea Aspirin (Aspirin 81 Mg Tab.Chew) 81 mg PO DAILY [facility] Last Admin: 08/26/23 08:37 Dose: 81 mg Dexamethasone (Dexamethasone 6 Mg Tablet) 6 mg PO DAILY [facility] Stop: 09/02/23 09:01 Last Admin: 08/26/23 08:38 Dose: 6 mg Escitalopram Oxalate (Escitalopram Oxalate 20 Mg Tablet) 20 mg PO DAILY [facility] Last Admin: 08/26/23 08:37 Dose: 20 mg Fluticasone Propionate (Fluticasone Propionate Nasal 16 Gm [place]) 1 spray NOSTRIL-B BID [facility] Last Admin: 08/25/23 19:43 Dose: 1 spray Guaifenesin (Guaifenesin La 600 Mg Tab.Er.12h) 600 mg PO BID PRN PRN Reason: Congestion Heparin Sodium (Porcine) (Heparin Sodium,Porcine 5,000 Unit/Ml Vial) 5,000 unit SUBCUT Q12H [facility] Last Admin: 08/26/23 05:00 Dose: 5,000 unit Lisinopril (Lisinopril 5 Mg Tablet) 5 mg PO DAILY [facility]; Protocol Last Admin: 08/26/23 08:37 Dose: 5 mg Magnesium Hydroxide (Milk Of Magnesia 30 Ml Oral.Susp) 30 ml PO DAILY PRN PRN Reason: Constipation Melatonin (Melatonin 3 Mg Tablet) 6 mg PO BEDTIME PRN PRN Reason: Sleep Last Admin: 08/17/23 21:36 Dose: 6 mg Neomycin/Polymyxin/Bacitracin (Neomy/Polymyx/Bacit/Ointment 14 Gm Tube) 1 gm TOPICAL BID [facility]; Protocol Last Admin: 08/25/23 19:43 Dose: 1 gm Nystatin (Nystatin Powder 15 Gm Bottle) 1 appl TOPICAL BID [facility] Last Admin: 08/25/23 22:37 Dose: Not Given Pyridoxine HCl (Pyridoxine Hcl (Vitamin B6) 50 Mg Tablet) 50 mg PO DAILY [facility] Last Admin: 01/12/24 08:38 Dose: 50 mg Quetiapine Fumarate (Quetiapine Fumarate 100 Mg Tablet) 100 mg PO BEDTIME [facility] Last Admin: 08/23/23 22:44 Dose: Not Given Quetiapine Fumarate (Quetiapine Fumarate 50 Mg Tablet) 50 mg PO Q6H PRN PRN Reason: agitation Last Admin: 08/25/23 19:44 Dose: 50 mg Senna/Docusate Sodium (Sennosides/Docusate Sodium Tablet) 1 tab PO BID [facility] Last Admin: 08/26/23 08:38 Dose: 1 tab Trazodone HCl (Trazodone Hcl 50 Mg Tablet) 50 mg PO BEDTIME MRX1 PRN PRN Reason: Insomnia Last Admin: 08/25/23 19:44 Dose: 50 mg Allergies Allergies Allergy/AdvReac Type Severity Reaction Status Date / Time No Known Allergies Allergy Verified 06/08/23 20:39 Assessment & Plan Assessment & Plan (1) Major 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 start ceftin 250mg po BID for UTI. 07/28 continue tx. 07/30 continue current treatment plan 07/31 continue tx plan 08/01- will switch depakote to night time to avoid day time sedation. 08/02 continue tx. scheduled tylenol for arthritis 08/03 continue tx. 08/04 continue tx. 08/05 continue tx. 08/06: COVID +. fatigued, spending much time in bed. VSS. continue current mgmt. 08/08: as per yesterday. continue current mgmt. 08/09 continue tx. 08/10 continue tx. 08/11 continue tx. 08/12 continue tx. stable from covid symptoms, afebrile, o2sat on RA>97% 08/13 ongoing illness with covid affecting pt behavior and mental health- as well as somatic symptoms 08/14 seems improved physically and mentally today- still mute- more cooperative with care 08/15/23 again in bed, withdrawn , mute and sleeping- resistant to adls which have to be performed for her 08/16 continue tx. 08/17 continue tx. 08/18 continue tx. 08/19 continue tx. 08/20 continue tx. 08/21/- Labs TSH, urine culture, CMP, CBCD, Valproate Level Hospitalist consult Neosporin to small toe as her nail has fallen off 08/22 ordered MRI. will d/c depakote for now as pt barely moving or talking. 08/23 continue tx. monitor O2sat q6h. continue NC 2-4L. maintain O2sat >92% 08/24 continue tx. MRI completed awaiting neurology input. 08/25 continue tx. 08/26 continue tx. Reason for continued inpatient stay Substantial Risk for: inability to function Time Spent With Patient Time: Total time managing care of this patient today ____ minutes.
[2023-08-26] MEDS: Nystatin Powder 15 GM BOTTLE 1 APPL TOPICAL ×2 (11:00→21:04)
[2023-08-26 13:00] VITALS: O2SAT 94
[2023-08-26 18:00] VITALS: BP 119/60; PULSE 59; RESP 20; TEMP 36.1; O2SAT 94
[2023-08-26] MEDS: Fluticasone Propionate Nasal 16 GM SPRAY 1 SPRAY NOSTRIL-B (21:05)
[2023-08-26] MEDS: Melatonin 3 MG TABLET 6 MG PO (21:07)
[2023-08-26] MEDS: traZODone HCL 50 MG TABLET PO (21:08)
[2023-08-26] MEDS: QUEtiapine Fumarate 50 MG TABLET PO (21:08)
[2023-08-27] MEDS: Heparin Sodium,Porcine 5,000 UNIT/ML VIAL 5000 UNIT SUBCUT ×2 (06:14→17:35)
--- NOTE | 2023-08-27 07:43 | HO.PSYCHPN ---
Subjective Subjective Date of Service: 08/27/23 Reason For Visit: dementia Subjective Notes: Conditional Voluntary Interim History: The nursing staff reported the patient had been in her bed most of the time, slept well she refused medications in the morning. On interview the patient remains confused on her bed but vital signs are stable. Mental Status Exam Mental Status Exam Patient Appearance: Appropriate Patient Orientation: Person Level of Consciousness: Disoriented and Alert Patient Behavior: Guarded and Passive Mood Description: Calm Affect Description: Constricted Patient Cognition Impaired: Yes Ability to Follow Directions: Good Speech Pattern: Clear Hallucinations: None Delusions: Ideas of Reference Thought Process: Distracted and Slowed Thinking Thought Content: positive for [place] and positive for Poverty of Content Judgement: Fair Diagnostics Vital Signs (24Hr): Vital Signs - 24 hr 08/26/23 08:30 08/26/23 13:00 08/26/23 18:00 Temperature 97.3 F 97 F Pulse Rate 73 59 Respiratory Rate 16 20 Blood Pressure 127/74 119/60 Pulse Oximetry 96 94 94 Oxygen Delivery Method Room Air Room Air Room Air BMI result Body Mass Index 35.5 Labs 08/22/23 08:42 08/22/23 08:42 Imaging Radiology Impressions: ITS Impressions Chest X-Ray 08/21/23 16:41 FINDINGS/IMPRESSION: The study is limited by portable technique and low lung volumes. There are right mid lung and left basilar focal patchy densities suggesting infiltrates and/or atelectasis. No effusion or pneumothorax is seen. The cardiac silhouette is suboptimally evaluated. There is mildly atherosclerotic and uncoiled, suggesting hypertension. Mild degenerative changes of the spine. Head CT 08/21/23 16:53 IMPRESSION: Patient motion degrades image quality therefore the diagnostic accuracy of this examination is limited. Numerous chronic small vessel ischemic changes are also visualized within the periventricular white matter. Grossly no evidence of acute territorial infarct or hemorrhage. Possible progression of temporal lobe atrophy when compared to prior imaging. Chest X-Ray 08/23/23 10:25 IMPRESSION: Patient tilted to the left limiting evaluation. There is bibasilar atelectasis or scarring slightly greater on the left. There is mild blunting of left CP angle from pleural effusion or thickening.. Brain MRI 08/23/23 15:39 IMPRESSION: 1. No acute intracranial abnormalities. No demonstrated abnormal intracranial enhancement. 2. Chronic regions of encephalomalacia in the right frontal lobe, left temporal lobe, and left occipital lobe. 3. Moderate to extensive underlying microangiopathy and generalized cerebral volume loss. 4. Extensive scattered foci of susceptibility artifact throughout the bilateral cerebral hemispheres as may be seen with underlying amyloid angiopathy. Medications Medications Current Medications Acetaminophen (Acetaminophen 325 Mg Tablet) 650 mg PO TID [facility] Last Admin: 08/26/23 21:06 Dose: 650 mg Al Hydroxide/Mg Hydroxide (Magnesium Hydrox/Alum Hydrox 30 Ml Oral.Susp) 30 ml PO Q6H PRN PRN Reason: Heartburn/Nausea Aspirin (Aspirin 81 Mg Tab.Chew) 81 mg PO DAILY [facility] Last Admin: 08/26/23 08:37 Dose: 81 mg Dexamethasone (Dexamethasone 6 Mg Tablet) 6 mg PO DAILY [facility] Stop: 09/02/23 09:01 Last Admin: 08/26/23 08:38 Dose: 6 mg Escitalopram Oxalate (Escitalopram Oxalate 20 Mg Tablet) 20 mg PO DAILY [facility] Last Admin: 08/26/23 08:37 Dose: 20 mg Fluticasone Propionate (Fluticasone Propionate Nasal 16 Gm [place]) 1 spray NOSTRIL-B BID [facility] Last Admin: 08/26/23 21:05 Dose: 1 spray Guaifenesin (Guaifenesin [place] 600 Mg Tab.Er.12h) 600 mg PO BID PRN PRN Reason: Congestion Heparin Sodium (Porcine) (Heparin Sodium,Porcine 5,000 Unit/Ml Vial) 5,000 unit SUBCUT Q12H [facility] Last Admin: 08/27/23 06:14 Dose: 5,000 unit Lisinopril (Lisinopril 5 Mg Tablet) 5 mg PO DAILY [facility]; Protocol Last Admin: 08/26/23 08:37 Dose: 5 mg Magnesium Hydroxide (Milk Of Magnesia 30 Ml Oral.Susp) 30 ml PO DAILY PRN PRN Reason: Constipation Melatonin (Melatonin 3 Mg Tablet) 6 mg PO BEDTIME PRN PRN Reason: Sleep Last Admin: 08/26/23 21:07 Dose: 6 mg Neomycin/Polymyxin/Bacitracin (Neomy/Polymyx/Bacit/Ointment 14 Gm Tube) 1 gm TOPICAL BID [facility]; Protocol Last Admin: 08/26/23 21:04 Dose: 1 gm Nystatin (Nystatin Powder 15 Gm Bottle) 1 appl TOPICAL BID [facility] Last Admin: 08/26/23 21:04 Dose: 1 appl Pyridoxine HCl (Pyridoxine Hcl (Vitamin B6) 50 Mg Tablet) 50 mg PO DAILY [facility] Last Admin: 08/26/23 08:38 Dose: 50 mg Quetiapine Fumarate (Quetiapine Fumarate 100 Mg Tablet) 100 mg PO BEDTIME [facility] Last Admin: 08/23/23 22:44 Dose: Not Given Quetiapine Fumarate (Quetiapine Fumarate 50 Mg Tablet) 50 mg PO Q6H PRN PRN Reason: agitation Last Admin: 08/26/23 21:08 Dose: 50 mg Senna/Docusate Sodium (Sennosides/Docusate Sodium Tablet) 1 tab PO BID [facility] Last Admin: 08/26/23 21:08 Dose: 1 tab Trazodone HCl (Trazodone Hcl 50 Mg Tablet) 50 mg PO BEDTIME MRX1 PRN PRN Reason: Insomnia Last Admin: 08/26/23 21:08 Dose: 50 mg Allergies Allergies Allergy/AdvReac Type Severity Reaction Status Date / Time No Known Allergies Allergy Verified 06/08/23 20:39 Assessment & Plan Assessment & Plan (1) Major 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 start ceftin 250mg po BID for UTI. 07/28 continue tx. 07/30 continue current treatment plan 07/31 continue tx plan 08/01- will switch depakote to night time to avoid day time sedation. 08/02 continue tx. scheduled tylenol for arthritis 08/03 continue tx. 08/04 continue tx. 08/05 continue tx. 08/06: COVID +. fatigued, spending much time in bed. VSS. continue current mgmt. 08/08: as per yesterday. continue current mgmt. 08/09 continue tx. 08/10 continue tx. 08/11 continue tx. 08/12 continue tx. stable from covid symptoms, afebrile, o2sat on RA>97% 08/13 ongoing illness with covid affecting pt behavior and mental health- as well as somatic symptoms 08/14 seems improved physically and mentally today- still mute- more cooperative with care 08/15/23 again in bed, withdrawn , mute and sleeping- resistant to adls which have to be performed for her 08/16 continue tx. 08/17 continue tx. 08/18 continue tx. 08/19 continue tx. 08/20 continue tx. 08/21/23- Labs TSH, urine culture, CMP, CBCD, Valproate Level Hospitalist consult Neosporin to small toe as her nail has fallen off 08/22 ordered MRI. will d/c depakote for now as pt barely moving or talking. 08/23 continue tx. monitor O2sat q6h. continue NC 2-4L. maintain O2sat >92% 08/24 continue tx. MRI completed awaiting neurology input. 08/25 continue tx. 08/26 continue same treatment. Reason for continued inpatient stay Substantial Risk for: inability to function, rapid decompensation and med/psych decompensation Time Spent With Patient Time: Total time managing care of this patient today ___20_ minutes.
[2023-08-27 09:00] VITALS: BP 132/64; PULSE 61; RESP 18; TEMP 36.4; O2SAT 95
[2023-08-27] MEDS: lisinopriL 5 MG TABLET PO (09:10)
[2023-08-27] MEDS: dexAMETHasone 6 MG TABLET PO (09:10)
[2023-08-27] MEDS: Acetaminophen 325 MG TABLET 650 MG PO ×3 (09:10→21:35)
[2023-08-27] MEDS: Escitalopram Oxalate 20 MG TABLET PO (09:10)
[2023-08-27] MEDS: Sennosides/Docusate Sodium TABLET 1 TAB PO ×2 (09:11→21:36)
[2023-08-27] MEDS: Pyridoxine HCl (Vitamin B6) 50 MG TABLET PO (09:11)
[2023-08-27] MEDS: Nystatin Powder 15 GM BOTTLE 1 APPL TOPICAL ×2 (09:11→21:34)
[2023-08-27] MEDS: Aspirin 81 MG TAB.CHEW PO (09:11)
[2023-08-27] MEDS: Fluticasone Propionate Nasal 16 GM SPRAY 1 SPRAY NOSTRIL-B ×2 (09:12→21:34)
[2023-08-27 16:05] VITALS: BP 116/62; PULSE 108; TEMP 36.4; O2SAT 81
--- NOTE | 2023-08-27 16:54 | PC.NURSE ---
Patient noted to have bluish tint to lips around 1600. Vitals taken. P 108, BP 116/82, O2 81%. Respirations unlabored. Patient did not appear to be id distress. O2 via NC applied at 2L and increased to 4, 6 and 8 L to get patient up to 88-90. Provider notified. O2 at 6L keeping sats at 90. Patient comfortable. Will continue to monitor.
[2023-08-27 20:00] VITALS: BP 125/60; PULSE 93; RESP 20; TEMP 36.1; O2SAT 92
[2023-08-27] MEDS: Albuterol/Iprat 2.5/0.5MG 3 ML AMPUL.NEB INHALE (20:59)
[2023-08-27 21:00] VITALS: O2SAT 90
[2023-08-27 21:11] VITALS: PULSE 92; RESP 20; O2SAT 84
[2023-08-27] MEDS: Melatonin 3 MG TABLET 6 MG PO (21:34)
[2023-08-27 22:15] VITALS: O2SAT 90
--- NOTE | 2023-08-27 22:18 | PC.NURSE ---
Addendum entered by Ludin Alamo RN 08/27/23 22:26: [id number], respirations even and unlabored when not combative Original Note: reports pt was cyanotic before dinner. put on 6L O2. SAO2 88-90%@6L O2. @1999 SAo2 92-93%@6L O2. hospitalist notified, O2 order obtained-keep@90%. 2029 given nebulizer from respiratory, 2099 chest x-ray done, report pending. pt was combative with care, took HS medications in yogurt. . pt resting comfortably at this time. SAO2 88-90%w/6L@2115, 90%w/6L@2215
[2023-08-27] MEDS: traZODone HCL 50 MG TABLET PO (23:01)
[2023-08-27] MEDS: QUEtiapine Fumarate 50 MG TABLET PO (23:01)
[2023-08-28] MEDS: Heparin Sodium,Porcine 5,000 UNIT/ML VIAL 5000 UNIT SUBCUT ×2 (06:17→17:18)
[2023-08-28 06:43] VITALS: PULSE 92; RESP 20; O2SAT 91
[2023-08-28 08:19] VITALS: BP 128/64; PULSE 93; RESP 18; TEMP 36.3; O2SAT 93
[2023-08-28] MEDS: Albuterol/Iprat 2.5/0.5MG 3 ML AMPUL.NEB INHALE (08:43)
[2023-08-28 08:45] VITALS: PULSE 81; RESP 18; O2SAT 88
--- NOTE | 2023-08-28 09:26 | P.PNPSI_ITS ---
Subjective Subjective Date of Service: 08/28/23 Reason For Visit: dementia Interim History: The nursing staff reported the patient had been on bed most of the time, her saturations oxygen dropped and she has on a mask right now. On interview the patient remains on her bed confused at times but easily redirectable. Mental Status Exam Mental Status Exam Patient Appearance: Appropriate Patient Orientation: Person and Situation Level of Consciousness: Awake and Appropriate Patient Behavior: Guarded and Passive Mood Description: Withdrawn and Constricted Affect Description: Blunted Patient Cognition Impaired: Yes Ability to Follow Directions: Good Speech Pattern: Clear Hallucinations: None Delusions: Ideas of Reference Thought Content: positive for [place] and positive for Poverty of Content Judgement: Poor Diagnostics Vital Signs (24Hr): Vital Signs - 24 hr 08/27/23 16:05 08/27/23 20:00 08/27/23 21:00 Temperature 97.6 F 96.9 F Pulse Rate 108 H 93 Respiratory Rate 20 Blood Pressure 116/62 125/60 Pulse Oximetry 81 L 92 90 L Oxygen Delivery Method Room Air Simple Mask Simple Mask Oxygen Flow Rate 6 6 08/27/23 21:11 08/27/23 22:15 08/28/23 06:43 Temperature Pulse Rate 92 92 Respiratory Rate 20 20 Blood Pressure Pulse Oximetry 90 L 91 L Oxygen Delivery Method Simple Mask Simple Mask Oxygen Flow Rate 6 6 08/28/23 08:19 08/28/23 08:45 Temperature 97.3 F Pulse Rate 93 81 Respiratory Rate 18 18 Blood Pressure 128/64 Pulse Oximetry 93 Oxygen Delivery Method Simple Mask Oxygen Flow Rate 6 BMI result Body Mass Index 35.5 Labs 08/22/23 08:42 08/22/23 08:42 Imaging Radiology Impressions: ITS Impressions Chest X-Ray 08/21/23 16:41 FINDINGS/IMPRESSION: The study is limited by portable technique and low lung volumes. There are right mid lung and left basilar focal patchy densities suggesting infiltrates and/or atelectasis. No effusion or pneumothorax is seen. The cardiac silhouette is suboptimally evaluated. There is mildly atherosclerotic and uncoiled, suggesting hypertension. Mild degenerative changes of the spine. Head CT 08/21/23 16:53 IMPRESSION: Patient motion degrades image quality therefore the diagnostic accuracy of this examination is limited. Numerous chronic small vessel ischemic changes are also visualized within the periventricular white matter. Grossly no evidence of acute territorial infarct or hemorrhage. Possible progression of temporal lobe atrophy when compared to prior imaging. Chest X-Ray 08/23/23 10:25 IMPRESSION: Patient tilted to the left limiting evaluation. There is bibasilar atelectasis or scarring slightly greater on the left. There is mild blunting of left CP angle from pleural effusion or thickening.. Brain MRI 08/23/23 15:39 IMPRESSION: 1. No acute intracranial abnormalities. No demonstrated abnormal intracranial enhancement. 2. Chronic regions of encephalomalacia in the right frontal lobe, left temporal lobe, and left occipital lobe. 3. Moderate to extensive underlying microangiopathy and generalized cerebral volume loss. 4. Extensive scattered foci of susceptibility artifact throughout the bilateral cerebral hemispheres as may be seen with underlying amyloid angiopathy. Chest X-Ray 08/27/23 21:23 IMPRESSION: Redemonstrated mild scattered coarse reticular opacities, likely related to chronic lung disease. No new, focal consolidation. Medications Medications Current Medications Acetaminophen (Acetaminophen 325 Mg Tablet) 650 mg PO TID [facility] Last Admin: 08/27/23 21:35 Dose: 650 mg Al Hydroxide/Mg Hydroxide (Magnesium Hydrox/Alum Hydrox 30 Ml Oral.Susp) 30 ml PO Q6H PRN PRN Reason: Heartburn/Nausea Albuterol/Ipratropium (Albuterol/Iprat 2.5/0.5mg 3 Ml Ampul.Neb) 3 ml INHALE RQ4H WHILE AWAKE [facility] [place] Last Admin: 08/28/23 08:43 Dose: 3 ml Aspirin (Aspirin 81 Mg Tab.Chew) 81 mg PO DAILY [facility] [place] Last Admin: 08/27/23 09:11 Dose: 81 mg Dexamethasone (Dexamethasone 6 Mg Tablet) 6 mg PO DAILY [facility] Stop: 09/02/23 09:01 Last Admin: 08/27/23 09:10 Dose: 6 mg Escitalopram Oxalate (Escitalopram Oxalate 20 Mg Tablet) 20 mg PO DAILY [facility] [place] Last Admin: 08/27/23 09:10 Dose: 20 mg Fluticasone Propionate (Fluticasone Propionate Nasal 16 Gm [place]) 1 spray NOSTRIL-B BID [facility] [place] Last Admin: 08/27/23 21:34 Dose: 1 spray Guaifenesin (Guaifenesin La 600 Mg Tab.Er.12h) 600 mg PO BID PRN PRN Reason: Congestion Heparin Sodium (Porcine) (Heparin Sodium,Porcine 5,000 Unit/Ml Vial) 5,000 unit SUBCUT Q12H [facility] [place] Last Admin: 08/28/23 06:17 Dose: 5,000 unit Lisinopril (Lisinopril 5 Mg Tablet) 5 mg PO DAILY [facility] [place]; Protocol Last Admin: 08/27/23 09:10 Dose: 5 mg Magnesium Hydroxide (Milk Of Magnesia 30 Ml Oral.Susp) 30 ml PO DAILY PRN PRN Reason: Constipation Melatonin (Melatonin 3 Mg Tablet) 6 mg PO BEDTIME PRN PRN Reason: Sleep Last Admin: 08/27/23 21:34 Dose: 6 mg Neomycin/Polymyxin/Bacitracin (Neomy/Polymyx/Bacit/Ointment 14 Gm Tube) 1 gm TOPICAL BID [facility] [place]; Protocol Last Admin: 08/27/23 21:34 Dose: 1 gm Nystatin (Nystatin Powder 15 Gm Bottle) 1 appl TOPICAL BID [facility] [place] Last Admin: 08/27/23 21:34 Dose: 1 appl Pyridoxine HCl (Pyridoxine Hcl (Vitamin B6) 50 Mg Tablet) 50 mg PO DAILY [facility] [place] Last Admin: 08/27/23 09:11 Dose: 50 mg Quetiapine Fumarate (Quetiapine Fumarate 100 Mg Tablet) 100 mg PO BEDTIME [facility] [place] Last Admin: 08/23/23 22:44 Dose: Not Given Quetiapine Fumarate (Quetiapine Fumarate 50 Mg Tablet) 50 mg PO Q6H PRN PRN Reason: agitation Last Admin: 08/27/23 23:01 Dose: 50 mg Senna/Docusate Sodium (Sennosides/Docusate Sodium Tablet) 1 tab PO BID [facility] Last Admin: 08/27/23 21:36 Dose: 1 tab Trazodone HCl (Trazodone Hcl 50 Mg Tablet) 50 mg PO BEDTIME MRX1 PRN PRN Reason: Insomnia Last Admin: 08/27/23 23:01 Dose: 50 mg Allergies Allergies Allergy/AdvReac Type Severity Reaction Status Date / Time No Known Allergies Allergy Verified 06/08/23 20:39 Assessment & Plan Assessment & Plan (1) Major 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 start ceftin 250mg po BID for UTI. 07/28 continue tx. 07/30 continue current treatment plan 07/31 continue tx plan 08/01- will switch depakote to night time to avoid day time sedation. 08/02 continue tx. scheduled tylenol for arthritis 08/03 continue tx. 08/04 continue tx. 08/05 continue tx. 08/06: COVID +. fatigued, spending much time in bed. VSS. continue current mgmt. 08/08: as per yesterday. continue current mgmt. 08/09 continue tx. 08/10 continue tx. 08/11 continue tx. 08/12 continue tx. stable from covid symptoms, afebrile, o2sat on RA>97% 08/13 ongoing illness with covid affecting pt behavior and mental health- as well as somatic symptoms 08/14 seems improved physically and mentally today- still mute- more cooperative with care 08/15/23 again in bed, withdrawn , mute and sleeping- resistant to adls which have to be performed for her 08/16 continue tx. 08/17 continue tx. 08/18 continue tx. 08/19 continue tx. 08/20 continue tx. 08/21/23- Labs TSH, urine culture, CMP, CBCD, Valproate Level Hospitalist consult Neosporin to small toe as her nail has fallen off 08/22 ordered MRI. will d/c depakote for now as pt barely moving or talking. 08/23 continue tx. monitor O2sat q6h. continue NC 2-4L. maintain O2sat >92% 08/24 continue tx. MRI completed awaiting neurology input. 08/25 continue tx. 08/26 continue same treatment. 08/27 continue same treatment, we will do blood work for tomorrow morning. Reason for continued inpatient stay Substantial Risk for: inability to function, rapid decompensation and med/psych decompensation Time Spent With Patient Time: Total time managing care of this patient today __20__ minutes.
[2023-08-28] MEDS: Escitalopram Oxalate 20 MG TABLET PO (10:15)
[2023-08-28] MEDS: Pyridoxine HCl (Vitamin B6) 50 MG TABLET PO (10:15)
[2023-08-28] MEDS: lisinopriL 5 MG TABLET PO (10:15)
[2023-08-28] MEDS: guaiFENesin LA 600 MG TAB.ER.12H PO (10:15)
[2023-08-28] MEDS: Sennosides/Docusate Sodium TABLET 1 TAB PO ×2 (10:15→20:19)
[2023-08-28] MEDS: Acetaminophen 325 MG TABLET 650 MG PO ×3 (10:16→20:18)
[2023-08-28] MEDS: dexAMETHasone 6 MG TABLET PO (10:16)
[2023-08-28] MEDS: Fluticasone Propionate Nasal 16 GM SPRAY 1 SPRAY NOSTRIL-B ×2 (10:16→20:18)
[2023-08-28] MEDS: Aspirin 81 MG TAB.CHEW PO (10:16)
[2023-08-28] MEDS: Nystatin Powder 15 GM BOTTLE 1 APPL TOPICAL ×2 (10:17→20:18)
[2023-08-28 18:00] VITALS: BP 98/63; PULSE 75; RESP 18; TEMP 37.4; O2SAT 92
[2023-08-29] MEDS: Heparin Sodium,Porcine 5,000 UNIT/ML VIAL 5000 UNIT SUBCUT ×2 (06:03→17:57)
[2023-08-29 08:45] VITALS: BP 131/82; PULSE 93; RESP 18; TEMP 37.2; O2SAT 82
--- NOTE | 2023-08-29 09:25 | HO.PSYCHPN ---
Subjective Subjective Date of Service: 08/29/23 Reason For Visit: dementia Subjective Notes: Section 8 Interim History: Pt mostly in bed. Speech more spontaneous. She had episode of de-saturation earlier this morning, in mid 80's did go higher as she moved. Some congestion noted. She is on decadron. limited mobility and inability to regain it adds to pt decompensating condition. This content writer discussed with son pt's condition, physical deterioration. Review of Systems Review of Systems Could not be done with her Yes all other systems are reviewed and are negative, Unobtainable due to mental condition and Unobtainable due to mental status Diagnostics Vital Signs (24Hr): Vital Signs - 24 hr 08/28/23 18:00 Temperature 99.4 F Pulse Rate 75 Respiratory Rate 18 Blood Pressure 98/63 Pulse Oximetry 92 Oxygen Delivery Method Room Air BMI result Body Mass Index 35.5 Labs 08/29/23 16:56 08/29/23 16:56 Imaging Radiology Impressions: ITS Impressions Chest X-Ray 08/21/23 16:41 FINDINGS/IMPRESSION: The study is limited by portable technique and low lung volumes. There are right mid lung and left basilar focal patchy densities suggesting infiltrates and/or atelectasis. No effusion or pneumothorax is seen. The cardiac silhouette is suboptimally evaluated. There is mildly atherosclerotic and uncoiled, suggesting hypertension. Mild degenerative changes of the spine. Head CT 08/21/23 16:53 IMPRESSION: Patient motion degrades image quality therefore the diagnostic accuracy of this examination is limited. Numerous chronic small vessel ischemic changes are also visualized within the periventricular white matter. Grossly no evidence of acute territorial infarct or hemorrhage. Possible progression of temporal lobe atrophy when compared to prior imaging. Chest X-Ray 08/23/23 10:25 IMPRESSION: Patient tilted to the left limiting evaluation. There is bibasilar atelectasis or scarring slightly greater on the left. There is mild blunting of left CP angle from pleural effusion or thickening.. Brain MRI 08/23/23 15:39 IMPRESSION: 1. No acute intracranial abnormalities. No demonstrated abnormal intracranial enhancement. 2. Chronic regions of encephalomalacia in the right frontal lobe, left temporal lobe, and left occipital lobe. 3. Moderate to extensive underlying microangiopathy and generalized cerebral volume loss. 4. Extensive scattered foci of susceptibility artifact throughout the bilateral cerebral hemispheres as may be seen with underlying amyloid angiopathy. Chest X-Ray 08/27/23 21:23 IMPRESSION: Redemonstrated mild scattered coarse reticular opacities, likely related to chronic lung disease. No new, focal consolidation. Medications Medications Current Medications Acetaminophen (Acetaminophen 325 Mg Tablet) 650 mg PO TID [facility] [place] Last Admin: 08/28/23 20:18 Dose: 650 mg Al Hydroxide/Mg Hydroxide (Magnesium Hydrox/Alum Hydrox 30 Ml Oral.Susp) 30 ml PO Q6H PRN PRN Reason: Heartburn/Nausea Aspirin (Aspirin 81 Mg Tab.Chew) 81 mg PO DAILY [facility] [place] Last Admin: 08/28/23 10:16 Dose: 81 mg Dexamethasone (Dexamethasone 6 Mg Tablet) 6 mg PO DAILY [facility] [place] Stop: 09/02/23 09:01 Last Admin: 08/28/23 10:16 Dose: 6 mg Escitalopram Oxalate (Escitalopram Oxalate 20 Mg Tablet) 20 mg PO DAILY [facility] [place] Last Admin: 08/28/23 10:15 Dose: 20 mg Fluticasone Propionate (Fluticasone Propionate Nasal 16 Gm [place]) 1 spray NOSTRIL-B BID [facility] [place] Last Admin: 08/28/23 20:18 Dose: 1 spray Guaifenesin (Guaifenesin La 600 Mg Tab.Er.12h) 600 mg PO BID PRN PRN Reason: Congestion Last Admin: 08/28/23 10:15 Dose: 600 mg Heparin Sodium (Porcine) (Heparin Sodium,Porcine 5,000 Unit/Ml Vial) 5,000 unit SUBCUT Q12H [facility] [place] Last Admin: 08/29/23 06:03 Dose: 5,000 unit Lisinopril (Lisinopril 5 Mg Tablet) 5 mg PO DAILY [facility] [place]; Protocol Last Admin: 08/28/23 10:15 Dose: 5 mg Magnesium Hydroxide (Milk Of Magnesia 30 Ml Oral.Susp) 30 ml PO DAILY PRN PRN Reason: Constipation Melatonin (Melatonin 3 Mg Tablet) 6 mg PO BEDTIME PRN PRN Reason: Sleep Last Admin: 08/27/23 21:34 Dose: 6 mg Neomycin/Polymyxin/Bacitracin (Neomy/Polymyx/Bacit/Ointment 14 Gm Tube) 1 gm TOPICAL BID [facility] [place]; Protocol Last Admin: 08/28/23 20:18 Dose: 1 gm Nystatin (Nystatin Powder 15 Gm Bottle) 1 appl TOPICAL BID [facility] [place] Last Admin: 08/28/23 20:18 Dose: 1 appl Pyridoxine HCl (Pyridoxine Hcl (Vitamin B6) 50 Mg Tablet) 50 mg PO DAILY [facility] [place] Last Admin: 08/28/23 10:15 Dose: 50 mg Quetiapine Fumarate (Quetiapine Fumarate 100 Mg Tablet) 100 mg PO BEDTIME [facility] [place] Last Admin: 08/23/23 22:44 Dose: Not Given Quetiapine Fumarate (Quetiapine Fumarate 50 Mg Tablet) 50 mg PO Q6H PRN PRN Reason: agitation Last Admin: 08/27/23 23:01 Dose: 50 mg Senna/Docusate Sodium (Sennosides/Docusate Sodium Tablet) 1 tab PO BID [facility] [place] Last Admin: 08/28/23 20:19 Dose: 1 tab Trazodone HCl (Trazodone Hcl 50 Mg Tablet) 50 mg PO BEDTIME MRX1 PRN PRN Reason: Insomnia Last Admin: 08/27/23 23:01 Dose: 50 mg Allergies Allergies Allergy/AdvReac Type Severity Reaction Status Date / Time No Known Allergies Allergy Verified 06/08/23 20:39 Assessment & Plan Assessment & Plan (1) Major 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 start ceftin 250mg po BID for UTI. 07/28 continue tx. 07/30 continue current treatment plan 07/31 continue tx plan 08/01- will switch depakote to night time to avoid day time sedation. 08/02 continue tx. scheduled tylenol for arthritis 08/03 continue tx. 08/04 continue tx. 08/05 continue tx. 08/06: COVID +. fatigued, spending much time in bed. VSS. continue current mgmt. 08/08: as per yesterday. continue current mgmt. 08/09 continue tx. 08/10 continue tx. 08/11 continue tx. 08/12 continue tx. stable from covid symptoms, afebrile, o2sat on RA>97% 08/13 ongoing illness with covid affecting pt behavior and mental health- as well as somatic symptoms 08/14 seems improved physically and mentally today- still mute- more cooperative with care 08/15/23 again in bed, withdrawn , mute and sleeping- resistant to adls which have to be performed for her 08/16 continue tx. 08/17 continue tx. 08/18 continue tx. 08/19 continue tx. 08/20 continue tx. 08/21/23- Labs TSH, urine culture, CMP, CBCD, Valproate Level Hospitalist consult Neosporin to small toe as her nail has fallen off 08/22 ordered MRI. will d/c depakote for now as pt barely moving or talking. 08/23 continue tx. monitor O2sat q6h. continue NC 2-4L. maintain O2sat >92% 08/24 continue tx. MRI completed awaiting neurology input. 08/25 continue tx. 08/26 continue same treatment. 08/27 continue same treatment, we will do blood work for tomorrow morning. 08/29 continue tx. Reason for continued inpatient stay Substantial Risk for: inability to function Time Spent With Patient Time: Total time managing care of this patient today ____ minutes.
[2023-08-29 09:44] VITALS: BP 127/66; PULSE 106; RESP 16; O2SAT 96
[2023-08-29] MEDS: Acetaminophen 325 MG TABLET 650 MG PO ×3 (10:12→20:49)
[2023-08-29] MEDS: dexAMETHasone 6 MG TABLET PO (10:12)
[2023-08-29] MEDS: Sennosides/Docusate Sodium TABLET 1 TAB PO ×2 (10:12→20:50)
[2023-08-29] MEDS: Aspirin 81 MG TAB.CHEW PO (10:12)
[2023-08-29] MEDS: Escitalopram Oxalate 20 MG TABLET PO (10:12)
[2023-08-29] MEDS: lisinopriL 5 MG TABLET PO (10:12)
[2023-08-29] MEDS: Nystatin Powder 15 GM BOTTLE 1 APPL TOPICAL (10:13)
[2023-08-29] MEDS: Pyridoxine HCl (Vitamin B6) 50 MG TABLET PO (10:13)
--- NOTE | 2023-08-29 10:20 | PC.RT ---
pt was a rapid response this am. RT stated that there was no oxygen concentrator in patients room but only a 02 tanks with a cannula attached. If pt needs oxygen, they should have a concentrator in their room. Respiratory did not discontinue oxygen therapy as we do not have this priviledge to do so. We spoke to MD the day prior and the the nebulizer tx's discontinued only. Any questions please let me know. Gene Barahona
--- NOTE | 2023-08-29 11:44 | PC.NURSE ---
pt covid +, confused lethargic. VS BP 131/82, P 93, T99.0, R18S SPO2 80-82 on RA. notified provider Catracho Samson, during team meeting, Raised HOB, rechecked SPO2 82RA, pt refused 02, This senior grant writer reported back to provider who requested a rapid response be called. Hospital staff came on unit, and rechecked 02 94-96 no further work up required, will continue to monitor and assess patient.
[2023-08-29 13:00] VITALS: BP 132/78; PULSE 92; RESP 18; TEMP 37.6; O2SAT 90
[2023-08-29 16:58] LABS: MANUAL DIFF FLAG NO
[2023-08-29 17:00] LABS: Basophils Absolute Auto 0.1 X10*3/uL (0.0-0.2); Basophils Percent Auto 0.2 % (0-2); Hematocrit 36.5 % (37.0-47.0); Hemoglobin 11.6 g/dl (12.0-16.0); Imm Gran Abs Auto 0.99 X10*3/uL (0.00-0.03); Imm Gran Pct Auto 4.7 % (0.0-0.4); Lymphocytes Absolute Auto 1.3 X10*3/uL (1.2-4.9); Lymphocytes Percent Auto 6.2 % (20-40); Mean Corpuscular HGB Conc 31.8 g/dl (31.0-35.0); Mean Corpuscular Hemoglobin 32.2 pg (27.0-33.0); Mean Corpuscular Volume 101.4 fL (80.0-98.0); Monocytes Absolute Auto 1.1 X10*3/uL (0.1-1.2); Monocytes Percent Auto 5.3 % (2-11); Neutrophils Absolute Auto 17.5 x10*3/uL (2.0-8.3); Neutrophils Percent Auto 83.6 % (45-73); Platelet Count 122 X10*3/uL (160-400); Red Cell Distribution Width 16.6 % (11.0-16.0); White Blood Count 20.9 X10*3/uL (4.8-10.8)
[2023-08-29 17:14] LABS: Anion Gap 11 (12-20); Blood Urea Nitrogen 35 mg/dL (9-16); Calcium 9.4 mg/dL (8.4-10.2); Carbon Dioxide 23 mmol/L (22-29); Chloride 114 mmol/L (96-108); Creatinine Clr Calc Pharmacy 88.4; Estimated Glomerular Filt Rate > 60; Glucose Random 153 mg/dL (60-115); Potassium 4.4 mmol/L (3.3-5.1); Sodium 144 mmol/L (135-145)
[2023-08-29 20:46] VITALS: BP 134/80; PULSE 89; RESP 18; TEMP 36.2; O2SAT 92
--- NOTE | 2023-08-30 00:08 | PC.NURSE ---
Assumed care of patient 08/29 at 19:00. See shift assessments and EMAR for full details. Handoff report given to oncoming RN 23:00.
[2023-08-30] MEDS: Heparin Sodium,Porcine 5,000 UNIT/ML VIAL 5000 UNIT SUBCUT ×2 (05:55→17:19)
[2023-08-30 06:33] LABS: Appearance Urine Turbid; Color Urine Dark Yellow; Glucose Urine UA Negative (Negative); Leukocyte Esterase Urine Moderate (2+) (Negative); Nitrite Urine Negative (Negative); Specific Gravity - Urine >= 1.030 (1.005-1.025); UMIC TRIGGER UACC YES; Urine Blood Negative (Negative); Urine Ketones Trace mg/dL (Negative); Urine Protein Trace mg/dL (Neg-Trace)
[2023-08-30 06:50] LABS: Bacteria Urine 4+ (None Seen); RBC Urine >20 /HPF (0-2); Squamous Epithelial Cell Urine 0-2 /HPF (0-2); UACC Culture Trigger YES; WBC Urine >50 /HPF (0-5)
--- NOTE | 2023-08-30 07:03 | PC.NURSE ---
using aseptic technique, pt was straight cath for 900 ml of conc cloudy vivienne urine. urine specimen obtained and sent to lab for u/a and c+s. pt extremely agitated and resistant to procedure. she is profoundly confused and her vocabulary consists of frequent profanities. pts oral mucosa is desiccated. pt drank 240 ml of gingerale and 100 ml of chocolate ensure.
[2023-08-30 09:00] VITALS: BP 158/88; PULSE 100; RESP 18; TEMP 36.8; O2SAT 94
--- NOTE | 2023-08-30 09:08 | P.PNPSI_ITS ---
Subjective Subjective Date of Service: 08/30/23 Reason For Visit: dementia Subjective Notes: Section 8 Interim History: Pt mostly in bed. Her speech is more spontaneous. She does say some short coherent sentences but not much substance. No able to follow commands. VS stable. Started on antibiotic for UTI. Medication Compliance: Yes Side effects from medications: No Review of Systems Review of Systems Could not be done with her Yes all other systems are reviewed and are negative, Unobtainable due to mental condition and Unobtainable due to mental status Diagnostics Vital Signs (24Hr): Vital Signs - 24 hr 08/29/23 09:44 08/29/23 13:00 08/29/23 20:46 Temperature 99.6 F 97.2 F Pulse Rate 106 H 92 89 Respiratory Rate 16 18 18 Blood Pressure 127/66 132/78 134/80 Pulse Oximetry 96 90 L 92 Oxygen Delivery Method Room Air Room Air Room Air BMI result Body Mass Index 35.5 Labs 08/29/23 16:56 08/29/23 16:56 Labs: Laboratory Results - last 48 hr 08/29/23 08/30/23 16:56 06:00 WBC 20.9 H RBC 3.60 L Hgb 11.6 L Hct 36.5 L MCV 101.4 H MCH 32.2 MCHC 31.8 RDW 16.6 H Plt Count 122 L MPV 11.0 Immature Gran % (Auto) 4.7 H Neut % (Auto) 83.6 H Lymph % (Auto) 6.2 L [place] % (Auto) 5.3 Eos % (Auto) 0.0 Baso % (Auto) 0.2 Lymph # (Auto) 1.3 [place] # (Auto) 1.1 Eos # (Auto) 0.0 Baso # (Auto) 0.1 Abs Immat Gran (auto) 0.99 H Absolute Neuts (auto) 17.5 H Absolute Nucleated RBC 0.000 Nucleated RBC % (auto) 0.0 Sodium 144 Potassium 4.4 Chloride 114 H Carbon Dioxide 23 Anion Gap 11 L BUN 35 H Creatinine 0.61 Estim Creat Clear Calc 88.4 Estimated GFR > 60 Random Glucose 153 H Calcium 9.4 Urine Color Dark Yellow Urine Appearance Turbid Urine pH 6.0 Ur Specific [place] >= 1.030 H Urine Protein Trace Urine Glucose (UA) Negative Urine Ketones Trace Urine Blood Negative Urine Nitrite Negative Ur Leukocyte Esterase Moderate (2+) H Urine RBC >20 H Urine WBC >50 H Ur Squamous Epith Cells 0-2 Urine Bacteria 4+ Hyaline Casts 6-10 Imaging Radiology Impressions: ITS Impressions Chest X-Ray 08/21/23 16:41 FINDINGS/IMPRESSION: The study is limited by portable technique and low lung volumes. There are right mid lung and left basilar focal patchy densities suggesting infiltrates and/or atelectasis. No effusion or pneumothorax is seen. The cardiac silhouette is suboptimally evaluated. There is mildly atherosclerotic and uncoiled, suggesting hypertension. Mild degenerative changes of the spine. Head CT 08/21/23 16:53 IMPRESSION: Patient motion degrades image quality therefore the diagnostic accuracy of this examination is limited. Numerous chronic small vessel ischemic changes are also visualized within the periventricular white matter. Grossly no evidence of acute territorial infarct or hemorrhage. Possible progression of temporal lobe atrophy when compared to prior imaging. Chest X-Ray 08/23/23 10:25 IMPRESSION: Patient tilted to the left limiting evaluation. There is bibasilar atelectasis or scarring slightly greater on the left. There is mild blunting of left CP angle from pleural effusion or thickening.. Brain MRI 08/23/23 15:39 IMPRESSION: 1. No acute intracranial abnormalities. No demonstrated abnormal intracranial enhancement. 2. Chronic regions of encephalomalacia in the right frontal lobe, left temporal lobe, and left occipital lobe. 3. Moderate to extensive underlying microangiopathy and generalized cerebral volume loss. 4. Extensive scattered foci of susceptibility artifact throughout the bilateral cerebral hemispheres as may be seen with underlying amyloid angiopathy. Chest X-Ray 08/27/23 21:23 IMPRESSION: Redemonstrated mild scattered coarse reticular opacities, likely related to chronic lung disease. No new, focal consolidation. Medications Medications Current Medications Acetaminophen (Acetaminophen 325 Mg Tablet) 650 mg PO TID [facility] Last Admin: 08/29/23 20:49 Dose: 650 mg Al Hydroxide/Mg Hydroxide (Magnesium Hydrox/Alum Hydrox 30 Ml Oral.Susp) 30 ml PO Q6H PRN PRN Reason: Heartburn/Nausea Aspirin (Aspirin 81 Mg Tab.Chew) 81 mg PO DAILY [facility] Last Admin: 08/29/23 10:12 Dose: 81 mg Dexamethasone (Dexamethasone 6 Mg Tablet) 6 mg PO DAILY [facility] Stop: 09/02/23 09:01 Last Admin: 08/29/23 10:12 Dose: 6 mg Escitalopram Oxalate (Escitalopram Oxalate 20 Mg Tablet) 20 mg PO DAILY [facility] Last Admin: 08/29/23 10:12 Dose: 20 mg Fluticasone Propionate (Fluticasone Propionate Nasal 16 Gm [place]) 1 spray NOSTRIL-B BID [facility] Last Admin: 08/29/23 20:53 Dose: Not Given Guaifenesin (Guaifenesin La 600 Mg Tab.Er.12h) 600 mg PO BID PRN PRN Reason: Congestion Last Admin: 08/28/23 10:15 Dose: 600 mg Heparin Sodium (Porcine) (Heparin Sodium,Porcine 5,000 Unit/Ml Vial) 5,000 unit SUBCUT Q12H [facility] Last Admin: 08/30/23 05:55 Dose: 5,000 unit Lisinopril (Lisinopril 5 Mg Tablet) 5 mg PO DAILY [facility]; Protocol Last Admin: 08/29/23 10:12 Dose: 5 mg Magnesium Hydroxide (Milk Of Magnesia 30 Ml Oral.Susp) 30 ml PO DAILY PRN PRN Reason: Constipation Melatonin (Melatonin 3 Mg Tablet) 6 mg PO BEDTIME PRN PRN Reason: Sleep Last Admin: 08/27/23 21:34 Dose: 6 mg Neomycin/Polymyxin/Bacitracin (Neomy/Polymyx/Bacit/Ointment 14 Gm Tube) 1 gm TOPICAL BID [facility]; Protocol Last Admin: 08/29/23 20:53 Dose: Not Given Nystatin (Nystatin Powder 15 Gm Bottle) 1 appl TOPICAL BID [facility] Last Admin: 08/29/23 20:52 Dose: Not Given Pyridoxine HCl (Pyridoxine Hcl (Vitamin B6) 50 Mg Tablet) 50 mg PO DAILY [facility] Last Admin: 08/29/23 10:13 Dose: 50 mg Quetiapine Fumarate (Quetiapine Fumarate 100 Mg Tablet) 100 mg PO BEDTIME [facility] Last Admin: 08/23/23 22:44 Dose: Not Given Quetiapine Fumarate (Quetiapine Fumarate 50 Mg Tablet) 50 mg PO Q6H PRN PRN Reason: agitation Last Admin: 08/27/23 23:01 Dose: 50 mg Senna/Docusate Sodium (Sennosides/Docusate Sodium Tablet) 1 tab PO BID [facility] Last Admin: 08/29/23 20:50 Dose: 1 tab Trazodone HCl (Trazodone Hcl 50 Mg Tablet) 50 mg PO BEDTIME MRX1 PRN PRN Reason: Insomnia Last Admin: 08/27/23 23:01 Dose: 50 mg Allergies Allergies Allergy/AdvReac Type Severity Reaction Status Date / Time No Known Allergies Allergy Verified 06/08/23 20:39 Assessment & Plan Assessment & Plan (1) Major 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 start ceftin 250mg po BID for UTI. 07/28 continue tx. 07/30 continue current treatment plan 07/31 continue tx plan 08/01- will switch depakote to night time to avoid day time sedation. 08/02 continue tx. scheduled tylenol for arthritis 08/03 continue tx. 08/04 continue tx. 08/05 continue tx. 08/06: COVID +. fatigued, spending much time in bed. VSS. continue current mgmt. 08/08: as per yesterday. continue current mgmt. 08/09 continue tx. 08/10 continue tx. 08/11 continue tx. 08/12 continue tx. stable from covid symptoms, afebrile, o2sat on RA>97% 08/13 ongoing illness with covid affecting pt behavior and mental health- as well as somatic symptoms 08/14 seems improved physically and mentally today- still mute- more cooperative with care 08/15/23 again in bed, withdrawn , mute and sleeping- resistant to adls which have to be performed for her 08/16 continue tx. 08/17 continue tx. 08/18 continue tx. 08/19 continue tx. 08/20 continue tx. 08/21/23- Labs TSH, urine culture, CMP, CBCD, Valproate Level Hospitalist consult Neosporin to small toe as her nail has fallen off 08/22 ordered MRI. will d/c depakote for now as pt barely moving or talking. 08/23 continue tx. monitor O2sat q6h. continue NC 2-4L. maintain O2sat >92% 08/24 continue tx. MRI completed awaiting neurology input. 08/25 continue tx. 08/26 continue same treatment. 08/27 continue same treatment, we will do blood work for tomorrow morning. 08/29 continue tx. 08/30 continue tx. Reason for continued inpatient stay Substantial Risk for: inability to function Time Spent With Patient Time: Total time managing care of this patient today ____ minutes.
[2023-08-30] MEDS: Acetaminophen 325 MG TABLET 650 MG PO ×3 (09:13→21:23)
[2023-08-30] MEDS: lisinopriL 5 MG TABLET PO (09:13)
[2023-08-30] MEDS: Aspirin 81 MG TAB.CHEW PO (09:13)
[2023-08-30] MEDS: dexAMETHasone 6 MG TABLET PO (09:13)
[2023-08-30] MEDS: Pyridoxine HCl (Vitamin B6) 50 MG TABLET PO (09:13)
[2023-08-30] MEDS: Escitalopram Oxalate 20 MG TABLET PO (09:13)
[2023-08-30] MEDS: Sennosides/Docusate Sodium TABLET 1 TAB PO ×2 (09:13→21:24)
[2023-08-30] MEDS: Nystatin Powder 15 GM BOTTLE 1 APPL TOPICAL (09:40)
[2023-08-30 13:00] VITALS: BP 146/78; PULSE 98; RESP 18; TEMP 36.6; O2SAT 92
--- NOTE | 2023-08-30 16:06 | PM.EVENT ---
Event Note Date of Service: 08/30/23 Event Note: UA positive, leukocytosis likely related. start Ceftin 250mg BID for 5 days. Follow urine cx Time Spent With Patient Time: Total time managing care of this patient today ____ minutes.
[2023-08-30] MEDS: QUEtiapine Fumarate 50 MG TABLET PO (16:46)
[2023-08-30] MEDS: cefuroxime axetiL 250 MG TABLET PO (17:19)
[2023-08-30] MEDS: Fluticasone Propionate Nasal 16 GM SPRAY 1 SPRAY NOSTRIL-B (21:24)
[2023-08-30 21:44] VITALS: BP 121/71; PULSE 100; RESP 20; TEMP 36.6; O2SAT 90
[2023-08-31] MEDS: Heparin Sodium,Porcine 5,000 UNIT/ML VIAL 5000 UNIT SUBCUT ×2 (05:01→17:53)
[2023-08-31] MEDS: cefuroxime axetiL 250 MG TABLET PO ×2 (05:01→17:53)
[2023-08-31] MEDS: lisinopriL 5 MG TABLET PO (09:49)
[2023-08-31] MEDS: Sennosides/Docusate Sodium TABLET 1 TAB PO ×2 (09:49→20:42)
[2023-08-31] MEDS: Acetaminophen 325 MG TABLET 650 MG PO ×3 (09:49→20:42)
[2023-08-31] MEDS: dexAMETHasone 6 MG TABLET PO (09:49)
[2023-08-31] MEDS: Aspirin 81 MG TAB.CHEW PO (09:49)
[2023-08-31] MEDS: Pyridoxine HCl (Vitamin B6) 50 MG TABLET PO (09:49)
[2023-08-31] MEDS: Escitalopram Oxalate 20 MG TABLET PO (09:50)
[2023-08-31 10:04] VITALS: BP 133/87; PULSE 89; RESP 17; TEMP 37.1; O2SAT 91
[2023-08-31 13:05] VITALS: BP 136/88; PULSE 97; RESP 17; TEMP 36.9; O2SAT 91
--- NOTE | 2023-08-31 14:32 | MHC.CLN ---
F/U DIET=REGULAR, PUREE. PROVIDE FEEDING ASSIST. COGNITIVE AND PHYSICAL DECLINE REPORTED. VERY POOR PO INTAKE X >1 WEEK. ADDING MAGIC CUP FORTIFIED ICE CREAM TID. PROVIDES 870 KCALS, 27 G PROTEIN. STARTED ANTIBIOTIC 08/30 DUE TO UA+. ENCOURAGE PO INTAKE ABLE.
--- NOTE | 2023-08-31 15:58 | HO.PSYCHPN ---
Subjective Subjective Date of Service: 08/31/23 Reason For Visit: dementia Subjective Notes: Section 8 Healthcare Proxy: Yes Interim History: Pt mostly in bed. Her speech is more spontaneous. She does say some short coherent sentences but not much substance. No able to follow commands. VS stable. Started on antibiotic for UTI. Review of Systems Review of Systems Could not be done with her Yes all other systems are reviewed and are negative, Unobtainable due to mental condition and Unobtainable due to mental status Mental Status Exam Mental Status Exam Patient Appearance: Appropriate Patient Orientation: Person and Situation Level of Consciousness: Awake and Appropriate Patient Behavior: Guarded and Passive Mood Description: Withdrawn and Constricted Affect Description: Blunted Patient Cognition Impaired: Yes Ability to Follow Directions: Good Speech Pattern: Clear Memory Description: Remote Impaired, Immediate Impaired, Dermatology Physician Impaired, Episodic Impaired, Recent Impaired and Working Impaired Diagnostics Vital Signs (24Hr): Vital Signs - 24 hr 08/30/23 21:44 08/31/23 10:04 08/31/23 13:05 Temperature 97.8 F 98.7 F 98.5 F Pulse Rate 100 89 97 Respiratory Rate 20 17 17 Blood Pressure 121/71 133/87 136/88 Pulse Oximetry 90 L 91 L 91 L Oxygen Delivery Method Room Air Room Air Room Air BMI result Body Mass Index 35.5 Labs 08/29/23 16:56 08/29/23 16:56 Labs: Laboratory Results - last 48 hr 08/29/23 08/30/23 16:56 06:00 WBC 20.9 H RBC 3.60 L Hgb 11.6 L Hct 36.5 L MCV 101.4 H MCH 32.2 MCHC 31.8 RDW 16.6 H Plt Count 122 L MPV 11.0 Immature Gran % (Auto) 4.7 H Neut % (Auto) 83.6 H Lymph % (Auto) 6.2 L [place] % (Auto) 5.3 Eos % (Auto) 0.0 Baso % (Auto) 0.2 Lymph # (Auto) 1.3 [place] # (Auto) 1.1 Eos # (Auto) 0.0 Baso # (Auto) 0.1 Abs Immat Gran (auto) 0.99 H Absolute Neuts (auto) 17.5 H Absolute Nucleated RBC 0.000 Nucleated RBC % (auto) 0.0 Sodium 144 Potassium 4.4 Chloride 114 H Carbon Dioxide 23 Anion Gap 11 L BUN 35 H Creatinine 0.61 Estim Creat Clear Calc 88.4 Estimated GFR > 60 Random Glucose 153 H Calcium 9.4 Urine Color Dark Yellow Urine Appearance Turbid Urine pH 6.0 Ur Specific [place] >= 1.030 H Urine Protein Trace Urine Glucose (UA) Negative Urine Ketones Trace Urine Blood Negative Urine Nitrite Negative Ur Leukocyte Esterase Moderate (2+) H Urine RBC >20 H Urine WBC >50 H Ur Squamous Epith Cells 0-2 Urine Bacteria 4+ Hyaline Casts 6-10 Imaging Radiology Impressions: ITS Impressions Chest X-Ray 08/21/23 16:41 FINDINGS/IMPRESSION: The study is limited by portable technique and low lung volumes. There are right mid lung and left basilar focal patchy densities suggesting infiltrates and/or atelectasis. No effusion or pneumothorax is seen. The cardiac silhouette is suboptimally evaluated. There is mildly atherosclerotic and uncoiled, suggesting hypertension. Mild degenerative changes of the spine. Head CT 08/21/23 16:53 IMPRESSION: Patient motion degrades image quality therefore the diagnostic accuracy of this examination is limited. Numerous chronic small vessel ischemic changes are also visualized within the periventricular white matter. Grossly no evidence of acute territorial infarct or hemorrhage. Possible progression of temporal lobe atrophy when compared to prior imaging. Chest X-Ray 08/23/23 10:25 IMPRESSION: Patient tilted to the left limiting evaluation. There is bibasilar atelectasis or scarring slightly greater on the left. There is mild blunting of left CP angle from pleural effusion or thickening.. Brain MRI 08/23/23 15:39 IMPRESSION: 1. No acute intracranial abnormalities. No demonstrated abnormal intracranial enhancement. 2. Chronic regions of encephalomalacia in the right frontal lobe, left temporal lobe, and left occipital lobe. 3. Moderate to extensive underlying microangiopathy and generalized cerebral volume loss. 4. Extensive scattered foci of susceptibility artifact throughout the bilateral cerebral hemispheres as may be seen with underlying amyloid angiopathy. Chest X-Ray 08/27/23 21:23 IMPRESSION: Redemonstrated mild scattered coarse reticular opacities, likely related to chronic lung disease. No new, focal consolidation. Medications Medications Current Medications Acetaminophen (Acetaminophen 325 Mg Tablet) 650 mg PO TID [facility] Last Admin: 08/31/23 15:12 Dose: 650 mg Al Hydroxide/Mg Hydroxide (Magnesium Hydrox/Alum Hydrox 30 Ml Oral.Susp) 30 ml PO Q6H PRN PRN Reason: Heartburn/Nausea Aspirin (Aspirin 81 Mg Tab.Chew) 81 mg PO DAILY [facility] Last Admin: 08/31/23 09:49 Dose: 81 mg Cefuroxime Axetil (Cefuroxime Axetil 250 Mg Tablet) 250 mg PO Q12H [facility] Stop: 09/04/23 06:01 Last Admin: 08/31/23 05:01 Dose: 250 mg Dexamethasone (Dexamethasone 6 Mg Tablet) 6 mg PO DAILY [facility] Stop: 09/02/23 09:01 Last Admin: 08/31/23 09:49 Dose: 6 mg Escitalopram Oxalate (Escitalopram Oxalate 20 Mg Tablet) 20 mg PO DAILY [facility] Last Admin: 08/31/23 09:50 Dose: 20 mg Fluticasone Propionate (Fluticasone Propionate Nasal 16 Gm [place]) 1 spray NOSTRIL-B BID [facility] Last Admin: 08/31/23 09:54 Dose: Not Given Guaifenesin (Guaifenesin [place] 600 Mg Tab.Er.12h) 600 mg PO BID PRN PRN Reason: Congestion Last Admin: 08/28/23 10:15 Dose: 600 mg Heparin Sodium (Porcine) (Heparin Sodium,Porcine 5,000 Unit/Ml Vial) 5,000 unit SUBCUT Q12H [facility] Last Admin: 08/31/23 05:01 Dose: 5,000 unit Lisinopril (Lisinopril 5 Mg Tablet) 5 mg PO DAILY [facility]; Protocol Last Admin: 08/31/23 09:49 Dose: 5 mg Magnesium Hydroxide (Milk Of Magnesia 30 Ml Oral.Susp) 30 ml PO DAILY PRN PRN Reason: Constipation Melatonin (Melatonin 3 Mg Tablet) 6 mg PO BEDTIME PRN PRN Reason: Sleep Last Admin: 08/27/23 21:34 Dose: 6 mg Neomycin/Polymyxin/Bacitracin (Neomy/Polymyx/Bacit/Ointment 14 Gm Tube) 1 gm TOPICAL BID [facility]; Protocol Last Admin: 08/31/23 09:55 Dose: 1 gm Pyridoxine HCl (Pyridoxine Hcl (Vitamin B6) 50 Mg Tablet) 50 mg PO DAILY [facility] Last Admin: 08/31/23 09:49 Dose: 50 mg Quetiapine Fumarate (Quetiapine Fumarate 100 Mg Tablet) 100 mg PO BEDTIME [facility] Last Admin: 08/23/23 22:44 Dose: Not Given Quetiapine Fumarate (Quetiapine Fumarate 50 Mg Tablet) 50 mg PO Q6H PRN PRN Reason: agitation Last Admin: 08/30/23 16:46 Dose: 50 mg Senna/Docusate Sodium (Sennosides/Docusate Sodium Tablet) 1 tab PO BID [facility] Last Admin: 08/31/23 09:49 Dose: 1 tab Trazodone HCl (Trazodone Hcl 50 Mg Tablet) 50 mg PO BEDTIME MRX1 PRN PRN Reason: Insomnia Last Admin: 08/27/23 23:01 Dose: 50 mg Allergies Allergies Allergy/AdvReac Type Severity Reaction Status Date / Time No Known Allergies Allergy Verified 06/08/23 20:39 Assessment & Plan Assessment & Plan (1) Major 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 start ceftin 250mg po BID for UTI. 07/28 continue tx. 07/30 continue current treatment plan 07/31 continue tx plan 08/01- will switch depakote to night time to avoid day time sedation. 08/02 continue tx. scheduled tylenol for arthritis 08/03 continue tx. 08/04 continue tx. 08/05 continue tx. 08/06: COVID +. fatigued, spending much time in bed. VSS. continue current mgmt. 08/08: as per yesterday. continue current mgmt. 08/09 continue tx. 08/10 continue tx. 08/11 continue tx. 08/12 continue tx. stable from covid symptoms, afebrile, o2sat on RA>97% 08/13 ongoing illness with covid affecting pt behavior and mental health- as well as somatic symptoms 08/14 seems improved physically and mentally today- still mute- more cooperative with care 08/15/23 again in bed, withdrawn , mute and sleeping- resistant to adls which have to be performed for her 08/16 continue tx. 08/17 continue tx. 08/18 continue tx. 08/19 continue tx. 08/20 continue tx. 08/21/23- Labs TSH, urine culture, CMP, CBCD, Valproate Level Hospitalist consult Neosporin to small toe as her nail has fallen off 08/22 ordered MRI. will d/c depakote for now as pt barely moving or talking. 08/23 continue tx. monitor O2sat q6h. continue NC 2-4L. maintain O2sat >92% 08/24 continue tx. MRI completed awaiting neurology input. 08/25 continue tx. 08/26 continue same treatment. 08/27 continue same treatment, we will do blood work for tomorrow morning. 08/29 continue tx. 08/30 continue tx. 08/31 continue tx. Reason for continued inpatient stay Substantial Risk for: inability to function Time Spent With Patient Time: Total time managing care of this patient today ____ minutes.
[2023-08-31 19:46] VITALS: BP 146/87; PULSE 95; RESP 20; TEMP 36.1; O2SAT 90
[2023-08-31] MEDS: Fluticasone Propionate Nasal 16 GM SPRAY 1 SPRAY NOSTRIL-B (20:45)
[2023-08-31] MEDS: Melatonin 3 MG TABLET 6 MG PO (21:40)
[2023-08-31] MEDS: traZODone HCL 50 MG TABLET PO (21:40)
[2023-08-31] MEDS: QUEtiapine Fumarate 50 MG TABLET PO (22:55)
[2023-09-01] MEDS: cefuroxime axetiL 250 MG TABLET PO ×2 (05:01→17:18)
[2023-09-01] MEDS: Heparin Sodium,Porcine 5,000 UNIT/ML VIAL 5000 UNIT SUBCUT ×2 (05:01→17:17)
[2023-09-01 07:00] VITALS: BMI 34.4
[2023-09-01 08:30] VITALS: BP 135/82; PULSE 91; RESP 18; TEMP 36.5; O2SAT 91
[2023-09-01] MEDS: Pyridoxine HCl (Vitamin B6) 50 MG TABLET PO (09:04)
[2023-09-01] MEDS: Sennosides/Docusate Sodium TABLET 1 TAB PO ×2 (09:05→20:15)
[2023-09-01] MEDS: Acetaminophen 325 MG TABLET 650 MG PO ×3 (09:05→20:15)
[2023-09-01] MEDS: dexAMETHasone 6 MG TABLET PO (09:05)
[2023-09-01] MEDS: Escitalopram Oxalate 20 MG TABLET PO (09:05)
[2023-09-01] MEDS: lisinopriL 5 MG TABLET PO (09:05)
[2023-09-01] MEDS: Aspirin 81 MG TAB.CHEW PO (09:05)
--- NOTE | 2023-09-01 09:17 | P.PNPSI_ITS ---
Subjective Subjective Date of Service: 09/01/23 Reason For Visit: dementia Subjective Notes: Section 8 Healthcare Proxy: Yes Interim History: Pt slept most of the night. She apparently had episode of increased combativeness last night and was given ativan 1mg with good effect. Today, she continues bed bound. Verbal, non sensical. No signs of overt physical distress. VS stable. afebrile. O2sat on RA>94% Diagnostics Vital Signs (24Hr): Vital Signs - 24 hr 08/31/23 10:04 08/31/23 13:05 08/31/23 19:46 Temperature 98.7 F 98.5 F 96.9 F Pulse Rate 89 97 95 Respiratory Rate 17 17 20 Blood Pressure 133/87 136/88 146/87 H Pulse Oximetry 91 L 91 L 90 L Oxygen Delivery Method Room Air Room Air Room Air BMI result Body Mass Index 35.5 Labs 08/29/23 16:56 08/29/23 16:56 Imaging Radiology Impressions: ITS Impressions Chest X-Ray 08/21/23 16:41 FINDINGS/IMPRESSION: The study is limited by portable technique and low lung volumes. There are right mid lung and left basilar focal patchy densities suggesting infiltrates and/or atelectasis. No effusion or pneumothorax is seen. The cardiac silhouette is suboptimally evaluated. There is mildly atherosclerotic and uncoiled, suggesting hypertension. Mild degenerative changes of the spine. Head CT 08/21/23 16:53 IMPRESSION: Patient motion degrades image quality therefore the diagnostic accuracy of this examination is limited. Numerous chronic small vessel ischemic changes are also visualized within the periventricular white matter. Grossly no evidence of acute territorial infarct or hemorrhage. Possible progression of temporal lobe atrophy when compared to prior imaging. Chest X-Ray 08/23/23 10:25 IMPRESSION: Patient tilted to the left limiting evaluation. There is bibasilar atelectasis or scarring slightly greater on the left. There is mild blunting of left CP angle from pleural effusion or thickening.. Brain MRI 08/23/23 15:39 IMPRESSION: 1. No acute intracranial abnormalities. No demonstrated abnormal intracranial enhancement. 2. Chronic regions of encephalomalacia in the right frontal lobe, left temporal lobe, and left occipital lobe. 3. Moderate to extensive underlying microangiopathy and generalized cerebral volume loss. 4. Extensive scattered foci of susceptibility artifact throughout the bilateral cerebral hemispheres as may be seen with underlying amyloid angiopathy. Chest X-Ray 08/27/23 21:23 IMPRESSION: Redemonstrated mild scattered coarse reticular opacities, likely related to chronic lung disease. No new, focal consolidation. Medications Medications Current Medications Acetaminophen (Acetaminophen 325 Mg Tablet) 650 mg PO TID [facility] Last Admin: 09/01/23 09:05 Dose: 650 mg Al Hydroxide/Mg Hydroxide (Magnesium Hydrox/Alum Hydrox 30 Ml Oral.Susp) 30 ml PO Q6H PRN PRN Reason: Heartburn/Nausea Aspirin (Aspirin 81 Mg Tab.Chew) 81 mg PO DAILY [facility] Last Admin: 09/01/23 09:05 Dose: 81 mg Cefuroxime Axetil (Cefuroxime Axetil 250 Mg Tablet) 250 mg PO Q12H [facility] Stop: 09/04/23 06:01 Last Admin: 09/01/23 05:01 Dose: 250 mg Dexamethasone (Dexamethasone 6 Mg Tablet) 6 mg PO DAILY [facility] Stop: 09/02/23 09:01 Last Admin: 09/01/23 09:05 Dose: 6 mg Escitalopram Oxalate (Escitalopram Oxalate 20 Mg Tablet) 20 mg PO DAILY [facility] Last Admin: 09/01/23 09:05 Dose: 20 mg Fluticasone Propionate (Fluticasone Propionate Nasal 16 Gm [place]) 1 spray NOSTRIL-B BID [facility] Last Admin: 09/01/23 09:06 Dose: Not Given Guaifenesin (Guaifenesin La 600 Mg Tab.Er.12h) 600 mg PO BID PRN PRN Reason: Congestion Last Admin: 08/28/23 10:15 Dose: 600 mg Heparin Sodium (Porcine) (Heparin Sodium,Porcine 5,000 Unit/Ml Vial) 5,000 unit SUBCUT Q12H [facility] Last Admin: 09/01/23 05:01 Dose: 5,000 unit Lisinopril (Lisinopril 5 Mg Tablet) 5 mg PO DAILY [facility]; Protocol Last Admin: 09/01/23 09:05 Dose: 5 mg Lorazepam (Lorazepam 1 Mg Tablet) 1 mg PO Q4H PRN PRN Reason: anxiety/restlessness Magnesium Hydroxide (Milk Of Magnesia 30 Ml Oral.Susp) 30 ml PO DAILY PRN PRN Reason: Constipation Melatonin (Melatonin 3 Mg Tablet) 6 mg PO BEDTIME PRN PRN Reason: Sleep Last Admin: 01/17/24 21:40 Dose: 6 mg Neomycin/Polymyxin/Bacitracin (Neomy/Polymyx/Bacit/Ointment 14 Gm Tube) 1 gm TOPICAL BID [facility]; Protocol Last Admin: 09/01/23 09:05 Dose: 1 gm Pyridoxine HCl (Pyridoxine Hcl (Vitamin B6) 50 Mg Tablet) 50 mg PO DAILY [facility] Last Admin: 09/01/23 09:04 Dose: 50 mg Quetiapine Fumarate (Quetiapine Fumarate 100 Mg Tablet) 100 mg PO BEDTIME [facility] Last Admin: 08/23/23 22:44 Dose: Not Given Quetiapine Fumarate (Quetiapine Fumarate 50 Mg Tablet) 50 mg PO Q6H PRN PRN Reason: agitation Last Admin: 08/31/23 22:55 Dose: 50 mg Senna/Docusate Sodium (Sennosides/Docusate Sodium Tablet) 1 tab PO BID [facility] Last Admin: 09/01/23 09:05 Dose: 1 tab Trazodone HCl (Trazodone Hcl 50 Mg Tablet) 50 mg PO BEDTIME MRX1 PRN PRN Reason: Insomnia Last Admin: 08/31/23 21:40 Dose: 50 mg Allergies Allergies Allergy/AdvReac Type Severity Reaction Status Date / Time No Known Allergies Allergy Verified 06/08/23 20:39 Assessment & Plan Assessment & Plan (1) Major 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 start ceftin 250mg po BID for UTI. 07/28 continue tx. 07/30 continue current treatment plan 07/31 continue tx plan 08/01- will switch depakote to night time to avoid day time sedation. 08/02 continue tx. scheduled tylenol for arthritis 08/03 continue tx. 08/04 continue tx. 08/05 continue tx. 08/06: COVID +. fatigued, spending much time in bed. VSS. continue current mgmt. 08/08: as per yesterday. continue current mgmt. 08/09 continue tx. 08/10 continue tx. 08/11 continue tx. 08/12 continue tx. stable from covid symptoms, afebrile, o2sat on RA>97% 08/13 ongoing illness with covid affecting pt behavior and mental health- as well as somatic symptoms 08/14 seems improved physically and mentally today- still mute- more cooperative with care 08/15/23 again in bed, withdrawn , mute and sleeping- resistant to adls which have to be performed for her 08/16 continue tx. 08/17 continue tx. 08/18 continue tx. 08/19 continue tx. 08/20 continue tx. 08/21/23- Labs TSH, urine culture, CMP, CBCD, Valproate Level Hospitalist consult Neosporin to small toe as her nail has fallen off 08/22 ordered MRI. will d/c depakote for now as pt barely moving or talking. 08/23 continue tx. monitor O2sat q6h. continue NC 2-4L. maintain O2sat >92% 08/24 continue tx. MRI completed awaiting neurology input. 08/25 continue tx. 08/26 continue same treatment. 08/27 continue same treatment, we will do blood work for tomorrow morning. 08/29 continue tx. 08/30 continue tx. 08/31 continue tx. 09/01 continue tx. ativan 1mg po q4h prn added. Reason for continued inpatient stay Substantial Risk for: inability to function Time Spent With Patient Time: Total time managing care of this patient today ____ minutes.
[2023-09-01] MEDS: LORazepam 1 MG TABLET PO (16:46)
[2023-09-01] MEDS: Fluticasone Propionate Nasal 16 GM SPRAY 1 SPRAY NOSTRIL-B (20:16)
[2023-09-01 22:21] VITALS: BP 128/72; PULSE 100; RESP 18; TEMP 36.1; O2SAT 94
[2023-09-02] MEDS: Heparin Sodium,Porcine 5,000 UNIT/ML VIAL 5000 UNIT SUBCUT ×2 (05:11→17:11)
[2023-09-02] MEDS: cefuroxime axetiL 250 MG TABLET PO ×2 (06:00→17:21)
[2023-09-02 07:54] VITALS: BP 124/71; PULSE 107; RESP 18; TEMP 36.6; O2SAT 96
[2023-09-02] MEDS: Pyridoxine HCl (Vitamin B6) 50 MG TABLET PO (08:31)
[2023-09-02] MEDS: Escitalopram Oxalate 20 MG TABLET PO (08:31)
[2023-09-02] MEDS: LORazepam 1 MG TABLET PO (08:31)
[2023-09-02] MEDS: Acetaminophen 325 MG TABLET 650 MG PO ×2 (08:31→20:17)
[2023-09-02] MEDS: Sennosides/Docusate Sodium TABLET 1 TAB PO ×2 (08:31→20:17)
[2023-09-02] MEDS: Aspirin 81 MG TAB.CHEW PO (08:31)
[2023-09-02] MEDS: dexAMETHasone 6 MG TABLET PO (08:32)
[2023-09-02] MEDS: lisinopriL 5 MG TABLET PO (08:32)
--- NOTE | 2023-09-02 09:41 | HO.PSYCHPN ---
Subjective Subjective Date of Service: 09/02/23 Reason For Visit: dementia Subjective Notes: Section 8 Interim History: Pt slept most of the night. Today, she continues bed bound. Verbal, but non sensical saying things like this fellow, I'm okay No signs of overt physical distress. VS stable. afebrile. O2sat on RA>94% Review of Systems Review of Systems Could not be done with her Yes all other systems are reviewed and are negative, Unobtainable due to mental condition and Unobtainable due to mental status Mental Status Exam Mental Status Exam Narrative: In bed, in NAD. More spontaneous speech, but non sensical. Diagnostics Vital Signs (24Hr): Vital Signs - 24 hr 09/01/23 22:21 09/02/23 07:54 Temperature 96.9 F 97.8 F Pulse Rate 100 107 H Respiratory Rate 18 18 Blood Pressure 128/72 124/71 Pulse Oximetry 94 96 Oxygen Delivery Method Room Air Room Air BMI result Body Mass Index 34.4 Labs 08/29/23 16:56 08/29/23 16:56 Imaging Radiology Impressions: ITS Impressions Chest X-Ray 08/21/23 16:41 FINDINGS/IMPRESSION: The study is limited by portable technique and low lung volumes. There are right mid lung and left basilar focal patchy densities suggesting infiltrates and/or atelectasis. No effusion or pneumothorax is seen. The cardiac silhouette is suboptimally evaluated. There is mildly atherosclerotic and uncoiled, suggesting hypertension. Mild degenerative changes of the spine. Head CT 08/21/23 16:53 IMPRESSION: Patient motion degrades image quality therefore the diagnostic accuracy of this examination is limited. Numerous chronic small vessel ischemic changes are also visualized within the periventricular white matter. Grossly no evidence of acute territorial infarct or hemorrhage. Possible progression of temporal lobe atrophy when compared to prior imaging. Chest X-Ray 08/23/23 10:25 IMPRESSION: Patient tilted to the left limiting evaluation. There is bibasilar atelectasis or scarring slightly greater on the left. There is mild blunting of left CP angle from pleural effusion or thickening.. Brain MRI 08/23/23 15:39 IMPRESSION: 1. No acute intracranial abnormalities. No demonstrated abnormal intracranial enhancement. 2. Chronic regions of encephalomalacia in the right frontal lobe, left temporal lobe, and left occipital lobe. 3. Moderate to extensive underlying microangiopathy and generalized cerebral volume loss. 4. Extensive scattered foci of susceptibility artifact throughout the bilateral cerebral hemispheres as may be seen with underlying amyloid angiopathy. Chest X-Ray 08/27/23 21:23 IMPRESSION: Redemonstrated mild scattered coarse reticular opacities, likely related to chronic lung disease. No new, focal consolidation. Medications Medications Current Medications Acetaminophen (Acetaminophen 325 Mg Tablet) 650 mg PO TID [facility] Last Admin: 09/02/23 08:31 Dose: 650 mg Al Hydroxide/Mg Hydroxide (Magnesium Hydrox/Alum Hydrox 30 Ml Oral.Susp) 30 ml PO Q6H PRN PRN Reason: Heartburn/Nausea Aspirin (Aspirin 81 Mg Tab.Chew) 81 mg PO DAILY [facility] Last Admin: 09/02/23 08:31 Dose: 81 mg Cefuroxime Axetil (Cefuroxime Axetil 250 Mg Tablet) 250 mg PO Q12H [facility] Stop: 09/04/23 06:01 Last Admin: 09/02/23 05:11 Dose: 250 mg Escitalopram Oxalate (Escitalopram Oxalate 20 Mg Tablet) 20 mg PO DAILY [facility] Last Admin: 09/02/23 08:31 Dose: 20 mg Guaifenesin (Guaifenesin La 600 Mg Tab.Er.12h) 600 mg PO BID PRN PRN Reason: Congestion Last Admin: 08/28/23 10:15 Dose: 600 mg Heparin Sodium (Porcine) (Heparin Sodium,Porcine 5,000 Unit/Ml Vial) 5,000 unit SUBCUT Q12H [facility] Last Admin: 09/02/23 05:11 Dose: 5,000 unit Lisinopril (Lisinopril 5 Mg Tablet) 5 mg PO DAILY [facility]; Protocol Last Admin: 09/02/23 08:32 Dose: 5 mg Lorazepam (Lorazepam 1 Mg Tablet) 1 mg PO Q4H PRN PRN Reason: anxiety/restlessness Last Admin: 09/02/23 08:31 Dose: 1 mg Magnesium Hydroxide (Milk Of Magnesia 30 Ml Oral.Susp) 30 ml PO DAILY PRN PRN Reason: Constipation Melatonin (Melatonin 3 Mg Tablet) 6 mg PO BEDTIME PRN PRN Reason: Sleep Last Admin: 08/31/23 21:40 Dose: 6 mg Neomycin/Polymyxin/Bacitracin (Neomy/Polymyx/Bacit/Ointment 14 Gm Tube) 1 gm TOPICAL BID [facility]; Protocol Last Admin: 09/02/23 08:33 Dose: 1 gm Olanzapine (Olanzapine Odt 10 Mg Tab.Rapdis) 10 mg TRANSLINGU Q8H PRN PRN Reason: agitation Quetiapine Fumarate (Quetiapine Fumarate 100 Mg Tablet) 100 mg PO BEDTIME [facility] Last Admin: 08/23/23 22:44 Dose: Not Given Quetiapine Fumarate (Quetiapine Fumarate 50 Mg Tablet) 50 mg PO Q6H PRN PRN Reason: agitation Last Admin: 08/31/23 22:55 Dose: 50 mg Senna/Docusate Sodium (Sennosides/Docusate Sodium Tablet) 1 tab PO BID [facility] Last Admin: 09/02/23 08:31 Dose: 1 tab Trazodone HCl (Trazodone Hcl 50 Mg Tablet) 50 mg PO BEDTIME MRX1 PRN PRN Reason: Insomnia Last Admin: 08/31/23 21:40 Dose: 50 mg Allergies Allergies Allergy/AdvReac Type Severity Reaction Status Date / Time No Known Allergies Allergy Verified 06/08/23 20:39 Assessment & Plan Assessment & Plan (1) Major 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 start ceftin 250mg po BID for UTI. 07/28 continue tx. 07/30 continue current treatment plan 07/31 continue tx plan 08/01- will switch depakote to night time to avoid day time sedation. 08/02 continue tx. scheduled tylenol for arthritis 08/03 continue tx. 08/04 continue tx. 08/05 continue tx. 08/06: COVID +. fatigued, spending much time in bed. VSS. continue current mgmt. 08/08: as per yesterday. continue current mgmt. 08/09 continue tx. 08/10 continue tx. 08/11 continue tx. 08/12 continue tx. stable from covid symptoms, afebrile, o2sat on RA>97% 08/13 ongoing illness with covid affecting pt behavior and mental health- as well as somatic symptoms 08/14 seems improved physically and mentally today- still mute- more cooperative with care 08/15/23 again in bed, withdrawn , mute and sleeping- resistant to adls which have to be performed for her 08/16 continue tx. 08/17 continue tx. 08/18 continue tx. 08/19 continue tx. 08/20 continue tx. 08/21/23- Labs TSH, urine culture, CMP, CBCD, Valproate Level Hospitalist consult Neosporin to small toe as her nail has fallen off 08/22 ordered MRI. will d/c depakote for now as pt barely moving or talking. 08/23 continue tx. monitor O2sat q6h. continue NC 2-4L. maintain O2sat >92% 08/24 continue tx. MRI completed awaiting neurology input. 08/25 continue tx. 08/26 continue same treatment. 08/27 continue same treatment, we will do blood work for tomorrow morning. 08/29 continue tx. 08/30 continue tx. 08/31 continue tx. 09/01 continue tx. ativan 1mg po q4h prn added. 09/02 continue tx. added olanzapine 10mg po q8h prn agitation in addition to ativan 1mg po q4h prn Reason for continued inpatient stay Substantial Risk for: inability to function Time Spent With Patient Time: Total time managing care of this patient today ____ minutes.
[2023-09-02] MEDS: OLANZapine ODT 10 MG TAB.RAPDIS TRANSLINGU ×2 (10:24→20:17)
--- NOTE | 2023-09-02 13:42 | MHC.CLN ---
F/U DIET=REGULAR, PUREE. PROVIDE FEEDING ASSIST. COGNITIVE AND PHYSICAL DECLINE REPORTED. INTAKE CONTINUES TO BE USUALLY POOR, BITES TO 25%. MAGIC CUP FORTIFIED ICE CREAM TID PROVIDES 870 KCALS, 27 G PROTEIN. STARTED ANTIBIOTIC 08/30 DUE TO UA+. ENCOURAGE PO INTAKE ABLE. RD TO FOLLOW WEEKLY.
[2023-09-02 20:07] VITALS: BP 125/82; PULSE 74; RESP 18; TEMP 36.7; O2SAT 95
[2023-09-03] MEDS: Heparin Sodium,Porcine 5,000 UNIT/ML VIAL 5000 UNIT SUBCUT ×2 (06:02→18:24)
[2023-09-03] MEDS: cefuroxime axetiL 250 MG TABLET PO ×2 (06:03→18:20)
[2023-09-03 08:49] VITALS: BP 139/88; PULSE 106; RESP 16; TEMP 36.1; O2SAT 95
[2023-09-03] MEDS: Escitalopram Oxalate 20 MG TABLET PO (09:44)
[2023-09-03] MEDS: Acetaminophen 325 MG TABLET 650 MG PO ×3 (09:44→20:19)
[2023-09-03] MEDS: Aspirin 81 MG TAB.CHEW PO (09:45)
[2023-09-03] MEDS: lisinopriL 5 MG TABLET PO (09:45)
[2023-09-03] MEDS: Sennosides/Docusate Sodium TABLET 1 TAB PO ×2 (09:45→20:19)
--- NOTE | 2023-09-03 10:28 | HO.PSYCHPN ---
Subjective Subjective Date of Service: 09/03/23 Reason For Visit: dementia Subjective Notes: Section 8 Interim History: Pt slept all night. Pt in bed, minimally verbal, sleeping most of the day. VS stable. decreased oral intake. Review of Systems Review of Systems Could not be done with her Yes all other systems are reviewed and are negative, Unobtainable due to mental condition and Unobtainable due to mental status Mental Status Exam Mental Status Exam Patient Appearance: Appropriate Patient Orientation: Person and Situation Level of Consciousness: Awake and Appropriate Patient Behavior: Guarded and Passive Mood Description: Withdrawn and Constricted Affect Description: Blunted Patient Cognition Impaired: Yes Ability to Follow Directions: Good Speech Pattern: Clear Memory Description: Remote Impaired, Immediate Impaired, Usp Impaired, Episodic Impaired, Recent Impaired and Working Impaired Diagnostics Vital Signs (24Hr): Vital Signs - 24 hr 09/02/23 20:07 09/03/23 08:49 Temperature 98.1 F 96.9 F Pulse Rate 74 106 H Respiratory Rate 18 16 Blood Pressure 125/82 139/88 Pulse Oximetry 95 95 Oxygen Delivery Method Room Air Room Air BMI result Body Mass Index 34.4 Labs 09/04/23 08:50 09/04/23 08:50 Imaging Radiology Impressions: ITS Impressions Chest X-Ray 08/21/23 16:41 FINDINGS/IMPRESSION: The study is limited by portable technique and low lung volumes. There are right mid lung and left basilar focal patchy densities suggesting infiltrates and/or atelectasis. No effusion or pneumothorax is seen. The cardiac silhouette is suboptimally evaluated. There is mildly atherosclerotic and uncoiled, suggesting hypertension. Mild degenerative changes of the spine. Head CT 08/21/23 16:53 IMPRESSION: Patient motion degrades image quality therefore the diagnostic accuracy of this examination is limited. Numerous chronic small vessel ischemic changes are also visualized within the periventricular white matter. Grossly no evidence of acute territorial infarct or hemorrhage. Possible progression of temporal lobe atrophy when compared to prior imaging. Chest X-Ray 08/23/23 10:25 IMPRESSION: Patient tilted to the left limiting evaluation. There is bibasilar atelectasis or scarring slightly greater on the left. There is mild blunting of left CP angle from pleural effusion or thickening.. Brain MRI 08/23/23 15:39 IMPRESSION: 1. No acute intracranial abnormalities. No demonstrated abnormal intracranial enhancement. 2. Chronic regions of encephalomalacia in the right frontal lobe, left temporal lobe, and left occipital lobe. 3. Moderate to extensive underlying microangiopathy and generalized cerebral volume loss. 4. Extensive scattered foci of susceptibility artifact throughout the bilateral cerebral hemispheres as may be seen with underlying amyloid angiopathy. Chest X-Ray 08/27/23 21:23 IMPRESSION: Redemonstrated mild scattered coarse reticular opacities, likely related to chronic lung disease. No new, focal consolidation. Medications Medications Current Medications Acetaminophen (Acetaminophen 325 Mg Tablet) 650 mg PO TID [facility] Last Admin: 09/03/23 09:44 Dose: 650 mg Al Hydroxide/Mg Hydroxide (Magnesium Hydrox/Alum Hydrox 30 Ml Oral.Susp) 30 ml PO Q6H PRN PRN Reason: Heartburn/Nausea Aspirin (Aspirin 81 Mg Tab.Chew) 81 mg PO DAILY [facility] Last Admin: 09/03/23 09:45 Dose: 81 mg Cefuroxime Axetil (Cefuroxime Axetil 250 Mg Tablet) 250 mg PO Q12H [facility] Stop: 09/04/23 06:01 Last Admin: 09/03/23 06:03 Dose: 250 mg Escitalopram Oxalate (Escitalopram Oxalate 20 Mg Tablet) 20 mg PO DAILY [facility] Last Admin: 09/03/23 09:44 Dose: 20 mg Guaifenesin (Guaifenesin La 600 Mg Tab.Er.12h) 600 mg PO BID PRN PRN Reason: Congestion Last Admin: 08/28/23 10:15 Dose: 600 mg Heparin Sodium (Porcine) (Heparin Sodium,Porcine 5,000 Unit/Ml Vial) 5,000 unit SUBCUT Q12H [facility] Last Admin: 09/03/23 06:02 Dose: 5,000 unit Lisinopril (Lisinopril 5 Mg Tablet) 5 mg PO DAILY [facility]; Protocol Last Admin: 09/03/23 09:45 Dose: 5 mg Lorazepam (Lorazepam 1 Mg Tablet) 1 mg PO Q4H PRN PRN Reason: anxiety/restlessness Last Admin: 09/02/23 08:31 Dose: 1 mg Magnesium Hydroxide (Milk Of Magnesia 30 Ml Oral.Susp) 30 ml PO DAILY PRN PRN Reason: Constipation Melatonin (Melatonin 3 Mg Tablet) 6 mg PO BEDTIME PRN PRN Reason: Sleep Last Admin: 08/31/23 21:40 Dose: 6 mg Neomycin/Polymyxin/Bacitracin (Neomy/Polymyx/Bacit/Ointment 14 Gm Tube) 1 gm TOPICAL BID [facility]; Protocol Last Admin: 09/03/23 10:26 Dose: 1 gm Olanzapine (Olanzapine Odt 10 Mg Tab.Rapdis) 10 mg TRANSLINGU Q8H PRN PRN Reason: agitation Last Admin: 09/02/23 20:17 Dose: 10 mg Quetiapine Fumarate (Quetiapine Fumarate 100 Mg Tablet) 100 mg PO BEDTIME [facility] Last Admin: 08/23/23 22:44 Dose: Not Given Quetiapine Fumarate (Quetiapine Fumarate 50 Mg Tablet) 50 mg PO Q6H PRN PRN Reason: agitation Last Admin: 08/31/23 22:55 Dose: 50 mg Senna/Docusate Sodium (Sennosides/Docusate Sodium Tablet) 1 tab PO BID [facility] Last Admin: 09/03/23 09:45 Dose: 1 tab Trazodone HCl (Trazodone Hcl 50 Mg Tablet) 50 mg PO BEDTIME MRX1 PRN PRN Reason: Insomnia Last Admin: 08/31/23 21:40 Dose: 50 mg Allergies Allergies Allergy/AdvReac Type Severity Reaction Status Date / Time No Known Allergies Allergy Verified 06/08/23 20:39 Assessment & Plan Assessment & Plan (1) Major 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 start ceftin 250mg po BID for UTI. 07/28 continue tx. 07/30 continue current treatment plan 07/31 continue tx plan 08/01- will switch depakote to night time to avoid day time sedation. 08/02 continue tx. scheduled tylenol for arthritis 08/03 continue tx. 08/04 continue tx. 08/05 continue tx. 08/06: COVID +. fatigued, spending much time in bed. VSS. continue current mgmt. 08/08: as per yesterday. continue current mgmt. 08/09 continue tx. 08/10 continue tx. 08/11 continue tx. 08/12 continue tx. stable from covid symptoms, afebrile, o2sat on RA>97% 08/13 ongoing illness with covid affecting pt behavior and mental health- as well as somatic symptoms 08/14 seems improved physically and mentally today- still mute- more cooperative with care 08/15/23 again in bed, withdrawn , mute and sleeping- resistant to adls which have to be performed for her 08/16 continue tx. 08/17 continue tx. 08/18 continue tx. 08/19 continue tx. 08/20 continue tx. 08/21/23- Labs TSH, urine culture, CMP, CBCD, Valproate Level Hospitalist consult Neosporin to small toe as her nail has fallen off 08/22 ordered MRI. will d/c depakote for now as pt barely moving or talking. 08/23 continue tx. monitor O2sat q6h. continue NC 2-4L. maintain O2sat >92% 08/24 continue tx. MRI completed awaiting neurology input. 08/25 continue tx. 08/26 continue same treatment. 08/27 continue same treatment, we will do blood work for tomorrow morning. 08/29 continue tx. 08/30 continue tx. 08/31 continue tx. 09/01 continue tx. ativan 1mg po q4h prn added. 09/02 continue tx. added olanzapine 10mg po q8h prn agitation in addition to ativan 1mg po q4h prn 09/03 continue tx. Reason for continued inpatient stay Substantial Risk for: inability to function Time Spent With Patient Time: Total time managing care of this patient today ____ minutes.
[2023-09-03 20:16] VITALS: BP 116/62; PULSE 102; RESP 15; TEMP 35.8
[2023-09-03] MEDS: traZODone HCL 50 MG TABLET PO (20:19)
[2023-09-04] MEDS: Heparin Sodium,Porcine 5,000 UNIT/ML VIAL 5000 UNIT SUBCUT (05:44)
[2023-09-04] MEDS: cefuroxime axetiL 250 MG TABLET PO (05:54)
[2023-09-04 09:16] LABS: Basophils Absolute Auto 0.1 X10*3/uL (0.0-0.2); Basophils Percent Auto 0.2 % (0-2); Hematocrit 40.3 % (37.0-47.0); Imm Gran Abs Auto 0.63 X10*3/uL (0.00-0.03); Imm Gran Pct Auto 2.1 % (0.0-0.4); Lymphocytes Absolute Auto 1.3 X10*3/uL (1.2-4.9); Lymphocytes Percent Auto 4.5 % (20-40); MANUAL DIFF FLAG SCAN; Mean Corpuscular HGB Conc 29.8 g/dl (31.0-35.0); Mean Corpuscular Hemoglobin 32.6 pg (27.0-33.0); Mean Corpuscular Volume 109.5 fL (80.0-98.0); Monocytes Absolute Auto 1.2 X10*3/uL (0.1-1.2); Neutrophils Absolute Auto 26.2 x10*3/uL (2.0-8.3); Neutrophils Percent Auto 89.2 % (45-73); Red Blood Count 3.68 X10*6/uL (4.20-5.50); Red Cell Distribution Width 17.6 % (11.0-16.0); SCAN SMEAR FLAG 1; White Blood Count 29.4 X10*3/uL (4.8-10.8)
[2023-09-04 09:19] LABS: Platelet Count 88 X10*3/uL (160-400)
[2023-09-04 09:31] LABS: Anion Gap 18 (12-20); Blood Urea Nitrogen 88 mg/dL (9-16); Calcium 9.9 mg/dL (8.4-10.2); Carbon Dioxide 21 mmol/L (22-29); Chloride 124 mmol/L (96-108); Creatinine Clr Calc Pharmacy 42.4; Estimated Glomerular Filt Rate 42; Glucose Random 151 mg/dL (60-115); Potassium 4.3 mmol/L (3.3-5.1); Sodium 159 mmol/L (135-145)
[2023-09-04 09:35] LABS: SLIDE REVIEW VERIFIED
[2023-09-04 10:00] VITALS: BP 111/66; PULSE 89; RESP 16; TEMP 36.1
--- NOTE | 2023-09-04 12:11 | P.PNPSI_ITS ---
Subjective Subjective Date of Service: 09/04/23 Reason For Visit: dementia Subjective Notes: Section 8 Interim History: Pt oral intake has significantly decreased. She is in bed, mostly non verbal asleep. most medications have been stopped. labs cbc and cmp reviewed with hospitalist, Dr Hunter seem due to dehydration. Dr. Hunter suggest at this point goals of care should be revisit and most likely even if IV fluids given oral intake will not improve and again abnormalities will come back. Dr. hunter and this contract technical writer called son and left VM with call back number mainly to discuss end of life and [employer], now that pt has significantly and on her own despite offering decrease oral intake. Diagnostics Vital Signs (24Hr): Vital Signs - 24 hr 09/03/23 20:16 09/04/23 10:00 Temperature 96.5 F L 97 F Pulse Rate 102 H 89 Respiratory Rate 15 16 Blood Pressure 116/62 111/66 BMI result Body Mass Index 34.4 Labs 09/04/23 08:50 09/04/23 08:50 Labs: Laboratory Results - last 48 hr 09/04/23 08:50 WBC 29.4 H RBC 3.68 L Hgb 12.0 Hct 40.3 MCV 109.5 H D MCH 32.6 MCHC 29.8 L RDW 17.6 H Plt Count 88 L D MPV 13.0 H Immature Gran % (Auto) 2.1 H Neut % (Auto) 89.2 H Lymph % (Auto) 4.5 L [place] % (Auto) 4.0 Eos % (Auto) 0.0 Baso % (Auto) 0.2 Lymph # (Auto) 1.3 [place] # (Auto) 1.2 Eos # (Auto) 0.0 Baso # (Auto) 0.1 Abs Immat Gran (auto) 0.63 H Absolute Neuts (auto) 26.2 H Absolute Nucleated RBC 0.000 Nucleated RBC % (auto) 0.0 Smear Tech's Comments VERIFIED Sodium 159 H Potassium 4.3 Chloride 124 H Carbon Dioxide 21 L Anion Gap 18 BUN 88 H Creatinine 1.25 Estim Creat Clear Calc 42.4 Estimated GFR 42 Random Glucose 151 H Calcium 9.9 Imaging Radiology Impressions: ITS Impressions Chest X-Ray 08/21/23 16:41 FINDINGS/IMPRESSION: The study is limited by portable technique and low lung volumes. There are right mid lung and left basilar focal patchy densities suggesting infiltrates and/or atelectasis. No effusion or pneumothorax is seen. The cardiac silhouette is suboptimally evaluated. There is mildly atherosclerotic and uncoiled, suggesting hypertension. Mild degenerative changes of the spine. Head CT 08/21/23 16:53 IMPRESSION: Patient motion degrades image quality therefore the diagnostic accuracy of this examination is limited. Numerous chronic small vessel ischemic changes are also visualized within the periventricular white matter. Grossly no evidence of acute territorial infarct or hemorrhage. Possible progression of temporal lobe atrophy when compared to prior imaging. Chest X-Ray 08/23/23 10:25 IMPRESSION: Patient tilted to the left limiting evaluation. There is bibasilar atelectasis or scarring slightly greater on the left. There is mild blunting of left CP angle from pleural effusion or thickening.. Brain MRI 08/23/23 15:39 IMPRESSION: 1. No acute intracranial abnormalities. No demonstrated abnormal intracranial enhancement. 2. Chronic regions of encephalomalacia in the right frontal lobe, left temporal lobe, and left occipital lobe. 3. Moderate to extensive underlying microangiopathy and generalized cerebral volume loss. 4. Extensive scattered foci of susceptibility artifact throughout the bilateral cerebral hemispheres as may be seen with underlying amyloid angiopathy. Chest X-Ray 08/27/23 21:23 IMPRESSION: Redemonstrated mild scattered coarse reticular opacities, likely related to chronic lung disease. No new, focal consolidation. Medications Medications Current Medications Acetaminophen (Acetaminophen 325 Mg Tablet) 650 mg PO TID [facility] Last Admin: 09/04/23 12:09 Dose: Not Given Al Hydroxide/Mg Hydroxide (Magnesium Hydrox/Alum Hydrox 30 Ml Oral.Susp) 30 ml PO Q6H PRN PRN Reason: Heartburn/Nausea Aspirin (Aspirin 81 Mg Tab.Chew) 81 mg PO DAILY [facility] Last Admin: 09/04/23 12:08 Dose: Not Given Escitalopram Oxalate (Escitalopram Oxalate 20 Mg Tablet) 20 mg PO DAILY [facility] Last Admin: 09/04/23 12:08 Dose: Not Given Guaifenesin (Guaifenesin La 600 Mg Tab.Er.12h) 600 mg PO BID PRN PRN Reason: Congestion Last Admin: 08/28/23 10:15 Dose: 600 mg Heparin Sodium (Porcine) (Heparin Sodium,Porcine 5,000 Unit/Ml Vial) 5,000 unit SUBCUT Q12H [facility] Last Admin: 09/04/23 05:44 Dose: 5,000 unit Lorazepam (Lorazepam 1 Mg Tablet) 1 mg PO Q4H PRN PRN Reason: anxiety/restlessness Last Admin: 09/02/23 08:31 Dose: 1 mg Magnesium Hydroxide (Milk Of Magnesia 30 Ml Oral.Susp) 30 ml PO DAILY PRN PRN Reason: Constipation Melatonin (Melatonin 3 Mg Tablet) 6 mg PO BEDTIME PRN PRN Reason: Sleep Last Admin: 08/31/23 21:40 Dose: 6 mg Neomycin/Polymyxin/Bacitracin (Neomy/Polymyx/Bacit/Ointment 14 Gm Tube) 1 gm TOPICAL BID [facility]; Protocol Last Admin: 09/04/23 11:06 Dose: 1 gm Olanzapine (Olanzapine Odt 10 Mg Tab.Rapdis) 10 mg TRANSLINGU Q8H PRN PRN Reason: agitation Last Admin: 09/02/23 20:17 Dose: 10 mg Quetiapine Fumarate (Quetiapine Fumarate 100 Mg Tablet) 100 mg PO BEDTIME [facility] Last Admin: 08/23/23 22:44 Dose: Not Given Quetiapine Fumarate (Quetiapine Fumarate 50 Mg Tablet) 50 mg PO Q6H PRN PRN Reason: agitation Last Admin: 08/31/23 22:55 Dose: 50 mg Senna/Docusate Sodium (Sennosides/Docusate Sodium Tablet) 1 tab PO BID [facility] Last Admin: 09/04/23 12:08 Dose: Not Given Trazodone HCl (Trazodone Hcl 50 Mg Tablet) 50 mg PO BEDTIME MRX1 PRN PRN Reason: Insomnia Last Admin: 09/03/23 20:19 Dose: 50 mg Allergies Allergies Allergy/AdvReac Type Severity Reaction Status Date / Time No Known Allergies Allergy Verified 06/08/23 20:39 Assessment & Plan Assessment & Plan (1) Major 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 start ceftin 250mg po BID for UTI. 07/28 continue tx. 07/30 continue current treatment plan 07/31 continue tx plan 08/01- will switch depakote to night time to avoid day time sedation. 08/02 continue tx. scheduled tylenol for arthritis 08/03 continue tx. 08/04 continue tx. 08/05 continue tx. 08/06: COVID +. fatigued, spending much time in bed. VSS. continue current mgmt. 08/08: as per yesterday. continue current mgmt. 08/09 continue tx. 08/10 continue tx. 08/11 continue tx. 08/12 continue tx. stable from covid symptoms, afebrile, o2sat on RA>97% 08/13 ongoing illness with covid affecting pt behavior and mental health- as well as somatic symptoms 08/14 seems improved physically and mentally today- still mute- more cooperative with care 08/15/23 again in bed, withdrawn , mute and sleeping- resistant to adls which have to be performed for her 08/16 continue tx. 08/17 continue tx. 08/18 continue tx. 08/19 continue tx. 08/20 continue tx. 08/21/23- Labs TSH, urine culture, CMP, CBCD, Valproate Level Hospitalist consult Neosporin to small toe as her nail has fallen off 08/22 ordered MRI. will d/c depakote for now as pt barely moving or talking. 08/23 continue tx. monitor O2sat q6h. continue NC 2-4L. maintain O2sat >92% 08/24 continue tx. MRI completed awaiting neurology input. 08/25 continue tx. 08/26 continue same treatment. 08/27 continue same treatment, we will do blood work for tomorrow morning. 08/29 continue tx. 08/30 continue tx. 08/31 continue tx. 09/01 continue tx. ativan 1mg po q4h prn added. 09/02 continue tx. added olanzapine 10mg po q8h prn agitation in addition to ativan 1mg po q4h prn 09/03 continue tx. 09/04 oral intake significantly decrease which is noted on labs- elevated WBC, hypernatremia, BUN 88, Cr going up. attempted to call richardson Jansen with Dr. hunter to discuss end of life and [employer]. Reason for continued inpatient stay Substantial Risk for: inability to function Time Spent With Patient Time: Total time managing care of this patient today ____ minutes.
[2023-09-04] MEDS: LORazepam 1 MG TABLET PO (13:38)
[2023-09-04] MEDS: Morphine Sulfate Oral Sol 10 MG/5 ML SOLUTION 2 MG SUBLINGUAL ×3 (16:52→21:00)
--- NOTE | 2023-09-04 17:33 | PM.EVENT ---
Event Note Date of Service: 09/17/23 Event Note: Chart reviewed and discussed with Kayla Lin in person. The patient has been hospitalized since May, experiencing a protracted course and a general decline. She had COVID but seemed to have recovered with no respiratory issues. Unfortunately, she continues to decline, exhibiting failure to thrive, poor oral intake that has resulted in HARJIT, hypernatremia, and marked leukocytosis, with no obvious source of infection. Kayla has discussed options with the son Inderjit, who, given everything the patient has gone through and her ongoing decline, wishes for no further workup or treatment. Instead, he prefers the patient to be treated with comfort care. I personally discussed the clinical course and available treatment opitions with the son Osvaldo over the phone, reaffirming his wish for comfort and no further testing or workup, directing care toward comfort. He understands that there will be no more testing, including lab draws, imaging, or any other form of testing. Only medications that will aid in comfort will be given. I, therefore, recommend morphine for comfort, Ativan for anxiety and haldol restlesness, and a scopolamine patch for secretion. The patient was assess by the hospitalist team face --see elsewhere for documentation Time Spent With Patient Time: Total time managing care of this patient today ____ minutes.
--- NOTE | 2023-09-04 17:48 | P.ACPN_ITS ---
Advanced Care Planning Note Advanced Care Planning Note Time spent (in minutes): 25 Narrative: Chart reviewed and discussed with Kayla Lin in person. The patient has been hospitalized since May, experiencing a protracted course and a general decline. She had COVID but seemed to have recovered with no respiratory issues. Unfortunately, she continues to decline, exhibiting failure to thrive, poor oral intake that has resulted in HARJIT, hypernatremia, and marked leukocytosis, with no obvious source of infection. Kayla has discussed options with the son Inderjit, who, given everything the patient has gone through and her ongoing decline, wishes for no further workup or treatment. Instead, he prefers the patient to be treated with comfort care. I personally discussed the clinical course and available treatment opitions with the son Osvaldo over the phone, reaffirming his wish for comfort and no further testing or workup, directing care toward comfort. He understands that there will be no more testing, including lab draws, imaging, or any other form of testing. Only medications that will aid in comfort will be given. I, therefore, recommend morphine for comfort, Ativan for anxiety and haldol restlesness, and a scopolamine patch for secretion. The patient was assess by the hospitalist team face --see elsewhere for documentation time spent including chart review, [facility] and discussing over the phone with son Problems Discussed (1) Major neurocognitive disorder due to another medical condition with behavioral disturbance:
--- NOTE | 2023-09-04 17:59 | P.EN_ITS ---
Event Note Date of Service: 09/04/23 Event Note: Pt seen and examined. Pt remains encephalopathic, unable to tell me her name and is speaking nonsensically. She is alert and awake lying in bed. Her lips and mucosa are very dry. Lungs clear, pt is tachycardic, no dysrrhythmia heard. Abd is soft, ,nondistended, and nontender. No evidence of acute distress. She has had gradual decline since admission, briefly complicated by COVID-19 infection/viral pneumonia as well as UTI which was treated with antibiotics wit hout improvement in overall clinical picture. Her WBC has tripled with increase in H/H likely hemoconcentration from poor/no PO intake. Renal function has also declined. Discussed findings with Dr. Huntre who has discussed case with psychitriast and pt's son wtih agreement to transition to comfort care measures only. Time Spent With Patient Time: Total time managing care of this patient today ____ minutes.
[2023-09-05] MEDS: Morphine Sulfate Oral Sol 10 MG/5 ML SOLUTION 2 MG SUBLINGUAL ×5 (00:07→10:30)
[2023-09-05] MEDS: LORazepam 1 MG TABLET PO ×3 (00:44→13:10)
[2023-09-05] MEDS: OLANZapine ODT 10 MG TAB.RAPDIS TRANSLINGU (00:44)
[2023-09-05] MEDS: Morphine Sulfate Oral Sol 10 MG/5 ML SOLUTION 3 MG SUBLINGUAL (12:22)
[2023-09-05] MEDS: Scopolamine 1.5 MG PATCH.TD.3 EAR-BEHIND (12:23)
[2023-09-05] MEDS: Morphine Sulfate 4 MG/ML CARTRIDGE SUBCUT (12:43)
--- NOTE | 2023-09-05 13:10 | P.PNPSI_ITS ---
Subjective Subjective Reason For Visit: dementia Diagnostics Vital Signs (24Hr): BMI result Body Mass Index 34.4 Labs 09/04/23 08:50 09/04/23 08:50 Labs: Laboratory Results - last 48 hr 09/04/23 08:50 WBC 29.4 H RBC 3.68 L Hgb 12.0 Hct 40.3 MCV 109.5 H D MCH 32.6 MCHC 29.8 L RDW 17.6 H Plt Count 88 L D MPV 13.0 H Immature Gran % (Auto) 2.1 H Neut % (Auto) 89.2 H Lymph % (Auto) 4.5 L [place] % (Auto) 4.0 Eos % (Auto) 0.0 Baso % (Auto) 0.2 Lymph # (Auto) 1.3 [place] # (Auto) 1.2 Eos # (Auto) 0.0 Baso # (Auto) 0.1 Abs Immat Gran (auto) 0.63 H Absolute Neuts (auto) 26.2 H Absolute Nucleated RBC 0.000 Nucleated RBC % (auto) 0.0 Smear Tech's Comments VERIFIED Sodium 159 H Potassium 4.3 Chloride 124 H Carbon Dioxide 21 L Anion Gap 18 BUN 88 H Creatinine 1.25 Estim Creat Clear Calc 42.4 Estimated GFR 42 Random Glucose 151 H Calcium 9.9 Imaging Radiology Impressions: ITS Impressions Chest X-Ray 08/21/23 16:41 FINDINGS/IMPRESSION: The study is limited by portable technique and low lung volumes. There are right mid lung and left basilar focal patchy densities suggesting infiltrates and/or atelectasis. No effusion or pneumothorax is seen. The cardiac silhouette is suboptimally evaluated. There is mildly atherosclerotic and uncoiled, suggesting hypertension. Mild degenerative changes of the spine. Head CT 08/21/23 16:53 IMPRESSION: Patient motion degrades image quality therefore the diagnostic accuracy of this examination is limited. Numerous chronic small vessel ischemic changes are also visualized within the periventricular white matter. Grossly no evidence of acute territorial infarct or hemorrhage. Possible progression of temporal lobe atrophy when compared to prior imaging. Chest X-Ray 08/23/23 10:25 IMPRESSION: Patient tilted to the left limiting evaluation. There is bibasilar atelectasis or scarring slightly greater on the left. There is mild blunting of left CP angle from pleural effusion or thickening.. Brain MRI 08/23/23 15:39 IMPRESSION: 1. No acute intracranial abnormalities. No demonstrated abnormal intracranial enhancement. 2. Chronic regions of encephalomalacia in the right frontal lobe, left temporal lobe, and left occipital lobe. 3. Moderate to extensive underlying microangiopathy and generalized cerebral volume loss. 4. Extensive scattered foci of susceptibility artifact throughout the bilateral cerebral hemispheres as may be seen with underlying amyloid angiopathy. Chest X-Ray 08/27/23 21:23 IMPRESSION: Redemonstrated mild scattered coarse reticular opacities, likely related to chronic lung disease. No new, focal consolidation. Medications Medications Current Medications Al Hydroxide/Mg Hydroxide (Magnesium Hydrox/Alum Hydrox 30 Ml Oral.Susp) 30 ml PO Q6H PRN PRN Reason: Heartburn/Nausea Lorazepam (Lorazepam 1 Mg Tablet) 1 mg PO Q4H PRN PRN Reason: anxiety/restlessness Last Admin: 09/05/23 13:10 Dose: 1 mg Magnesium Hydroxide (Milk Of Magnesia 30 Ml Oral.Susp) 30 ml PO DAILY PRN PRN Reason: Constipation Morphine Sulfate (Morphine Sulfate 4 Mg/Ml Cartridge) 4 mg SUBCUT Q2H PRN; Protocol PRN Reason: Respiratory Rate < 12 Last Admin: 09/05/23 12:43 Dose: 4 mg Olanzapine (Olanzapine Odt 10 Mg Tab.Rapdis) 10 mg TRANSLINGU Q8H PRN PRN Reason: agitation Last Admin: 09/05/23 00:44 Dose: 10 mg Quetiapine Fumarate (Quetiapine Fumarate 50 Mg Tablet) 50 mg PO Q6H PRN PRN Reason: agitation Last Admin: 08/31/23 22:55 Dose: 50 mg Scopolamine (Scopolamine 1.5 Mg Patch.Td.3) 1.5 mg EAR-BEHIND Q72H PRN PRN Reason: excessive secretions Last Admin: 09/05/23 12:23 Dose: 1.5 mg Trazodone HCl (Trazodone Hcl 50 Mg Tablet) 50 mg PO BEDTIME MRX1 PRN PRN Reason: Insomnia Last Admin: 09/03/23 20:19 Dose: 50 mg Allergies Allergies Allergy/AdvReac Type Severity Reaction Status Date / Time No Known Allergies Allergy Verified 06/08/23 20:39 Assessment & Plan Assessment & Plan (1) Major 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 start ceftin 250mg po BID for UTI. 07/28 continue tx. 07/30 continue current treatment plan 07/31 continue tx plan 08/01- will switch depakote to night time to avoid day time sedation. 08/02 continue tx. scheduled tylenol for arthritis 08/03 continue tx. 08/04 continue tx. 08/05 continue tx. 08/06: COVID +. fatigued, spending much time in bed. VSS. continue current mgmt. 08/08: as per yesterday. continue current mgmt. 08/09 continue tx. 08/10 continue tx. 08/11 continue tx. 08/12 continue tx. stable from covid symptoms, afebrile, o2sat on RA>97% 08/13 ongoing illness with covid affecting pt behavior and mental health- as well as somatic symptoms 08/14 seems improved physically and mentally today- still mute- more cooperative with care 08/15/23 again in bed, withdrawn , mute and sleeping- resistant to adls which have to be performed for her 08/16 continue tx. 08/17 continue tx. 08/18 continue tx. 08/19 continue tx. 08/20 continue tx. 08/21/23- Labs TSH, urine culture, CMP, CBCD, Valproate Level Hospitalist consult Neosporin to small toe as her nail has fallen off 08/22 ordered MRI. will d/c depakote for now as pt barely moving or talking. 08/23 continue tx. monitor O2sat q6h. continue NC 2-4L. maintain O2sat >92% 08/24 continue tx. MRI completed awaiting neurology input. 08/25 continue tx. 08/26 continue same treatment. 08/27 continue same treatment, we will do blood work for tomorrow morning. 08/29 continue tx. 08/30 continue tx. 08/31 continue tx. 09/01 continue tx. ativan 1mg po q4h prn added. 09/02 continue tx. added olanzapine 10mg po q8h prn agitation in addition to ativan 1mg po q4h prn 09/03 continue tx. 09/04 oral intake significantly decrease which is noted on labs- elevated WBC, hypernatremia, BUN 88, Cr going up. attempted to call richardson Jansen with Dr. brock to discuss end of life and [employer]. Time Spent With Patient Time: Total time managing care of this patient today ____ minutes.
--- NOTE | 2023-09-05 13:42 | PM.EVENT ---
Event Note Date of Service: 09/05/23 Event Note: # 22 IV placed in Left hand Time Spent With Patient Time: Total time managing care of this patient today ____ minutes.
[2023-09-05] MEDS: Morphine Sulfate 4 MG/ML CARTRIDGE 2 MG IVPUSH (14:12)
[2023-09-05] MEDS: Morphine Sulfate 2 MG/ML CARTRIDGE IVPUSH ×2 (14:27→15:12)
--- NOTE | 2023-09-05 14:56 | P.DS_ITS ---
DS: Providers Provider Date of Service: 09/05/23 Date of admission: 06/08/23 20:06 Primary care physician: Unknown Physician Consults: 06/08/23 20:39 Consult to Hospitalist Routine Comment: Consulting Provider: Hospitalist Reason For Exam: hospital transfer 08/19/23 12:36 Consult to Podiatry Routine Consulting Provider: Roseanne Judge Reason for consultation: toe nail care 08/21/23 12:12 Consult to Hospitalist Routine Comment: unable to walk, decrease in speech, needs hoya Consulting Provider: Hospitalist Reason For Exam: BLE Edema, decline since COVID, needs to be fed, 08/21/23 20:35 Consult to Neurology Routine Consulting Provider: [facility] Reason for consultation: Pt with rapid congnitive decline, no obvious infectious source 08/23/23 08:03 Consult to Hospitalist Stat Comment: Consulting Provider: Hospitalist Reason For Exam: Pt O2 sat in mid 80's please eval DS: Diagnosis Discharge Diagnosis (1) Major neurocognitive disorder due to another medical condition with behavioral disturbance: Status: Acute DS: Medications Discharge Medications Home Medications: Previous Rx's Medication Instructions Recorded scopolamine base 1 mg over 3 days 1.5 mg EAR-BEHIND Q72H PRN 09/05/23 transdermal patch (Transderm-Scop) excessive secretions #0 ea Mental Status Exam Mental Status Exam Narrative: in bed, dyspneic. mute. Data Data Completed and Pending Completed studies during hospitalization [Text1]: 08/29/23 08/30/23 09/04/23 16:56 06:00 08:50 WBC 20.9 H 29.4 H RBC 3.60 L 3.68 L Hgb 11.6 L 12.0 Hct 36.5 L 40.3 MCV 101.4 H 109.5 H D MCH 32.2 32.6 MCHC 31.8 29.8 L RDW 16.6 H 17.6 H Plt Count 122 L 88 L D MPV 11.0 13.0 H Immature Gran % (Auto) 4.7 H 2.1 H Neut % (Auto) 83.6 H 89.2 H Lymph % (Auto) 6.2 L 4.5 L [place] % (Auto) 5.3 4.0 Eos % (Auto) 0.0 0.0 Baso % (Auto) 0.2 0.2 Lymph # (Auto) 1.3 1.3 [place] # (Auto) 1.1 1.2 Eos # (Auto) 0.0 0.0 Baso # (Auto) 0.1 0.1 Abs Immat Gran (auto) 0.99 H 0.63 H Absolute Neuts (auto) 17.5 H 26.2 H Absolute Nucleated RBC 0.000 0.000 Nucleated RBC % (auto) 0.0 0.0 Smear Tech's Comments VERIFIED Sodium 144 159 H Potassium 4.4 4.3 Chloride 114 H 124 H Carbon Dioxide 23 21 L Anion Gap 11 L 18 BUN 35 H 88 H Creatinine 0.61 1.25 Estim Creat Clear Calc 88.4 42.4 Estimated GFR > 60 42 Random Glucose 153 H 151 H Calcium 9.4 9.9 Urine Color Dark Yellow Urine Appearance Turbid Urine pH 6.0 Ur Specific [place] >= 1.030 H Urine Protein Trace Urine Glucose (UA) Negative Urine Ketones Trace Urine Blood Negative Urine Nitrite Negative Ur Leukocyte Esterase Moderate (2+) H Urine RBC >20 H Urine WBC >50 H Ur Squamous Epith Cells 0-2 Urine Bacteria 4+ Hyaline Casts 6-10 08/30/23 Unknown Urine clean catch - Clean Catch Midstream Urine Culture - Final 08/21/23 Unknown Urine clean catch Urine Culture - Final No growth. 07/26/23 Unknown Urine clean catch - Urine lowe top Urine Culture - Final Imaging Diagnostic Imaging Impressions Chest X-Ray 08/21/23 16:41 FINDINGS/IMPRESSION: The study is limited by portable technique and low lung volumes. There are right mid lung and left basilar focal patchy densities suggesting infiltrates and/or atelectasis. No effusion or pneumothorax is seen. The cardiac silhouette is suboptimally evaluated. There is mildly atherosclerotic and uncoiled, suggesting hypertension. Mild degenerative changes of the spine. Head CT 08/21/23 16:53 IMPRESSION: Patient motion degrades image quality therefore the diagnostic accuracy of this examination is limited. Numerous chronic small vessel ischemic changes are also visualized within the periventricular white matter. Grossly no evidence of acute territorial infarct or hemorrhage. Possible progression of temporal lobe atrophy when compared to prior imaging. Chest X-Ray 08/23/23 10:25 IMPRESSION: Patient tilted to the left limiting evaluation. There is bibasilar atelectasis or scarring slightly greater on the left. There is mild blunting of left CP angle from pleural effusion or thickening.. Brain MRI 08/23/23 15:39 IMPRESSION: 1. No acute intracranial abnormalities. No demonstrated abnormal intracranial enhancement. 2. Chronic regions of encephalomalacia in the right frontal lobe, left temporal lobe, and left occipital lobe. 3. Moderate to extensive underlying microangiopathy and generalized cerebral volume loss. 4. Extensive scattered foci of susceptibility artifact throughout the bilateral cerebral hemispheres as may be seen with underlying amyloid angiopathy. Chest X-Ray 08/27/23 21:23 IMPRESSION: Redemonstrated mild scattered coarse reticular opacities, likely related to chronic lung disease. No new, focal consolidation. DS: Summary Hospital Course Hospital Course: HPI: Subjective Notes: Smith Warning (given and shows understanding) and Conditional Voluntary Narrative: Mrs. Quintanilla us a 68 year-old woman with hx of afib (hx of intraparenchymal hemorrhage only on aspirin can't take eliquis) who was brought to [facility] ED after she was stopped by police for running a red light and found to be confused, non sensical. In the ED, pt was positive for covid. She was medically admitted and started on 3 day course of Remdesivir. No significant symptoms of covid nor complications. [facility] completed MOCA- pt scored 8/30. Pt was started on olanzapine 5mg po qhs at [facility]. On the unit, pt presents as hyperverbal. She is frustrated that the police brought her to that place. She reports she believes this is financially motivated as there is nothing wrong with me. She is not oriented to place and at times reports thinks this is a hotel. She reports she works in [employer] and is making close to millions. She states she has to go back home due to work. She can't remember the address of her house. She does not know the month or the year. She denies SI/HI. She reports she plans to gary everyone involved, I am already working with 10 attorneys. Past Psychiatric History: Inpatient: none OP: none Hx of suicide attempt: none Past med trials:pt started on olanzapine at [facility] Medical Evaluation Reviewed: Yes HOSPITAL COURSE Ms. Quintanilla was admitted on a Sect 12b. She presented with severe cognitive impairment in executive function, recall, orientation, language repetition, naming. She presented with mixed aphasia. Her ACL showed severe impairment as well. She presented as agitated at times asking to leave although she was not oriented to place, situation, month or year. We initially filed for involuntary commitment due to severe cognitive impairments and inability to care for herself, which was granted. In addition, her HCP was affirmed. During the time she was here on the unit, there was a rapid decline in cognition in that her receptive and expressive language continued to deteriorate. Her ability to recognize objects also worsened significant. She needed to be fed and her speech was mostly unintelligible. She then had covid. No significant respiratory symptoms or respiratory failure seen with covid. However, pt quickly declined not moving or talking much to mn nimal oral intake which led to HARJIT, hypernatremia and leukocitosis as discussed with Dr. Hunter not due to ongoing source of infection but dying process. Conversation of goal of care has been discussed with Ellen's HCP and it was been decided to change to STOCKROOM CLERK as of 09/04/2023. Pt was started on comfort medications, including morphine for dyspnea, ativan, olanzapine for restlessness. Pt transferred to medicine as she would benefit from drip morphine as sublingual and subcutaneous not as effective for comfort measures. Status at Discharge Overall status at discharge: other (rapid decline) Time Spent with Patient Time attestation: Total time managing care of this patient today ____ minutes. Time spent: Greater than 30 minutes Discharge Plan Discharge Anticipated Discharge Date/Time: 09/05/23 14:50 Patient Disposition: Xfer Acute Care Hospital Discharge Diagnosis: Major Neurocognitive Disorder Referrals: Physician,Unknown J [Primary Care Provider] - 1 Week Discharge Medications: New scopolamine base [Transderm-Scop] 1 mg over 3 days Patch 3 Day 1.5 mg EAR-BEHIND Q72H PRN (Reason: excessive secretions) Qty: 0 0RF Discontinued lisinopril 5 mg tablet 5 mg PO DAILY pyridoxine (vitamin B6) 50 mg Tablet 50 mg PO DAILY olanzapine 5 mg Tablet,Disintegrating 5 mg PO Q4H PRN (Reason: Sole ) Patient Comments: Medication not yet given olanzapine 5 mg Tablet,Disintegrating 5 mg PO BEDTIME Patient Comments: Pt has not yet taken melatonin 5 mg Tablet 5 mg PO BEDTIME PRN (Reason: Sleep) aspirin 81 mg Capsule 81 mg PO DAILY Discharge Orders: Discharge Order (Routine); Ordered 09/05/23 Ordered By: Evita Boone Diet: speech and hearing director Activity on Discharge: bed bound Stand Alone Forms: Patient Portal Discharge page Care Plan Goals: STOCKROOM CLERK Health Concerns: STOCKROOM CLERK Plan of Treatment: STOCKROOM CLERK Assessment: STOCKROOM CLERK
--- NOTE | 2023-09-05 17:37 | PC.NURSE ---
Patient DONOR RELATIONS ASSOCIATE. All meds administered per provider orders. Respirations were high 40's to 50's. 22 G angio placed by provider. Morphine IV push administered per order x2. Patient respirations decreased. Patient was comfortable. Staff at bedside. Son notified. Craniologist sat with patient. Patient at 1533. Organ donation program notified per protocol. certificate completed by GUY Monteiro. Post mortem care done by staff. Patient to e transported to [facility] by hospital transporter. Belongings given to son by BELKIS Boone.
== END 2023-09-05 15:33 | disposition short-term general hospital (02) | DRG 56 ==
PROVIDERS: Clinical Nurse Specialist Psychiatric/Mental Health, Adult; Nurse Practitioner Acute Care; Psychiatry & Neurology Psychiatry; Admitting Provider Social Worker; Visit Provider Social Worker
DX: I69.318 Other symptoms and signs involving cognitive functions following cerebral infarction (principal); J12.9 Viral pneumonia, unspecified; U07.1 COVID-19; E87.0 Hyperosmolality and hypernatremia; N17.9 Acute kidney failure, unspecified; F01.C11 Vascular dementia, severe, with agitation; G93.49 Other encephalopathy; N39.0 Urinary tract infection, site not specified; Z51.5 Encounter for palliative care; Z66 Do not resuscitate; I10 Essential (primary) hypertension; Z87.891 Personal history of nicotine dependence
CPT/HCPCS: 0241U; 36415; 70450; 70553; 71045; 80048; 80053; 80061; 80076; 80164; 81001; 81003; 82140; 82607; 82746; 82803; 83036; 83735; 84439; 84443; 85025; 87086; 87635; 94640; A9585; J1644; J2060; J2270; J8540

== ENCOUNTER → 2023-06-08 20:06 | Outpatient (BNV) | payer SELFPAY | PROVIDERS: Visit Provider Social Worker | DX: F03.918 Unspecified dementia, unspecified severity, with other behavioral disturbance (principal) | CPT/HCPCS: 90792; 99231; 99232; 99233 ==

== ENCOUNTER → 2023-06-08 20:06 | Outpatient (BNV) | payer SELFPAY | PROVIDERS: Visit Provider Psychiatry & Neurology Psychiatry | DX: F03.918 Unspecified dementia, unspecified severity, with other behavioral disturbance (principal) | CPT/HCPCS: 99231 ==

== ENCOUNTER → 2023-06-08 20:06 | Outpatient (BNV) | payer SELFPAY | PROVIDERS: Visit Provider Psychiatry & Neurology Neurology | DX: G93.40 Encephalopathy, unspecified (principal) | CPT/HCPCS: 99222 ==

== ENCOUNTER → 2023-06-08 20:06 | Outpatient (BNV) | payer SELFPAY | PROVIDERS: Visit Provider Student in an Organized Health Care Education/Training Program | DX: F02.818 Dementia in other diseases classified elsewhere, unspecified severity, with other behavioral disturbance (principal) | CPT/HCPCS: 99429; 99497; 99499 ==

== ENCOUNTER 2023-09-05 15:18 | Inpatient (IN) | payer MEDICARE, SELFPAY ==
--- NOTE | 2023-09-05 15:21 | PM.IMHP ---
History of Present Illness Date of Service: 09/05/23 Attending physician on admission: Atul Dominguez Chief Complaint: comfort measures 68-year-old female with major neurocognitive disorder with rapid cognitive/functional decline over the last 4 months. Given rapid decline without evidence reversible medical cause to explain her decline/failure to thrive, discussion was had with patient's son, Inderjit, who is healthcare proxy as patient is encephalopathic and unable to make medical decisions for herself. Decision was made to transition patient to comfort measures only and patient was started on sublingual morphine and lorazepam while on Geriatric Psychiatry. Unfortunately, patient continued to exhibit signs of distress with rapid respiration rate. She was transitioned to subcutaneous followed by IV pushes of morphine without improvement in distress. She will be admitted to medical floors for morphine drip and further comfort care. Review of Systems Review of Systems: Yes Unobtainable due to mental status [facility] Medical History Hypertension Atrial fibrillation Social History Household Members: None Housing: House Do you presently have visiting nurse or other home services: No Patient Tobacco Use Status: Former Tobacco user Tobacco use type: Cigarette Cigarettes Per Day: 20 Years Smoked: 30 e-Cigarette/Vaping Use: Never Used Advance Directives: No service: No Sexual orientation: Straight/Heterosexual Meds Allergies Allergy/AdvReac Type Severity Reaction Status Date / Time No Known Allergies Allergy Verified 06/08/23 20:39 Physical Exam Vital Signs and Narrative: Constitutional - Awake, respiratory distress, increased WOB Mouth - dry tongue/mucosa Assessment and Plan (1) Comfort measures only status: Status: Acute (2) Failure to thrive in adult: Status: Acute Plan 68-year-old female with major neurocognitive disorder with rapid cognitive/functional decline over the last 4 months. She has been transitioned to comfort measures only and will be transferred for comfort measures only. 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
--- NOTE | 2023-09-05 15:45 | P.DN_ITS ---
Discharge Sum: Prov Provider Primary care physician: caron Admitting clinician: Janice Monteiro Attending physician on admission: Janice Monteiro Pronouncing clinician: Janice Monteiro Discharge Sum: Diag PCOD Cause of : Cardiopulmonary arrest Contributing Factors (1) Failure to thrive in adult: (2) Major neurocognitive disorder due to another medical condition with behavioral disturbance: Discharge Sum: Summary Date and Time Date of admission: Psychiatry admission: 06/09/23 Admission to hospitalist service for MULTIMEDIA TECHNICIAN: 09/05/22 Date of : 09/05/23 Time of : 15:33 Summary Details: 68-year-old female with major neurocognitive disorder with rapid cognitive/functional decline over the last 4 months. Given rapid decline without evidence reversible medical cause to explain her decline/failure to thrive, discussion was had with patient's son, Inderjit, who is healthcare proxy as patient is encephalopathic and unable to make medical decisions for herself. Per psychiatry, patient had gradual cognitive and function decline since admission to geriatric psychiatry 06/09/23. Throughout duration of admission, pt become largely nonverbal, primarily bedbound requiring dank lift. She required assistance with feeding transitioned to pureed diet with poor po intake overall. Hospitalist service was consulted to evaluate for medical causes of encephalopathy and overall decline. She was diagnosed with COVID-19 with chest xray consistent with viral pneumonia. She was asymptomatic without persistent hypoxia so treatment was not pursued. She was found to have UTI with urine culture contaminated with mixed bacterial jessica but did complete course of cefuroxime. There was no improvement in patient's overall cognitive/functional status. On 09/04, discussion was held with attending psychiatrist, hospitalist, and patient's son/HCP, Inderjit, given poor prognosis and patient was transitioned to comfort measures. Pt continued to show signs of respiratory distress and she was recommended for transfer to medical floors for further comfort measures with morphine drip give RR 40-50 per minute despite IV push morphine and ativan. Pt was admitted to hospitalist service, but prior to transfer to medical floor pt became unresponsive. Hospitalist called to bedside. No respirations observed. No heart sounds auscultated. No carotid pulse palpated. Pupils dilated and fixed. Psychiatrist, nursing staff at bedside. Pt was seen by catheter finisher and inspector earlier today. Time of 1533. Psychiatrist notified son of patient's passing. [facility] and organ bank notified who do not accept patient. Additional Data Confirmation of as documented by pronouncing clinician: no pulse, no respirations, no heart sounds and pupils fixed and dilated Family: contacted Additional persons at bedside: other (psychiatrist, RN, MHA) Attending/PCP notified?: Yes Attending physician: Alec Hunter MD Was code activated?: No Autopsy requested?: No light out examiner notified?: Yes Organ bank notified?: Yes
== END 2023-09-05 17:29 | disposition expired | DRG 951 ==
LOC: HO.IMC 16:55 → HO.S3 17:18
PROVIDERS: Admitting Provider Internal Medicine; Visit Provider Internal Medicine
DX: Z51.5 Encounter for palliative care (principal); G93.40 Encephalopathy, unspecified; F01.518 Vascular dementia, unspecified severity, with other behavioral disturbance; I69.318 Other symptoms and signs involving cognitive functions following cerebral infarction; R62.7 Adult failure to thrive; Z74.01 Bed confinement status; Z87.891 Personal history of nicotine dependence

== ENCOUNTER → 2023-09-05 | Outpatient (BNV) | payer SELFPAY | PROVIDERS: Admitting Provider Internal Medicine; Visit Provider Physician Assistant | DX: R62.7 Adult failure to thrive (principal); F02.818 Dementia in other diseases classified elsewhere, unspecified severity, with other behavioral disturbance | CPT/HCPCS: 99239 ==